=== PATIENT | male | born 1955 | race African-American/Black ===

== ENCOUNTER 2018-11-28 16:04 | Inpatient (IN) | payer OTHER ==
--- OUTSIDE RECORDS SUMMARY | 2018-11-28 16:06 | XMS REPORT ---
:1955 [facility] Address [address] [place] [address] Dr. Tello [address] [place] [id number] Care Team Providers Name Role Phone Unavailable Unavailable Unavailable Problems This patient has no known problems. Allergies, Adverse Reactions, Alerts This patient has no known allergies or adverse reactions. Medications This patient has no known medications.
[2018-11-28] MEDS ORDERED: FENTANYL CITR 100 MCG/2 ML ONE (16:47)
[2018-11-28] MEDS ORDERED: ONDANSETRON 4 MG/2 ML VIAL ONE (16:48)
[2018-11-28 16:50] LABS: Absolute Lymphocytes (CBC) 2.4 K/uL (0.7-4.9); Absolute Monocytes 0.9 K/uL (0.1-1.3); Absolute Neutrophil 8.3 K/uL (1.8-8.0); Basophils % 0.4 % (0-1.3); Eosinophils % 0.3 % (0-4.4); Hematocrit 52.2 % (39.6-49.0); Lymphocytes % 20.8 % (15.3-44.8); MPV 8.3 fL (7.6-11.3); Monocytes % 7.4 % (3.3-12.3); RBC Red Blood Cell Count 5.58 M/uL (4.33-5.43)
--- NOTE | 2018-11-28 16:54 | RAD REPORT ---
EXAM DESCRIPTION: CT - Head Brain Wo Cont - 11/28/2018 4:44 pm CLINICAL HISTORY: HEADACHE COMPARISON: No comparisons TECHNIQUE: All CT scans are performed using dose optimization technique as appropriate and may inclu de automated exposure control or mA/KV adjustment according to patient size. FINDINGS: No intracranial hemorrhage, hydrocephalus or extra-axial fluid collection.No areas of brai n edema or evidence of midline shift. The paranasal sinuses and mastoids are clear. The calvarium is intact. IMPRESSION: No acute intracranial abnormality.
[2018-11-28 16:55] LABS: Protime INR 1.01
--- NOTE | 2018-11-28 17:00 | RAD REPORT ---
EXAM DESCRIPTION: RAD - Chest Single View - 11/28/2018 4:55 pm CLINICAL HISTORY: CHEST PAIN Chest pain. COMPARISON: No comparisons FINDINGS: Portable technique limits examination quality. The lungs are grossly clear. The heart is normal in size. No displaced fractures. IMPRESSION: No acute intrathoracic process suspected.
[2018-11-28 17:12] LABS: ALT/SGPT 51 U/L (12-78); AST/SGOT 30 U/L (15-37); Albumin 4.4 g/dL (3.4-5.0); Alkaline Phosphatase 104 U/L (45-117); BUN Blood Urea Nitrogen 18 mg/dL (7-18); Bicarbonate 29 mmol/L (21-32); Bilirubin Direct 0.1 mg/dL (0-0.2); Bilirubin Total 0.3 mg/dL (0.2-1.0); Glucose Level 106 mg/dL (74-106); NT PRO-BNP 45 pg/mL (<125); Potassium 3.4 mmol/L (3.5-5.1); Protein, Total 8.8 g/dL (6.4-8.2); Sodium Level 137 mmol/L (136-145); Troponin (Emerg Dept Use Only) < 0.02 ng/mL (0.0-0.045)
[2018-11-28] MEDS ORDERED: DIPHENHYDRAMINE 50 MG/ML VIAL ONE (17:31)
[2018-11-28] MEDS ORDERED: METOCLOPRAMIDE 10 MG/2mL INJ ONE (17:31)
--- NOTE | 2018-11-28 18:30 | RAD REPORT ---
EXAM DESCRIPTION: MRI - MRA Head Wo Cont - 11/28/2018 6:07 pm CLINICAL HISTORY: r/o aneurysm Headache, drowsiness, left-sided visual difficulty. COMPARISON: Head Brain Wo Cont dated 11/28/2018; Brain Wo Cont dated 11/28/2018 FINDINGS: 3D noncontrast [id number] MR angiography of the [place] was performed. No aneurysm, flow-limiting stenosis or vascular malformation is seen. Left-sided dominant vertebral a rtery is seen. The right vertebral artery appears very diminutive. origin of the right posterio r communicating artery seen, normal variant. Trifurcation of the anterior cerebral artery also noted, normal variant. The visualized dural venous sinuses appear patent. IMPRESSION: No significant flow abnormality of the [place] is identified.
[2018-11-28] MEDS ORDERED: HYDROMORPHONE HCL 1 MG/ML INJ ONE (19:31)
--- NOTE | 2018-11-28 21:09 | EDPHYS ---
Physician Documentation [facility] Name: Maynor Marquez Age: 63 yrs Sex: Male : 1955 Arrival Date: 11/28/2018 Time: 16:09 Bed 2 Private MD: ED Physician Chin Cristobal HPI: 11/28 18:56 This 63 yrs old Black Male presents to ER via Wheelchair with complaints of Headache. jr8 18:57 The patient complains of pain to the forehead and left eye. The patient describes the jr8 headache as throbbing. Onset: The symptoms/episode began/occurred acutely, suddenly. Associated signs and symptoms: Pertinent positives: nausea, Photophobia double vision, visual field changes. Severity of symptoms: At its worst the pain was severe, in the emergency department the pain is unchanged. Headache History: The patient has had previous headaches and this one is different than previous episodes, and this one is more severe than previous episodes. The symptoms are alleviated by nothing. the symptoms are aggravated by lights, movement, noise, stress. The patient has not experienced similar symptoms in the past. The patient has been recently seen by a physician:. Patient had MRI ordered today by neurologist. Came to ED after having MRI for sudden onset severe headache . Historical: - Allergies: 16:12 Lisinopril; ph - PMHx: 16:12 Hypertension; Migraines; ph - Immunization history:: Adult Immunizations up to date. - Social history:: Smoking status: Patient/guardian denies using tobacco. - Ebola Screening: : No symptoms or risks identified at this time. ROS: 18:57 Eyes: Negative for injury, pain, redness, and discharge, ENT: Negative for injury, jr8 pain, and discharge, Neck: Negative for injury, pain, and swelling, Cardiovascular: Negative for chest pain, palpitations, and edema, Respiratory: Negative for shortness of breath, cough, wheezing, and pleuritic chest pain, Abdomen/GI: Negative for abdominal pain, nausea, vomiting, diarrhea, and constipation, Back: Negative for injury and pain, MS/Extremity: Negative for injury and deformity, Skin: Negative for injury, rash, and discoloration. 18:57 Neuro: Positive for headache. Exam: 18:57 Eyes: Pupils equal round and reactive to light, extra-ocular motions intact. Lids and jr8 lashes normal. Conjunctiva and sclera are non-icteric and not injected. Cornea within normal limits. Periorbital areas with no swelling, redness, or edema. ENT: Nares patent. No nasal discharge, no septal abnormalities noted. Tympanic membranes are normal and external auditory canals are clear. Oropharynx with no redness, swelling, or masses, exudates, or evidence of obstruction, uvula midline. Mucous membranes moist. Neck: Trachea midline, no thyromegaly or masses palpated, and no cervical lymphadenopathy. Supple, full range of motion without nuchal rigidity, or vertebral point tenderness. No Meningismus. Cardiovascular: Regular rate and rhythm with a normal S1 and S2. No gallops, murmurs, or rubs. Normal PMI, no JVD. No pulse deficits. Respiratory: Lungs have equal breath sounds bilaterally, clear to auscultation and percussion. No rales, rhonchi or wheezes noted. No increased work of breathing, no retractions or nasal flaring. Abdomen/GI: Soft, non-tender, with normal bowel sounds. No distension or tympany. No guarding or rebound. No evidence of tenderness throughout. Back: No spinal tenderness. No costovertebral tenderness. Full range of motion. Skin: Warm, dry with normal turgor. Normal color with no rashes, no lesions, and no evidence of cellulitis. MS/ Extremity: Pulses equal, no cyanosis. Neurovascular intact. Full, normal range of motion. Neuro: Awake and alert, GCS 15, oriented to person, place, time, and situation. Cranial nerves II-XII grossly intact. Motor strength 5/5 in all extremities. Sensory grossly intact. Cerebellar exam normal. Normal gait. Vital Signs: 16:12 BP 146 / 107; Pulse 65; Resp 18; Pulse Ox 100% on R/A; Weight 97.98 kg; Height 5 ft. 11 ph in. (180.34 cm); Pain 10/10; 16:30 BP 150 / 98; Pulse 72; Resp 20; Pulse Ox 100% ; sv 17:00 BP 148 / 117; Pulse 68; Resp 19; Pulse Ox 98% ; sv 17:30 BP 160 / 90; Pulse 59; Resp 19; Pulse Ox 99% ; sv 18:24 BP 173 / 92; Pulse 53; Resp 14; Pulse Ox 100% ; sv 18:45 BP 153 / 89; Pulse 51; Resp 16; Pulse Ox 100% ; sv 19:30 BP 163 / 105; Pulse 51; Resp 18; Temp 97.9(O); Pulse Ox 100% on R/A; oe 19:50 BP 158 / 97; Pulse 50; Resp 14; Temp 97.9; Pulse Ox 97% on R/A; ak1 20:45 BP 163 / 91; Pulse 52; Resp 14; Pulse Ox 97% on R/A; ak1 22:10 BP 123 / 73; Pulse 58; Resp 16; Temp 98.3; Pulse Ox 99% on R/A; ak1 16:12 Body Mass Index 30.13 (97.98 kg, 180.34 cm) ph MDM: 16:17 Patient medically screened. [facility] 21:06 Data reviewed: vital signs, nurses notes. ED course: pt still with hickey despite gs treatment, dr owens says admit give valproic acid will see in room. studies reviewed.. 11/28 16:18 Order name: Basic Metabolic Panel; Complete Time: 18:51 11/28 16:18 Order name: CBC with Diff; Complete Time: 17:05 11/28 16:18 Order name: LFT's; Complete Time: 18:51 11/28 16:18 Order name: Magnesium; Complete Time: 18:51 11/28 16:18 Order name: NT PRO-BNP; Complete Time: 18:51 11/28 16:18 Order name: PT-INR; Complete Time: 17:05 11/28 16:18 Order name: Troponin (emerg Dept Use Only); Complete Time: 18:51 11/28 16:18 Order name: XRAY Chest (1 view); Complete Time: 17:05 11/28 16:18 Order name: CT Head Brain wo Cont; Complete Time: 17:05 11/28 17:15 Order name: MRA Head Wo Cont; Complete Time: 18:51 EDMS 11/28 16:18 Order name: EKG; Complete Time: 16:19 11/28 16:18 Order name: Cardiac monitoring; Complete Time: 17:16 11/28 16:18 Order name: EKG - Nurse/Tech; Complete Time: 17:16 jr8 03/14 16:18 Order name: IV Saline Lock; Complete Time: 17:16 [facility] 11/28 16:18 Order name: Labs collected and sent; Complete Time: 17:16 [facility] 11/28 16:18 Order name: O2 Per Protocol; Complete Time: 17:16 [facility] 11/28 16:18 Order name: O2 Sat Monitoring; Complete Time: 17:16 [facility] 11/28 21:18 Order name: CONS Physician Consult EDNC 11/28 21:18 Order name: Heart Healthy EDMS Administered Medications: 16:35 Drug: Zofran 4 mg Route: IVP; Site: left antecubital; sv 17:00 Follow up: Response: No adverse reaction sg 16:37 Drug: fentaNYL (PF) 50 mcg Route: IVP; Site: left antecubital; sv 17:00 Follow up: Response: No adverse reaction; Pain is unchanged, physician notified sg 17:20 Drug: Reglan 10 mg Route: IVP; Site: left antecubital; sg 17:30 Follow up: Response: No adverse reaction sv 17:20 Drug: Benadryl 25 mg Route: IVP; Site: left antecubital; sg 17:30 Follow up: Response: No adverse reaction sv 19:32 Drug: Dilaudid 1 mg Route: IVP; Site: left antecubital; ak1 22:11 Follow up: Response: No adverse reaction ak1 21:56 Not Given (Duplicate Order): Valproic Acid 1000 mg IV at calculated rate once over 60 gs mins; (mix in 100 mL NS) Disposition: 11/29 09:19 Co-signature as Attending Physician, Dominic Yadav MD I agree with the assessment and imelda plan of care. Disposition: 11/28/18 21:08 Hospitalization ordered by Franklin Sotelo for Observation. Preliminary diagnosis is Migraine without aura, intractable, with status migrainosus. - Bed requested for Telemetry/MedSurg (observation). - Status is Observation. ak1 - Condition is Stable. - Problem is new. - Symptoms are unchanged. UTI on Admission? No Signatures: Dispatcher [employer] EDNC Claudia Silva RN RN sv Webb, Martha, RN RN mw Gay, Steven, RN RN sg Anderson, Corey, MD MD cha Roszak, Josh, PA PA 8 Leila Santiago RN RN ak1 She Jeong RN RN CristobalChin MD MD gs Corrections: (The following items were deleted from the chart) 11/28 21:28 21:08 Hospitalization Ordered by Franklin Sotelo MD for Observation. Preliminary mw diagnosis is Migraine without aura, intractable, with status migrainosus. Bed requested for Telemetry/MedSurg (observation). Status is Observation. Condition is Stable. Problem is new. Symptoms are unchanged. UTI on Admission? No. gs 23:55 21:28 11/28/2018 21:08 Hospitalization Ordered by Franklin Sotelo MD for Observation. ak1 Preliminary diagnosis is Migraine without aura, intractable, with status migrainosus. Bed requested for Telemetry/MedSurg (observation). Status is Observation. Condition is Stable. Problem is new. Symptoms are unchanged. UTI on Admission? No. mw
--- NOTE | 2018-11-28 21:09 | ER ---
Nurse's Notes [facility] Name: Maynor Marquez Age: 63 yrs Sex: Male : 1955 Arrival Date: 11/28/2018 Time: 16:09 Bed 2 Private MD: Diagnosis: Migraine without aura, intractable, with status migrainosus Presentation: 11/28 16:09 Presenting complaint: Patient states: Was in MRI for outpatient study r/t vision ph problems, during test pt began to c/o pain in L arm pain, severe headache in L side of head, and loss of vision in L eye, reports hx of migraines but states that this pain is much worse. Transition of care: MRI. Onset of symptoms was November 28, 2018. Risk Assessment: Do you want to hurt yourself or someone else? Patient reports no desire to harm self or others. Initial Sepsis Screen: Does the patient meet any 2 criteria? No. Patient's initial sepsis screen is negative. Does the patient have a suspected source of infection? No. Patient's initial sepsis screen is negative. Care prior to arrival: None. 16:09 Method Of Arrival: Wheelchair ph 16:09 Acuity: MARCUS 2 ph Historical: - Allergies: 16:12 Lisinopril; ph - PMHx: 16:12 Hypertension; Migraines; ph - Immunization history:: Adult Immunizations up to date. - Social history:: Smoking status: Patient/guardian denies using tobacco. - Ebola Screening: : No symptoms or risks identified at this time. Screenin:32 Abuse screen: Denies threats or abuse. Denies injuries from another. Nutritional sv screening: No deficits noted. Tuberculosis screening: No symptoms or risk factors identified. Fall Risk None identified. Assessment: 16:32 General: Appears in no apparent distress. uncomfortable, well groomed, well developed, sv Behavior is cooperative, appropriate for age, restless. Pain: Complains of pain in face and scalp Pain currently is 10 out of 10 on a pain scale. Is continuous. Neuro: Level of Consciousness is awake, alert, obeys commands, Oriented to person, place, time, situation, Moves all extremities. Full function Gait is steady, Reports migraine for weeks. Respiratory: Respiratory effort is Respiratory pattern is regular, symmetrical. Derm: Skin is pink, warm \T\ dry. Musculoskeletal: Range of motion: intact in all extremities. 16:55 Reassessment: Patient appears in no apparent distress at this time. No changes from sv previously documented assessment. Patient and/or family updated on plan of care and expected duration. Pain level reassessed. Patient is alert, oriented x 3, equal unlabored respirations, skin warm/dry/pink. 17:20 Reassessment: Patient appears in no apparent distress at this time. No changes from sv previously documented assessment. Patient and/or family updated on plan of care and expected duration. Pain level reassessed. Patient is alert, oriented x 3, equal unlabored respirations, skin warm/dry/pink. 20:44 Reassessment: Patient appears in no apparent distress at this time. No changes from ak1 previously documented assessment. Patient and/or family updated on plan of care and expected duration. Pain level reassessed. Patient is alert, oriented x 3, equal unlabored respirations, skin warm/dry/pink. pt given choice to go home and try medication prescribed by Dr. Yanez or stay overnight per consult by Dr. Cristobal with Dr. Yanez, pt chooses to stay. Dr. Cristobal notified. Patient states symptoms have improved. 22:10 Reassessment: Patient and/or family updated on plan of care and expected duration. Pain ak1 level reassessed. Patient is alert, oriented x 3, equal unlabored respirations, skin warm/dry/pink. pt continues to c/o headache. Vital Signs: 16:12 BP 146 / 107; Pulse 65; Resp 18; Pulse Ox 100% on R/A; Weight 97.98 kg; Height 5 ft. 11 ph in. (180.34 cm); Pain 10/10; 16:30 BP 150 / 98; Pulse 72; Resp 20; Pulse Ox 100% ; sv 17:00 BP 148 / 117; Pulse 68; Resp 19; Pulse Ox 98% ; sv 17:30 BP 160 / 90; Pulse 59; Resp 19; Pulse Ox 99% ; sv 18:24 BP 173 / 92; Pulse 53; Resp 14; Pulse Ox 100% ; sv 18:45 BP 153 / 89; Pulse 51; Resp 16; Pulse Ox 100% ; sv 19:30 BP 163 / 105; Pulse 51; Resp 18; Temp 97.9(O); Pulse Ox 100% on R/A; oe 19:50 BP 158 / 97; Pulse 50; Resp 14; Temp 97.9; Pulse Ox 97% on R/A; ak1 20:45 BP 163 / 91; Pulse 52; Resp 14; Pulse Ox 97% on R/A; ak1 22:10 BP 123 / 73; Pulse 58; Resp 16; Temp 98.3; Pulse Ox 99% on R/A; ak1 16:12 Body Mass Index 30.13 (97.98 kg, 180.34 cm) ED Course: 16:09 Patient arrived in ED. tw3 16:11 Triage completed. ph 16:13 Arm band placed on Patient placed in an exam room. ph 16:17 Jaavn Chisholm [facility]. jr8 16:17 Dominic Yadav MD is Attending Physician. jr8 16:24 Missed attempt(s): 20 gauge in right forearm. Bleeding controlled, band aid applied, dh3 catheter tip intact. 16:25 Claudia Silva RN is Primary Nurse. sv 16:32 Patient has correct armband on for positive identification. Bed in low position. Call sv light in reach. Adult w/ patient. nurse monitoring on. Pulse ox on. NIBP on. Door closed. Head of bed elevated. 16:32 EKG done, by injection maintenance technician. reviewed by Javan PITTS. 3 16:33 Initial lab(s) drawn, by ky, sent to lab. Inserted saline lock: 18 gauge in left sv antecubital area, using aseptic technique. Blood collected. Flushed left antecubital with 5 ml normal saline. 16:[address] via wheelchair. vm2 16:42 CT completed. Patient moved back from CT. vm2 16:44 CT Head Brain wo Cont In Process Unspecified. EDMS 16:49 X-ray completed. Portable x-ray completed in exam room. Patient tolerated procedure ml well. 16:54 XRAY Chest (1 view) In Process Unspecified. EDMS 18:07 MRA Head Wo Cont In Process Unspecified. EDMS 19:07 Attending Physician role handed off by Dominic Yadav MD jr8 19:07 Chin Cristobal MD is Attending Physician. jr8 19:13 Report given to Leila RN and Enedelia RN. sv 19:52 Primary Nurse role handed off by Claudia Silva, SALENA sv 20:44 Krenek, Leila, RN is Primary Nurse. ak1 21:07 Franklin Sotelo MD is Hospitalizing Provider. gs 21:57 No provider procedures requiring assistance completed. Patient admitted, IV remains in ak1 place. Administered Medications: 16:35 Drug: Zofran 4 mg Route: IVP; Site: left antecubital; sv 17:00 Follow up: Response: No adverse reaction sg 16:37 Drug: fentaNYL (PF) 50 mcg Route: IVP; Site: left antecubital; sv 17:00 Follow up: Response: No adverse reaction; Pain is unchanged, physician notified sg 17:20 Drug: Reglan 10 mg Route: IVP; Site: left antecubital; sg 17:30 Follow up: Response: No adverse reaction sv 17:20 Drug: Benadryl 25 mg Route: IVP; Site: left antecubital; sg 17:30 Follow up: Response: No adverse reaction sv 19:32 Drug: Dilaudid 1 mg Route: IVP; Site: left antecubital; ak1 22:11 Follow up: Response: No adverse reaction ak1 21:56 Not Given (Duplicate Order): Valproic Acid 1000 mg IV at calculated rate once over 60 gs mins; (mix in 100 mL NS) Outcome: 21:08 Decision to Hospitalize by Provider. gs 21:58 Condition: good ak1 21:58 Instructed on the need for admit. 23:28 Admitted to Med/surg accompanied by tech, via wheelchair, room 222, with chart, Report ak1 called to Krupa 23:55 Patient left the ED. ak1 Signatures: Dispatcher [employer] EDClaudia Ewing RN RN Aris Moyer RN RN sg Lopez, Melissa ml Roszak, Josh, PA PA jr8 Leila Santiago, SALENA MARTINO [facility] She Jeong RN Lew Green ph, Tia 3 Freya Dias [place] Georgina Hayes 3 Chin Cristobal MD MD Natalie Pitts 3
[2018-11-28] MEDS ORDERED: VALPROATE NA 500 MG/5 ML INJ IV ONE ×2 (21:56→23:04)
[2018-11-28] MEDS ORDERED: VALPROATE SODIUM INJ 1,000 MG in NA CHLORIDE 0.9% 100 ML IV SCH (22:00)
[2018-11-28] MEDS ORDERED: NA CHLORIDE 0.9% 0 ML IV ONE (22:04)
[2018-11-28] MEDS ORDERED: NA CHLORIDE 0.9% 100 ML IV ONE (23:05)
[2018-11-29] MEDS ORDERED: DEXAMETHASONE 10 MG/ML VIAL IV ONE (01:21)
[2018-11-29] MEDS ORDERED: DEXAMETHASONE 4 MG/ML VIAL ONE (02:30)
[2018-11-29] MEDS ORDERED: Magnesium Sulfate 2gm IVPB 2 G/50 ML BAG IV ONE (03:06)
[2018-11-29] MEDS ORDERED: PROMETHAZINE 25 MG/ML VIAL IV ONE ×2 (07:34→18:00)
[2018-11-29 07:49] LABS: Magnesium 2.6 mg/dL (1.8-2.4)
[2018-11-29] MEDS: NA CHLORIDE 0.9% 1,000 ML IV SCH ×2 (08:01→20:59)
[2018-11-29] MEDS: INDOMETHACIN 25 MG CAP PO SCH ×4 (08:05→20:58)
[2018-11-29] MEDS: TOPIRAMATE 25 MG TAB PO SCH ×3 (08:05→20:58)
[2018-11-29] MEDS ORDERED: POTASSIUM CL SA 10 MEQ TAB PO ONE ×3 (13:45→20:32)
[2018-11-29] MEDS: ACETAMINOPHEN 500 MG TAB PO PRN (15:59)
--- NOTE | 2018-11-29 17:50 | HP ---
Date of Admission: 11/28/2018 History Of Present Illness: A 63-year-old male who is complained for about at least a week of migrai ne headache, mainly on the left side behind his left eye. He failed outpatient treatment after using narcotics and also anti-inflammatory medicines. The patient went yesterday to the emergency room. He had migraine headache, intractable, and he was admitted for that. The patient describes nausea, o ccasional vomiting, and photophobia. Light bothers him a lot. No other complaints. Review of Systems: Neurological: As above. Gastrointestinal: As above. Cardiovascular: No complaints. Respiratory: No complaints. Genitourinary: No complaints. Skeletomuscular: No complaints. Neurological: As above. Past Medical History: 1.History of migraine. 2.Hypertension. Social History: No smoking, alcohol, or drug abuse history. Family History: Noncontributing. Medications: Include lisinopril 20 mg p.o. daily. Allergies: NO KNOWN DRUG ALLERGIES. Physical Examination: Vital Signs: Blood pressure 135/85, pulse 54, temperature 98. Heart: Regular rate and rhythm. Chest: Clear to auscultation. Abdomen: Soft, nontender. No hepatosplenomegaly. Bowel sounds are normoactive. Extremities: No edema. No cyanosis. Peripheral pulses are felt. Neurologic: Alert, oriented, nonfocal. Grossly intact. Imaging: Chest x-ray, no acute pathology. Head CT, no acute pathology. Brain MRI and MRA, no acute pathology and no vascular problems. Laboratory Data: White cell count 11.7, hemoglobin 17.7, hematocrit 52.2. Chemistry; potassium 3.4, BUN 18, and creatinine 1.53, magnesium 2.6. Assessment/plan: Migraine headache, intractable. Failed outpatient treatment. The patient is being admitted. We will consult Neurology and have started him on Topamax 50 mg p.o. b.i.d. and indometha brea 50 mg p.o. t.i.d., and IV Decadron 10 mg was given in the emergency room 1 dose, and put him on I V fluids 75 cc an hour of normal saline. Pending Neurology input. Continue current treatment. Look orders for details. MFS/MODL Voice ID: [id number]
[2018-11-29 20:24] LABS: Phosphorus 1.8 mg/dL (2.5-4.9); Potassium 3.9 mmol/L (3.5-5.1)
[2018-11-29] MEDS ORDERED: DIPHENHYDRAMINE 50 MG/ML VIAL IV ONE (21:17)
[2018-11-29] MEDS ORDERED: THIAMINE 200 MG/2 ML INJ IVP ONE (21:30)
[2018-11-29] MEDS ORDERED: levETIRAcetam 500 MG in NA CHLORIDE 0.9% 100 ML IV SCH (21:30)
[2018-11-29] MEDS: POTASS/SODIUM PHOSPHATE 1 PKT POWD.PACK PO SCH ×2 (22:24→23:32)
[2018-11-29] MEDS ORDERED: LEVETIRACETAM 500 MG/5 ML VIAL IV ONE (22:28)
[2018-11-29] MEDS ORDERED: NA CHLORIDE 0.9% 100 ML ONE (22:29)
[2018-11-29] MEDS ORDERED: ZOLPIDEM TARTRATE 10 MG TABLET PO ONE (23:39)
--- NOTE | 2018-11-30 02:15 | CON ---
Date of Consultation: 11/29/2018 Time: 2119. Reason: Headache. History: A 63-year-old gentleman with a history of hypertension and a history of migraine headaches. About 3 weeks ago, he developed headache that now has become unremitting. He was at [facility] earlier this week. CT scan of the brain normal. Seen, treated, released. I had seen him 2 years ago for some neck and shoulder pain. He came to the office yesterday with a pr ominent intractable headache with intermittent diplopia. Urgent brain imaging, brain MRI was normal. Labs were normal. Slight elevation in white count 11. Creatinine slightly elevated as well. Topa max was started but before he could take any, the patient continued to notice diplopia so presented t o the emergency department where he was found to have significant headache, tried with a loading dose of Depakote and Decadron, but the patient states that the Depakote made the headache worse. He was given some magnesium last night with some relief of the symptom complex. This morning, started on IV fluids, Phenergan, and Indocin as well as topiramate and did have some improvement in the overall sy mptom complex. MRA of the brain demonstrates no evidence of aneurysm. There is a slightly diminutiv e vertebral artery on the right. Seems to be left vertebral dominant. The patient did have some imp rovement this afternoon, but by this evening again significant headache with photophobia, phonophobia , and nausea. He appears somewhat uncomfortable, but vitals are stable. Sedimentation rate was norm al. EEG was normal. Consultation was requested. Past Medical History: As alluded to. Medications: Routinely he is on omeprazole, Norvasc, allopurinol, and hydrochlorothiazide. Allergies: NONE. Social History: Does drink. Normally independent with activities of daily living although he is on disability for chronic back pain. Review of Systems: General: Headache. Eyes: Diplopia. Ears, Nose, Throat: Negative. Cardiovascular: Hypertension. Pulmonary: Negative. GI: Nausea. : Negative. Musculoskeletal: Chronic back pain. Neurologic: As noted. Psychiatric: Negative. Endocrine: Negative. Hematologic: Negative. Physical Examination: Vital Signs: 98.2, 87, 15, 137/67. General: He is a pleasant gentleman lying in bed, in no distress. Awake, alert, or iented. HEENT: Pupils reactive. Slight dysconjugate gaze at rest. Bilateral esophoria. Ocular motion full . Subjective diplopia, worse on neutral mid gaze. Facial strength and sensation normal. Tongue pro trudes evenly. Soft palate elevates symmetrically bilaterally. Neck: Supple. Neurologic: Extremity strength full. Sensation intact. Reflexes 1/4 symmetric. Toes are downgoing . Cerebellar exam demonstrates no ataxia. Pertinent Laboratory Data: As noted brain MRI is normal. MRA brain normal. Chest x-ray clear. Sed imentation rate 9. White count 11.7 today, likely will go up tomorrow seeing that he received the De cadron. Depakote level was 44. B12 normal 557. Thyroid normal 0.8. Liver function tests normal. Creatinine 1.5. 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 Plan: Continue the topiramate. Add IV thiamine. Add Seroquel 50 mg at night. Check an VALERIE level a nd an FRACISCO, and a carotid Doppler to at least evaluate for carotid dissection causing the headache [place] seems much less likely. Primary goal is to get him enough relief so that he can go home on ora l medications. Thank you for the consult. We will continue to follow with you. ADRIEN/PRICILLA Voice ID: [id number] Report ID: [id number]
[2018-11-30] MEDS: PANTOPRAZOLE 40MG TABLET PO SCH (05:21)
[2018-11-30 06:48] LABS: Absolute Lymphocytes (CBC) 2.1 K/uL (0.7-4.9); Absolute Monocytes 1.1 K/uL (0.1-1.3); Absolute Neutrophil 12.2 K/uL (1.8-8.0); Basophils % 0.2 % (0-1.3); Eosinophils % 0.1 % (0-4.4); Hematocrit 47.3 % (39.6-49.0); Lymphocytes % 13.6 % (15.3-44.8); MPV 8.8 fL (7.6-11.3); Monocytes % 7.3 % (3.3-12.3); RBC Red Blood Cell Count 5.05 M/uL (4.33-5.43)
[2018-11-30 07:00] LABS: Phosphorus 3.2 mg/dL (2.5-4.9); Potassium 4.1 mmol/L (3.5-5.1)
[2018-11-30] MEDS ORDERED: INDOMETHACIN 25 MG CAP PO SCH (09:00)
[2018-11-30] MEDS ORDERED: DIPHENHYDRAMINE 50 MG/ML VIAL IV ONE (09:36)
[2018-11-30] MEDS: AMLODIPINE 5 MG TAB PO SCH (09:41)
[2018-11-30] MEDS: THIAMINE 200 MG/2 ML INJ IVP SCH (09:41)
[2018-11-30] MEDS: TOPIRAMATE 25 MG TAB PO SCH ×2 (09:41→20:18)
[2018-11-30] MEDS: ALLOPURINOL 100 MG TAB PO SCH (09:41)
[2018-11-30] MEDS: hydroCHLOROthiazide 25 MG TAB PO SCH (09:42)
[2018-11-30] MEDS ORDERED: levETIRAcetam 500 MG in NA CHLORIDE 0.9% 100 ML IV ONE (10:00)
[2018-11-30] MEDS ORDERED: DIPHENHYDRAMINE 50 MG/ML VIAL ONE (10:03)
[2018-11-30] MEDS: NA CHLORIDE 0.9% 1,000 ML IV SCH ×2 (10:40→13:20)
--- NOTE | 2018-11-30 11:25 | RAD REPORT ---
EXAM DESCRIPTION: US - CP - 11/29/2018 11:36 pm CLINICAL HISTORY: headache, ptosis Headache, CVA COMPARISON: MRA Head Wo Cont dated 11/28/2018 TECHNIQUE: Real-time sonographic evaluation of both carotid systems was performed. Doppler interroga tion was performed with waveform tracing bilaterally. FINDINGS: Normal high resistance waveforms are noted in both external carotid arteries. The common c arotid arteries and internal carotid arteries show normal low resistance waveforms. Mild intimal thickening is present bilaterally. No significant atheromatous plaquing. Peak systolic a nd end diastolic velocity values and the ICA/CCA ratios are in the non-hemodynamically significant ra nge. The right vertebral artery is not well seen. Normal left vertebral artery for flow. IMPRESSION: No significant atherosclerotic changes noted. Mild bilateral intimal thickening noted. No evidence of a hemodynamically significant stenosis.
[2018-11-30] MEDS ORDERED: PROMETHAZINE 25 MG/ML VIAL IV ONE (12:04)
[2018-11-30] MEDS ORDERED: PROMETHAZINE 25 MG TABLET PO PRN (12:14)
--- NOTE | 2018-11-30 16:21 | PN ---
Subjective: The patient is still having headache Vital Signs: Blood pressure 120/65, pulse 52, temperature 97.2. Heart: Regular rate and rhythm. Chest: Clear to auscultation. Abdomen: Soft. Benign. Neurologic: Alert, oriented, nonfocal. Grossly intact. Laboratory Data: White cell count 15.5, hemoglobin 16.2, hematocrit 47.3, platelets 215, chloride 108, BUN 22, creatinine 1.30. Rest of chemistry is noted. Assessment/plan: Intractable migraine, trying to becontrolled now by current medication. Appreciate Dr. Yanez's recommendations. We will follow his recommendations. I think the patient will be ready to be discharged whenever it is okay with Dr. Yanez. and headache resolves The patient had a carotid ultrasound, had MRA of the head without contrast showed no significant changes, and had carotid ultrasound, which showed no significant hemodynamic stenosis. We will continue current treatment and discharge as per Dr. Yanez. MFS/MODL Voice ID: [id number] Report ID: [id number] MTDD
--- NOTE | 2018-11-30 16:42 | PN ---
Date of Progress Note: 11/30/2018 Time Seen: 1210. Reason: Headache. Interval History: The patient did get some relief last night. He has much better ocular motion toda y. Ophthalmoplegia is improving/resolved at present. Still having quite a bit of headache with naus ea. Labs reviewed. Creatinine is improved, down to 1.3. White count is 15,000, but he did receive steroids. Physical Examination: Vital Signs: 97.2, 52, 121/64. General: He is awake, alert, oriented. HEENT: Pupils reactive. No ptosis. Ocular motion full today. Neck: Supple. Extremities: Strength full. Sensation intact. Reflexes 1/4. Toes are downgoing. Pertinent Laboratory Data: Carotid Doppler: No dissection. No stenosis. Telemetry has demonstrated some PVCs. EKG in the ER was a sinus rhythm with a QTc of 438. Impression: Status migrainosus. Plan: Can again give Phenergan IV and we will schedule some p.o. Check an RPR, acetylcholine recept or antibody. Repeat sed rate and CRP in the morning. Check magnesium level in the morning. Stop th e Indocin. Continue Seroquel at night and IV Keppra. If we cannot get the headache to improve and h e continues to have intermittent ophthalmoplegia, may need to pursue CSF analysis. We will continue to follow with you. ADRIEN/PRICILLA Voice ID: [id number] Report ID: [id number]
[2018-11-30] MEDS: QUETIAPINE 25 MG TAB PO SCH (20:18)
[2018-11-30] MEDS: levETIRAcetam 500 MG in NA CHLORIDE 0.9% 100 ML IV SCH (20:18)
[2018-11-30] MEDS: DIPHENHYDRAMINE 50 MG/ML VIAL IV SCH (20:19)
[2018-11-30] MEDS: ACETAMINOPHEN 500 MG TAB PO PRN (22:51)
[2018-11-30] MEDS: ZOLPIDEM TARTRATE 5 MG TABLET PO PRN (23:36)
[2018-12-01] MEDS: NA CHLORIDE 0.9% 1,000 ML IV SCH ×3 (00:24→21:37)
[2018-12-01] MEDS: PANTOPRAZOLE 40MG TABLET PO SCH (05:31)
[2018-12-01] MEDS: ACETAMINOPHEN 500 MG TAB PO PRN (05:31)
[2018-12-01 06:45] LABS: RPR Titer ND
[2018-12-01 07:02] LABS: C-Reactive Protein < 2.90 mg/L (<3.00); Magnesium 2.2 mg/dL (1.8-2.4)
[2018-12-01] MEDS: hydroCHLOROthiazide 25 MG TAB PO SCH (09:20)
[2018-12-01] MEDS: ALLOPURINOL 100 MG TAB PO SCH (09:20)
[2018-12-01] MEDS: AMLODIPINE 5 MG TAB PO SCH (09:20)
[2018-12-01] MEDS: TOPIRAMATE 25 MG TAB PO SCH (09:20)
[2018-12-01] MEDS: THIAMINE 200 MG/2 ML INJ IVP SCH (09:20)
[2018-12-01] MEDS: levETIRAcetam 500 MG in NA CHLORIDE 0.9% 100 ML IV SCH (09:59)
--- NOTE | 2018-12-01 12:26 | EKG ---
Test Date: 2018-11-30 Test Time: 16:56:39 Capability Lead: JON MEASUREMENT RESULTS: Intervals: Rate: 62 FL: 148 QRSD: 126 QT: 448 QTc: 454 [place]: P: 38 FL: 148 QRS: -3 T: 38 INTERPRETIVE STATEMENTS: Normal sinus rhythm Nonspecific intraventricular block Abnormal ECG Compared to ECG 11/28/2018 16:26:40 Right bundle-branch block no longer present Electronically Signed On 12-01-18 12:24:26 CDT by Seamus Malcolm
[2018-12-01] MEDS: NAPROXEN 250 MG TAB PO PRN ×2 (13:03→21:33)
[2018-12-01] MEDS ORDERED: LORazepam 2 MG/ML VIAL IV ONE (13:49)
--- NOTE | 2018-12-01 16:11 | PN ---
Date of Progress Note: 12/01/2018 Time Seen: 1330. Reason: Intractable migraine. Interval History: The patient is a little better today, still complaining of headache. EKG from yes terday, QTc 454. I think we have to be cautious about adding additional agents that might prolong QT like amitriptyline or Reglan. Repeat sedimentation rate, CRP, still normal. There is really no matt dence of inflammatory disorder. Magnesium 2.2. Additional studies pending. The patient is still co mplaining of headache. We recommended CSF analysis. After reviewing risks, benefits, side effects w ith the patient, he declined to have that performed. We will increase the Topamax. The patient is a nxious. We will add some IV lorazepam and Naprosyn as needed. Change the Keppra to p.o. at night. Physical Examination: He is awake, alert, oriented. Not confused. No ptosis. Ocular motion full. Lundy full. Extremit y strength full. Sensation intact. Reflexes 1/4. Toes are downgoing. Cerebellar exam demonstrates no ataxia. Impression: Status migrainosus. Plan: Continue to titrate oral medications. I do not think we are going to get complete resolution of headache at this admission. Reviewed that with the patient. We will continue to follow with you. ADRIEN/PRICILLA Voice ID: [id number] Report ID: [id number]
--- NOTE | 2018-12-01 17:20 | PN ---
Subjective: The patient is still having headache, same behind his left ear. He rates it about 6 to 7/10. Sometimes it eases off, but then it comes back to that level. No other complaint. Objective: Vital Signs: Blood pressure 130/85, pulse 80, temperature 97.4. Heart: Regular rate and rhythm. Chest: Clear to auscultation. Abdomen: Soft, benign. Neurologic: Alert, oriented. Grossly intact. Extremities: No edema. No cyanosis. Assessment And Plan: Intractable status migrainous. Plan per Dr. Yanez is to check other labs and a lso consider doing lumbar puncture and study the CSF. Meanwhile to continue current treatment and we will follow up his recommendations. MFS/MODL Voice ID: [id number] Report ID: [id number]
[2018-12-01] MEDS ORDERED: levETIRAcetam 500 MG TAB PO SCH (21:00)
[2018-12-01 21:24] LABS: RPR (Rapid Plasma Reagin) NON-REACT (NON-REACT)
[2018-12-01] MEDS: DIPHENHYDRAMINE 50 MG/ML VIAL IV SCH (21:33)
[2018-12-01] MEDS: ZOLPIDEM TARTRATE 5 MG TABLET PO PRN (21:34)
[2018-12-01] MEDS: QUETIAPINE 25 MG TAB PO SCH (21:34)
[2018-12-01] MEDS: TOPIRAMATE 100 MG TAB PO SCH (21:37)
[2018-12-02] MEDS: NA CHLORIDE 0.9% 1,000 ML IV SCH (01:33)
[2018-12-02] MEDS: ACETAMINOPHEN 500 MG TAB PO PRN (01:34)
[2018-12-02] MEDS: NAPROXEN 250 MG TAB PO PRN (05:37)
[2018-12-02] MEDS: PANTOPRAZOLE 40MG TABLET PO SCH (05:38)
[2018-12-02 06:38] LABS: Absolute Lymphocytes (CBC) 2.9 K/uL (0.7-4.9); Absolute Monocytes 0.8 K/uL (0.1-1.3); Absolute Neutrophil 3.9 K/uL (1.8-8.0); Basophils % 0.6 % (0-1.3); Hematocrit 45.6 % (39.6-49.0); Lymphocytes % 37.3 % (15.3-44.8); MPV 9.2 fL (7.6-11.3); Monocytes % 10.1 % (3.3-12.3); RBC Red Blood Cell Count 4.83 M/uL (4.33-5.43)
[2018-12-02 06:59] LABS: Potassium 3.8 mmol/L (3.5-5.1)
[2018-12-02] MEDS ORDERED: POTASSIUM CL SA 10 MEQ TAB PO ONE (08:06)
[2018-12-02] MEDS: AMLODIPINE 5 MG TAB PO SCH (10:06)
[2018-12-02] MEDS: TOPIRAMATE 100 MG TAB PO SCH (10:07)
[2018-12-02] MEDS: hydroCHLOROthiazide 25 MG TAB PO SCH (10:07)
[2018-12-02] MEDS: ALLOPURINOL 100 MG TAB PO SCH (10:07)
[2018-12-02] MEDS: THIAMINE 200 MG/2 ML INJ IVP SCH (10:08)
--- NOTE | 2018-12-02 11:33 | EEG ---
CHART: [id number] TEST ID#: [id number] DATE OF STUDY: 11/29/18 THE EEG WAS RECORDED PORTABLE IN THE PATIENTS ROOM ON A 17 CHANNEL MACHINE. ELECTRODES WERE APPLIED IN THE USUAL MANNER USING THE INTERNATIONAL 10-20 SYSTEM. THE WAKING BACKGROUND RHYTHM IN THIS RECORD CONSISTS OF FAIRLY WELL DEVELOPED AND FAIRLY WELL ORGANIZED WAVES OF UP TO 10 HZ., MAXIMAL IN THE POSTERIOR HEAD REGIONS WHICH ATTENUATE NORMALLY WITH EYE OPENING. IN DROWSINESS THE BACKGROUND DROPS TO 9 HZ. THERE ARE NO FOCAL OR LATERALIZING FEATURES. NO EPILEPTIFORM ACTIVITY APPEARS. SLEEP DID NOT OCCUR. HYPERVENTILATION WAS NOT PREFORMED. PHOTIC STIMULATION PRODUCED FAIR DRIVING BILATERALLY. IMPRESSION: NORMAL EEG FOR THE AGE OF THE PATIENT IN WAKE AND DROWSINESS.
--- NOTE | 2018-12-02 12:16 | EKG ---
Test Date: 2018-12-02 Test Time: 08:47:32 Slide Forming Machine Operator: RAFAEL MEASUREMENT RESULTS: Intervals: Rate: 54 CA: 150 QRSD: 124 QT: 454 QTc: 430 [place]: P: 38 CA: 150 QRS: 55 T: 34 INTERPRETIVE STATEMENTS: Sinus bradycardia Right bundle branch block Abnormal ECG Compared to ECG 11/30/2018 16:56:39 Right bundle-branch block now present Sinus rhythm no longer present Electronically Signed On 12-02-18 12:15:33 CDT by Destin Pappas
--- NOTE | 2018-12-03 11:19 | DS ---
Date of Discharge: 12/02/2018 Subjective: A 63-year-old male with history of migraine, admitted because of status migrainosus from his headache, failed outpatient treatment. Past Medical History: As per admit note. Social History: As per admit note. Family History: As per admit note. Medications: As per admit note. Allergies: PER ADMIT NOTE. Physical Examination: As per admit note. Diagnostic Data: As per admit note. Hospital Course: The patient was admitted to the hospital, and he was put on Keppra, Naprosyn, Seroq uel, and thiamine with consultation for Dr. Yanez on that. The patient's dosage had to be changed. He had to be monitored on tele. Gradually, his headaches started to lessen. Today, he has minimal h eadache. He is feeling well. Dr. Yanez did MRI and carotid ultrasound; those were nonrevealing. He offered the patient to do a lumbar puncture, and study the CSF, and the patient refused. At this po int, I think he could be managed with oral medications, and if it is okay with Dr. Yanez, to be disch arged. Look discharge orders for details. MFS/MODL Voice ID: [id number] Report ID: [id number]
== END 2018-12-02 14:22 | disposition home or self-care (01) | DRG 103 ==
LOC: ER 16:04 → ERHOLD 21:15 → 2ND 23:28 → OBSVTOIN 11-30 16:22
PROVIDERS: ADMIT Internal Medicine; ATTEND Internal Medicine
DX: G43.011 Migraine without aura, intractable, with status migrainosus (principal); I10 Essential (primary) hypertension; H53.2 Diplopia; G43.B1 Ophthalmoplegic migraine, intractable
CPT/HCPCS: 36415; 70450; 70544; 70551; 71045; 80048; 80053; 80076; 80164; 82164; 82607; 83735; 83880; 84100; 84132; 84238; 84443; 84484; 85025; 85610; 85652; 86038; 86140; 86592; 93005; 93880; 95819; 96374; 96375; 99285; G0378; J1100; J1170; J1953; J2405; J2550; J2765; J3010; J3411; J3475; J7030

== ENCOUNTER 2019-03-01 22:02 | Emergency (ER) | payer OTHER ==
--- OUTSIDE RECORDS SUMMARY | 2019-03-01 22:04 | XMS REPORT ---
:1955 [facility] Address [address] [place] [address] Dr. Tello [address] [place] [address] Care Team Providers Name Role Phone Unavailable Unavailable Unavailable Problems This patient has no known problems. Allergies, Adverse Reactions, Alerts This patient has no known allergies or adverse reactions. Medications This patient has no known medications.
--- NOTE | 2019-03-01 22:53 | ER ---
Nurse's Notes [facility] Name: Maynor Marquez Age: 63 yrs Sex: Male : 1955 Arrival Date: 03/01/2019 Time: 22:07 Bed 30 Private MD: Franklin Sotelo F Diagnosis: Strain of muscle, fascia and tendon at neck level;Superficial injury of head;Fall on same level from slipping, tripping and stumbling Presentation: 03/01 22:18 Presenting complaint: Patient states: I slipped in the shower and my right fifth toe la1 injured. Transition of care: patient was not received from another setting of care. Onset of symptoms was March 01, 2019. Risk Assessment: Do you want to hurt yourself or someone else? Patient reports no desire to harm self or others. Initial Sepsis Screen: Does the patient meet any 2 criteria? No. Patient's initial sepsis screen is negative. Does the patient have a suspected source of infection? No. Patient's initial sepsis screen is negative. Care prior to arrival: None. 22:18 Method Of Arrival: Ambulatory la1 22:18 Acuity: MARCUS 4 la1 Historical: - Allergies: 22:22 Lisinopril; la1 - PMHx: 22:22 Hypertension; Migraines; la1 - Immunization history:: Adult Immunizations up to date. - Social history:: Smoking status: Patient/guardian denies using tobacco. - Ebola Screening: : No symptoms or risks identified at this time. Screenin:23 Abuse screen: Denies threats or abuse. Nutritional screening: No deficits noted. la1 Tuberculosis screening: No symptoms or risk factors identified. Fall Risk None identified. Assessment: 22:23 General: Appears in no apparent distress. uncomfortable, Behavior is calm, cooperative. la1 Pain: Complains of pain in right fifth toe. Neuro: Level of Consciousness is awake, alert, obeys commands. Cardiovascular: Capillary refill < 3 seconds Patient's skin is warm and dry. Respiratory: Airway is patent Respiratory effort is even, unlabored. GI: No signs and/or symptoms were reported involving the gastrointestinal system. : No signs and/or symptoms were reported regarding the genitourinary system. Musculoskeletal: Circulation, motion, and sensation intact. Capillary refill < 3 seconds. Vital Signs: 22:21 BP 157 / 100; Pulse 85; Resp 16; Temp 98.1; Pulse Ox 100% ; lt1 ED Course: 22:07 Patient arrived in ED. es 22:08 Franklin Sotelo MD is Private Physician. es 22:09 Zoey He FNP-C [facility]. snw 22:09 Dominic Yadav MD is Attending Physician. snw 22:17 Wilian Alvarez RN is Primary Nurse. la1 22:22 Triage completed. la1 22:22 Arm band placed on left wrist. la1 22:24 Call light in reach. Side rails up X 1. la1 22:40 Foot Right 3 View XRAY In Process Unspecified. EDMS 22:51 Franklin Sotelo MD is Referral Physician. snw 23:22 No provider procedures requiring assistance completed. Patient did not have IV access la1 during this emergency room visit. Administered Medications: 22:58 Drug: Valium 2 mg Route: PO; la1 23:12 Follow up: Response: No adverse reaction; Pain is decreased la1 23:14 Follow up: Response: No adverse reaction; Marked relief of symptoms mg2 22:58 Drug: Daphne 5 mg-325 mg 1 tabs Route: PO; la1 23:12 Follow up: Response: No adverse reaction; Pain is decreased la1 23:13 Follow up: Response: No adverse reaction; Marked relief of symptoms mg2 Outcome: 22:53 Discharge ordered by . snw 23:22 Discharged to home via wheelchair. la1 23:22 Condition: stable 23:22 Discharge instructions given to patient, Instructed on discharge instructions, follow up and referral plans. medication usage, Demonstrated understanding of instructions, follow-up care, medications, Prescriptions given X 1. 23:23 Patient left the ED. la1 Signatures: Dispatcher [employer] EDMS Zoey He FNP-C TITLE SPECIALIST-Csnw Yodit Ruby Wilian Alvarez RN RN la1 Narayan Block RN RN mg2 Colby, Sarah lt1
--- NOTE | 2019-03-01 22:53 | EDPHYS ---
Physician Documentation [facility] Name: Maynor Marquez Age: 63 yrs Sex: Male : 1955 Arrival Date: 03/01/2019 Time: 22:07 Bed 30 Private MD: Franklin Sotelo F ED Physician Dominic Yadav HPI: 03/01 22:56 This 63 yrs old Black Male presents to ER via Ambulatory with complaints of Toe Injury. snw 22:56 Onset: The symptoms/episode began/occurred suddenly, just prior to arrival. The patient snw has not experienced similar symptoms in the past. The patient has not recently seen a physician. Pt slipped getting in to shower and tried to step in quickly with right foot, struck right 5th toe on corner of shower. fell backward and bumped head, no LOC. Historical: - Allergies: 22:22 Lisinopril; la1 - PMHx: 22:22 Hypertension; Migraines; la1 - Immunization history:: Adult Immunizations up to date. - Social history:: Smoking status: Patient/guardian denies using tobacco. - Ebola Screening: : No symptoms or risks identified at this time. ROS: 22:56 Constitutional: Negative for fever, chills, and weight loss, Eyes: Negative for injury, snw pain, redness, and discharge, ENT: Negative for injury, pain, and discharge, Neck: Negative for injury, pain, and swelling, Cardiovascular: Negative for chest pain, palpitations, and edema, Respiratory: Negative for shortness of breath, cough, wheezing, and pleuritic chest pain, Abdomen/GI: Negative for abdominal pain, nausea, vomiting, diarrhea, and constipation, Back: Negative for injury and pain, : Negative for injury, bleeding, discharge, and swelling, Skin: Negative for injury, rash, and discoloration, Neuro: Negative for headache, weakness, numbness, tingling, and seizure. 22:56 MS/extremity: Positive for injury or acute deformity, of the right fifth toe. Exam: 22:55 Constitutional: This is a well developed, well nourished patient who is awake, alert, snw and in no acute distress. Head/Face: Normocephalic, atraumatic. Eyes: Pupils equal round and reactive to light, extra-ocular motions intact. Lids and lashes normal. Conjunctiva and sclera are non-icteric and not injected. Cornea within normal limits. Periorbital areas with no swelling, redness, or edema. ENT: Nares patent. No nasal discharge, no septal abnormalities noted. Tympanic membranes are normal and external auditory canals are clear. Oropharynx with no redness, swelling, or masses, exudates, or evidence of obstruction, uvula midline. Mucous membranes moist. Neck: Trachea midline, no thyromegaly or masses palpated, and no cervical lymphadenopathy. Supple, full range of motion without nuchal rigidity, or vertebral point tenderness. No Meningismus. Chest/axilla: Normal chest wall appearance and motion. Nontender with no deformity. No lesions are appreciated. Cardiovascular: Regular rate and rhythm with a normal S1 and S2. No gallops, murmurs, or rubs. Normal PMI, no JVD. No pulse deficits. Respiratory: Lungs have equal breath sounds bilaterally, clear to auscultation and percussion. No rales, rhonchi or wheezes noted. No increased work of breathing, no retractions or nasal flaring. Abdomen/GI: Soft, non-tender, with normal bowel sounds. No distension or tympany. No guarding or rebound. No evidence of tenderness throughout. Back: No spinal tenderness. No costovertebral tenderness. Full range of motion. Skin: Warm, dry with normal turgor. Normal color with no rashes, no lesions, and no evidence of cellulitis. Neuro: Awake and alert, GCS 15, oriented to person, place, time, and situation. Cranial nerves II-XII grossly intact. Motor strength 5/5 in all extremities. Sensory grossly intact. Cerebellar exam normal. Normal gait. Psych: Awake, alert, with orientation to person, place and time. Behavior, mood, and affect are within normal limits. 22:55 Musculoskeletal/extremity: Extremities: chronic injury to left ankle, right 5th toe tender and swollen, Circulation is intact in all extremities. Sensation intact. Vital Signs: 22:21 BP 157 / 100; Pulse 85; Resp 16; Temp 98.1; Pulse Ox 100% ; lt1 MDM: 22:16 Patient medically screened. snw 22:56 Data reviewed: vital signs, nurses notes. Data interpreted: Pulse oximetry: on room air snw is 100 %. Interpretation: normal. Counseling: I had a detailed discussion with the patient and/or guardian regarding: the historical points, exam findings, and any diagnostic results supporting the discharge/admit diagnosis, radiology results, the need for outpatient follow up, to return to the emergency department if symptoms worsen or persist or if there are any questions or concerns that arise at home. Special discussion: I have referred the patient to see his PCP for further evaluation of high blood pressure. Based on the history and exam findings, there is no indication for further emergent testing or inpatient evaluation. I discussed with the patient/guardian the need to see the manpower development specialist for further evaluation of the symptoms. I discussed with the patient/guardian the need to see the primary care provider for further evaluation of the symptoms. 03/01 22:17 Order name: Foot Right 3 View XRAY la1 03/01 22:55 Order name: Post-op Orthopedic Shoe; Complete Time: 23:14 snw 03/01 22:55 Order name: [facility]. Order: rodrigue tape 4th and 5th right toe with coban; Complete Time: snw 23:14 Administered Medications: 22:58 Drug: Valium 2 mg Route: PO; la1 23:12 Follow up: Response: No adverse reaction; Pain is decreased la1 23:14 Follow up: Response: No adverse reaction; Marked relief of symptoms mg2 22:58 Drug: Hoven 5 mg-325 mg 1 tabs Route: PO; la1 23:12 Follow up: Response: No adverse reaction; Pain is decreased la1 23:13 Follow up: Response: No adverse reaction; Marked relief of symptoms mg2 Disposition: 03/01/19 22:53 Discharged to Home. Impression: Strain of muscle, fascia and tendon at neck level, Superficial injury of head, Fall on same level from slipping, tripping and stumbling. - Condition is Stable. - Discharge Instructions: Head Injury, Adult, Fall Prevention in the Home, RICE for Routine Care of Injuries, Toe Fracture. - Prescriptions for Tramadol 50 mg Oral Tablet - take 1 tablet by ORAL route every 8 hours as needed; 12 tablet. - Medication Reconciliation Form, Thank You Letter, Antibiotic Education, Prescription Opioid Use form. - Follow up: Franklin Sotelo MD; When: 2 - 3 days; Reason: Recheck today's complaints, Continuance of care, Re-evaluation by your physician. Follow up: Emergency Department; When: As needed; Reason: Worsening of condition. Addendum: 03/03/2019 07:44 Co-signature as Attending Physician, Dominic Yadav MD I agree with the assessment and c hickey plan of care. Signatures: Dispatcher [employer] Dominic Lai MD MD cha Therrien, Shelly, DIE CAST TECHNICIAN-C DIE CAST TECHNICIAN-Csnw Wilian Alvarez RN RN la1 Narayan Block RN mg2 Corrections: (The following items were deleted from the chart) 03/01 23:23 22:53 03/01/2019 22:53 Discharged to Home. Impression: Strain of muscle, fascia and la1 tendon at neck level; Superficial injury of head; Fall on same level from slipping, tripping and stumbling. Condition is Stable. Forms are Medication Reconciliation Form, Thank You Letter, Antibiotic Education, Prescription Opioid Use. Follow up: Franklin Sotelo; When: 2 - 3 days; Reason: Recheck today's complaints, Continuance of care, Re-evaluation by your physician. Follow up: Emergency Department; When: As needed; Reason: Worsening of condition. snw
[2019-03-01] MEDS ORDERED: HYDROCODONE/APAP 5/325 MG TAB ONE (23:11)
[2019-03-01] MEDS ORDERED: DIAZEPAM 2 MG TABLET ONE (23:12)
--- NOTE | 2019-03-02 00:03 | RAD REPORT ---
EXAM DESCRIPTION: RAD - Foot Right 3 View - 03/01/2019 10:39 pm CLINICAL HISTORY: Right foot pain status post injury FINDINGS: Mildly to moderately displaced fracture involves the fifth proximal phalanx. Angulation is present at the fracture site. No dislocation
== END 2019-03-01 23:23 | disposition home or self-care (01) ==
LOC: ER 22:02
DX: M79.674 Pain in right toe(s) (principal); S16.1XXA Strain of muscle, fascia and tendon at neck level, initial encounter; S00.90XA Unspecified superficial injury of unspecified part of head, initial encounter; W18.2XXA Fall in (into) shower or empty bathtub, initial encounter; I10 Essential (primary) hypertension
CPT/HCPCS: 99283

== ENCOUNTER 2019-05-30 16:50 | Emergency (ER) | payer OTHER ==
--- OUTSIDE RECORDS SUMMARY | 2019-05-30 16:53 | XMS REPORT ---
:1955 [facility] Address [address] [place] [address] Dr. Tello [address] [place] [id number] Care Team Providers Name Role Phone Unavailable Unavailable Unavailable Problems This patient has no known problems. Allergies, Adverse Reactions, Alerts This patient has no known allergies or adverse reactions. Medications This patient has no known medications.
[2019-05-30] MEDS ORDERED: NA CHLORIDE 0.9% 1,000 ML ONE (17:27)
[2019-05-30] MEDS ORDERED: MORPHINE 4 MG/ML SYR ONE ×2 (17:27→19:24)
[2019-05-30] MEDS ORDERED: ONDANSETRON 4 MG/2 ML VIAL ONE (17:27)
[2019-05-30 17:33] LABS: Absolute Lymphocytes (CBC) 2.2 K/uL (0.7-4.9); Basophils % 0.4 % (0-1.3); Hematocrit 48.7 % (39.6-49.0); Lymphocytes % 28.6 % (15.3-44.8); MPV 8.9 fL (7.6-11.3); RBC Red Blood Cell Count 5.21 M/uL (4.33-5.43)
[2019-05-30 18:05] LABS: Urine Bacteria <20 /HPF (NONE SEEN); Urine Culture Reflex Order NOT NEEDED; Urine RBC <5 /HPF (NONE SEEN)
[2019-05-30 18:05] LABS: Urine Blood NEGATIVE (NEG); Urine Glucose NEGATIVE (NEG); Urine Protein NEGATIVE (NEG); Urine pH 5.5 (5.0-7.0)
[2019-05-30 19:40] LABS: Albumin 3.6 g/dL (3.4-5.0); Bilirubin Direct 0.1 mg/dL (0-0.2); Bilirubin Total 0.2 mg/dL (0.2-1.0); Potassium 3.5 mmol/L (3.5-5.1)
--- NOTE | 2019-05-30 20:02 | RAD REPORT ---
EXAM DESCRIPTION: CTAbdomen Pelvis W Contrast - 05/30/2019 7:53 pm CLINICAL HISTORY: Abdominal pain. Left side abdominal pain COMPARISON: <Comparisons> TECHNIQUE: Biphasic CT imaging of the abdomen and pelvis was performed with 100 ml non-ionic IV cont rast. All CT scans are performed using dose optimization technique as appropriate and may include automated exposure control or mA/KV adjustment according to patient size. FINDINGS: The lung bases are clear.Moderate axial hiatal hernia. The liver, spleen, pancreas, adrenal glands and left kidney are within normal limits. Several areas o f cortical scarring present right kidney. No bowel obstruction, free air, free fluid or abscess. Appendectomy. Sigmoid diverticulosis is prese nt without diverticulitis. No evidence of significant lymphadenopathy. No suspicious bony findings. IMPRESSION: No acute intra-abdominal or pelvic finding. Sigmoid diverticulosis without diverticulitis.
[2019-05-30] MEDS ORDERED: CIPROFLOXACIN HCL 500 MG TAB ONE (21:18)
[2019-05-30] MEDS ORDERED: DICYCLOMINE HCL 10 MG CAP ONE (21:18)
[2019-05-30] MEDS ORDERED: METRONIDAZOLE 500mg IVPB 500 MG/100 ML BAG IV ONE (21:18)
--- NOTE | 2019-05-30 21:20 | ER ---
Nurse's Notes [facility] Name: Maynor Marquez Age: 63 yrs Sex: Male : 1955 Arrival Date: 05/30/2019 Time: 16:53 Bed 6 Private MD: Franklin Sotelo F Diagnosis: Diverticulosis of large intestine without perforation or abscess without bleeding;Other abdominal pain-left side Presentation: 05/30 17:01 Presenting complaint: Intermittent LLQ pain that radiates to left flank and hb constipation x 2 weeks. Transition of care: patient was not received from another setting of care. Onset of symptoms was May 30, 2019. Risk Assessment: Do you want to hurt yourself or someone else? Patient reports no desire to harm self or others. Initial Sepsis Screen: Does the patient meet any 2 criteria? No. Patient's initial sepsis screen is negative. Does the patient have a suspected source of infection? No. Patient's initial sepsis screen is negative. Care prior to arrival: None. 17:01 Method Of Arrival: Ambulatory hb 17:01 Acuity: MARCUS 3 hb Historical: - Allergies: 17:02 Lisinopril; hb - PMHx: 17:02 Hypertension; Migraines; hb - Immunization history:: Last tetanus immunization:. - Social history:: Smoking status: Patient uses tobacco products, smokes one pack cigarettes per day. - Ebola Screening: : No symptoms or risks identified at this time. Screenin:20 Abuse screen: Denies threats or abuse. Denies injuries from another. Nutritional mg2 screening: No deficits noted. Tuberculosis screening: No symptoms or risk factors identified. Fall Risk IV access (20 points). Assessment: 17:21 General: Appears in no apparent distress. comfortable, Behavior is calm, cooperative. mg2 Pain: Complains of pain in abdomen Pain does not radiate. Pain currently is 8 out of 10 on a pain scale. Quality of pain is described as aching, Pain began gradually, 2 weeks now Is intermittent. Neuro: Level of Consciousness is awake, alert, obeys commands, Oriented to person, place, time, situation. Cardiovascular: Capillary refill < 3 seconds Patient's skin is warm and dry. Respiratory: Airway is patent Respiratory effort is even, unlabored, Respiratory pattern is regular, symmetrical. GI: Bowel sounds present X 4 quads. Abd is soft and non tender. : Reports pain in left flank(s). EENT: No signs and/or symptoms were reported regarding the EENT system. Derm: Skin is intact, is healthy with good turgor, Skin is pink, warm \T\ dry. normal. Musculoskeletal: Circulation, motion, and sensation intact. Capillary refill < 3 seconds. 21:24 Reassessment: patient up for discharge after completing iv antibiotic. mg2 Vital Signs: 17:01 BP 148 / 101; Pulse 64; Resp 16; Temp 98.9; Pulse Ox 95% on R/A; Weight 100.7 kg; hb Height 5 ft. 11 in. (180.34 cm); Pain 8/10; 19:11 BP 137 / 85; Pulse 66; Resp 18; Pulse Ox 100% on R/A; mg2 20:47 BP 155 / 106; Pulse 67; Resp 18; Pulse Ox 100% on R/A; mg2 17:01 Body Mass Index 30.96 (100.70 kg, 180.34 cm) hb ED Course: 16:53 Patient arrived in ED. am2 16:53 Franklin Sotelo MD is Private Physician. am2 17:01 Triage completed. hb 17:01 Arm band placed on. hb 17:03 Narayan Block, SALENA is Primary Nurse. mg2 17:05 Dominic Wolfe PA is PHCP. cp 17:06 Brady Ny MD is Attending Physician. cp 17:20 No provider procedures requiring assistance completed. Inserted saline lock: 20 gauge mg2 in right forearm, using aseptic technique. Blood collected. 17:22 Patient has correct armband on for positive identification. Pulse ox on. NIBP on. Door mg2 closed. Warm blanket given. 17:24 Radiology exam delayed due to lab results not completed at this time. ka 17:30 Urine collected: clean catch specimen, clear, jovita colored. jp3 17:42 Urine Dipstick--Ancillary (enter results) Sent. jp3 18:01 Radiology exam delayed due to lab results not completed at this time. (BUN/Creatinine). sj 18:43 Radiology exam delayed due to lab results not completed at this time. (BUN/Creatinine). nj 19:00 Radiology exam delayed due to lab results not completed at this time. (BUN/Creatinine). nj 19:25 Radiology exam delayed due to lab results not completed at this time. (BUN/Creatinine). 19:52 CT completed. Patient tolerated procedure well. Patient moved to CT via wheelchair. nj Patient moved back from CT. 19:54 CT Abd/Pelvis - IV Contrast Only In Process Unspecified. EDMS 20:27 Dominic Yadav MD is Attending Physician. cp 21:50 IV discontinued, intact, bleeding controlled, No redness/swelling at site. Pressure mg2 dressing applied. Administered Medications: 17:33 Drug: NS 0.9% 500 ml Route: IV; Rate: bolus; Site: right forearm; mg2 17:33 Drug: morphine 4 mg Route: IVP; Site: right forearm; mg2 21:18 Follow up: Response: No adverse reaction mg2 17:33 Drug: Zofran 4 mg Route: IVP; Site: right forearm; mg2 21:18 Follow up: Response: No adverse reaction; Marked relief of symptoms mg2 18:20 Drug: NS 0.9% 1000 ml Route: IV; Rate: 100 ml/hr; Site: right forearm; mg2 19:25 Drug: morphine 4 mg Route: IVP; Site: right antecubital; mg2 21:18 Follow up: Response: No adverse reaction; Marked relief of symptoms mg2 21:23 Drug: Bentyl 20 mg Route: PO; aa1 22:00 Follow up: Response: No adverse reaction mg2 21:24 Drug: Cipro 500 mg Route: PO; aa1 22:00 Follow up: Response: No adverse reaction mg2 21:24 Drug: metroNIDAZOLE 500 mg Volume: 100 ml; Route: IVPB; Infused Over: 30 mins; Site: aa1 right antecubital; 22:00 Follow up: Response: No adverse reaction; IV Status: Completed infusion mg2 21:24 Drug: TORadol 30 mg Route: IVP; Site: right forearm; mg2 22:00 Follow up: Response: No adverse reaction; Marked relief of symptoms mg2 Outcome: 21:19 Discharge ordered by . cp 21:53 Patient left the ED. aa1 21:53 Discharged to home ambulatory. mg2 21:53 Condition: stable 21:53 Discharge instructions given to patient, Instructed on discharge instructions, follow mg2 up and referral plans. medication usage, Demonstrated understanding of instructions, follow-up care, medications, Prescriptions given X Signatures: Dispatcher [employer] EDMS Rylie Reis RN RN aa1 Shayna Marquez Corey, PA PA cp Aguilera, Katelyn ka Baxter, Heather, RN RN Finn Kim Amanda am2 Narayan Block, SALENA RN mg2 Xavi Starr jp3
--- NOTE | 2019-05-30 21:21 | EDPHYS ---
Physician Documentation [facility] Name: Maynor Marquez Age: 63 yrs Sex: Male : 1955 Arrival Date: 05/30/2019 Time: 16:53 Bed 6 Private MD: Franklin Sotelo F ED Physician Dominic Yadav HPI: 05/30 17:21 This 63 yrs old Black Male presents to ER via Ambulatory with complaints of Abdominal cp Pain. 17:21 The patient presents with abdominal pain in the left upper quadrant, in the left lower cp quadrant. Onset: The symptoms/episode began/occurred 2 week(s) ago. 17:21 The symptoms radiate to the left flank. Associated signs and symptoms: Pertinent cp positives: constipation, Pertinent negatives: anorexia, blood in stools, chest pain, diarrhea, dysuria, fever, hematuria, shortness of breath, testicular pain, vomiting. 17:21 The symptoms are described as achy. Modifying factors: the symptoms are aggravated by cp movement, pressure. Severity of pain: in the emergency department the pain is unchanged despite home interventions. Historical: - Allergies: 17:02 Lisinopril; hb - PMHx: 17:02 Hypertension; Migraines; hb - Immunization history:: Last tetanus immunization:. - Social history:: Smoking status: Patient uses tobacco products, smokes one pack cigarettes per day. - Ebola Screening: : No symptoms or risks identified at this time. ROS: 17:30 Constitutional: Negative for body aches, chills, fever, poor PO intake. cp 17:30 Eyes: Negative for injury, pain, redness, and discharge. cp 17:30 ENT: Negative for drainage from ear(s), ear pain, sore throat, difficulty swallowing, difficulty handling secretions. 17:30 Cardiovascular: Negative for chest pain. 17:30 Respiratory: Negative for cough, shortness of breath, wheezing. 17:30 Abdomen/GI: Positive for abdominal pain, constipation, of the left lower quadrant, Negative for vomiting, diarrhea, black/tarry stool, rectal bleeding. 17:30 Back: Positive for flank pain, on the left. 17:30 : Negative for urinary symptoms, difficulty urinating, testicular pain 17:30 Skin: Negative for rash. 17:30 Neuro: Negative for altered mental status, headache, weakness. 17:30 All other systems are negative. Exam: 17:35 Head/Face: Normocephalic, atraumatic. cp 17:35 Constitutional: The patient appears in no acute distress, alert, awake, non-diaphoretic, non-toxic, well developed, well nourished, uncomfortable. 17:35 Eyes: Periorbital structures: appear normal, Conjunctiva: normal, no exudate, no injection, Sclera: no appreciated abnormality, Lids and lashes: appear normal, bilaterally. 17:35 ENT: External ear(s): are unremarkable, Nose: is normal, Mouth: is normal, Posterior cp pharynx: is normal, airway is patent, no erythema, no exudate. 17:35 Chest/axilla: Inspection: normal, Palpation: is normal, no crepitus, no tenderness. 17:35 Cardiovascular: Rate: normal, Rhythm: regular, Edema: is not appreciated, JVD: is not appreciated. 17:35 Respiratory: the patient does not display signs of respiratory distress, Respirations: normal, no use of accessory muscles, no retractions, no splinting, no tachypnea, labored breathing, is not present, Breath sounds: are clear throughout, no decreased breath sounds, no stridor, no wheezing. 17:35 Abdomen/GI: Inspection: scar(s), are noted in the midline mid to lower abdomen, Bowel sounds: active, all quadrants, Palpation: soft, in all quadrants, moderate abdominal tenderness, in the left upper quadrant and left lower quadrant, rebound tenderness, is not appreciated, voluntary guarding, is elicited in the left upper quadrant and left lower quadrant. 17:35 Back: CVA tenderness, is absent. 17:35 Skin: no rash present. 17:35 Neuro: Orientation: to person, place \T\ time. Mentation: is normal, Motor: moves all fours, strength is normal. Vital Signs: 17:01 BP 148 / 101; Pulse 64; Resp 16; Temp 98.9; Pulse Ox 95% on R/A; Weight 100.7 kg; hb Height 5 ft. 11 in. (180.34 cm); Pain 8/10; 19:11 BP 137 / 85; Pulse 66; Resp 18; Pulse Ox 100% on R/A; mg2 20:47 BP 155 / 106; Pulse 67; Resp 18; Pulse Ox 100% on R/A; mg2 17:01 Body Mass Index 30.96 (100.70 kg, 180.34 cm) hb MDM: 17:16 Patient medically screened. cp 18:00 Differential diagnosis: appendicitis, bowel obstruction, diverticulitis, gastritis, cp non-specific abd pain, pancreatitis, Pyelonephritis, Ureterolithiasis, urinary tract infection. 21:18 Data reviewed: vital signs, nurses notes, lab test result(s), radiologic studies, CT cp scan, I have discussed the patient's presentation/case with the attending Emergency Department Physician; and as a result, I will discharge patient. 21:18 Counseling: I had a detailed discussion with the patient and/or guardian regarding: the cp historical points, exam findings, and any diagnostic results supporting the discharge/admit diagnosis, lab results, radiology results, the need for outpatient follow up, a child support officer, to return to the emergency department if symptoms worsen or persist or if there are any questions or concerns that arise at home. Response to treatment: the patient's symptoms have markedly improved after treatment, and as a result, I will discharge patient. Special discussion: Based on the patient's Hx, exam, and Dx evaluation, there is no indication for emergent surgery or inpatient Tx. It is understood by the patient/guardian that if the Sx's persist or worsen they need to return immediately for re-evaluation. ED course: VSS> CT abdomen/pelvis shows diverticulosis, but will treat with oral antibiotics due to pain. Will discharge to home for continued monitoring. 05/30 17:04 Order name: Basic Metabolic Panel; Complete Time: 19:43 mg2 05/30 17:04 Order name: CBC with Diff; Complete Time: 19:43 mg2 05/30 17:04 Order name: Creatinine for Radiology; Complete Time: 19:43 mg2 05/30 17:04 Order name: Hepatic Function; Complete Time: 19:43 mg2 05/30 17:04 Order name: Lipase; Complete Time: 19:43 mg2 05/30 17:21 Order name: Urine Microscopic Only; Complete Time: 19:43 cp 05/30 17:21 Order name: CT Abd/Pelvis - IV Contrast Only; Complete Time: 20:23 cp 05/30 17:40 Order name: Urine Dipstick--Ancillary (enter results); Complete Time: 19:43 ms 05/30 17:04 Order name: IV Saline Lock; Complete Time: 17:20 mg2 05/30 17:04 Order name: Labs collected and sent; Complete Time: 17:20 mg2 05/30 17:21 Order name: Urine Dipstick-Ancillary (obtain specimen); Complete Time: 17:33 cp 05/30 18:53 Order name: Labs - recollect needed: green top; Complete Time: 19:25 aa5 05/30 20:26 Order name: PO challenge; Complete Time: 20:39 cp Administered Medications: 17:33 Drug: NS 0.9% 500 ml Route: IV; Rate: bolus; Site: right forearm; mg2 17:33 Drug: morphine 4 mg Route: IVP; Site: right forearm; mg2 21:18 Follow up: Response: No adverse reaction mg2 17:33 Drug: Zofran 4 mg Route: IVP; Site: right forearm; mg2 21:18 Follow up: Response: No adverse reaction; Marked relief of symptoms mg2 18:20 Drug: NS 0.9% 1000 ml Route: IV; Rate: 100 ml/hr; Site: right forearm; mg2 19:25 Drug: morphine 4 mg Route: IVP; Site: right antecubital; mg2 21:18 Follow up: Response: No adverse reaction; Marked relief of symptoms mg2 21:23 Drug: Bentyl 20 mg Route: PO; aa1 22:00 Follow up: Response: No adverse reaction mg2 21:24 Drug: Cipro 500 mg Route: PO; aa1 22:00 Follow up: Response: No adverse reaction mg2 21:24 Drug: metroNIDAZOLE 500 mg Volume: 100 ml; Route: IVPB; Infused Over: 30 mins; Site: aa1 right antecubital; 22:00 Follow up: Response: No adverse reaction; IV Status: Completed infusion mg2 21:24 Drug: TORadol 30 mg Route: IVP; Site: right forearm; mg2 22:00 Follow up: Response: No adverse reaction; Marked relief of symptoms mg2 Disposition: 05/30/19 21:19 Discharged to Home. Impression: Diverticulosis of large intestine without perforation or abscess without bleeding, Other abdominal pain - left side. - Condition is Stable. - Discharge Instructions: Abdominal Pain, Adult, High-Fiber Diet, Diverticulosis. - Prescriptions for Cipro 500 mg Oral Tablet - take 1 tablet by ORAL route every 12 hours for 10 days; 20 tablet. Metronidazole 500 mg Oral Tablet - take 1 tablet by ORAL route every 8 hours; 30 tablet. Bentyl 20 mg Oral Tablet - take 1 tablet by ORAL route every 6 hours As needed; 30 tablet. Zofran 4 mg Oral Tablet - take 1 tablet by ORAL route every 12 hours As needed; 20 tablet. - Medication Reconciliation Form, Thank You Letter, Antibiotic Education, Prescription Opioid Use form. - Follow up: Private Physician; When: primary child support officer; Reason: Recheck today's complaints, next 2-3 days. - Problem is new. - Symptoms have improved. Addendum: 06/02/2019 08:30 Co-signature as Attending Physician, Dominic Yadav MD I agree with the assessment and c hickey plan of care. Signatures: Dispatcher [employer] EDRylie Armas RN RN aa1 Dominic Yadav MD MD cha Calderon, Audri RN RN aa5 Dominic Wolfe PA PA cp Meenakshi Jean Baptiste, SALENA RN Narayan Block RN RN mg2 Corrections: (The following items were deleted from the chart) 05/30 21:53 21:19 05/30/2019 21:19 Discharged to Home. Impression: Diverticulosis of large aa1 intestine without perforation or abscess without bleeding; Other abdominal pain - left side. Condition is Stable. Forms are Medication Reconciliation Form, Thank You Letter, Antibiotic Education, Prescription Opioid Use. Follow up: Private Physician; When: primary child support officer; Reason: Recheck today's complaints, next 2-3 days. Problem is new. Symptoms have improved. cp 05/31 18:15 05/30 17:21 The symptoms do not radiate. cp cp
[2019-05-30] MEDS ORDERED: KETOROLAC 30 MG/ML INJ ONE (21:22)
[2019-05-30 22:15] VITALS: TEMP 98.9
[2019-05-30 22:17] VITALS: O2SAT 100
[2019-05-30 22:18] VITALS: BP 155/106
== END 2019-05-30 21:53 | disposition home or self-care (01) ==
LOC: ER 16:50
DX: K57.30 Diverticulosis of large intestine without perforation or abscess without bleeding (principal); I10 Essential (primary) hypertension; F17.210 Nicotine dependence, cigarettes, uncomplicated; Z88.8 Allergy status to other drugs, medicaments and biological substances
CPT/HCPCS: 85025; 80048; 36415; 80076; 83690; 74177; 99284; J7030; J2405; 81003; 81015

== ENCOUNTER 2019-11-07 10:36 | Emergency (ER) | payer OTHER ==
--- OUTSIDE RECORDS SUMMARY | 2019-11-07 10:49 | XMS REPORT ---
:1955 [facility] Address [address] [place] [address] Dr. Tello [address] [place] [id number] Care Team Providers Name Role Phone Unavailable Unavailable Unavailable Problems This patient has no known problems. Allergies, Adverse Reactions, Alerts This patient has no known allergies or adverse reactions. Medications This patient has no known medications.
--- NOTE | 2019-11-07 11:51 | RAD REPORT ---
EXAM DESCRIPTION: Nathalia Sandoval (2 Views)11/07/2019 11:42 am CLINICAL HISTORY: Cough COMPARISON: 2019 FINDINGS: Calcified granuloma left lung. The lungs appear clear of acute infiltrate. The heart is normal size IMPRESSION: No acute abnormalities displayed
[2019-11-07] MEDS ORDERED: HYDROCODONE/CHLORPHEN 5 ML/OSYR ONE (12:07)
[2019-11-07] MEDS ORDERED: ONDANSETRON 4 MG (ODT) TAB ONE (12:40)
--- NOTE | 2019-11-07 13:32 | EDPHYS ---
Physician Documentation [facility] Name: Maynor Marquez Age: 64 yrs Sex: Male : 1955 Arrival Date: 11/07/2019 Time: 10:37 Bed 25 Private MD: ED Physician De Miller HPI: 11/07 11:20 This 64 yrs old Black Male presents to ER via Ambulatory with complaints of Flu pm1 Symptoms. 11:20 The patient or guardian reports cough, flu symptoms, body aches, subjective fever, sore pm1 throat, headache, malaise, nausea and vomiting for the past 3 days. Tolerating fluids. Onset: The symptoms/episode began/occurred 1 week(s) ago. Severity of symptoms: in the emergency department the symptoms are unchanged. Modifying factors: The symptoms are alleviated by nothing, the symptoms are aggravated by nothing. Associated signs and symptoms: Associated signs and symptoms: Pertinent negatives: chest pain, shortness of breath, abdominal pain. The patient has not experienced similar symptoms in the past. Patient with friends and family who have been tested positive for the flu. Historical: - Allergies: 11:01 Lisinopril; hb - PMHx: 11: Hypertension; Migraines; hb - PSHx: 11:01 Back; hb - Immunization history:: Adult Immunizations up to date. - Coronavirus screen:: The patient has NOT traveled to [place] in the past 14 days. The patient has NOT had contact with known/suspected case of Coronavirus? Proceed with normal triage procedures. - Social history:: Smoking status: Patient reports the use of cigarette tobacco products, smokes one pack cigarettes per day. - Ebola Screening: : No symptoms or risks identified at this time. ROS: 11:20 Eyes: Negative for injury, pain, redness, and discharge, ENT: Negative for injury, pm1 pain, and discharge, Neck: Negative for injury, pain, and swelling, Cardiovascular: Negative for chest pain, palpitations, and edema. 11:20 Back: Negative for injury and pain, : Negative for injury, bleeding, discharge, and swelling, MS/Extremity: Negative for injury and deformity, Skin: Negative for injury, rash, and discoloration, Neuro: Negative for headache, weakness, numbness, tingling, and seizure. 11:20 Constitutional: Positive for body aches, fever, malaise, poor PO intake. 11:20 Respiratory: Positive for cough, Negative for shortness of breath, wheezing. 11:20 Abdomen/GI: Positive for nausea and vomiting, Negative for abdominal pain, diarrhea. Exam: 11:20 Constitutional: This is a well developed, well nourished patient who is awake, alert, pm1 and in no acute distress. Head/Face: Normocephalic, atraumatic. Neck: Trachea midline, no thyromegaly or masses palpated, and no cervical lymphadenopathy. Supple, full range of motion without nuchal rigidity, or vertebral point tenderness. No Meningismus. Chest/axilla: Normal chest wall appearance and motion. Nontender with no deformity. No lesions are appreciated. Cardiovascular: Regular rate and rhythm with a normal S1 and S2. No gallops, murmurs, or rubs. Normal PMI, no JVD. No pulse deficits. Respiratory: Lungs have equal breath sounds bilaterally, clear to auscultation and percussion. No rales, rhonchi or wheezes noted. No increased work of breathing, no retractions or nasal flaring. 11:20 Back: No spinal tenderness. No costovertebral tenderness. Full range of motion. Skin: Warm, dry with normal turgor. Normal color with no rashes, no lesions, and no evidence of cellulitis. MS/ Extremity: Pulses equal, no cyanosis. Neurovascular intact. Full, normal range of motion. 11:20 Abdomen/GI: Inspection: abdomen appears normal, Bowel sounds: normal, Palpation: abdomen is soft and non-tender, in all quadrants. 11:20 Neuro: Orientation: is normal, Motor: is normal, moves all fours, Gait: is steady, at a normal pace, without difficulty. Vital Signs: 10:59 BP 129 / 103; Pulse 97; Resp 16; Temp 100; Pulse Ox 98% on R/A; Weight 98.88 kg; Height hb 5 ft. 11 in. (180.34 cm); Pain 10/10; 10:59 Body Mass Index 30.40 (98.88 kg, 180.34 cm) hb MDM: 11:05 Patient medically screened. pm1 12:30 Refusal of service: The patient/guardian displays adequate decision making capability pm1 and despite a detailed discussion of alternatives, benefits, risks, and consequences refuses: Blood work and IV saline lock with IV fluids. 12:32 Data reviewed: vital signs. Data interpreted: Pulse oximetry: on room air is 98 %. pm1 Interpretation: normal. 13:29 Counseling: I had a detailed discussion with the patient and/or guardian regarding: the pm1 historical points, exam findings, and any diagnostic results supporting the discharge/admit diagnosis, lab results, radiology results, the need for outpatient follow up, to return to the emergency department if symptoms worsen or persist or if there are any questions or concerns that arise at home. 13:29 Refusal of service: The patient/guardian displays adequate decision making capability pm1 and despite a detailed discussion of alternatives, benefits, risks, and consequences refuses: CT Scan, all lab tests, Upon discussion of flu swab results and disposition, patient reports that his left lower quadrant is hurting and that he has a history of diverticulitis. Explained to the patient that we will need to get blood work and a CT scan and his response was "I don't have any pain then." Patient does not want to get an IV and blood work. Said that he will come back if his abdominal pain worsens. 11/07 11:18 Order name: Strep; Complete Time: 12:30 pm1 11/07 11:18 Order name: Flu pm1 11/07 11:18 Order name: Chest Pa And Lat (2 Views) XRAY; Complete Time: 12:33 pm1 11/07 12:27 Order name: Throat Culture EDMN 11/07 12:31 Order name: PO challenge; Complete Time: 12:38 pm1 Administered Medications: 12:04 Not Given (Patient Refused): NS 0.9% 1000 ml IV at 1000 ml once aj1 12:04 Not Given (Patient Refused): Zofran 4 mg IVP once; over 2 minutes aj1 12:04 Not Given (Patient Refused): TORadol - Ketorolac 15 mg IVP once aj1 12:04 Drug: Tussionex Pennkinetic ER 5 ml Route: PO; aj1 14:01 Follow up: Response: No adverse reaction; Marked relief of symptoms ls4 12:37 Drug: Zofran 4 mg Route: PO; aj1 14:01 Follow up: Response: No adverse reaction; Marked relief of symptoms ls4 Disposition: 14:19 Co-signature as Attending Physician, De Miller MD I agree with the assessment and kdr plan of care. Disposition: 11/07/19 13:30 Discharged to Home. Impression: Influenza due to identified novel influenza A virus, Nausea and vomiting. - Condition is Stable. - Discharge Instructions: Influenza, Adult. - Prescriptions for Guaifenesin AC 10- 100 mg/5 mL Oral Liquid - take 10 milliliter by ORAL route every 4 hours As needed; 240 milliliter. Zofran 4 mg Oral Tablet - take 1 tablet by ORAL route every 8 hours As needed; 20 tablet. - Medication Reconciliation Form, Thank You Letter, Antibiotic Education, Prescription Opioid Use form. - Follow up: Emergency Department; When: As needed; Reason: Worsening of condition. Follow up: Private Physician; When: 2 - 3 days; Reason: Recheck today's complaints, Continuance of care, Re-evaluation by your physician. - Problem is new. - Symptoms have improved. Signatures: Dispatcher [employer] EDMS Romana Jay RN RN aj1 De Miller MD MD [facility] Luis Miguel Dove NP SHIPPING POINT INSPECTOR pm1 Meenakshi Jean Baptiste RN RN Janis Rowe RN RN ls4 Corrections: (The following items were deleted from the chart) 12:04 11:18 IV Saline Lock ordered. pm1 aj1 13:31 13:30 11/07/2019 13:30 Discharged to Home. Impression: Influenza due to identified pm1 novel influenza A virus. Condition is Stable. Forms are Medication Reconciliation Form, Thank You Letter, Antibiotic Education, Prescription Opioid Use. Follow up: Emergency Department; When: As needed; Reason: Worsening of condition. Follow up: Private Physician; When: 2 - 3 days; Reason: Recheck today's complaints, Continuance of care, Re-evaluation by your physician. Problem is new. Symptoms have improved. pm1 14:03 13:31 11/07/2019 13:30 Discharged to Home. Impression: Influenza due to identified ls4 novel influenza A virus; Nausea and vomiting. Condition is Stable. Discharge Instructions: Influenza, Adult. Prescriptions for Guaifenesin AC 10-100 mg/5 mL Oral Liquid - take 10 milliliter by ORAL route every 4 hours As needed; 240 milliliter. and Forms are Medication Reconciliation Form, Thank You Letter, Antibiotic Education, Prescription Opioid Use. Follow up: Emergency Department; When: As needed; Reason: Worsening of condition. Follow up: Private Physician; When: 2 - 3 days; Reason: Recheck today's complaints, Continuance of care, Re-evaluation by your physician. Problem is new. Symptoms have improved. pm1
--- NOTE | 2019-11-07 13:32 | ER ---
Nurse's Notes [facility] [place], [place] Name: Maynor Marquez Age: 64 yrs Sex: Male : 1955 Arrival Date: 11/07/2019 Time: 10:37 Bed 25 Private MD: Diagnosis: Influenza due to identified novel influenza A virus;Nausea and vomiting Presentation: 11/07 10:58 Presenting complaint: Productive cough, malaise, body aches, fever, sore throat, hb headache, and N/V x 3 days. Tolerating small amount of fluids. Transition of care: patient was not received from another setting of care. Onset of symptoms was November 05, 2019. Risk Assessment: Do you want to hurt yourself or someone else? Patient reports no desire to harm self or others. Care prior to arrival: None. 10:58 Method Of Arrival: Ambulatory hb 10:58 Acuity: MARCUS 3 hb 13:54 Initial Sepsis Screen: Does the patient meet any 2 criteria? No. Patient's initial aj1 sepsis screen is negative. Does the patient have a suspected source of infection? Yes: Productive cough/pneumonia. Historical: - Allergies: 11:01 Lisinopril; hb - PMHx: 11:01 Hypertension; Migraines; hb - PSHx: 11:01 Back; hb - Immunization history:: Adult Immunizations up to date. - Coronavirus screen:: The patient has NOT traveled to [place] in the past 14 days. The patient has NOT had contact with known/suspected case of Coronavirus? Proceed with normal triage procedures. - Social history:: Smoking status: Patient reports the use of cigarette tobacco products, smokes one pack cigarettes per day. - Ebola Screening: : No symptoms or risks identified at this time. Screenin:05 Abuse screen: Denies threats or abuse. Denies injuries from another. Nutritional aj1 screening: No deficits noted. Tuberculosis screening: No symptoms or risk factors identified. 13:54 Fall Risk None identified. aj1 Assessment: 11:27 Reassessment: Patient transported to X-Ray via wheelchair. aj1 12:05 General: Appears in no apparent distress. uncomfortable, Behavior is calm, cooperative, aj1 appropriate for age. Pain: Denies pain. Neuro: Level of Consciousness is awake, alert, obeys commands, Oriented to person, place, time, situation. Cardiovascular: Patient's skin is warm and dry. Respiratory: Reports shortness of breath cough that is hacking, persistent Airway is patent Respiratory effort is even, unlabored, Respiratory pattern is regular, symmetrical, Breath sounds are clear bilaterally. GI: No signs and/or symptoms were reported involving the gastrointestinal system. : No signs and/or symptoms were reported regarding the genitourinary system. EENT: Reports nasal congestion nasal discharge. Derm: No signs and/or symptoms reported regarding the dermatologic system. Skin is pink, warm \T\ dry. normal. Musculoskeletal: No signs and/or symptoms reported regarding the musculoskeletal system. Circulation, motion, and sensation intact. 13:05 Reassessment: Patient appears in no apparent distress at this time. No changes from aj1 previously documented assessment. Patient and/or family updated on plan of care and expected duration. Pain level reassessed. Patient is alert, oriented x 3, equal unlabored respirations, skin warm/dry/pink. Vital Signs: 10:59 BP 129 / 103; Pulse 97; Resp 16; Temp 100; Pulse Ox 98% on R/A; Weight 98.88 kg; Height hb 5 ft. 11 in. (180.34 cm); Pain 10/10; 10:59 Body Mass Index 30.40 (98.88 kg, 180.34 cm) hb ED Course: 10:37 Patient arrived in ED. as 10:59 Triage completed. hb 10:59 Arm band placed on. hb 11:05 Luis Miguel Dove NP is PHCP. pm1 11:05 De Miller MD is Attending Physician. pm1 11:25 Romana Jay RN is Primary Nurse. aj1 11:48 Chest Pa And Lat (2 Views) XRAY In Process Unspecified. EDMS 12:03 Flu and/or RSV swab sent to lab. Strep swab sent to lab. lt1 12:04 Flu Sent. lt1 12:04 Strep Sent. lt1 12:05 Patient has correct armband on for positive identification. Bed in low position. Call aj1 light in reach. Side rails up X 1. 12:05 No provider procedures requiring assistance completed. aj1 13:53 Patient did not have IV access during this emergency room visit. aj1 14:01 Throat Culture Sent. ls4 Administered Medications: 12:04 Not Given (Patient Refused): NS 0.9% 1000 ml IV at 1000 ml once aj1 12:04 Not Given (Patient Refused): Zofran 4 mg IVP once; over 2 minutes aj1 12:04 Not Given (Patient Refused): TORadol - Ketorolac 15 mg IVP once aj1 12:04 Drug: Tussionex Pennkinetic ER 5 ml Route: PO; aj1 14:01 Follow up: Response: No adverse reaction; Marked relief of symptoms ls4 12:37 Drug: Zofran 4 mg Route: PO; aj1 14:01 Follow up: Response: No adverse reaction; Marked relief of symptoms ls4 Outcome: 13:30 Discharge ordered by MD. pm1 14:02 Discharged to home ambulatory, with family. ls4 14:02 Condition: stable 14:02 Discharge instructions given to patient, family, Instructed on discharge instructions, follow up and referral plans. medication usage, safety practices, Demonstrated understanding of instructions, follow-up care, medications, Prescriptions given X 2. 14:03 Patient left the ED. ls4 Signatures: Dispatcher [employer] EDRomana Blake RN RN aj1 Isabelle Veloz Patrick, CLAIRE MEDICAL OFFICE ASSISTANT INSTRUCTOR pm1 Meenakshi Jean Baptiste RN RN Jansi Rowe RN RN ls4 Sarah Colby [facility]
[2019-11-07 15:03] VITALS: BP 129/103; TEMP 100; O2SAT 98
== END 2019-11-07 14:03 | disposition home or self-care (01) ==
LOC: ER 10:36
DX: J09.X9 Influenza due to identified novel influenza A virus with other manifestations (principal); R11.2 Nausea with vomiting, unspecified; I10 Essential (primary) hypertension; F17.210 Nicotine dependence, cigarettes, uncomplicated
CPT/HCPCS: 71046; 87070; 87081; 87804; 99284

== ENCOUNTER 2019-12-02 20:20 | Observation (INO) | payer OTHER ==
--- OUTSIDE RECORDS SUMMARY | 2019-12-02 20:22 | XMS REPORT ---
:1955 [facility] Address [address] [place] [address] Dr. Tello [address] [place] [id number] Care Team Providers Name Role Phone Unavailable Unavailable Unavailable Problems This patient has no known problems. Allergies, Adverse Reactions, Alerts This patient has no known allergies or adverse reactions. Medications This patient has no known medications.
--- NOTE | 2019-12-02 21:09 | RAD REPORT ---
EXAM DESCRIPTION: RAD - Chest Single View - 12/02/2019 9:03 pm CLINICAL HISTORY: CHEST PAIN Chest pain. COMPARISON: Chest Pa And Lat (2 Views) dated 11/07/2019; Chest Single View dated 11/28/2018 FINDINGS: Portable technique limits examination quality. The lungs are grossly clear. The heart is normal in size. No displaced fractures. IMPRESSION: No acute intrathoracic process suspected.
[2019-12-02] MEDS ORDERED: NITROGLYCERIN 1 GM PKT TD ONE (21:22)
[2019-12-02 21:42] LABS: Protime INR 0.91
[2019-12-02 21:43] LABS: Absolute Lymphocytes (CBC) 2.9 K/uL (0.7-4.9); Basophils % 0.7 % (0-1.3); Hematocrit 46.6 % (39.6-49.0); MPV 8.3 fL (7.6-11.3); RBC Red Blood Cell Count 4.93 M/uL (4.33-5.43)
[2019-12-02 22:55] LABS: ALT/SGPT 66 U/L (12-78); AST/SGOT 53 U/L (15-37); Albumin 3.8 g/dL (3.4-5.0); Alkaline Phosphatase 110 U/L (45-117); BUN Blood Urea Nitrogen 11 mg/dL (7-18); Bicarbonate 29 mmol/L (21-32); Bilirubin Direct < 0.1 mg/dL (0-0.2); Bilirubin Total 0.2 mg/dL (0.2-1.0); Glucose Level 105 mg/dL (74-106); Magnesium 2.1 mg/dL (1.8-2.4); NT PRO-BNP 39 pg/mL (<125); Potassium 3.1 mmol/L (3.5-5.1); Protein, Total 7.7 g/dL (6.4-8.2); Sodium Level 137 mmol/L (136-145); Troponin (Emerg Dept Use Only) < 0.02 ng/mL (0.0-0.045)
[2019-12-02 23:05] LABS: Lipase 109 U/L (73-393)
--- NOTE | 2019-12-03 01:36 | ER ---
Nurse's Notes [facility] Name: Maynor Marquez Age: 64 yrs Sex: Male : 1955 Arrival Date: 12/02/2019 Time: 20:21 Bed 24 Private MD: Diagnosis: Angina pectoris, unspecified Presentation: 12/01 20:40 Chief complaint: Patient states: Chest pain x 3-4 days, today has gotten worse. Reports ca1 SOB, headache, nausea and dizziness. Denies cough and congestion, fever. Denies history of heart poblems. Coronavirus screen: The patient has NOT traveled to a country currently being monitored by the [facility] within the last 14 days. The patient has NOT had contact with any known and/or suspected case of coronavirus. Ebola Screen: Patient negative for fever greater than or equal to 101.5 degrees Fahrenheit, and additional compatible Ebola Virus Disease symptoms Patient denies exposure to infectious person. Patient denies travel to an Ebola-affected area in the 21 days before illness onset. No symptoms or risks identified at this time. Initial Sepsis Screen: Does the patient meet any 2 criteria? No. Patient's initial sepsis screen is negative. Does the patient have a suspected source of infection? No. Patient's initial sepsis screen is negative. Risk Assessment: Do you want to hurt yourself or someone else? Patient reports no desire to harm self or others. Onset of symptoms was December 02, 2019. 20:40 Method Of Arrival: Ambulatory ca1 20:40 Acuity: MARCUS 3 ca1 Historical: - Allergies: 20:42 Lisinopril; ca1 - PMHx: 20:42 Hypertension; Migraines; ca1 20:42 Diverticulitis; Pancreatitis; ca1 - PSHx: 20:42 Back; ca1 - Immunization history:: Adult Immunizations up to date, Flu vaccine is up to date. - Social history:: Smoking status: Patient reports the use of cigarette tobacco products, smokes one pack cigarettes per day. Screenin:00 Abuse screen: Denies threats or abuse. Nutritional screening: No deficits noted. vc Tuberculosis screening: No symptoms or risk factors identified. Fall Risk None identified. Assessment: 21:00 General: Appears in no apparent distress. uncomfortable, ill, well groomed, Behavior is vc calm, cooperative, appropriate for age. Pain: Complains of pain in chest and left upper quadrant Pain does not radiate. Pain began suddenly. Cardiovascular: Reports chest pain, diaphoresis, shortness of breath, patient diaphoretic at time of arrival, skin warm and dry within first 15 minutes. Respiratory: Airway is patent Respiratory effort is even, unlabored, Respiratory pattern is regular, symmetrical. GI: Reports upper abdominal pain, cramping. : No signs and/or symptoms were reported regarding the genitourinary system. 22:00 Reassessment: Patient and/or family updated on plan of care and expected duration. Pain vc level reassessed. Patient states symptoms have improved. 22:47 Reassessment: pt c/o burning pain to LLQ, Dr. Carney notified. iw 23:00 Reassessment: Patient and/or family updated on plan of care and expected duration. Pain vc level reassessed. Patient is alert, oriented x 3, equal unlabored respirations, skin warm/dry/pink. 23:56 Reassessment: Patient and/or family updated on plan of care and expected duration. Pain vc level reassessed. Patient is alert, oriented x 3, equal unlabored respirations, skin warm/dry/pink. Patient states symptoms have improved. no longer experiencing chest pain, now experiencing left lower quadrant abdominal pain. 12/02 01:45 Reassessment: pt c/o continued abd pain, Dr. Carney notified , verbal order for iw morphine 4 mg IVP and Zofran 4 mg IVP, given now. 02:40 Reassessment: Patient appears in no apparent distress at this time. Patient and/or iw family updated on plan of care and expected duration. Pain level reassessed. Patient is alert, oriented x 3, equal unlabored respirations, skin warm/dry/pink. Patient states feeling better. Patient states symptoms have improved. 04:00 Reassessment: Patient appears in no apparent distress at this time. Patient and/or jb4 family updated on plan of care and expected duration. Pain level reassessed. Patient is alert, oriented x 3, equal unlabored respirations, skin warm/dry/pink. explained to pt the need for admit, pt verbalized understanding of instructions and plan of care. reports being in pain, [facility]. Pt admitted to ER hold. Vital Signs: 12/01 20:40 BP 125 / 97; Pulse 80; Resp 17 S; Temp 98.3(TE); Pulse Ox 99% on R/A; Weight 97.98 kg ca1 (R); Height 5 ft. 11 in. (180.34 cm) (R); Pain 9/10; 22:00 BP 132 / 96; Pulse 71; Resp 14; Pulse Ox 99% on R/A; vc 23:00 BP 126 / 94; Pulse 67; Resp 14; Pulse Ox 99% on R/A; Pain 10/10; vc 23:45 BP 139 / 94; Pulse 60; Resp 16; Pulse Ox 99% on R/A; vc 12/02 02:30 BP 127 / 90; Pulse 68; Resp 16; Pulse Ox 97% on R/A; iw 03:45 BP 120 / 92; Pulse 72; Resp 18; Pulse Ox 98% on R/A; jb4 12/01 20:40 Body Mass Index 30.13 (97.98 kg, 180.34 cm) ca1 ED Course: 12/01 20:21 Patient arrived in ED. ag3 20:42 Triage completed. ca1 20:42 Arm band placed on right wrist. ca1 20:48 Marco Carney MD is Attending Physician. tw4 21:00 Patient has correct armband on for positive identification. Bed in low position. Call vc light in reach. monitor technician on. Pulse ox on. NIBP on. 21:03 XRAY Chest (1 view) In Process Unspecified. EDMS 21:14 Cristina Kenny RN is Primary Nurse. vc 21:50 Inserted saline lock: 20 gauge in right wrist, using aseptic technique. Blood collected.vc 23:08 Patient maintains SpO2 saturation greater than 95% on room air. Patient maintains SpO2 vc saturation greater than 95% on room air. 12/02 00:14 Primary Nurse role handed off by Cristina Kenny RN iw 00:14 Lauryn Montemayor, SAL[place] is Primary Nurse. iw 00:39 CT Abd/Pelvis - IV Contrast Only In Process Unspecified. EDMS 01:34 Darwin Brumfield MD is Hospitalizing Provider. tw4 03:37 No provider procedures requiring assistance completed. Patient admitted, IV remains in iw place. 05:23 Primary Nurse role handed off by Lauryn Montemayor, RN ar5 Administered Medications: 12/01 21:32 Drug: Nitro-Bid Ointment 2 % 0.5 inches Route: Transdermal; Site: anterior chest wall; vc 12/02 01:45 Drug: morphine 4 mg Route: IVP; Site: right wrist; iw 02:30 Follow up: Response: No adverse reaction iw 01:45 Drug: Zofran (Ondansetron) 4 mg Route: IVP; Site: right wrist; iw 03:36 Follow up: Response: No adverse reaction iw 02:35 Drug: Flagyl 500 mg Route: PO; iw 03:32 Follow up: Response: No adverse reaction iw 02:35 Drug: LevaQUIN 500 mg Route: PO; iw 03:33 Follow up: Response: No adverse reaction iw Outcome: 01:35 Decision to Hospitalize by Provider. tw4 03:37 Admitted to ER Hold. Please see [facility] for further documentation. iw 03:37 Condition: good 03:37 Discharge instructions given to patient, Instructed on the need for admit. 08:26 Patient left the ED. sv Signatures: Dispatcher [employer] Claudia Moreno RN RN sv Williams, Irene, RN RN iw Bryson, James, RN RN jbMarco Mitchell MD MD tw4 Nel Farrell Dionna Monzon ar5 Carolyn De Dios RN RN ca1 Cristina Kenny RN RN vc
--- NOTE | 2019-12-03 01:36 | EDPHYS ---
Physician Documentation [facility] Name: Maynor Marquez Age: 64 yrs Sex: Male : 1955 Arrival Date: 12/02/2019 Time: 20:21 Bed 24 Private MD: ED Physician Marco Carney HPI: 12/02 03:08 This 64 yrs old Black Male presents to ER via Ambulatory with complaints of Chest Pain, tw4 Shortness Of Breath, Headache. 03:08 The patient or guardian reports chest pain that is located primarily in the anterior tw4 chest wall, left. Onset: today. The pain does not radiate. Associated signs and symptoms: The patient has no apparent associated signs or symptoms. The chest pain is described as a heaviness. Duration: The patient or guardian reports a single episode. Modifying factors: The symptoms are alleviated by nothing. the symptoms are aggravated by nothing. Severity of pain: At its worst the pain was moderate in the emergency department the pain is unchanged. Historical: - Allergies: 12/01 20:42 Lisinopril; ca1 - PMHx: 20:42 Hypertension; Migraines; ca1 20:42 Diverticulitis; Pancreatitis; ca1 - PSHx: 20:42 Back; ca1 - Immunization history:: Adult Immunizations up to date, Flu vaccine is up to date. - Social history:: Smoking status: Patient reports the use of cigarette tobacco products, smokes one pack cigarettes per day. ROS: 12/02 03:08 Constitutional: Negative for fever, chills, and weight loss, Eyes: Negative for injury, tw4 pain, redness, and discharge, Respiratory: Negative for shortness of breath, cough, wheezing, and pleuritic chest pain, Abdomen/GI: Negative for abdominal pain, nausea, vomiting, diarrhea, and constipation, Back: Negative for injury and pain, MS/Extremity: Negative for injury and deformity, Skin: Negative for injury, rash, and discoloration, Neuro: Negative for headache, weakness, numbness, tingling, and seizure. Cardiovascular: Positive for chest pain, Negative for edema, orthopnea, palpitations, paroxysmal nocturnal dyspnea. Exam: 03:08 Constitutional: This is a well developed, well nourished patient who is awake, alert, tw4 and in no acute distress. Head/Face: Normocephalic, atraumatic. Chest/axilla: Normal chest wall appearance and motion. Nontender with no deformity. No lesions are appreciated. Cardiovascular: Regular rate and rhythm with a normal S1 and S2. No gallops, murmurs, or rubs. Normal PMI, no JVD. No pulse deficits. Respiratory: Lungs have equal breath sounds bilaterally, clear to auscultation and percussion. No rales, rhonchi or wheezes noted. No increased work of breathing, no retractions or nasal flaring. Abdomen/GI: Soft, non-tender, with normal bowel sounds. No distension or tympany. No guarding or rebound. No evidence of tenderness throughout. Back: No spinal tenderness. No costovertebral tenderness. Full range of motion. MS/ Extremity: Pulses equal, no cyanosis. Neurovascular intact. Full, normal range of motion. Neuro: Awake and alert, GCS 15, oriented to person, place, time, and situation. Cranial nerves II-XII grossly intact. Motor strength 5/5 in all extremities. Sensory grossly intact. Cerebellar exam normal. Normal gait. Vital Signs: 12/01 20:40 BP 125 / 97; Pulse 80; Resp 17 S; Temp 98.3(TE); Pulse Ox 99% on R/A; Weight 97.98 kg ca1 (R); Height 5 ft. 11 in. (180.34 cm) (R); Pain 9/10; 22:00 BP 132 / 96; Pulse 71; Resp 14; Pulse Ox 99% on R/A; vc 23:00 BP 126 / 94; Pulse 67; Resp 14; Pulse Ox 99% on R/A; Pain 10/10; vc 23:45 BP 139 / 94; Pulse 60; Resp 16; Pulse Ox 99% on R/A; vc 12/02 02:30 BP 127 / 90; Pulse 68; Resp 16; Pulse Ox 97% on R/A; iw 03:45 BP 120 / 92; Pulse 72; Resp 18; Pulse Ox 98% on R/A; jb4 12/01 20:40 Body Mass Index 30.13 (97.98 kg, 180.34 cm) ca1 MDM: 12/01 20:57 Patient medically screened. tw4 12/02 03:45 Differential diagnosis: pulmonary embolus. Differential diagnosis: acute pericarditis, tw4 cholecystitis, Cholelithiasis costochondritis. HEART Score: History: Moderately Suspicious (1), ECG: Non specific repolarization disturbance / LBTB / PM (1), Age: > 45 and < 65 years (1), Risk Factors: > or = 3 Risk factors for atherosclerotic disease (2), Troponin: < or = 1 x Normal Limit (0), Total Score = 5. The patient was given aspirin in the Emergency Department. Data reviewed: vital signs, nurses notes. Data reviewed: lab test result(s), cardiac enzymes, CBC, electrolytes, hepatic panel, EKG, radiologic studies, CT scan, plain films. Data interpreted: Pulse oximetry: Interpretation: normal. Test interpretation: by ED physician or midlevel provider: ECG, plain radiologic studies. Counseling: I had a detailed discussion with the patient and/or guardian regarding: the historical points, exam findings, and any diagnostic results supporting the discharge/admit diagnosis, lab results, radiology results. Physician consultation: Darwin Brumfield MD regarding admission, patient's condition, and will see patient. 12/01 20:48 Order name: Basic Metabolic Panel; Complete Time: 01:12/02 01:14 Interpretation: Normal except: K 3.1; GFR 74. 12/01 20:48 Order name: CBC with Diff; Complete Time: :12/02 01:14 Interpretation: Within normal limits. 12/01 20:48 Order name: LFT's; Complete Time: 01:14 12/02 01:14 Interpretation: Normal except: AST 53; GLOB 3.9; A/G 1.0. 12/01 20:48 Order name: Magnesium; Complete Time: 01:12/02 01:15 Interpretation: MG 2.1. 12/01 20:48 Order name: NT PRO-BNP; Complete Time: 01:12/02 01:15 Interpretation: Within normal limits: NT PRO-BNP 39. 12/01 20:48 Order name: PT-INR; Complete Time: :12/02 01:15 Interpretation: Within normal limits: PT 10.8. 12/01 20:48 Order name: Troponin (emerg Dept Use Only); Complete Time: :12/01 22:10 Order name: Lipase; Complete Time: 01:14 EDND 12/02 02:13 Order name: CBC with Automated Diff EDND 12/02 02:13 Order name: CBC with Automated Diff EDND 12/02 02:13 Order name: Comprehensive Metabolic Panel [facility] 12/02 02:14 Order name: Comprehensive Metabolic Panel EDND 12/02 02:14 Order name: Potassium EDND 12/01 20:48 Order name: XRAY Chest (1 view); Complete Time: 01:14 tw4 12/01 20:48 Order name: EKG; Complete Time: 20:49 tw4 12/01 20:48 Order name: Cardiac monitoring; Complete Time: 21:32 tw4 12/01 22:46 Order name: CT Abd/Pelvis - IV Contrast Only tw4 12/02 02:13 Order name: CONS Pharmacy Consult [facility] 12/02 02:13 Order name: CONS Physician Consult [facility] 12/02 02:13 Order name: Heart Healthy [facility] 12/02 02:14 Order name: Potassium [facility] 12/02 02:14 Order name: Troponin I [facility] 12/02 02:14 Order name: Troponin I [facility] 12/02 02:14 Order name: Troponin I [facility] 12/01 20:48 Order name: EKG - Nurse/Tech; Complete Time: 21:32 tw4 12/01 20:48 Order name: IV Saline Lock; Complete Time: 21:33 tw4 12/01 20:48 Order name: Labs collected and sent; Complete Time: 21:33 tw4 12/01 20:48 Order name: O2 Per Protocol; Complete Time: 21:33 tw4 12/01 20:48 Order name: O2 Sat Monitoring; Complete Time: 21:33 tw4 EC:08 Rate is 68 beats/min. Rhythm is regular, Normal Sinus Rhythm with Right bundle branch tw4 block. QRS [place] is Normal. [place] interval is normal. QRS interval is normal. QT interval is normal. No Q waves. T waves are Normal. No ST changes noted. Clinical impression: NSR w/ Non-specific ST/T Changes. Interpreted by me. Reviewed by me. Administered Medications: 12/01 21:32 Drug: Nitro-Bid Ointment 2 % 0.5 inches Route: Transdermal; Site: anterior chest wall; vc 12/02 01:45 Drug: morphine 4 mg Route: IVP; Site: right wrist; iw 02:30 Follow up: Response: No adverse reaction iw 01:45 Drug: Zofran (Ondansetron) 4 mg Route: IVP; Site: right wrist; iw 03:36 Follow up: Response: No adverse reaction iw 02:35 Drug: Flagyl 500 mg Route: PO; iw 03:32 Follow up: Response: No adverse reaction iw 02:35 Drug: LevaQUIN 500 mg Route: PO; iw 03:33 Follow up: Response: No adverse reaction iw Disposition: 12/03/19 01:35 Hospitalization ordered by Darwin Brumfield for Inpatient Admission. Preliminary diagnosis is Angina pectoris, unspecified. - Bed requested for Telemetry/MedSurg (Inpatient). - Status is Inpatient Admission. sv - Condition is Stable. - Problem is new. - Symptoms have improved. Signatures: Dispatcher [employer] EDND Claudia Silva RN RN sv Webb, Martha, RN RN mw Williams, Irene, RN RN iw Wadley, Terrence, MD MD tw4 Carolyn De Dios RN RN ca1 Calcote, Vanessa, RN RN vc Corrections: (The following items were deleted from the chart) 12/01 22:05 20:58 LIPASE+C.LAB.BRZ ordered. [facility] 12/02 03:09 01:35 Hospitalization Ordered by Darwin Brumfield MD for Inpatient Admission. Preliminary mw diagnosis is Angina pectoris, unspecified. Bed requested for Telemetry/MedSurg (observation). Status is Inpatient Admission. Condition is Stable. Problem is new. Symptoms have improved. tw4 05:52 03:09 12/03/2019 01:35 Hospitalization Ordered by Darwin Brumfield MD for Inpatient mw Admission. Preliminary diagnosis is Angina pectoris, unspecified. Bed requested for [facility] ER HOLD. Status is Inpatient Admission. Condition is Stable. Problem is new. Symptoms have improved. mw 08:26 05:52 12/03/2019 01:35 Hospitalization Ordered by Darwin Brumfield MD for Inpatient sv Admission. Preliminary diagnosis is Angina pectoris, unspecified. Bed requested for Telemetry/MedSurg (Inpatient). Status is Inpatient Admission. Condition is Stable. Problem is new. Symptoms have improved. mw
[2019-12-03] MEDS ORDERED: MORPHINE 4 MG/ML SYR ONE (01:41)
[2019-12-03] MEDS ORDERED: ONDANSETRON 4 MG/2 ML VIAL ONE (01:41)
[2019-12-03] MEDS ORDERED: HYDRALAZINE HCL 20 MG/ML VIAL IV PRN (02:06)
[2019-12-03] MEDS ORDERED: ALBUTEROL 2.5 MG/3 ML NEB SOL NEB PRN ×2 (02:06→15:00)
[2019-12-03] MEDS ORDERED: POTASSIUM 25 MEQ EFFERV TAB PO ONE (02:06)
[2019-12-03] MEDS ORDERED: ONDANSETRON 4 MG/2 ML VIAL IV PRN (02:08)
--- NOTE | 2019-12-03 02:17 | P.HP ---
Certification for Inpatient Patient admitted to: Inpatient With expected LOS: >2 Midnights Patient will require the following post-hospital care: None Practitioner: I am a practitioner with admitting privileges, knowledge of patient current condition, hospital course, and medical plan of care. Services: Services provided to patient in accordance with Admission requirements found in Title 42 Section 412.3 of the Code of Federal Regulations Patient History Date of Service: 12/03/19 Reason for admission: Chest pain and left abdominal pain History of Present Illness: 64-year-old male with past medical history of hypertension, bipolar disorder, previous chronic alcohol was use, history of alcohol pancreatitis many years ago next has since stopped drinking regularly, developed left parasternal chest pain since the last 5 days pain has been waxing now weaning, and no associated shortness of breath date admit to intermittent diaphoresis. On arrival in the ED chest pain was slightly relieved from 7/10 to 4/10 by nitro paste but again pain started recurr after few mins . He also described left lower quadrant abdominal pain which also started about 5 days ago he states pain has been persistent but initially might was started to worsen since the last few hours. He describes regular bowel movement. He denies any fever or chills. He denies any diarrhea or hematochezia. He denies any family history of CAD although he is unsure etiology of his mother . Allergies No Known Allergies Allergy (Verified 11/29/18 00:00) Home Medications: Amlodipine [Norvasc*] 5 mg PO DAILY 11/29/18 Ibuprofen [Ibu] 800 mg PO DAILY 11/29/18 Omeprazole 20 mg PO DAILY 11/29/18 allopurinoL [Allopurinol] 100 mg PO DAILY 11/29/18 hydroCHLOROthiazide [Hydrochlorothiazide*] 25 mg PO DAILY 11/29/18 Promethazine HCl 12.5 mg PO Q12H PRN #24 tablet 12/02/18 Quetiapine [Seroquel*] 50 mg PO BEDTIME #30 tab 12/02/18 Topiramate [Topamax*] 100 mg PO BID #60 tab 12/02/18 - Past Medical/Surgical History Diabetic: No -: HTN -: HLD -: Appendectomy -: Lacerated Liver Rx - Social History Smoking Status: Current every day smoker Counseled patient to stop smoking for: less than 10 minutes Smoking therapy provided: Yes Patient receptive to therapy: Yes Alcohol use: Yes CD- Drugs: No Caffeine use: Yes Review of Systems Unremarkable General: Unremarkable Eyes: Unremarkable ENT: Unremarkable Respiratory: Unremarkable Cardiovascular: Chest Pain Gastrointestinal: Abdominal Pain Genitourinary: Unremarkable Musculoskeletal: Unremarkable Integumentary: Unremarkable Neurological: Unremarkable Physical Examination - Physical Exam General: Alert, Oriented x3, Other (mild pain distress) HEENT: Atraumatic, Normocephalic, PERRLA Neck: Supple, 2+ carotid pulse no bruit, JVD not distended Respiratory: Clear to auscultation bilaterally, Normal air movement, Diminished , Other (left chest wall tenderness) Cardiovascular: Normal pulses, Regular rate/rhythm, Normal S1 S2 Capillary refill: <2 Seconds Gastrointestinal: Normal bowel sounds, Soft and benign, Other (old infraumbilical scar , LLQ tenderness with rebound ), Tenderness Musculoskeletal: No swelling, No contractures, No erythema Integumentary: No breakdown, No significant lesion Neurological: Normal gait, Normal speech, Normal strength at 5/5 x4 extr - Studies Laboratory Data (last 24 hrs) 12/02/19 22:24: Sodium 137, Potassium 3.1 L, BUN 11, Creatinine 1.20, Glucose 105, Magnesium 2.1, Total Bilirubin 0.2, AST 53 H, ALT 66, Alkaline Phosphatase 110, Lipase 109 12/02/19 21:28: Lipase Cancelled 12/02/19 21:28: PT 10.8, INR 0.91 12/02/19 21:28: WBC 9.6, Hgb 16.5, Hct 46.6, Plt Count 201 Imagings Data: Chest x-ray showed clear lungs. -CT abdomen shows mild ventral wall hernia , no other intra-abdominal pathology although no mention of diverticular dx Assessment and Plan - Problems (Diagnosis) (1) Chest pain Current Visit: Yes Status: Acute (2) Tobacco abuse Current Visit: Yes Status: Acute (3) HTN (hypertension) Current Visit: Yes Status: Acute (4) Abdominal pain Current Visit: Yes Status: Acute Discharge Plan: Home - Advance Directives Does patient have a Living Will: No Does patient have a Durable POA for Healthcare: No Physician Review: Patient Assessed, Agree with Above Assessment and Plan Physician Review Additional Text: # chest pain-will rule out acute coronary syndrome -initial cardiac enzyme negative, follow serial set of cardiac enzymes. -continue nitro paste. -continue p.r.n. morphine for intermittent headaches -given reproducible chest wall pain although EKG shows evidence of old Q-waves will consult Cardiology. Patient might benefit from stress test after acute coronary syndrome ruled out # abdominal pain-may be due to sigmoid diverticulitis based on patient history of diverticulosis although not noted on the official report of the CT abdomen -will start empirical Levaquin/Flagyl -continue pain regimen. -we do p.r.n. MiraLax # hypertension-resume home regimen, start hydralazine prn Chronic tobacco use-start nicotine patch DVT prophylaxis-subcutaneous Lovenox #advanced directive patient wishes to be full code
[2019-12-03] MEDS ORDERED: POLYETHYL GLY 3350 17 GM/DOSE PO PRN (02:21)
[2019-12-03] MEDS ORDERED: levoFLOXacin 500 MG TAB ONE (02:30)
[2019-12-03] MEDS ORDERED: metroNIDAZOLE 500 MG TABLET ONE (02:30)
[2019-12-03] MEDS ORDERED: Levofloxacin500mg IV 500 MG/100 ML BAG IV SCH (03:00)
[2019-12-03] MEDS ORDERED: MORPHINE 2 MG/ML SYR ONE (04:58)
[2019-12-03] MEDS: MORPHINE 2 MG/ML SYR IV PRN ×5 (05:07→22:01)
[2019-12-03] MEDS ORDERED: POTASSIUM 25 MEQ EFFERV TAB ONE (06:04)
[2019-12-03] MEDS ORDERED: Levofloxacin500mg IV 500 MG/100 ML BAG IV ONE (06:05)
[2019-12-03] MEDS ORDERED: NS KCL 20MEQ 1,000 ML IV ONE (06:05)
[2019-12-03] MEDS: NS KCL 20MEQ 20 MEQ/1,000 ML BAG IV SCH ×2 (06:17→23:52)
--- NOTE | 2019-12-03 06:27 | EKG ---
Test Date: 2019-12-02 Test Time: 20:49:18 Exceptional Student Education Aide: PEGGY MEASUREMENT RESULTS: Intervals: Rate: 68 [place]: 160 QRSD: 134 QT: 420 QTc: 446 [place]: P: 44 WA: 160 QRS: -21 T: 39 INTERPRETIVE STATEMENTS: Normal sinus rhythm Right bundle branch block Abnormal ECG Compared to ECG 12/02/2018 08:47:32 Sinus bradycardia no longer present Electronically Signed On 12-03-19 06:26:08 CDT by Destin Pappas
[2019-12-03] MEDS: ACETAMINOPHEN 325 MG TABLET PO PRN (06:37)
[2019-12-03] MEDS ORDERED: ACETAMINOPHEN 325 MG TABLET ONE (06:37)
[2019-12-03 07:56] VITALS: BMI 30.1
[2019-12-03] MEDS: ENOXAPARIN 40 MG/0.4 ML SQ SCH (08:50)
[2019-12-03] MEDS: metroNIDAZOLE 250 MG TABLET PO SCH ×3 (08:50→22:00)
[2019-12-03] MEDS: NICOTINE 21 MG/PAT TD SCH (08:50)
--- NOTE | 2019-12-03 10:45 | CON ---
History Of Present Illness: Mr. Marquez came to the hospital with first abdominal pain and chest pain. The chest pain mid and upper chest, sharp, fleeting. It occurred after he had abdominal pain for s everal hours. His abdominal pain feels just like episodes of diverticulitis he has had in the past. The patient does not use tobacco. Does not have diabetes. He takes blood pressure medicines and he just started taking atorvastatin for elevated cholesterol, but he has not been on it long. Outpatient Medications: Omeprazole, hydrochlorothiazide, amlodipine, allopurinol, and ibuprofen. Physical Examination: Vital Signs: 5 feet 11 inches, 216 pounds. HEENT: Normal. Lungs: Clear. Cardiac: Normal. Abdomen: Soft. Extremities: Normal. Diagnostic Studies: EKG, right bundle, otherwise normal. Plan: We will do a pharmacologic nuclear stress test. The patient has had previous back surgery. D oes not think he can walk on a treadmill. NABEEL/PRICILLA Voice ID: [id number] Report ID: [id number]
--- NOTE | 2019-12-03 11:44 | RAD REPORT ---
EXAM DESCRIPTION: Abdomen Pelvis W Contrast CLINICAL HISTORY: ABD PAIN COMPARISON: 05/30/2019. TECHNIQUE: CT ABDOMEN PELVIS WITH IV CONTRAST on 12/02/2019 10:46 PM CDT This exam was performed according to our departmental dose-optimization program, which includes autom ated exposure control, adjustment of the mA and/or kV according to patient size and/or use of iterati ve reconstruction technique. FINDINGS: Lower lungs are clear. Abdomen: Liver is fatty in attenuation. There is no biliary dilatation. Gallbladder is normal in appe arance. There is a small fat-containing distal paraesophageal hernia. The pancreas and spleen are nor mal in appearance. There is scarring in the medial aspect of the right kidney. Left kidney is normal. Adrenal glands are normal. Abdominal aorta is normal in course and caliber without aneurysm. There is no free air. There is no r etroperitoneal adenopathy. Pelvis: There is no bowel obstruction. Urinary bladder is unremarkable. There is no free fluid. Appen saúl is not seen. Skeleton: There are no acute osseous findings. No suspicious bony lesions. IMPRESSION: No definite acute process Electronically signed by: Kiran Veras MD 12/03/2019 1:00 AM CDT Due to temporary technical issues with the PACS/Fluency reporting system, reports are being signed by the in house radiologist as a courtesy to ensure prompt reporting. The interpreting radiologist is f ully responsible for the content of the report.
[2019-12-03] MEDS ORDERED: ASPIRIN EC 81 MG TAB PO ONE (14:00)
--- NOTE | 2019-12-03 16:51 | PN ---
Date of Progress Note: 12/03/2019 Subjective: Patient is seen and examined. Chart reviewed and case discussed with RN. Dr. Sotelo was contacted. He is in [place] today, wants hospitalist to cover today. Patient was admitted by the hospitalist service overnight by the collection systems technician. Patient states his chest pain has resolved, but still has some slight abdominal discomfort. No nausea or vomiting. Medications: List reviewed. Physical Examination: Vital Signs: Temperature 97.4, heart rate 61, blood pressure 132/76, respirations 16, O2 of 97% on room air. General: Awake, alert, oriented x3, some mild distress, obese male, BMI 30. CV: S1, S2. Regular rate and rhythm. Peripheral pulses present. Respiratory: Moving air well bilaterally. Abdomen: Soft. Mild tenderness to palpation in the left lower quadrant. No rebound or guarding. Positive bowel sounds. Extremities: No clubbing, cyanosis, or edema. Neuro: Nonfocal. Laboratory Data: Troponin less than 0.[address] scan of the abdomen shows no definite acute process. Patient has fatty liver infiltration. Assessment: 64-year-old male with: 1. Chest pain. Acute coronary syndrome ruled out. Patient has Q-waves on EKG. Cardiology has been consulted. Dr. Pappas recommends stress test for tomorrow morning. Continue on chest pain guidelines. 2. Essential hypertension, stable. 3. Left lower quadrant abdominal pain. CT scan does not show any acute diverticulitis. Patient does have history of it. Cont empiric abx for now. If worsening, may need to repeat CT scan of the abdomen and consult Surgery. No signs of peritonitis at this time. 4. Nicotine dependence with cigarette smoking, counseled. 5. Obesity, BMI 30. 6. Mixed hyperlipidemia. 7. Gastroesophageal reflux disease, on PPI. Plan: Resume home medications once reconciled. Stress test in a.m. Service to be transferred to Dr. Sotelo in a.m. once he is back in [place]. /RUCHIL Voice ID: [id number] Report ID: [id number] MTDD
[2019-12-03] MEDS: ATORVASTATIN 40 MG TAB PO SCH (22:00)
[2019-12-03] MEDS: LORAZEPAM 0.5 MG TABLET PO PRN (23:52)
[2019-12-04 04:33] LABS: Absolute Lymphocytes (CBC) 2.4 K/uL (0.7-4.9); Basophils % 0.6 % (0-1.3); Hematocrit 41.7 % (39.6-49.0); Lymphocytes % 36.2 % (15.3-44.8); MPV 8.7 fL (7.6-11.3); RBC Red Blood Cell Count 4.43 M/uL (4.33-5.43)
[2019-12-04 04:42] LABS: ALT/SGPT 63 U/L (12-78); AST/SGOT 39 U/L (15-37); Albumin 3.2 g/dL (3.4-5.0); Alkaline Phosphatase 96 U/L (45-117); BUN Blood Urea Nitrogen 11 mg/dL (7-18); Bicarbonate 30 mmol/L (21-32); Bilirubin Total 0.2 mg/dL (0.2-1.0); Glucose Level 115 mg/dL (74-106); Potassium 3.5 mmol/L (3.5-5.1); Protein, Total 6.8 g/dL (6.4-8.2); Sodium Level 140 mmol/L (136-145)
[2019-12-04] MEDS: NICOTINE 21 MG/PAT TD SCH (07:55)
[2019-12-04] MEDS: PANTOPRAZOLE 40MG TABLET PO SCH (07:57)
[2019-12-04] MEDS: metroNIDAZOLE 250 MG TABLET PO SCH ×3 (07:57→21:00)
[2019-12-04] MEDS: CEFTRIAXONE/SWI 1gm 1 GM/10 ML SYR IVP SCH (07:57)
[2019-12-04] MEDS ORDERED: REGADENOSON 0.4 MG/5 ML SYR IV ONE (08:00)
[2019-12-04] MEDS ORDERED: HOME MED 1 EA UNK (Omeprazole [Omeprazole] 20 MG) PO SCH (09:00)
[2019-12-04] MEDS: ENOXAPARIN 40 MG/0.4 ML SQ SCH (09:00)
[2019-12-04] MEDS: MORPHINE 2 MG/ML SYR IV PRN ×3 (09:52→22:07)
--- NOTE | 2019-12-04 10:55 | PN ---
Patient admitted on 12/03/[address] Sotelo and he was seen by Dr. Pappas for atypical chest pain, hypertension, gastroesophageal reflux disease. No report of chest pain overnight. Telemetry remains normal. Troponin remains normal. A stress test was pending for today. We will see what that shows prior to making final decisions. NORY/PRICILLA Voice ID: [id number] Report ID: [id number]
--- NOTE | 2019-12-04 11:05 | RAD REPORT ---
EXAM DESCRIPTION: NM - Rest Stress Cardiac Imaging - 12/04/2019 10:08 am CLINICAL HISTORY: C Chest pain. COMPARISON: Rest Stress Cardiac Imaging dated 11/01/2016 TECHNIQUE: The patient was administered approximately 10mCi of Tc 99m Sestamibi prior to resting SPE CT imaging of the heart. The patient was then administered approximately 30 mCi of Tc 99m Sestamibi f ollowing exercise or pharmacologic stress. Multiplanar SPECT images were reviewed. FINDINGS: No stress induced ischemic defect is seen to suggest stress induced ischemia. No fixed def ect is seen to suggest hibernating myocardium or scarred myocardium. The end diastolic volume is 103 ml, the end systolic volume is 46 ml, and the ejection fraction is 55 %. IMPRESSION: No stress induced ischemia.
[2019-12-04] MEDS ORDERED: KETOROLAC 30 MG/ML INJ IV ONE (11:19)
[2019-12-04 11:20] VITALS: O2SAT 99
--- NOTE | 2019-12-04 12:03 | PN ---
Subjective: Mr. Marquez is doing well, sitting by the bedside chair. He complains of left lower quadr ant pain, but no chest pain at this time. He went ahead and did the first part of the stress test. Physical exam is basically stable and vitals are stable. He has mild left lower quadrant tenderness from his abdominal exam. His admission and progress note and labs have been noted. Assessment And Plan: 1.Agree with IV antibiotics for acute diverticulitis, although the CAT scan reported to show no evid ence. However, clinically, the patient distended on this side and he had previously acute diverticul itis. 2.Chest pain that reported on admission, pending stress test. We will continue current care and man agement. Look orders for details. MFS/MODL Voice ID: [id number] Report ID: [id number]
--- NOTE | 2019-12-04 16:53 | EKG ---
Test Date: 2019-12-04 Test Time: 11:11:24 Barrel Dedenting Machine Operator: RAMÓN MEASUREMENT RESULTS: Intervals: Rate: 57 DE: 170 QRSD: 134 QT: 446 QTc: 434 [place]: P: 56 DE: 170 QRS: 36 T: 53 INTERPRETIVE STATEMENTS: Sinus bradycardia with sinus arrhythmia Right bundle branch block Abnormal ECG Compared to ECG 12/02/2019 20:49:18 Sinus rhythm no longer present Electronically Signed On 12-04-19 16:51:56 CDT by Destin Pappas
[2019-12-04] MEDS: NS KCL 20MEQ 20 MEQ/1,000 ML BAG IV SCH (18:04)
[2019-12-04] MEDS: LORAZEPAM 0.5 MG TABLET PO PRN (22:07)
[2019-12-04] MEDS: ACETAMINOPHEN 325 MG TABLET PO PRN (22:07)
[2019-12-04] MEDS: ATORVASTATIN 40 MG TAB PO SCH (22:07)
--- NOTE | 2019-12-05 07:57 | TREADPHA ---
DX: CHEST PAIN Date of Study: 12/04/2019 Ht: 5 11 Wt: 216 lb 0 oz Consulting Physician: NITA MEDICATIONS: LIPITOR, APRESOLINE, FLAGYL, NICODERM, TYLENOL, PROTONIX, GLYCOLAX, ZOFRAN, PROVENTIL HISTORY: 64 YEAR OLD MALE WITH CHEST PAIN. MEDICAL HISTORY OF HYPERTENSION, MIGRAINES, DIVERICULITIS, PANCREATITIS AND CURRENT SMOKER. PHYSICIAL EXAMINATION: RESTING B.P.: 145/55 RESTING H.R.: 54 RESTING EKG: RIGHT BUNDLE BRANCH BLOCK, SINUS BRADYCARDIA PROTOCOL: LEXISCAN EXERCISE TIME: 3:30 B.P. AT PEAK STRESS: 140/99 IMPRESSION: LEXISCAN INJECTED. CARDIOLITE INJECTED PER PROTOCOL. SEE NUCLEAR MEDICINE REPORT. NO SUPRAVENTRICULAR TACHYCARDIA, VENTRICULAR TACHYCARDIA NOTED. NO PREMATURE VENTRICULAR COMPLEXES. AFTER INJECTION 3/10 CHEST PAIN, RESOLVED IN RECOVERY. NON DIAGNOSTIC EKG WITH LEXISCAN STRESS TEST.
[2019-12-05] MEDS: NICOTINE 21 MG/PAT TD SCH (09:00)
[2019-12-05] MEDS: ENOXAPARIN 40 MG/0.4 ML SQ SCH (09:00)
[2019-12-05 09:17] VITALS: BP 159/88; TEMP 97.2
[2019-12-05] MEDS: metroNIDAZOLE 250 MG TABLET PO SCH (10:51)
[2019-12-05] MEDS: PANTOPRAZOLE 40MG TABLET PO SCH (10:52)
[2019-12-05] MEDS: CEFTRIAXONE/SWI 1gm 1 GM/10 ML SYR IVP SCH (10:53)
[2019-12-05] MEDS: ACETAMINOPHEN 325 MG TABLET PO PRN (10:58)
== END 2019-12-05 11:42 | disposition home or self-care (01) ==
LOC: ER 20:20 → ERHOLD 12-03 02:49 → INTOOBSV 12-03 02:49 → 4TH 12-03 07:42
PROVIDERS: ADMIT Internal Medicine; ATTEND Internal Medicine
DX: R07.89 Other chest pain (principal); R10.32 Left lower quadrant pain; K57.90 Diverticulosis of intestine, part unspecified, without perforation or abscess without bleeding; K21.9 Gastro-esophageal reflux disease without esophagitis; I10 Essential (primary) hypertension; E78.2 Mixed hyperlipidemia; F31.9 Bipolar disorder, unspecified; E66.9 Obesity, unspecified; Z68.30 Body mass index [BMI] 30.0-30.9, adult; F17.210 Nicotine dependence, cigarettes, uncomplicated; Z71.6 Tobacco abuse counseling
CPT/HCPCS: 93005 ×2; 93017; 85025 ×2; 80048; 36415 ×2; 83735; 85610; 80076; 84484 ×3; 83690; 80053; 83880; 74177; 71045; 78452; 96375; 96374; 99285; Q9967; J1650; J2270 ×8; J2785; J0696 ×2; G0378 ×5; J2405; A9500

== ENCOUNTER 2020-10-20 16:32 | Emergency (ER) | payer OTHER ==
--- OUTSIDE RECORDS SUMMARY | 2020-10-20 16:34 | XMS REPORT | Continuity of Care Document ---
:1955 Author Organization [facility] t Address [address] [place] [address] Care Team Providers Name Role Phone Unavailable Unavailable Unavailable Problems Condition Condition Condition Status Onset Resolution Last Treating Co mments Source Name Details Category Date Date Treatment Clinician Date Hyperlipid Hyperlipid Problem Active 2020-0 [facility] emia emia - Family 00:00: Practic 00 e Gout Gout Problem Active 2020-0 [place] -23 Family 00:00: Practic 00 e Nicotine Nicotine Problem Active 2020-0 [place] dependence Dependence -23 Fa shell 00:00: Practic 00 e Essential Essential Problem Active 2020-0 [place] [facility] hypertensi Hypertensi 9-23 Fa shell on on 00:00: Practic 00 e Gastroesop Gastroesop Problem Active 2020-0 [facility] hageal hageal - Family reflux Reflux 00:00: Practic disease Disease 00 e Degenerati Degenerati Problem Active 2020-0 [facility] ve joint ve Joint - Family disease Disease 00:00: Practic involving Involving 00 e multiple Multiple joints Joints Lumbar Lumbar Problem Active 2020-0 [place] radiculopa Radiculopa -23 Fa shell thy thy 00:00: Practic 00 e Chronic Chronic Problem Active 2020-0 [facility] back pain Back Pain 06-09 Fami ly 00:00: Practic 00 e At risk At Risk Problem Active 2020-0 [facility] for falls for Falls 06-09 Fami ly 00:00: Practic 00 e Pain of Pain of Problem Active 2020-0 [facility] left ankle Left Ankle 9-23 Fa shell joint Joint 00:00: Practic 00 e Nicotine Nicotine Problem Active 2020-0 [place] ge dependence Dependence 9-23 Fa shell with with 00:00: Practic current Current 00 e use Use Allergies, Adverse Reactions, Alerts This patient has no known allergies or adverse reactions. Social History Smoking Status Start Date Stop Date Source Heavy Tobacco Smoker [facility] Practice Medications Ordered Filled Start Stop Current Ordering Indication Dosage Frequency Signature Comments Components Source Medication Medication Date Date Medication? Clinician (SIG) Name Name albuterol albuterol No 2puff(s albuterol [facility] sulfate HFA sulfate HFA ) sulfate Family 90 90 HFA 90 Practic mcg/actuati mcg/actuati mcg/actuat e on aerosol on aerosol ion inhaler inhaler aerosol Inhale 2 Inhale 2 inhaler puffs as puffs as Inhale 2 needed by needed by puffs as inhalation inhalation needed by route for route for inhalation 30 days. 30 days. route for 30 days. allopurinol allopurinol No 1 Q1D allopurino [facility] 100 mg 100 mg l 100 mg Family tablet Take tablet Take tablet Practic 1 tablet 1 tablet Take 1 e every day every day tablet by oral by oral every day route for route for by oral 90 days. 90 days. route for 90 days. amlodipine amlodipine No 1 Q1D amlodipine [facility] 10 mg 10 mg 10 mg Family tablet Take tablet Take tablet Practic 1 tablet 1 tablet Take 1 e every day every day tablet by oral by oral every day route for route for by oral 90 days. 90 days. route for 90 days. atorvastati atorvastati No 1 Q1D atorvastat [facility] n 20 mg n 20 mg in 20 mg Famil y tablet Take tablet Take tablet Practic 1 tablet 1 tablet Take 1 e every day every day tablet by oral by oral every day route for route for by oral 90 days. 90 days. route for 90 days. hydralazine hydralazine No 1 Q1D hydralazin [facility] 25 mg 25 mg e 25 mg Family tablet Take tablet Take tablet Practic 1 tablet 1 tablet Take 1 e every day every day tablet by oral by oral every day route for route for by oral 90 days. 90 days. route for 90 days. hydrochloro hydrochloro No 1 Q1D hydrochlor [facility] thiazide 25 thiazide 25 othiazide Family mg tablet mg tablet 25 mg Prac tic Take 1 Take 1 tablet e tablet tablet Take 1 every day every day tablet by oral by oral every day route for route for by oral 90 days. 90 days. route for 90 days. Lidoderm 5 Lidoderm 5 No Lidoderm 5 Village % topical % topical % topical Family patch APPLY patch APPLY patch Practic 1 PATCH BY 1 PATCH BY APPLY 1 e TOPICAL TOPICAL PATCH BY ROUTE ONCE ROUTE ONCE TOPICAL DAILY (MAY DAILY (MAY ROUTE ONCE WEAR UP TO WEAR UP TO DAILY (JANUARY 12HOURS.) 12HOURS.) WEAR UP TO 12HOURS.) metoprolol metoprolol No 1 BID metoprolol [facility] tartrate 25 tartrate 25 tartrate Family mg tablet mg tablet 25 mg Prac tic Take 1 Take 1 tablet e tablet tablet Take 1 twice a day twice a day tablet by oral by oral twice a route for route for day by 90 days. 90 days. oral route for 90 days. omeprazole omeprazole No 1capsul Q1D omeprazole [facility] 40 mg 40 mg e(s) 40 mg Family capsule,del capsule,del capsule,de Practic ayed ayed layed e release release release Take 1 Take 1 Take 1 capsule capsule capsule every day every day every day by oral by oral by oral route for route for route for 90 days. 90 days. 90 days. Immunizations Ordered Immunization Filled Immunization Date Status Commen ts Source Name Name pneumococcal pneumococcal 2018-09-17 [facility] polysaccharide PPV23 polysaccharide PPV23 00:00:00 Practice influenza, influenza, 2018-09-17 [facility] injectable, injectable, 00:00:00 Practice quadrivalent quadrivalent Vital Signs Vital Name Observation Time Observation Value Comments Source Height 2020-06-09 00:00:00 70 [in_i] [facility] BMI (Body Mass 2020-06-09 00:00:00 31.3 kg/m2 [facility] Index) Practice Body Weight 2020-06-09 00:00:00 218 [lb_av] [facility] Procedures Procedure Date / Time Performed Performing Clinician Sourc e Appendectomy [facility] Back Surgery [facility] Screening for Malignant [facility] Neoplasm of Prostate Practice Screening Colonoscopy [facility] Plan of Care Planned Activity Planned Date Details Comments Source Instructions [facility] Encounters Start End Encounter Admission Attending Care Care Encounter Source Date/Time Date/Time Type Type Clinicians Facility Department ID 2020-06-09 2020-06-09 [facility] [place] - [id number] V illage 00:00:00 00:00:00 Geo Chatterjee 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 Results This patient has no known results.
[2020-10-20 19:40] LABS: Absolute Lymphocytes (CBC) 3.3 K/uL (0.7-4.9); Basophils % 0.6 % (0-1.3); Hematocrit 48.4 % (39.6-49.0); Lymphocytes % 36.8 % (15.3-44.8); MPV 8.6 fL (7.6-11.3); RBC Red Blood Cell Count 5.13 M/uL (4.33-5.43)
[2020-10-20] MEDS ORDERED: NA CHLORIDE 0.9% 1,000 ML ONE (19:47)
[2020-10-20 20:01] LABS: Bilirubin Direct 0.1 mg/dL (0-0.2); Bilirubin Total 0.4 mg/dL (0.2-1.0); Potassium 3.5 mmol/L (3.5-5.1); Protein, Total 7.8 g/dL (6.4-8.2)
[2020-10-20] MEDS ORDERED: MORPHINE 4 MG/ML SYR ONE (20:22)
[2020-10-20] MEDS ORDERED: ONDANSETRON 4 MG/2 ML VIAL ONE (20:23)
[2020-10-20] MEDS ORDERED: FAMOTIDINE 20 MG/2 ML VIAL IV ONE (20:23)
--- NOTE | 2020-10-20 20:47 | RAD REPORT ---
EXAM DESCRIPTION: Nathalia Single View10/20/2020 8:34 pm CLINICAL HISTORY: Abdominal pain COMPARISON: 2019 FINDINGS: The lungs appear clear of acute infiltrate. The heart is normal size IMPRESSION: No acute abnormalities displayed
--- NOTE | 2020-10-20 21:02 | RAD REPORT ---
EXAM DESCRIPTION: CT - Abdomen Pelvis W Contrast - 10/20/2020 8:36 pm CLINICAL HISTORY: Abdominal pain COMPARISON: 2019 TECHNIQUE: Computed axial tomography of the abdomen pelvis was obtained. 100 cc Isovue-300 was admin istered intravenously. Oral contrast was not requested which limits evaluation of bowel. All CT scans are performed using dose optimization technique as appropriate and may include automated exposure control or mA/KV adjustment according to patient size. FINDINGS: Mild fatty liver. Spleen, pancreas, adrenal and left kidney appear unremarkable. Scarring right kidney is unchanged per haps related to prior inflammation. There is no evidence of diverticulitis. 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 Ghulam ed spondylosis L5-S1 with slight posterior subluxation L5 on S1 IMPRESSION: Large lateral disc herniation L4-5 with osteophytes resulting in marked left foraminal s tenosis. This is without significant change from the prior exam No acute abnormality displayed .
--- NOTE | 2020-10-20 21:22 | ER ---
Nurse's Notes [facility] Name: Maynor Marquez Age: 65 yrs Sex: Male : 1955 Arrival Date: 10/20/2020 Time: 16:41 Bed 4 Private MD: Diagnosis: Abdominal tenderness Presentation: 10/20 16:52 Chief complaint: Patient states: L flank pain for 2 days. + nausea. SANZ for 2 days. No ll1 known fever. Denies dysuria. No cough or congestion. Slight SOB at times. Coronavirus screen: Client denies travel out of the [place] in the last 14 days. At this time, the client does not indicate any symptoms associated with coronavirus-19. Ebola Screen: Patient denies travel to an Ebola-affected area in the 21 days before illness onset. Initial Sepsis Screen: Does the patient meet any 2 criteria? No. Patient's initial sepsis screen is negative. Does the patient have a suspected source of infection? Yes: Acute abdominal pain. Risk Assessment: Do you want to hurt yourself or someone else? Patient reports no desire to harm self or others. Onset of symptoms was October 19, 2020. 16:52 Method Of Arrival: Ambulatory ll1 16:52 Acuity: MARCUS 3 ll1 Triage Assessment: 19:41 Headache History: Denies prior headaches. General: Appears uncomfortable. General: rv Behavior is calm, cooperative. Pain: Also complains of nausea. Historical: - Allergies: 16:54 Lisinopril; ll1 - PMHx: 16:54 Migraines; Hypertension; Pancreatitis; Diverticulitis; ll1 - PSHx: 16:54 Back; ll1 16:55 "mass removed from vocal cords"; ll1 - Immunization history:: Flu vaccine is not up to date. - Social history:: Smoking status: Patient reports the use of cigarette tobacco products, smokes one pack cigarettes per day. Screenin:40 Abuse screen: Denies threats or abuse. Denies injuries from another. Nutritional rv screening: No deficits noted. Tuberculosis screening: No symptoms or risk factors identified. Fall Risk None identified. Assessment: 19:39 General: Appears uncomfortable, Behavior is calm, cooperative. Pain: Complains of pain rv in left lower quadrant Pain does not radiate. Pain currently is 10 out of 10 on a pain scale. Quality of pain is described as burning, Pain began 2 weeks Is continuous. Neuro: Level of Consciousness is awake, alert, obeys commands, Oriented to person, place, time, situation. Cardiovascular: Patient's skin is warm and dry. Respiratory: Airway is patent Respiratory effort is even, unlabored. GI: Abdomen is flat, non-distended, Bowel sounds present X 4 quads. Abdomen is tender to palpation in left lower quadrant Reports nausea, vomiting. Derm: Skin is intact. Vital Signs: 16:52 BP 120 / 97; Pulse 76; Resp 18; Temp 98.7; Pulse Ox 98% ; Weight 98.88 kg; Height 5 ft. ll1 11 in. (180.34 cm); Pain 10/10; 19:42 BP 138 / 85; Pulse 54; Resp 16; Pulse Ox 99% on R/A; rv 21:34 BP 140 / 94; Pulse 59; Resp 16; Temp 98.5; Pulse Ox 98% on R/A; rv 16:52 Body Mass Index 30.40 (98.88 kg, 180.34 cm) ll1 ED Course: 16:41 Patient arrived in ED. ds1 16:54 Triage completed. ll1 16:55 Arm band placed on. ll1 19:11 Bharath Clarke, SALENA is Primary Nurse. rv 19:26 Inserted saline lock: 20 gauge in left antecubital area, using aseptic technique. Blood rv collected. 19:26 Initial lab(s) drawn, by ks, sent to lab. rv 19:27 Dominic Yadav MD is Attending Physician. imelda 19:41 Patient has correct armband on for positive identification. Bed in low position. Call rv light in reach. Side rails up X 1. Pulse ox on. NIBP on. 19:41 No provider procedures requiring assistance completed. rv 20:34 Chest Single View XRAY In Process Unspecified. EDMS 20:37 CT Abd/Pelvis - IV Contrast Only In Process Unspecified. EDMS 21:21 Katelyn Meadows MD is Referral Physician. imelda 21:34 IV discontinued, intact, bleeding controlled, No redness/swelling at site. Pressure rv dressing applied. Administered Medications: 19:30 Drug: NS 0.9% 1000 ml Route: IV; Rate: 1 bolus; Site: left antecubital; rv 21:33 Follow up: IV Status: Completed infusion; IV Intake: 1000ml rv 20:10 Drug: Pepcid 20 mg Route: IVP; Site: left antecubital; rv 21:33 Follow up: Response: No adverse reaction rv 20:11 Drug: morphine 4 mg {Note: rass 0.} Route: IVP; Site: left antecubital; rv 21:33 Follow up: Response: No adverse reaction; Pain is decreased; RASS: Alert and Calm (0) rv 20:11 Drug: Zofran (Ondansetron) 4 mg Route: IVP; Site: left antecubital; rv 21:33 Follow up: Response: No adverse reaction rv 21:32 Drug: TORadol 30 mg Route: IVP; Site: left antecubital; rv 21:33 Follow up: Response: Medication administered at discharge. rv 21:33 Not Given (Physician Discretion): Cipro 400 mg 200 ml IVPB once over 60 mins rv 21:33 Not Given (Physician Discretion): Flagyl 500 mg 100 ml IVPB at 200 ml/hr once over 30 rv mins Intake: 21:33 IV: 1000ml; Total: 1000ml. rv Outcome: 21:21 Discharge ordered by . imelda 21:34 Discharged to home ambulatory. rv 21:34 Condition: improved 21:50 Discharge instructions given to patient, Instructed on discharge instructions, follow rv up and referral plans. medication usage, Demonstrated understanding of instructions, follow-up care, medications, Prescriptions given X 3. 21:50 Patient left the ED. rv Signatures: Dispatcher [employer] EDKY Dominic Yadav MD MD cha [place], Demi ds1 Bharath Clarke RN RN Surya Arauz RN RN ll1
--- NOTE | 2020-10-20 21:22 | EDPHYS ---
Physician Documentation [facility] Name: Maynor Marquez Age: 65 yrs Sex: Male : 1955 Arrival Date: 10/20/2020 Time: 16:41 Bed 4 Private MD: JULEE Physician Dominic Yadav HPI: 10/20 20:00 This 65 yrs old Black Male presents to ER via Ambulatory with complaints of Side Pain, imelda Headache. Historical: - Allergies: 16:54 Lisinopril; ll1 - PMHx: 16:54 Migraines; Hypertension; Pancreatitis; Diverticulitis; ll1 - PSHx: 16:54 Back; ll1 16:55 "mass removed from vocal cords"; ll1 - Immunization history:: Flu vaccine is not up to date. - Social history:: Smoking status: Patient reports the use of cigarette tobacco products, smokes one pack cigarettes per day. ROS: 20:04 Constitutional: Negative for fever, chills, and weight loss, Eyes: Negative for injury, imelda pain, redness, and discharge, ENT: Negative for injury, pain, and discharge, Neck: Negative for injury, pain, and swelling, Cardiovascular: Negative for chest pain, palpitations, and edema, Respiratory: Negative for shortness of breath, cough, wheezing, and pleuritic chest pain, Back: Negative for injury and pain, : Negative for injury, bleeding, discharge, and swelling, MS/Extremity: Negative for injury and deformity, Skin: Negative for injury, rash, and discoloration, Neuro: Negative for headache, weakness, numbness, tingling, and seizure, Psych: Negative for depression, anxiety, suicide ideation, homicidal ideation, and hallucinations, Allergy/Immunology: Negative for hives, rash, and allergies, Endocrine: Negative for neck swelling, polydipsia, polyuria, polyphagia, and marked weight changes, Hematologic/Lymphatic: Negative for swollen nodes, abnormal bleeding, and unusual bruising. 20:04 Abdomen/GI: Positive for abdominal pain, of the left upper quadrant and left lower quadrant. Exam: 20:04 Constitutional: This is a well developed, well nourished patient who is awake, alert, imelda and in no acute distress. Head/Face: Normocephalic, atraumatic. Eyes: Pupils equal round and reactive to light, extra-ocular motions intact. Lids and lashes normal. Conjunctiva and sclera are non-icteric and not injected. Cornea within normal limits. Periorbital areas with no swelling, redness, or edema. ENT: Nares patent. No nasal discharge, no septal abnormalities noted. Tympanic membranes are normal and external auditory canals are clear. Oropharynx with no redness, swelling, or masses, exudates, or evidence of obstruction, uvula midline. Mucous membranes moist. Neck: Trachea midline, no thyromegaly or masses palpated, and no cervical lymphadenopathy. Supple, full range of motion without nuchal rigidity, or vertebral point tenderness. No Meningismus. Chest/axilla: Normal chest wall appearance and motion. Nontender with no deformity. No lesions are appreciated. Cardiovascular: Regular rate and rhythm with a normal S1 and S2. No gallops, murmurs, or rubs. Normal PMI, no JVD. No pulse deficits. Respiratory: Lungs have equal breath sounds bilaterally, clear to auscultation and percussion. No rales, rhonchi or wheezes noted. No increased work of breathing, no retractions or nasal flaring. Back: No spinal tenderness. No costovertebral tenderness. Full range of motion. Male : Normal genitalia with no discharge or lesions. Skin: Warm, dry with normal turgor. Normal color with no rashes, no lesions, and no evidence of cellulitis. MS/ Extremity: Pulses equal, no cyanosis. Neurovascular intact. Full, normal range of motion. Neuro: Awake and alert, GCS 15, oriented to person, place, time, and situation. Cranial nerves II-XII grossly intact. Motor strength 5/5 in all extremities. Sensory grossly intact. Cerebellar exam normal. Normal gait. Psych: Awake, alert, with orientation to person, place and time. Behavior, mood, and affect are within normal limits. 20:04 Abdomen/GI: Inspection: distension, Bowel sounds: active, Palpation: moderate abdominal tenderness, in the left upper quadrant and left lower quadrant, Liver: no appreciated palpable abnormalities, Hernia: not appreciated. 21:20 Neck: External neck: is normal, no acute changes, C-spine: appears grossly normal, no imelda acute changes, Thyroid: appears normal, no acute changes, ROM/movement: is normal, no acute changes, nuchal rigidity, is not appreciated, is present. 21:22 ECG was reviewed by the Attending Physician. [facility] Vital Signs: 16:52 BP 120 / 97; Pulse 76; Resp 18; Temp 98.7; Pulse Ox 98% ; Weight 98.88 kg; Height 5 ft. ll1 11 in. (180.34 cm); Pain 10/10; 19:42 BP 138 / 85; Pulse 54; Resp 16; Pulse Ox 99% on R/A; rv 21:34 BP 140 / 94; Pulse 59; Resp 16; Temp 98.5; Pulse Ox 98% on R/A; rv 16:52 Body Mass Index 30.40 (98.88 kg, 180.34 cm) ll1 MDM: 19:27 Patient medically screened. imelda 20:05 Differential diagnosis: AAA, bowel obstruction, diverticulitis, non-specific abd pain, imelda pancreatitis, Peptic Ulcer Disease, Peritonitis, Ureterolithiasis, urinary tract infection. Data reviewed: vital signs, nurses notes, lab test result(s), EKG, radiologic studies, CT scan, plain films. Data interpreted: primary class teacher: rate is 54 beats/min, rhythm is regular, Pulse oximetry: on room air is 99 %. Test interpretation: by ED physician or midlevel provider: ECG, plain radiologic studies. Counseling: I had a detailed discussion with the patient and/or guardian regarding: the historical points, exam findings, and any diagnostic results supporting the discharge/admit diagnosis, lab results, radiology results. 10/20 19:25 Order name: Basic Metabolic Panel; Complete Time: 21:19 10/20 19:25 Order name: CBC with Diff; Complete Time: 21: 10/20 19:25 Order name: Hepatic Function; Complete Time: 21:19 10/20 19:25 Order name: Lipase; Complete Time: 21:19 10/20 20:00 Order name: Chest Single View XRAY; Complete Time: 21:19 [facility] 10/20 20:00 Order name: CT Abd/Pelvis - IV Contrast Only; Complete Time: 21:19 [facility] 10/20 20:06 Order name: EKG; Complete Time: 20:07 [facility] 10/20 19:25 Order name: IV Saline Lock; Complete Time: 19:26 10/20 19:25 Order name: Labs collected and sent; Complete Time: : 10/20 20:06 Order name: EKG - Nurse/Tech; Complete Time: 20:13 imelda EC:22 Rate is 55 beats/min. Rhythm is regular. QRS [place] is Normal. ID interval is normal. QRS imelda interval is normal. QT interval is normal. No Q waves. T waves are Normal. No ST changes noted. Clinical impression: Sinus bradycardia. Interpreted by me. Reviewed by me. Administered Medications: 19:30 Drug: NS 0.9% 1000 ml Route: IV; Rate: 1 bolus; Site: left antecubital; rv 21:33 Follow up: IV Status: Completed infusion; IV Intake: 1000ml rv 20:10 Drug: Pepcid 20 mg Route: IVP; Site: left antecubital; rv 21:33 Follow up: Response: No adverse reaction rv 20:11 Drug: morphine 4 mg {Note: rass 0.} Route: IVP; Site: left antecubital; rv 21:33 Follow up: Response: No adverse reaction; Pain is decreased; RASS: Alert and Calm (0) rv 20:11 Drug: Zofran (Ondansetron) 4 mg Route: IVP; Site: left antecubital; rv 21:33 Follow up: Response: No adverse reaction rv 21:32 Drug: TORadol 30 mg Route: IVP; Site: left antecubital; rv 21:33 Follow up: Response: Medication administered at discharge. rv 21:33 Not Given (Physician Discretion): Cipro 400 mg 200 ml IVPB once over 60 mins rv 21:33 Not Given (Physician Discretion): Flagyl 500 mg 100 ml IVPB at 200 ml/hr once over 30 rv mins Disposition: 10/20/20 21:21 Discharged to Home. Impression: Abdominal tenderness. - Condition is Stable. - Discharge Instructions: Abdominal Pain, Adult, Abdominal Pain, Adult, [id number]. - Prescriptions for Bentyl 20 mg Oral Tablet - take 1 tablet by ORAL route every 6 hours As needed; 20 tablet. Pepcid 20 mg Oral Tablet - take 1 tablet by ORAL route every 12 hours for 10 days; 20 tablet. Zofran 4 mg Oral Tablet - take 1 tablet by ORAL route every 12 hours As needed; 20 tablet. - Medication Reconciliation Form, Thank You Letter, Antibiotic Education, Prescription Opioid Use form. - Follow up: Private Physician; When: 2 - 3 days; Reason: Recheck today's complaints, Continuance of care, Re-evaluation by your physician. Follow up: Katelyn Meadows MD; When: 2 - 3 days; Reason: Recheck today's complaints, Continuance of care, Re-evaluation by your physician. - Problem is new. - Symptoms have improved. Signatures: Dispatcher [employer] EDDominic Cruz MD MD cha Vicente, Ronaldo RN RN rv Surya Muro RN RN ll1 Corrections: (The following items were deleted from the chart) 21:50 21:21 10/20/2020 21:21 Discharged to Home. Impression: Abdominal tenderness. Condition rv is Stable. Forms are Medication Reconciliation Form, Thank You Letter, Antibiotic Education, Prescription Opioid Use. Follow up: Private Physician; When: 2 - 3 days; Reason: Recheck today's complaints, Continuance of care, Re-evaluation by your physician. Follow up: Katelyn Meadows; When: 2 - 3 days; Reason: Recheck today's complaints, Continuance of care, Re-evaluation by your physician. Problem is new. Symptoms have improved. imelda
[2020-10-20] MEDS ORDERED: KETOROLAC 30 MG/ML INJ ONE (21:47)
[2020-10-20 22:06] VITALS: BP 140/94; TEMP 98.5; O2SAT 98
== END 2020-10-20 21:50 | disposition home or self-care (01) ==
LOC: ER 16:32
DX: R10.819 Abdominal tenderness, unspecified site (principal); I10 Essential (primary) hypertension; F17.210 Nicotine dependence, cigarettes, uncomplicated
CPT/HCPCS: 96361; 93005; 85025; 80048; 36415; 80076; 83690; 74177; 71045; 96375; 96374; 99284; Q9967; J7030; J2405

== ENCOUNTER 2021-02-04 22:56 | Observation (INO) | payer OTHER ==
--- OUTSIDE RECORDS SUMMARY | 2021-02-04 22:58 | XMS REPORT | Continuity of Care Document ---
:1955 Author Organization [facility] t Address [address] [place] [address] Care Team Providers Name Role Phone Unavailable Unavailable Unavailable Problems Condition Condition Condition Status Onset Resolution Last Treating Co mments Source Name Details Category Date Date Treatment Clinician Date Chronic Chronic Problem Active 2020- [place] obstructiv Obstructiv 2-21 [facility] e lung e Lung 00:00: Practic disease Disease 00 e Hyperlipid Hyperlipid Problem Active 2020-0 [facility] emia emia 9-23 Family 00:00: Practic 00 e Gout Gout Problem Active 2020-0 [place] 9-23 Family 00:00: Practic 00 e Nicotine Nicotine Problem Active 2020-0 [place] dependence Dependence 9-23 Fa shell 00:00: Practic 00 e Essential Essential Problem Active 2020-0 [place] [facility] hypertensi Hypertensi 9-23 Fa shell on on 00:00: Practic 00 e Gastroesop Gastroesop Problem Active 2020-0 [facility] hageal hageal 9-23 Family reflux Reflux 00:00: Practic disease Disease 00 e Degenerati Degenerati Problem Active 2020-0 [facility] ve joint ve Joint 9-23 Family disease Disease 00:00: Practic involving Involving 00 e multiple Multiple joints Joints Lumbar Lumbar Problem Active 2020-0 [facility] radiculopa Radiculopa 9-23 [facility] thy thy 00:00: Practic 00 e Chronic Chronic Problem Active 2020-0 [place] back pain Back Pain 9-23 Fami ly 00:00: Practic 00 e At risk At Risk Problem Active 2020-0 [place] for falls for Falls 9-23 Fami ly 00:00: Practic 00 e Pain of Pain of Problem Active 2020-0 [facility] left ankle Left Ankle 9-23 [facility] joint Joint 00:00: Practic 00 e Nicotine Nicotine Problem Active 2020-0 [place] dependence Dependence 9-23 [facility] with with 00:00: Practic current Current 00 e use Use Allergies, Adverse Reactions, Alerts This patient has no known allergies or adverse reactions. Social History Smoking Status Start Date Stop Date Source Heavy Tobacco Smoker [facility] Practice Medications Ordered Filled Start Stop Current Ordering Indication Dosage Frequency Signature Comments Components Source Medication Medication Date Date Medication? Clinician (SIG) Name Name allopurinol allopurinol No allopurino [facility] 100 mg 100 mg l 100 mg Family tablet TAKE tablet TAKE tablet Practic 1 TABLET BY 1 TABLET BY TAKE 1 e MOUTH EVERY MOUTH EVERY TABLET BY DAY DAY MOUTH EVERY DAY amlodipine amlodipine No amlodipine [facility] 10 mg 10 mg 10 mg Family tablet TAKE tablet TAKE tablet Practic 1 TABLET BY 1 TABLET BY TAKE 1 e MOUTH EVERY MOUTH EVERY TABLET BY DAY DAY MOUTH EVERY DAY atorvastati atorvastati No atorvastat [facility] n 20 mg n 20 mg in 20 mg Famil y tablet TAKE tablet TAKE tablet Practic 1 TABLET BY 1 TABLET BY TAKE 1 e MOUTH EVERY MOUTH EVERY TABLET BY DAY DAY MOUTH EVERY DAY hydralazine hydralazine No hydralazin [facility] 25 mg 25 mg e 25 mg Family tablet Take tablet Take tablet Practic 1 tablet 1 tablet Take 1 e every day every day tablet by oral by oral every day route for route for by oral 90 days. 90 days. route for 90 days. hydrochloro hydrochloro No hydrochlor [facility] thiazide 25 thiazide 25 othiazide Family mg tablet mg tablet 25 mg Prac tic TAKE 1 TAKE 1 tablet e TABLET BY TABLET BY TAKE 1 MOUTH EVERY MOUTH EVERY TABLET BY DAY DAY MOUTH EVERY DAY Lidoderm 5 Lidoderm 5 No Lidoderm 5 Village % topical % topical % topical Family patch APPLY patch APPLY patch Practic 1 PATCH BY 1 PATCH BY APPLY 1 e TOPICAL TOPICAL PATCH BY ROUTE ONCE ROUTE ONCE TOPICAL DAILY (JANUARY DAILY (MAY ROUTE ONCE WEAR UP TO WEAR UP TO DAILY (JANUARY 12HOURS.) 12HOURS.) WEAR UP TO 12HOURS.) metoprolol metoprolol No metoprolol [facility] tartrate 25 tartrate 25 tartrate Family mg tablet mg tablet 25 mg Prac tic TAKE 1 TAKE 1 tablet e TABLET BY TABLET BY TAKE 1 MOUTH TWICE MOUTH TWICE TABLET BY A DAY A DAY MOUTH TWICE A DAY omeprazole omeprazole No omeprazole [facility] 20 mg 20 mg 20 mg Family capsule,del capsule,del capsule,de Practic ayed ayed layed e release release release TAKE 1 TAKE 1 TAKE 1 CAPSULE BY CAPSULE BY CAPSULE BY MOUTH EVERY MOUTH EVERY MOUTH DAY DAY EVERY DAY omeprazole omeprazole No 1capsul Q1D omeprazole [facility] 40 mg 40 mg e(s) 40 mg Family capsule,del capsule,del capsule,de Practic ayed ayed layed e release release release Take 1 Take 1 Take 1 capsule capsule capsule every day every day every day by oral by oral by oral route for route for route for 90 days. 90 days. 90 days. albuterol albuterol No albuterol [facility] sulfate HFA sulfate HFA sulfate Family 90 90 HFA 90 Practic mcg/actuati mcg/actuati mcg/actuat e on aerosol on aerosol ion inhaler inhaler aerosol Inhale 2 Inhale 2 inhaler puffs as puffs as Inhale 2 needed by needed by puffs as inhalation inhalation needed by route for route for inhalation 30 days. 30 days. route for 30 days. Immunizations Ordered Immunization Filled Immunization Date Status Commen ts Source Name Name SARS-COV-2 (COVID-19) SARS-COV-2 (COVID-19) 2020-12-07 Completed [facility] vaccine, UNSPECIFIED vaccine, UNSPECIFIED 00:00:00 Practice pneumococcal pneumococcal 2018-09-[address] [facility] polysaccharide PPV23 polysaccharide PPV23 00:00:00 Practice influenza, influenza, 2018-09-17 [facility] injectable, injectable, 00:00:00 Practice quadrivalent quadrivalent Vital Signs Vital Name Observation Time Observation Value Comments Source BP Diastolic 2020-12-07 00:00:00 97 mm[Hg] [facility] Height 2020-12-07 00:00:00 70 [in_i] [facility] BMI (Body Mass 2020-12-07 00:00:00 31.3 kg/m2 [facility] Family Index) Practice BP Systolic 2020-12-07 00:00:00 101 mm[Hg] [facility] Body Weight 2020-12-07 00:00:00 218 [lb_av] [facility] Height 2020-06-09 00:00:00 70 [in_i] [facility] BMI (Body Mass 2020-06-09 00:00:00 31.3 kg/m2 [facility] Family Index) Practice Body Weight 2020-06-09 00:00:00 218 [lb_av] [facility] Procedures Procedure Date / Time Performed Performing Clinician Sour e Screening Colonoscopy 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 2020-06-09 2020-06-09 [facility] [place] - [id number] V illage 00:00:00 00:00:00 [place]o Danny y [employer] BU[employer]DER: [id number] [facility] - Pract jean Parker [email or web address] [address] [place] [phone] , Ph. Results This patient has no known results.
[2021-02-04 23:35] LABS: Absolute Lymphocytes (CBC) 2.7 K/uL (0.7-4.9); Basophils % 0.6 % (0-1.3); Hematocrit 45.8 % (39.6-49.0); Lymphocytes % 31.9 % (15.3-44.8); MPV 8.6 fL (7.6-11.3); RBC Red Blood Cell Count 4.84 M/uL (4.33-5.43)
[2021-02-04 23:37] LABS: Protime INR 0.96
[2021-02-04 23:49] LABS: ALT/SGPT 49 U/L (12-78); AST/SGOT 25 U/L (15-37); Albumin 3.9 g/dL (3.4-5.0); Alkaline Phosphatase 104 U/L (45-117); BUN Blood Urea Nitrogen 10 mg/dL (7-18); Bicarbonate 28 mmol/L (21-32); Bilirubin Direct < 0.1 mg/dL (0-0.2); Bilirubin Total 0.2 mg/dL (0.2-1.0); Glucose Level 154 mg/dL (74-106); Magnesium 1.9 mg/dL (1.8-2.4); NT PRO-BNP 59 pg/mL (<125); Potassium 3.3 mmol/L (3.5-5.1); Protein, Total 7.3 g/dL (6.4-8.2); Sodium Level 143 mmol/L (136-145); Troponin (Emerg Dept Use Only) < 0.02 ng/mL (0.0-0.045)
[2021-02-05] MEDS ORDERED: MORPHINE 2 MG/ML SYR ONE (00:54)
[2021-02-05] MEDS ORDERED: ASPIRIN 81 MG CHEWABLE TABLET ONE (00:54)
[2021-02-05] MEDS ORDERED: ONDANSETRON 4 MG/2 ML VIAL ONE ×2 (00:54→02:47)
[2021-02-05 02:26] LABS: Urine Blood Negative (Negative); Urine Glucose Negative (Negative); Urine Protein Negative (Negative); Urine Specific Gravity >=1.030 (1.005-1.030)
[2021-02-05] MEDS ORDERED: MORPHINE 4 MG/ML SYR ONE (02:47)
[2021-02-05 02:53] LABS: Barbiturates NEGATIVE (NEGATIVE); Benzodiazepines NEGATIVE (NEGATIVE); Cocaine NEGATIVE (NEGATIVE); METHAMPHETAM NEGATIVE (NEGATIVE); Methadone NEGATIVE (NEGATIVE); Opiates POSITIVE (NEGATIVE); Phencyclidine NEGATIVE (NEGATIVE); THC Cannibis NEGATIVE (NEGATIVE)
--- NOTE | 2021-02-05 03:38 | ER ---
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 Coronavirus screen: At this time, the client does not indicate any symptoms associated with coronavirus-19. Ebola Screen: No symptoms or risks identified at this time. Initial Sepsis Screen: Does the patient meet any 2 criteria? No. Patient's initial sepsis screen is negative. Does the patient have a suspected source of infection? No. Patient's initial sepsis screen is negative. Risk Assessment: Do you want to hurt yourself or someone else? Patient reports no desire to harm self or others. Onset of symptoms was February 04, 2021. 23:16 Method Of Arrival: Ambulatory bb 23:16 Acuity: MARCUS 3 bb Triage Assessment: 23:42 Respiratory: Onset: The symptoms/episode began/occurred today, the patient has moderate jm8 shortness of breath. Historical: - Allergies: 23:20 Lisinopril; bb 23:42 Klonopin; jm8 - Home Meds: 23:20 amlodipine oral [Active]; Allopurinol Oral [Active]; Omeprazole Oral [Active]; bb Hydralazine Oral [Active]; Hydrochlorothiazide Oral [Active]; atorvastatin oral oral [Active]; Metoprolol Tartrate Oral [Active]; - PMHx: 23:20 Diverticulitis; Hypertension; Migraines; Pancreatitis; Gout; bb - PSHx: 23:20 Back; "mass removed from vocal cords"; salivary gland removal; bb - Immunization history:: Adult Immunizations up to date, Client reports receiving the 2nd dose of the Covid vaccine. - Social history:: Smoking status: Patient reports the use of cigarette tobacco products, smokes one pack cigarettes per day. Screenin:41 Abuse screen: Denies threats or abuse. Denies injuries from another. Nutritional jm8 screening: No deficits noted. Tuberculosis screening: No symptoms or risk factors identified. Fall Risk IV access (20 points). Assessment: 23:39 General: Appears in no apparent distress. comfortable, Behavior is calm, cooperative, jm8 appropriate for age. Pain: Complains of pain in chest Pain currently is 8 out of 10 on a pain scale. Quality of pain is described as pressure, Also complains of no other associated symptoms. Neuro: No deficits noted. Level of Consciousness is awake, alert, obeys commands, Oriented to person, place, time. Cardiovascular: Reports chest pain, fatigue, lightheadedness, shortness of breath, Heart tones present Capillary refill < 3 seconds Rhythm is sinus rhythm. Respiratory: Reports shortness of breath at rest Airway is patent Trachea midline Respiratory effort is even, labored, Respiratory pattern is regular, symmetrical, Breath sounds are clear bilaterally. GI: No deficits noted. No signs and/or symptoms were reported involving the gastrointestinal system. : No deficits noted. No signs and/or symptoms were reported regarding the genitourinary system. EENT: No deficits noted. No signs and/or symptoms were reported regarding the EENT system. Derm: No deficits noted. No signs and/or symptoms reported regarding the dermatologic system. Skin is intact, is healthy with good turgor, Skin is dry, Skin is pink, warm \\T\\ dry. Skin temperature is warm. Musculoskeletal: No deficits noted. No signs and/or symptoms reported regarding the musculoskeletal system. 02/05 02:20 Reassessment: Patient appears in no apparent distress at this time. No changes from jm8 previously documented assessment. Patient and/or family updated on plan of care and expected duration. Pain level reassessed. Patient is alert, oriented x 3, equal unlabored respirations, skin warm/dry/pink. 04:22 Reassessment: Patient appears in no apparent distress at this time. No changes from jm8 previously documented assessment. Patient and/or family updated on plan of care and expected duration. Pain level reassessed. Patient is alert, oriented x 3, equal unlabored respirations, skin warm/dry/pink. Patient states symptoms have improved. Vital Signs: 02/04 23:16 BP 155 / 101; Pulse 74; Resp 20 S; Temp 98.3(O); Pulse Ox 97% on R/A; Weight 98.88 kg bb (R); Height 5 ft. 11 in. (180.34 cm) (R); Pain 06/26; 02/05 00:07 BP 158 / 102; Pulse 64; Resp 16; Pulse Ox 98% on R/A; 8 01:06 BP 157 / 92; Pulse 73; Resp 16; Pulse Ox 96% on R/A; 8 02:17 BP 150 / 100; Pulse 76; Resp 16; Pulse Ox 96% on R/A; 8 03:13 BP 152 / 102; Pulse 76; Resp 16; Pulse Ox 99% on R/A; jm8 04:21 BP 151 / 100; Pulse 59; Resp 16; Pulse Ox 95% on R/A; 8 02/04 23:16 Body Mass Index 30.40 (98.88 kg, 180.34 cm) bb ED Course: 02/04 22:59 Patient arrived in ED. mr 22:59 Franklin Sotelo MD is Private Physician. mr 23:18 Triage completed. bb 23:20 Arm band placed on Patient placed in an exam room, on a stretcher, on pvc monitor, bb on pulse oximetry. EKG completed in triage. Results shown to MD. 23:30 Inserted saline lock: 20 gauge in right forearm, using aseptic technique. [facility] 23:33 XRAY Chest (1 view) In Process Unspecified. EDMS 23:41 Patient has correct armband on for positive identification. Bed in low position. Call [facility] light in reach. Side rails up X2. 23:48 Gonzalo Landaverde MD is Attending Physician. [facility] 02/05 02:56 CT Chest For PE Angio In Process Unspecified. EDMS 02:56 CT Head Brain wo Cont In Process Unspecified. EDMS 03:38 Franklin Sotelo MD is Hospitalizing Provider. [facility] 05:27 No provider procedures requiring assistance completed. Patient admitted, IV remains in [facility]. Administered Medications: 00:36 Drug: Zofran (Ondansetron) 4 mg Route: IVP; Site: left antecubital; jm8 01:51 Follow up: Response: No adverse reaction 8 00:36 Drug: Aspirin Chewable Tablet 324 mg Route: PO; jm8 01:52 Follow up: Response: No adverse reaction 8 00:40 Drug: morphine 2 mg Route: IVP; Site: right forearm; jm8 01:51 Follow up: Response: No adverse reaction; Pain is decreased 8 02:30 Drug: morphine 4 mg Route: IVP; Site: right forearm; jm8 03:44 Follow up: Response: No adverse reaction; Pain is decreased 8 02:31 Drug: Zofran (Ondansetron) 4 mg Route: IVP; Site: right forearm; jm8 03:44 Follow up: Response: No adverse reaction 8 03:40 Drug: Nitroglycerin 0.4 mg Route: Sublingual; 8 03:53 Follow up: Response: No adverse reaction; Pain is unchanged, physician notified 8 03:52 Drug: Dilaudid (HYDROmorphone) 1 mg Route: IVP; Site: right forearm; 8 04:21 Follow up: Response: No adverse reaction; Pain is decreased [facility] Outcome: 03:38 Decision to Hospitalize by Provider. [facility] 05:28 Admitted to Med/surg accompanied by tech, via wheelchair, with chart, Report called to alvin Chen RN 05:28 Condition: good 05:28 Instructed on the need for admit. 05:28 Patient left the ED. alvin Signatures: Dispatcher [employer] Tavia Smalls Brenda, RN RN bb Holmes, Maurice, MD MD [facility] Jose Escamilla RN RN jm8
--- NOTE | 2021-02-05 03:39 | EDPHYS ---
Physician Documentation [facility] Name: Maynor Marquez Age: 65 yrs Sex: Male : 1955 Arrival Date: 02/04/2021 Time: 22:59 Bed 14 Private MD: Franklin Sotelo F ED Physician Gonzalo Landaverde HPI: 02/05 02:13 This 65 yrs old Black Male presents to ER via Ambulatory with complaints of Breathing mh7 Difficulty. 02:13 The patient or guardian reports chest pain that is located primarily in the substernal mh7 area. Onset: last night, at 21:00. 02:13 The pain does not radiate. Associated signs and symptoms: Pertinent positives: nausea, mh7 shortness of breath, Pertinent negatives: abdominal pain, cough, diaphoresis, dizziness, headache, lower extremity pain, lower extremity swelling, lightheadedness, near syncope, palpitations, recent travel, syncope, vomiting. The chest pain is described as a heaviness. Duration: The patient or guardian reports multiple episodes, that are intermittent, that wax and wane. Modifying factors: The symptoms are alleviated by nothing. the symptoms are aggravated by nothing. Severity of pain: At its worst the pain was moderate last night, in the emergency department the pain is unchanged. Historical: - Allergies: 02/04 23:20 Lisinopril; bb 23:42 Klonopin; jm8 - Home Meds: 23:20 amlodipine oral [Active]; Allopurinol Oral [Active]; Omeprazole Oral [Active]; bb Hydralazine Oral [Active]; Hydrochlorothiazide Oral [Active]; atorvastatin oral oral [Active]; Metoprolol Tartrate Oral [Active]; - PMHx: 23:20 Diverticulitis; Hypertension; Migraines; Pancreatitis; Gout; bb - PSHx: 23:20 Back; "mass removed from vocal cords"; salivary gland removal; bb - Immunization history:: Adult Immunizations up to date, Client reports receiving the 2nd dose of the Covid vaccine. - Social history:: Smoking status: Patient reports the use of cigarette tobacco products, smokes one pack cigarettes per day. ROS: 02/05 02:13 Constitutional: Negative for fever, chills, and weight loss, Eyes: Negative for injury, mh7 pain, redness, and discharge, ENT: Negative for injury, pain, and discharge, Neck: Negative for injury, pain, and swelling. Back: Negative for injury and pain, : Negative for injury, bleeding, discharge, and swelling, MS/Extremity: Negative for injury and deformity, Skin: Negative for injury, rash, and discoloration, Neuro: Negative for headache, weakness, numbness, tingling, and seizure, Psych: Negative for depression, anxiety, suicide ideation, homicidal ideation, and hallucinations, Allergy/Immunology: Negative for hives, rash, and allergies, Endocrine: Negative for neck swelling, polydipsia, polyuria, polyphagia, and marked weight changes, Hematologic/Lymphatic: Negative for swollen nodes, abnormal bleeding, and unusual bruising. Abdomen/GI: Negative for abdominal pain, vomiting, diarrhea, constipation, abdominal cramps, abdominal distension, anorexia, dysphagia, hematemesis, black/tarry stool, rectal pain, rectal bleeding, bowel incontinence, flatulence. Exam: 02:13 Head/Face: Normocephalic, atraumatic. Eyes: Pupils equal round and reactive to light, mh7 extra-ocular motions intact. Lids and lashes normal. Conjunctiva and sclera are non-icteric and not injected. Cornea within normal limits. Periorbital areas with no swelling, redness, or edema. Neck: Trachea midline, no thyromegaly or masses palpated, and no cervical lymphadenopathy. Supple, full range of motion without nuchal rigidity, or vertebral point tenderness. No Meningismus. Chest/axilla: Normal chest wall appearance and motion. Nontender with no deformity. No lesions are appreciated. Cardiovascular: Regular rate and rhythm with a normal S1 and S2. No gallops, murmurs, or rubs. Normal PMI, no JVD. No pulse deficits. Respiratory: Lungs have equal breath sounds bilaterally, clear to auscultation and percussion. No rales, rhonchi or wheezes noted. No increased work of breathing, no retractions or nasal flaring. Abdomen/GI: Soft, non-tender, with normal bowel sounds. No distension or tympany. No guarding or rebound. No evidence of tenderness throughout. Back: No spinal tenderness. No costovertebral tenderness. Full range of motion. Skin: Warm, dry with normal turgor. Normal color with no rashes, no lesions, and no evidence of cellulitis. MS/ Extremity: Pulses equal, no cyanosis. Neurovascular intact. Full, normal range of motion. Neuro: Awake and alert, GCS 15, oriented to person, place, time, and situation. Cranial nerves II-XII grossly intact. Motor strength 5/5 in all extremities. Sensory grossly intact. Cerebellar exam normal. Normal gait. Psych: Awake, alert, with orientation to person, place and time. Behavior, mood, and affect are within normal limits. 02:13 Constitutional: The patient appears in no acute distress, alert, awake, uncomfortable. Vital Signs: 02/04 23:16 BP 155 / 101; Pulse 74; Resp 20 S; Temp 98.3(O); Pulse Ox 97% on R/A; Weight 98.88 kg bb (R); Height 5 ft. 11 in. (180.34 cm) (R); Pain 10/10; 02/05 00:07 BP 158 / 102; Pulse 64; Resp 16; Pulse Ox 98% on R/A; 8 01:06 BP 157 / 92; Pulse 73; Resp 16; Pulse Ox 96% on R/A; 8 02:17 BP 150 / 100; Pulse 76; Resp 16; Pulse Ox 96% on R/A; 8 03:13 BP 152 / 102; Pulse 76; Resp 16; Pulse Ox 99% on R/A; 8 04:21 BP 151 / 100; Pulse 59; Resp 16; Pulse Ox 95% on R/A; 8 02/04 23:16 Body Mass Index 30.40 (98.88 kg, 180.34 cm) MDM: 03:36 Differential diagnosis: abnormal EKG, acute myocardial infarction, acute pericarditis, mh7 anxiety, coronary artery disease chest wall pain, congestive heart failure costochondritis, myocarditis, pericarditis, pneumonia, pneumothorax, pulmonary embolus, stable angina. HEART Score: History: Moderately Suspicious (1), ECG: Non specific repolarization disturbance / LBTB / PM (1), Age: > 45 and < 65 years (1), Risk Factors: 1 or 2 risk factors (1), [Hypertension] Troponin: < or = 1 x Normal Limit (0), Total Score = 4. The patient was given aspirin in the Emergency Department. Data reviewed: vital signs, nurses notes, old medical records, lab test result(s), cardiac enzymes, CBC, electrolytes, urinalysis, EKG, radiologic studies, CT scan, plain films. Data interpreted: Pulse oximetry: on room air is 99 %. Interpretation: normal. Counseling: I had a detailed discussion with the patient and/or guardian regarding: the historical points, exam findings, and any diagnostic results supporting the discharge/admit diagnosis, the presence of at least one elevated blood pressure reading (>120/80) during this emergency department visit, lab results, radiology results, the need for further work-up and treatment in the hospital. Response to treatment: the patient's symptoms have mildly improved after treatment. 03:38 Patient medically screened. [facility] 02/04 23:21 Order name: Basic Metabolic Panel [facility] 02/04 23:21 Order name: CBC with Diff [facility] 02/04 23:21 Order name: LFT's [facility] 02/04 23:21 Order name: Magnesium [facility] 02/04 23:21 Order name: NT PRO-BNP; Complete Time: 01:56 [facility] 02/04 23:21 Order name: PT-INR; Complete Time: 01:56 [facility] 02/04 23:21 Order name: Troponin (emerg Dept Use Only); Complete Time: 01:56 [facility] 02/04 23:21 Order name: Basic Metabolic Panel; Complete Time: 01:56 [facility] 02/04 23:21 Order name: CBC with Automated Diff; Complete Time: 01:56 [facility] 02/04 23:21 Order name: Liver (Hepatic) Function; Complete Time: 01:56 [facility] 02/04 23:21 Order name: Magnesium; Complete Time: 01:56 [facility] 02/05 02:04 Order name: UDS; Complete Time: 03:03 [facility] 02/05 02:24 Order name: Urine Dipstick-Ancillary; Complete Time: 03:03 [facility] 02/05 03:45 Order name: Basic Metabolic Panel [facility] 02/04 23:21 Order name: XRAY Chest (1 view) [facility] 02/05 02:04 Order name: CT Chest For PE Angio [facility] 02/05 02:04 Order name: CT Head Brain wo Cont [facility] 02/05 03:45 Order name: Basic Metabolic Panel [facility] 02/05 03:45 Order name: Troponin I [facility] 02/05 03:45 Order name: Troponin I [facility] 02/05 03:45 Order name: Troponin I [facility] 02/05 03:46 Order name: CBC with Automated Diff [facility] 02/05 03:46 Order name: CBC with Automated Diff [facility] 02/05 03:49 Order name: COVID-19 : Document "Date of Symptom Onset" if Symptomatic. tt3 02/05 03:49 Order name: CORONAVIRUS [facility] 02/05 04:50 Order name: SARS-COV-2 RT PCR [facility] 02/04 23:21 Order name: EKG; Complete Time: 23:22 [facility] 02/04 23:21 Order name: Cardiac monitoring; Complete Time: 23:34 [facility] 02/04 23:21 Order name: EKG - Nurse/Tech; Complete Time: 23:29 [facility] 02/04 23:21 Order name: IV Saline Lock; Complete Time: 23:29 [facility] 02/04 23:21 Order name: Labs collected and sent; Complete Time: 23:29 [facility] 02/04 23:21 Order name: O2 Per Protocol; Complete Time: 23:29 [facility] 02/04 23:21 Order name: O2 Sat Monitoring; Complete Time: 23:29 [facility] 02/05 02:04 Order name: Urine Dipstick-Ancillary (obtain specimen); Complete Time: 02:26 [facility] 02/05 03:46 Order name: CONS Physician Consult [facility] 02/05 03:46 Order name: Consistent Carb (ADA) [address] [facility] 02/05 03:46 Order name: EKG Electrocardiogram [facility] 02/05 03:46 Order name: EKG Electrocardiogram [facility] 02/05 03:46 Order name: EKG Electrocardiogram [facility] 02/05 03:46 Order name: EKG Electrocardiogram [facility] Administered Medications: 00:36 Drug: Zofran (Ondansetron) 4 mg Route: IVP; Site: left antecubital; jm8 01:51 Follow up: Response: No adverse reaction jm8 00:36 Drug: Aspirin Chewable Tablet 324 mg Route: PO; jm8 01:52 Follow up: Response: No adverse reaction jm8 00:40 Drug: morphine 2 mg Route: IVP; Site: right forearm; jm8 01:51 Follow up: Response: No adverse reaction; Pain is decreased jm8 02:30 Drug: morphine 4 mg Route: IVP; Site: right forearm; jm8 03:44 Follow up: Response: No adverse reaction; Pain is decreased 8 02:31 Drug: Zofran (Ondansetron) 4 mg Route: IVP; Site: right forearm; jm8 03:44 Follow up: Response: No adverse reaction 8 03:40 Drug: Nitroglycerin 0.4 mg Route: Sublingual; jm8 03:53 Follow up: Response: No adverse reaction; Pain is unchanged, physician notified 8 03:52 Drug: Dilaudid (HYDROmorphone) 1 mg Route: IVP; Site: right forearm; jm8 04:21 Follow up: Response: No adverse reaction; Pain is decreased [facility] Disposition: 02/05/21 03:38 Hospitalization ordered by Franklin Sotelo for Observation. Preliminary diagnosis is Chest pain, unspecified. - Bed requested for Telemetry/MedSurg (observation). - Status is Observation. jm8 - Condition is Stable. - Problem is an acute exacerbation. - Symptoms have improved. Signatures: Dispatcher [employer] EDIA Rubi Perez RN RN mw Ballard, Brenda, RN RN bb Holmes, Maurice, MD MD [facility] Jose Escamilla RN RN 8 Corrections: (The following items were deleted from the chart) 04:57 03:38 Hospitalization Ordered by Franklin Sotelo MD for Observation. Preliminary diagnosis is Chest pain, unspecified. Bed requested for Telemetry/MedSurg (observation). Status is Observation. Condition is Stable. Problem is an acute exacerbation. Symptoms have improved. [facility] 05:28 04:57 02/05/2021 03:38 Hospitalization Ordered by Franklin Sotelo MD for Observation. [facility] Preliminary diagnosis is Chest pain, unspecified. Bed requested for Telemetry/MedSurg (observation). Status is Observation. Condition is Stable. Problem is an acute exacerbation. Symptoms have improved. mw
[2021-02-05] MEDS ORDERED: ONDANSETRON 4 MG/2 ML VIAL IV PRN (03:43)
[2021-02-05] MEDS ORDERED: ACETAMINOPHEN 500 MG TAB PO PRN (03:43)
[2021-02-05] MEDS ORDERED: NITROGLYCERIN 0.4 MG/TAB SL ONE (03:58)
[2021-02-05] MEDS ORDERED: HYDROMORPHONE HCL 1 MG/ML INJ ONE (04:08)
[2021-02-05] MEDS ORDERED: NITROGLYCERIN 1 GM PKT TD SCH (06:00)
[2021-02-05] MEDS: MORPHINE 4 MG/ML SYR IV PRN ×4 (06:08→20:45)
[2021-02-05 07:58] VITALS: BMI 30.4
[2021-02-05] MEDS: ASPIRIN EC 81 MG TAB PO SCH (09:08)
--- NOTE | 2021-02-05 11:02 | RAD REPORT ---
EXAM DESCRIPTION: RAD - Chest Single View - 02/04/2021 11:34 pm CLINICAL HISTORY: DYSPNEA Chest pain. COMPARISON: Chest Single View dated 10/20/2020; Chest Single View dated 12/02/2019; Chest Pa And Lat (2 Views) dated 11/07/2019; Chest Single View dated 11/28/2018 FINDINGS: Portable technique limits examination quality. Mild interstitial pulmonary edema. The heart is mildly enlarged in size. No displaced fractures. IMPRESSION: Mild CHF.
[2021-02-05] MEDS ORDERED: POTASSIUM 25 MEQ EFFERV TAB PO ONE (11:28)
[2021-02-05] MEDS ORDERED: POTASSIUM CL SA 10 MEQ TAB PO ONE (21:00)
--- NOTE | 2021-02-05 22:23 | CON ---
Date of Consultation: 02/05/2021 Reason For Consultation: Chest pain. History Of Present Illness: A 65-year-old male with no known history of coronary artery disease, pre sented with chest pain, left upper chest, severe in nature, worsens with chest wall movements or pres sing on the chest wall with difficulty breathing. No exertional chest pain per se. No radiation. Past Medical History: Hypertension. Medications: Refer to reconciliation sheet for detailed list. Allergies: REVIEWED. Family History: No premature coronary artery disease or cancer. Social History: He does not use drugs or alcohol. Review of Systems: All systems reviewed and they were negative except for what is mentioned in the HPI. Physical Examination: Vital Signs: Temperature of 97.5, pulse 71, breathing at 18, blood pressure 133/88, saturating 98%. General: Pleasant middle-aged male, in no distress. Head and Neck: Pupils are equal, reactive to light. Intact eye movements. No JVD. No cervical lym phadenopathy. Neck: Supple. Thyroid is not enlarged. Lungs: Clear to auscultation bilaterally. No rhonchi, rales, or crackles. No accessory muscle use. Heart: Regular rate and rhythm. No extra sounds. Abdomen: Soft, nontender. Bowel sounds positive. No organomegaly. No masses or hernia. No rigidi ty or rebound. Extremities: No edema, clubbing, or cyanosis. Intact pulses. Skin: No rash noted. Neurologic: Alert, awake, oriented x3. No acute focal deficits appreciated. Investigations: Troponins x3 are negative. Hemoglobin 15.5. Assessment And Plan: Chest pain. It is atypical, likely musculoskeletal. Cardiac enzymes are negat ame. No further inpatient workup is recommended from Cardiology standpoint. If other causes of ches t pain ruled out, can be released and follow up as outpatient. SR/MODL Voice ID: [id number] Report ID: [id number]
[2021-02-06] MEDS: ACETAMINOPHEN 325 MG TABLET PO PRN ×2 (01:16→08:46)
--- NOTE | 2021-02-06 01:18 | HP ---
Date of Admission: 02/05/2021 History Of Present Illness: A 65-year-old male with history of hypertension and hyperlipidemia, came to emergency room with a complaint of front occipital headache along also started feeling some subst ernal chest pain and that started within the day he got to the hospital. The patient had mild increa sed shortness of breath, but he said that was not really that bad for him, but he thought it was. No fever, no chills. No coughing and voiced no other complaints. Review of Systems: Cardiovascular: No palpitation, no dizziness. Respiratory: As above. Gastrointestinal: No complaints. Genitourinary: No complaint. Neurological: As above. Skeletomuscular: No complaint. Past Medical History: 1.Hypertension. 2.Hyperlipidemia. 3.History of pancreatitis in the past. 4.Migraines. 5.Diverticulitis. Social History: No smoking, alcohol, or drug abuse history. Family History: Noncontributing. Medications: Allopurinol 100 mg p.o. daily, Norvasc 10 mg p.o. daily, Lipitor 20 mg p.o. daily, hydr alazine 25 mg p.o. b.i.d., hydrochlorothiazide 25 mg p.o. daily, metoprolol 25 mg p.o. daily, and ome prazole 20 mg p.o. daily. Allergies: CLONAZEPAM AND LISINOPRIL. Physical Examination: Vital Signs: On initial presentation, blood pressure was 175/95, went down to 140/84, pulse 61, temp erature 97.7, pulse oximetry on room air 94%. Heart: Regular rate and rhythm. Chest: Clear to auscultation. Abdomen: Soft, nontender. No hepatosplenomegaly. Bowel sounds normoactive. Extremities: No edema. No cyanosis. Peripheral pulses are felt. Neurological examination: Alert, oriented, nonfocal. Grossly intact. Laboratory Data: CBC was nonrevealing. Chemistry; potassium 3.3, GFR of 79, blood sugar 154, that w as random. Troponin less than 0.02 with toxicology, opiates were positive. Assessment And Plan: Substernal chest pain in the patient with increased risk for coronary artery di sease. Cardiology was consulted, was put on telemetry and serial cardiac enzymes to be drawn. The p atient's headache reported to me with CT scan showing no acute pathology. I think his headaches foun d occipital extension or probably opiate analgesic induced headache. Put the patient on Tylenol for now on that. His chest x-ray showed mild CHF. We will go ahead and order an echo as the patient may have hypertensive cardiomyopathy from hypertension which is, continue his home medications. Look or ders for details. MFS/MODL Voice ID: [id number]
[2021-02-06 01:49] VITALS: O2SAT 96
[2021-02-06 06:35] LABS: Absolute Lymphocytes (CBC) 2.3 K/uL (0.7-4.9); Basophils % 0.6 % (0-1.3); Hematocrit 39.3 % (39.6-49.0); Lymphocytes % 26.9 % (15.3-44.8); MPV 8.5 fL (7.6-11.3); RBC Red Blood Cell Count 4.19 M/uL (4.33-5.43)
[2021-02-06] MEDS: ASPIRIN EC 81 MG TAB PO SCH (08:44)
[2021-02-06 14:10] VITALS: BP 141/88; TEMP 98.4
--- NOTE | 2021-02-06 14:40 | DS ---
History Of Present Illness: A 65-year-old male with history of hypertension, who was admitted to the hospital because of complaint of substernal chest pain. Past Medical History: As per the admit note. Social History: As per the admit note. Family History: As per the admit note. Medications: As per the admit note. Allergies: PER THE ADMIT NOTE. Physical Examination: As per the admit note. Diagnostic Data: As per the admit note. Hospital Course: The patient was admitted to the hospital. He had serial cardiac enzymes, came back negative for myocardial infarction. He remained hemodynamically stable. Cardiology has seen the [facility] and they concluded that the patient's chest pain is atypical and his workup in the hospital did not disclose any coronary artery disease and I thought that the patient from that standpoint is stab le enough to be discharged. He will continue on his high blood pressure medications for his hyperten lee ann. On his workup in the hospital, he tested positive for opiates and I thought that was the cause of his frontal occipital headache that has markedly improved and resolved by now. We will go ahead and discharge the patient and to follow up with me. Look discharge orders for details. MFS/MODL Voice ID: [id number] Report ID: [id number]
--- NOTE | 2021-02-06 16:21 | RAD REPORT ---
EXAM DESCRIPTION: CT Angiography Chest With Intravenous Contrast CLINICAL HISTORY: The patient is 65 years old and is Male; Chest pain;SOB TECHNIQUE: Axial computed tomographic angiography images of the chest with intravenous contrast. S agittal and coronal reformatted images were created and reviewed. This CT exam was performed using one or more of the following dose reduction techniques: automated exposure control, adjustment of t he mA and/or kV according to patient size, and/or use of iterative reconstruction technique. MIP re constructed images were created and reviewed. COMPARISON: No relevant prior studies available. FINDINGS: Pulmonary arteries: Unremarkable. No pulmonary embolism. Aorta: No acute findings. No thoracic aortic aneurysm. Lungs: Calcified granuloma in the left lung. No mass. Pleural space: Unremarkable. No significant effusion. No pneumothorax. Heart: Unremarkable. No cardiomegaly. No significant pericardial effusion. No evidence of R V dysfunction. Bones/joints: No acute fracture. No dislocation. Soft tissues: Unremarkable. Lymph nodes: Unremarkable. No enlarged lymph nodes. IMPRESSION: No acute findings in the visualized arteries of the chest. Electronically signed by: Naman Rodríguez MD 02/05/2021 3:13 AM CDT Due to temporary technical issues with the PACS/Fluency reporting system, reports are being signed by the in house radiologists without review as a courtesy to insure prompt reporting. The interpreting radiologist is fully responsible for the content of the report.
--- NOTE | 2021-02-06 16:41 | RAD REPORT ---
EXAM DESCRIPTION: CT Head Without Intravenous Contrast CLINICAL HISTORY: The patient is 65 years old and is Male; HEADACHE TECHNIQUE: Axial computed tomography images of the head/brain without intravenous contrast. Sagitt al and coronal reformatted images were created and reviewed. This CT exam was performed using one o r more of the following dose reduction techniques: automated exposure control, adjustment of the mA and/or kV according to patient size, and/or use of iterative reconstruction technique. COMPARISON: No relevant prior studies available. FINDINGS: Brain: Mild nonspecific white matter changes likely related to chronic microvascular isc hemic disease. No hemorrhage. Ventricles: Unremarkable. No ventriculomegaly. Bones/joints: Unremarkable. No acute fracture. Soft tissues: Unremarkable. Sinuses: Unremarkable as visualized. Mastoid air cells: Unremarkable as visualized. No mastoid effusion. IMPRESSION: No acute intracranial abnormality. Electronically signed by: Naman Rodríguez MD 02/05/2021 3:17 AM CDT Due to temporary technical issues with the PACS/Fluency reporting system, reports are being signed by the in house radiologists without review as a courtesy to insure prompt reporting. The interpreting radiologist is fully responsible for the content of the report.
== END 2021-02-06 15:41 | disposition home or self-care (01) ==
LOC: ER 22:56 → ERHOLD 02-05 03:41 → 2ND 02-05 04:58
PROVIDERS: ADMIT Internal Medicine; ATTEND Internal Medicine
DX: R07.89 Other chest pain (principal); R51.9 Headache, unspecified; I11.0 Hypertensive heart disease with heart failure; I50.9 Heart failure, unspecified; E78.5 Hyperlipidemia, unspecified; G43.909 Migraine, unspecified, not intractable, without status migrainosus; K57.92 Diverticulitis of intestine, part unspecified, without perforation or abscess without bleeding; M10.9 Gout, unspecified; K85.90 Acute pancreatitis without necrosis or infection, unspecified; F17.210 Nicotine dependence, cigarettes, uncomplicated; Z20.822 Contact with and (suspected) exposure to COVID-19
CPT/HCPCS: 93005 ×4; 85025 ×2; 80048 ×2; 36415 ×2; 83735; 84132; 85610; 80076; 80307 ×8; 81003; 84484 ×3; 83880; 70450; 71275; 71045; 99285; U0003; Q9967; J2270; J1170; J2405 ×2; G0378 ×3

== ENCOUNTER 2021-09-20 15:16 | Emergency (ER) | payer OTHER ==
--- OUTSIDE RECORDS SUMMARY | 2021-09-20 15:19 | XMS REPORT | Continuity of Care Document ---
:1955 Author Organization [facility] t Address [address] [place] [address] Care Team Providers Name Role Phone Saumya Sotelo Primary Care Physician Flaco SHEEHAN Attending Clinician Unavailable Anayeli PT, T Attending Clinician Unavailable Aguila CARRERO L Attending Clinician Miller_S_AH Attending Clinician Unavailable Ajibade_O_AH Attending Clinician Unavailable Ige-Odunuga_J_AH Attending Clinician Unavailable Miller_S_AH Admitting Clinician Unavailable Ajibade_O_AH Admitting Clinician Unavailable Ige-Odunuga_J_AH Admitting Clinician Unavailable Payers Payer Name Policy Type Policy Number Effective Date Expiration Date Krista AKERS [id number] ADMINISTRATION 00:00:00 [facility] [id number] [employer] (MEDICARE 00:00:00 REPLACEMENT/ADVANTAGE - HMO) Problems Condition Condition Condition Status Onset Resolution Last Treating Co mments Source Name Details Category Date Date Treatment Clinician Date Decreased Decreased Disease Active 2020-09 Uni vers ROM of ROM of 1-15 ity of ankle ankle 00:00: [place] [address] Medical Branch Decreased Decreased Disease Active 2020-09 Uni vers strength strength 1-15 ity of of lower of lower 00:00: [place] extremity extremity 00 Medi lauren Branch Gait Gait Disease Active 2020-09 Univers abnormalit abnormalit 1-15 it y of y y 00:00: [place] [address] Medical Branch Ankle Ankle Disease Active 2020-09 Univers pain, left pain, left 1-15 it y of 00:00: [place] 00 Medical Branch Chronic Chronic Problem Active 2019-09 [facility] obstructiv Obstructiv 2-21 Fa shell e lung e Lung 00:00: Practic disease Disease 00 e Hyperlipid Hyperlipid Problem Active 2020-0 [place] emia emia 9-23 Family 00:00: Practic 00 e Gout Gout Problem Active 2020-0 [place] 9-23 Family 00:00: Practic 00 e Nicotine Nicotine Problem Active 2019- [place] dependence Dependence 9-23 Fa shell 00:00: Practic 00 e Essential Essential Problem Active 2020-0 [place] [facility] hypertensi Hypertensi 9-23 Fa shell on on 00:00: Practic 00 e Gastroesop Gastroesop Problem Active 2019-0 [place] hageal hageal 9-23 Family reflux Reflux 00:00: Practic disease Disease 00 e Degenerati Degenerati Problem Active 2019-0 [place] ve joint ve Joint 9-23 Family disease Disease 00:00: Practic involving Involving 00 e multiple Multiple joints Joints Lumbar Lumbar Problem Active 2019-0 [facility] radiculopa Radiculopa 9-23 Fa shell thy thy 00:00: Practic 00 e Chronic Chronic Problem Active 2020-0 [facility] back pain Back Pain 9-23 Fami ly 00:00: Practic 00 e At risk At Risk Problem Active 2019-0 [facility] for falls for Falls 9-23 Fami ly 00:00: Practic 00 e Pain of Pain of Problem Active 2019-0 [facility] left ankle Left Ankle 9-23 Fa shell joint Joint 00:00: Practic 00 e Nicotine Nicotine Problem Active 0 [place] dependence Dependence 9-23 Fa shell with with 00:00: Practic current Current 00 e use Use Abdominal Abdominal Disease Active Uni vers pain pain 4-20 ity of 00:00: [place] 00 Medical Branch Infection Infection Disease Active Uni vers 4-20 ity of 00:00: [place] 00 Medical Branch Fall at Fall at Disease Active 2014-09 Univers home, home, 0-31 ity of initial initial 00:00: [place] encounter encounter 00 [facility] lauren Branch Rib Rib Disease Active 2014-09 Univers contusion, contusion, 0-31 it y of right, right, 00:00: [place] initial initial 00 Medical encounter encounter Bran ch Allergies, Adverse Reactions, Alerts Allergy Allergy Status Severity Reaction(s) Onset Inactive Treating Comm ents Source Name Type Date Date Clinician LISINOPR DRUG Active Unknown-Cmnt Un mary ann [place] INGREDI 04-06 ity of 00:00: [place] 00 Medical Branch Lisinopr Propensi Active Unknown - Uni vers il ty to See comments 04-06 ity of adverse 00:00: [place] reaction 00 Medical s Branch Social History Social Habit Start Date Stop Date Quantity Comments Source History SDOH University o f Alcohol Frequency [place] M edical Branch History SDOH University o f Alcohol Std [place] Medical Drinks Branch History SDOH University o f Alcohol Binge [place] Medic al Branch Alcohol intake 2017-02-21 2017-02-21 Current drinker Unive rsity of 00:00:00 00:00:00 of alcohol [place] Medical (finding) Branch Alcohol Comment 2017-01-04 2017-01-04 few drinks per Unive rsity of 00:00:00 00:00:00 week [facility] Sex [birth year] Universit y of 00:00:00 00:00:00 [facility] Smoking Status Start Date Stop Date Source Heavy Tobacco Smoker [facility] Current every day smoker 2017-01-04 00:00:00 Uni versity of [place] [facility] [place] Medications Ordered Filled Start Stop Current Ordering Indication Dosage Frequency Signature Comments Components Source Medication Medication Date Date Medication? Clinician (SIG) Name Name j carlos Yes [id number] 1{tbl} Take 1-2 Univers en-codeine 2-10 tablets by ity of 300-30 mg 00:00: mouth [place] tablet 00 every 6 Medical (six) Branch hours as needed for Pain (scale 1-3). traMADOL 50 Yes [id number] 50mg Take 1 Univers mg tablet 2-10 tablet by ity o f 00:00: mouth [place] 00 every 6 Medical (six) Branch hours as needed for Pain (scale 1-3). acetaminoph Yes [id number] 1{tbl} Take 1-2 Univers en-codeine 2-10 tablets by ity of 300-30 mg 00:00: mouth [place] tablet 00 every 6 Medical (six) Branch hours as needed for Pain (scale 1-3). traMADOL 50 Yes [id number] 50mg Take 1 Univers mg tablet 2-10 tablet by ity o f 00:00: mouth [place] 00 every 6 Medical (six) Branch hours as needed for Pain (scale 1-3). acetaminoph 2017-09 Yes 2{tbl} Take 2 Un mary ann en-codeine 2-04 tablets by ity of (TYLENOL-CO 00:00: mouth [place] DEINE #3) 00 every 6 Medical 300-30 mg (six) Branch tablet hours as needed for Pain (scale 7-10). benzonatate 2017-09 Yes 200mg Take 1 Uni vers 200 mg 2-04 capsule by ity of capsule 00:00: mouth 3 [place] 00 (three) Medical times Branch daily as needed for Cough. acetaminoph 2017-09 Yes 2{tbl} Take 2 Un mary ann en-codeine 2-04 tablets by ity of (TYLENOL-CO 00:00: mouth [place] DEINE #3) 00 every 6 Medical 300-30 mg (six) Branch tablet hours as needed for Pain (scale 7-10). benzonatate 2017-09 Yes 200mg Take 1 Uni vers 200 mg 2-04 capsule by ity of capsule 00:00: mouth 3 00 (three) Medical times Branch daily as needed for Cough. cyclobenzap 2017-0 Yes 10mg Take 1 Univ ers rine 10 mg 9-18 tablet by ity of tablet 00:00: mouth 3 00 (three) Medical times Branch daily. predniSONE 2017-0 Yes 1 PO BID x U nivers 20 mg 9-18 4 days ity of tablet 00:00: [place] 00 Medical Branch cyclobenzap 2017-0 Yes 10mg Take 1 Univ ers rine 10 mg 9-18 tablet by ity of tablet 00:00: mouth 3 [place] 00 (three) Medical times Branch daily. predniSONE 2017-0 Yes 1 PO BID x U nivers 20 mg 9-18 4 days ity of tablet 00:00: [place] 00 Medical Branch TYLENOL-COD 2017-0 Yes 2{tbl} Take 2 Un mary ann EINE #3 6-07 tablets by ity of 300-30 mg 00:00: mouth [place] tablet 00 every 6 Medical (six) Branch hours as needed for Pain (scale 4-6). CIPROFLOXAC 2017- Yes 500mg Take 1 Uni vers IN HCL 500 6-07 tablet by ity of mg tablet 00:00: mouth 2 00 (two) Medical times Branch daily. METRONIDAZO 2017-0 Yes 500mg Take 1 Uni vers LE 500 mg 6-07 tablet by ity o f tablet 00:00: mouth [place] 00 every 8 Medical (eight) Branch hours. TYLENOL-COD 2017-0 Yes 2{tbl} Take 2 Un mary ann EINE #3 6-07 tablets by ity of 300-30 mg 00:00: mouth [place] tablet 00 every 6 Medical (six) Branch hours as needed for Pain (scale 4-6). CIPROFLOXAC 2017-0 Yes 500mg Take 1 Uni vers IN HCL 500 6-07 tablet by ity of mg tablet 00:00: mouth 2 [place] 00 (two) Medical times Branch daily. METRONIDAZO 2017-0 Yes 500mg Take 1 Uni vers LE 500 mg 6-07 tablet by ity o f tablet 00:00: mouth [place] 00 every 8 Medical (eight) Branch hours. AMLODIPINE 2017 Yes 10mg Take 10 mg U nivers BESYLATE 4-24 by mouth ity of (AMLODIPINE 16:48: daily. [place] ORAL[place] Medical Branch ibuprofen 2017-0 Yes 800mg Take 800 Uni vers 800 mg 4-24 mg by ity of tablet 16:48: mouth [place] 51 every 6 Medical (six) Branch hours as needed for Pain (scale 1-3) or Pain (scale 4-6). omeprazole 2017-0 Yes 20mg Take 20 mg U nivers 20 mg 4-24 by mouth ity of capsule 16:48: daily. [place] [address] Medical Branch meloxicam 2017-0 Yes 15mg Take 15 mg Un mary ann 15 mg 4-24 by mouth ity of tablet 16:48: daily. [place] [address] Medical Branch allopurinol 2017-0 Yes 100mg Take 100 U nivers 100 mg 4-24 mg by ity of tablet 16:48: mouth [place] 51 daily. Medical Branch Cholecalcif 2017-0 Yes 400U Take 400 Un mary ann kedar, 4-24 Units by ity of Vitamin D3, 16:48: mouth [place] 400 unit 51 daily. Medical capsule Branch atorvastati 2017-0 Yes 40mg Take 40 mg Univers n 40 mg 4-24 by mouth ity of tablet 16:48: at [place] [address] bedtime. Medical Branch AMLODIPINE 2017-0 Yes 10mg Take 10 mg U nivers BESYLATE 4-24 by mouth ity of (AMLODIPINE 16:48: [place]. [place] Branch ibuprofen 2017-0 Yes 800mg Take 800 Uni vers 800 mg 4-24 mg by ity of tablet 16:48: mouth [place] 51 every 6 Medical (six) Branch hours as needed for Pain (scale 1-3) or Pain (scale 4-6). omeprazole 2017-0 Yes 20mg Take 20 mg U nivers 20 mg 4-24 by mouth ity of capsule 16:48: daily. [place] [address] Medical Branch meloxicam 2017-0 Yes 15mg Take 15 mg Un mary ann 15 mg 4-24 by mouth ity of tablet 16:48: daily. [place] [address] Medical Branch allopurinol 2017-0 Yes 100mg Take 100 U nivers 100 mg 4-24 mg by ity of tablet 16:48: mouth [place] [address] daily. Medical Branch Cholecalcif 2017-0 Yes 400U Take 400 Un mary ann kedar, 4-24 Units by ity of Vitamin D3, 16:48: mouth [place] 400 unit 51 daily. Medical capsule Branch atorvastati 2017-0 Yes 40mg Take 40 mg Univers n 40 mg 4-24 by mouth ity of tablet 16:48: at [place] [address] bedtime. Medical Branch metroNIDAZO 2017-0 Yes 500mg Take 2 Uni vers LE 250 mg 4-24 tablets by ity of tablet 00:00: mouth [place] 00 every 8 Medical (eight) Branch hours. ciprofloxac 2017-0 Yes 500mg Take 1 Uni vers in HCl 500 4-24 tablet by ity of mg tablet 00:00: mouth [place] 00 every 12 Medical (twelve) Branch hours. hydroCHLORO 2017-0 Yes 25mg Take 2 Univ ers thiazide 4-24 capsules ity of 12.5 mg 00:00: by mouth [place] capsule 00 daily. Medical Branch bisacodyl 2017-0 Yes 10mg Take 2 Univer s (DULCOLAX, 4-24 tablets by ity of BISACODYL,) 00:00: mouth once [place] 5 mg EC 00 daily as Medical tablet needed for Branch Constipati on. traMADOL 50 2017-0 Yes 50mg Take 1 Univ ers mg tablet 4-24 tablet by ity o f 00:00: mouth [place] 00 every 6 Medical (six) Branch hours as needed for Pain unrelieved by non-narcot ic analgesics . metroNIDAZO 2017-0 Yes 500mg Take 2 Uni vers LE 250 mg 4-24 tablets by ity of tablet 00:00: mouth [place] 00 every 8 Medical (eight) Branch hours. ciprofloxac Yes 500mg Take 1 Uni vers in HCl 500 4-24 tablet by ity of mg tablet 00:00: mouth [place] 00 every 12 Medical (twelve) Branch hours. hydroCHLORO Yes 25mg Take 2 Univ ers thiazide 4-24 capsules ity of 12.5 mg 00:00: by mouth [place] capsule 00 daily. Medical Branch bisacodyl Yes 10mg Take 2 Univer s (DULCOLAX, 4-24 tablets by ity of BISACODYL,) 00:00: mouth once [place] 5 mg EC 00 daily as Medical tablet needed for Branch Constipati on. traMADOL 50 Yes 50mg Take 1 Univ ers mg tablet 4-24 tablet by ity o f 00:00: mouth [place] 00 every 6 Medical (six) Branch hours as needed for Pain unrelieved by non-narcot ic analgesics . allopurinol allopurinol No allopurino [place] 100 mg 100 mg l 100 mg Family tablet TAKE tablet TAKE tablet Practic 1 TABLET BY 1 TABLET BY TAKE 1 e MOUTH EVERY MOUTH EVERY TABLET BY DAY DAY MOUTH EVERY DAY amlodipine amlodipine No amlodipine [facility] 10 mg 10 mg 10 mg Family tablet TAKE tablet TAKE tablet Practic 1 TABLET BY 1 TABLET BY TAKE 1 e MOUTH EVERY MOUTH EVERY TABLET BY DAY DAY MOUTH EVERY DAY atorvastati atorvastati No atorvastat [place] n 20 mg n 20 mg in 20 mg Famil y tablet TAKE tablet TAKE tablet Practic 1 TABLET BY 1 TABLET BY TAKE 1 e MOUTH EVERY MOUTH EVERY TABLET BY DAY DAY MOUTH EVERY DAY hydralazine hydralazine No hydralazin [place] 25 mg 25 mg e 25 mg Family tablet Take tablet Take tablet Practic 1 tablet 1 tablet Take 1 e every day every day tablet by oral by oral every day route for route for by oral 90 days. 90 days. route for 90 days. hydrochloro hydrochloro No hydrochlor [place] thiazide 25 thiazide 25 othiazide Family mg [...] ONCE ROUTE ONCE TOPICAL DAILY (JANUARY DAILY (JANUARY ROUTE ONCE WEAR UP TO WEAR UP TO DAILY (JANUARY 12HOURS.) 12HOURS.) WEAR UP TO 12HOURS.) metoprolol metoprolol No metoprolol [facility] tartrate 25 tartrate 25 tartrate Family mg tablet mg tablet 25 mg Prac tic TAKE 1 TAKE 1 tablet e TABLET BY TABLET BY TAKE 1 MOUTH TWICE MOUTH TWICE TABLET BY A DAY A DAY MOUTH TWICE A DAY omeprazole omeprazole No omeprazole [facility] 20 mg 20 mg 20 mg Family capsule,del capsule,del capsule,de Practic ayed ayed layed e release release release TAKE 1 TAKE 1 TAKE 1 CAPSULE BY CAPSULE BY CAPSULE BY MOUTH EVERY MOUTH EVERY MOUTH DAY DAY EVERY DAY omeprazole omeprazole No 1capsul Q1D omeprazole [facility] 40 mg 40 mg e(s) 40 mg Family capsule,del capsule,del capsule,de Practic ayed ayed layed e release release release Take 1 Take 1 Take 1 capsule capsule capsule every day every day every day by oral by oral by oral route for route for route for 90 days. 90 days. 90 days. albuterol albuterol No albuterol [facility] sulfate HFA sulfate HFA sulfate Family [...] Name SARS-COV-2 (COVID-19) SARS-COV-2 (COVID-19) 2020-12-07 Completed [facility] vaccine, UNSPECIFIED vaccine, UNSPECIFIED 00:00:00 Practice pneumococcal pneumococcal 2018-09-17 Completed [facility] shell polysaccharide PPV23 polysaccharide PPV23 00:00:00 Practice influenza, influenza, 2018-09-17 Completed [facility] injectable, injectable, 00:00:00 Practice quadrivalent quadrivalent Vital Signs Vital Name Observation Time Observation Value Comments Source Body Weight 2020-12-07 00:00:00 218 [lb_av] [facility] BP Diastolic 2020-12-07 00:00:00 97 mm[Hg] [facility] Height 2020-12-07 00:00:00 70 [in_i] [facility] BMI (Body Mass 2020-12-07 00:00:00 31.3 kg/m2 [facility] [facility] BP Systolic 2020-12-07 00:00:00 101 mm[Hg] [facility] Height 2020-06-09 00:00:00 70 [in_i] [facility] BMI (Body Mass 2020-06-09 00:00:00 31.3 kg/m2 [facility] Family Index) Practice Body Weight 2020-06-09 00:00:00 218 [lb_av] [facility] Procedures Procedure Date / Time Performed Performing Clinician Sourmando e Appendectomy [facility] Back Surgery [facility] Screening for Malignant [facility] Neoplasm of Prostate [facility] Screening Colon[facility] Encounters Start End Encounter Admission Attending Care Care Encounter Source Date/Time Date/Time Type Type Clinicians Facility Department ID 2021-09-19 2021-09-19 [facility] [id number] Univers 15:20:00 15:20:00 ANA contreras [facility] 2021-09-14 2021-09-14 Ancillary Ebony Guadalupe [facility] 1.2.84 [id number] Univers 10:40:00 11:20:00 Visit Ana Sheehan [id number] ity [facility] [id number] [id number] [facility] 179 [facility] 2021-09-14 2021-09-14 Outpatient Orin SHEEHAN [facility] [id number] Univers 10:40:00 10:40:00 ANA contreras [facility] 2021-09-12 2021-09-12 Ancillary Ebony Guadalupe [facility] 1.2.84 [id number] Univers 14:40:00 16:34:12 Visit Ana Sheehan [id number] ity [facility] [id number] [id number] [facility] 179 [facility] 2021-03-03 2021-03-03 Outpatient Miller_S_ VFP VFP [id number] [facility] 04:58:00 04:58:00 [id number] Family Practic e 2020-12-15 2020-12-15 Outpatient Ajibade_O_A VFP VFP [id number] [facility] 01:16:00 01:16:00 H [id number] Family Practic e 2020-12-15 2020-12-15 Outpatient Ajibade_O_A VFP VFP [id number] [facility] 01:16:00 01:16:00 H [id number] Family Practic e 2020-12-13 2020-12-13 Outpatient Ajibade_O_A VFP VFP [id number] [facility] 02:14:00 02:14:00 H [id number] Family Practic e 2020-12-07 2020-12-07 Outpatient Ajibade_O_A VFP VFP [id number] [facility] 01:11:00 01:11:00 H [id number] Family Practic e 2020-12-07 2020-12-07 [place] VFP [place] - [id number] [place] [facility] 00:00:00 00:00:00 [facility]ro[facility] 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 2020-05-25 2020-05-25 Outpatient Ajibade_O_A VFP VFP [id number] [facility] 12:24:00 12:24:00 H [id number] Family Practic e 2020-05-13 2020-05-13 Outpatient Ajibade_O_A VFP VFP [id number] [facility] 03:39:00 03:39:00 H [id number] Family Practic e 2019-11-05 2019-11-05 Outpatient Ige-Odunuga VFP VFP [id number] [facility] 07:28:00 07:28:00 __ [id number] Family Practic e Results This patient has no known results.
[2021-09-20] MEDS ORDERED: HYDROCODONE/APAP 7.5/325 MG TAB ONE (16:20)
[2021-09-20] MEDS ORDERED: dexAMETHasone 10 MG/ML VIAL ONE (16:20)
[2021-09-20] MEDS ORDERED: KETOROLAC 30 MG/ML INJ ONE (16:20)
--- NOTE | 2021-09-20 17:31 | RAD REPORT ---
EXAM DESCRIPTION: US - UPPER EXTREMITY VENOUS UNILATE - 09/20/2021 5:22 pm CLINICAL HISTORY: pain, swelling COMPARISON: No comparisons FINDINGS: Color Doppler, grayscale, and spectral analysis was performed to evaluate the veins in the right upper extremity. No venous thrombosis identified . . IMPRESSION: Negative for right upper extremity venous thrombosis.
--- NOTE | 2021-09-20 17:31 | RAD REPORT ---
EXAM DESCRIPTION: RAD - Humerus Right - 09/20/2021 5:21 pm CLINICAL HISTORY: arm pain COMPARISON: No comparisons FINDINGS: No acute fracture. No malalignment. No significant focal degenerative changes. IMPRESSION: No acute osseous abnormality involving the right humerus.
[2021-09-20] MEDS ORDERED: MORPHINE 4 MG/ML SYR ONE (18:06)
--- NOTE | 2021-09-20 18:40 | EDPHYS ---
Physician Documentation [facility] Name: Maynor Marquez Age: 65 yrs Sex: Male : 1955 Arrival Date: 09/20/2021 Time: 15:19 Bed 19 Private MD: Franklin Sotelo F ED Physician Brady Ny HPI: 09/20 16:09 This 65 yrs old Black Male presents to ER via Ambulatory with complaints of Numbness Of m Arm, Numbness Of Hand. 16:09 The patient or guardian complains of pain. Onset: The symptoms/episode began/occurred jm gradually, 1.5 month(s) ago. Modifying factors: The symptoms are alleviated by Lifting arm up. The patient has not experienced similar symptoms in the past. This is a 65 year year old male with a history of htn, that presents to the ED with complaints of right arm pain. Pain radiates into the right hand and 5th and 4th fingers. Pain started in mid July of 2020. Denies known injury. . Historical: - Allergies: 15:55 Klonopin; ll1 15:55 Lisinopril; ll1 15:55 GABAPENTIN; ll1 - PMHx: 15:55 Diverticulitis; Gout; Hypertension; Migraines; Pancreatitis; ll1 - PSHx: 15:55 tendon release L ankle; ll1 - Immunization history:: Client reports receiving the 2nd dose of the Covid vaccine, Flu vaccine status is unknown. - Social history:: Smoking status: Patient reports the use of cigarette tobacco products, smokes one pack cigarettes per day. ROS: 16:09 Constitutional: Negative for fever, chills, and weight loss, Cardiovascular: Negative jmm for chest pain, palpitations, and edema, Respiratory: Negative for shortness of breath, cough, wheezing, and pleuritic chest pain. 16:09 MS/extremity: Positive for pain. 16:09 All other systems are negative. Exam: 16:09 Constitutional: This is a well developed, well nourished patient who is awake, alert, jmm and in no acute distress. Head/Face: atraumatic. Eyes: EOMI, no conjunctival erythema appreciated ENT: Moist Mucus Membranes Neck: Trachea midline, Supple Chest/axilla: Normal chest wall appearance and motion. Cardiovascular: Regular rate and rhythm. No edema appreciated Respiratory: Normal respirations, no respiratory distress appreciated Abdomen/GI: Non distended, soft Back: Normal ROM Skin: General appearance color normal 16:09 Musculoskeletal/extremity: from noted to the right arm, right elbow, right wrist, pain noted along the ulnar on palpation, full radial pulse, compartments are soft, NVI. 16:09 Skin: Appearance: Color: normal in color, Temperature: normal temperature. 16:09 Neuro: Orientation: is normal, Mentation: is normal, Memory: is normal. 16:09 Psych: Behavior/mood is pleasant, cooperative. Vital Signs: 15:53 BP 129 / 98; Pulse 84; Resp 17; Temp 97.4; Pulse Ox 98% ; Weight 98.88 kg; Height 5 ft. ll1 11 in. (180.34 cm); Pain 10/10; 16:27 BP 126 / 99; Pulse 80; Resp 18; Pulse Ox 99% on R/A; ld1 17:30 BP 131 / 95; Pulse 79; Resp 18; Pulse Ox 99% on R/A; ld1 18:25 BP 126 / 90; Pulse 76; Resp 18; Pulse Ox 99% on R/A; ld1 15:53 Body Mass Index 30.40 (98.88 kg, 180.34 cm) ll1 MDM: 16:09 Patient medically screened. chen 18:37 Data reviewed: vital signs, nurses notes. Counseling: I had a detailed discussion with chen the patient and/or guardian regarding: the historical points, exam findings, and any diagnostic results supporting the discharge/admit diagnosis, radiology results, the need for outpatient follow up, to return to the emergency department if symptoms worsen or persist or if there are any questions or concerns that arise at home. ED course: Physical exam findings concerning for ulnar neuropathy. Patient advised to follow-up with orthopedics and otherwise given strict return precautions. Patient understands agrees to plan of care.. 09/20 16:09 Order name: Humerus Right XRAY; Complete Time: 17:35 [facility] 09/20 16:11 Order name: UPPER EXTREMITY VENOUS UNILATE; Complete Time: 17:35 EDMS 09/20 17:59 Order name: Sling; Complete Time: 18:04 [facility] Administered Medications: 16:26 Drug: Troy (HYDROcodone-acetaminophen) 10 mg-325 mg 1 tabs Route: PO; ld1 16:26 Drug: Ketorolac 30 mg Route: IM; Site: right gluteus; ld1 16:26 Drug: Decadron (dexamethasone) 10 mg Route: IM; Site: left gluteus; ld1 18:12 Drug: morphine 4 mg Route: IM; Site: left deltoid; ld1 Disposition: 09/21 07:14 Co-signature as Attending Physician, Brady Ny MD. rn Disposition Summary: 09/20/21 18:39 Discharge Ordered Location: Home [facility] Condition: Stable [facility] Diagnosis - Peripheral Neuropathy [facility] Followup: [facility] - With: Joseph Houser MD - When: 2 - 3 days - Reason: Recheck today's complaints, Continuance of care, Re-evaluation by your physician Followup: [facility] - With: Aris Gómez MD - When: 2 - 3 days - Reason: Recheck today's complaints, Continuance of care, Re-evaluation by your physician Discharge Instructions: - Discharge Summary Sheet [facility] - Peripheral Neuropathy [facility] Forms: - Medication Reconciliation Form [facility] - Thank You Letter [facility] - Antibiotic Education [facility] - Prescription Opioid Use [facility] Prescriptions: - Ibuprofen 800 mg Oral Tablet - take 1 tablet by ORAL route every 8 hours As needed take with food; 30 tablet; [facility] Refills: 0, Product Selection Permitted - Zanaflex 4 mg Oral Tablet - take 1 tablet by ORAL route every 8 hours As needed; 20 tablet; Refills: 0, [facility] Product Selection Permitted Signatures: Dispatcher [employer] EDMS Donnie Zaman PA PA [facility] Brady Ny MD MD rn Lewis, Lynsay, RN RN ll1 Lindsey Julien RN RN ld1 Corrections: (The following items were deleted from the chart) 09/20 16:11 16:10 Extremity Venous [id number] ordered. EDMS EDMS
--- NOTE | 2021-09-20 18:40 | ER ---
Nurse's Notes [facility] Name: Maynor Marquez Age: 65 yrs Sex: Male : 1955 Arrival Date: 09/20/2021 Time: 15:19 Bed 19 Private MD: Franklin Sotelo F Diagnosis: Peripheral Neuropathy Presentation: 09/20 15:53 Chief complaint: Patient states: Severe R arm pain and hand numbness (mostly 4th and ll1 5th digits) for 1 month. No trauma or falls. Coronavirus screen: Vaccine status: Patient reports receiving the 2nd dose of the covid vaccine. Client denies travel out of the [place] in the last 14 days. At this time, the client does not indicate any symptoms associated with coronavirus-19. Ebola Screen: Patient denies travel to an Ebola-affected area in the 21 days before illness onset. Initial Sepsis Screen: Does the patient meet any 2 criteria? No. Patient's initial sepsis screen is negative. Does the patient have a suspected source of infection? No. Patient's initial sepsis screen is negative. Risk Assessment: Do you want to hurt yourself or someone else? Patient reports no desire to harm self or others. Onset of symptoms was August 20, 2021. 15:53 Method Of Arrival: Ambulatory ll1 15:53 Acuity: MARCUS 3 ll1 Historical: - Allergies: 15:55 Klonopin; ll1 15:55 Lisinopril; ll1 15:55 GABAPENTIN; ll1 - PMHx: 15:55 Diverticulitis; Gout; Hypertension; Migraines; Pancreatitis; ll1 - PSHx: 15:55 tendon release L ankle; ll1 - Immunization history:: Client reports receiving the 2nd dose of the Covid vaccine, Flu vaccine status is unknown. - Social history:: Smoking status: Patient reports the use of cigarette tobacco products, smokes one pack cigarettes per day. Screenin:27 Abuse screen: Denies threats or abuse. Denies injuries from another. Nutritional ld1 screening: No deficits noted. Tuberculosis screening: No symptoms or risk factors identified. Fall Risk None identified. Assessment: 16:27 General: Appears in no apparent distress. comfortable, Behavior is calm, cooperative, ld1 appropriate for age. Pain: Denies pain. Neuro: Level of Consciousness is awake, alert, obeys commands, Oriented to person, place, time, situation, Appropriate for age. Cardiovascular: Capillary refill < 3 seconds Patient's skin is warm and dry. Respiratory: Airway is patent Respiratory effort is even, unlabored, Respiratory pattern is regular, symmetrical. GI: Abdomen is flat, non-distended. : No signs and/or symptoms were reported regarding the genitourinary system. EENT: No signs and/or symptoms were reported regarding the EENT system. Derm: Reports tingling, in right arm. Musculoskeletal: No signs and/or symptoms reported regarding the musculoskeletal system. Vital Signs: 15:53 BP 129 / 98; Pulse 84; Resp 17; Temp 97.4; Pulse Ox 98% ; Weight 98.88 kg; Height 5 ft. ll1 11 in. (180.34 cm); Pain 10/10; 16:27 BP 126 / 99; Pulse 80; Resp 18; Pulse Ox 99% on R/A; ld1 17:30 BP 131 / 95; Pulse 79; Resp 18; Pulse Ox 99% on R/A; ld1 18:25 BP 126 / 90; Pulse 76; Resp 18; Pulse Ox 99% on R/A; ld1 15:53 Body Mass Index 30.40 (98.88 kg, 180.34 cm) ll1 ED Course: 15:19 Patient arrived in ED. mr 15:19 Franklin Sotelo MD is Private Physician. mr 15:55 Triage completed. ll1 15:56 Arm band placed on. ll1 15:57 [facility]man [facility] 15:57 Brady Ny MD is Attending Physician. [facility] 16:27 Lindsey Julien, SALENA is Primary Nurse. ld1 16:27 Patient has correct armband on for positive identification. Bed in low position. Call ld1 light in reach. Side rails up X2. Pulse ox on. NIBP on. cushion sewer on. Door closed. Noise minimized. Warm blanket given. 16:27 No provider procedures requiring assistance completed. ld1 17:21 Humerus Right XRAY In Process Unspecified. EDMS 17:22 UPPER EXTREMITY VENOUS UNILATE In Process Unspecified. EDMS 18:38 Joseph Houser MD is Referral Physician. jmm 18:38 Aris Gómez MD is Referral Physician. jmm 18:47 Patient did not have IV access during this emergency room visit. ld1 Administered Medications: 16:26 Drug: Copen (HYDROcodone-acetaminophen) 10 mg-325 mg 1 tabs Route: PO; ld1 16:26 Drug: Ketorolac 30 mg Route: IM; Site: right gluteus; ld1 16:26 Drug: Decadron (dexamethasone) 10 mg Route: IM; Site: left gluteus; ld1 18:12 Drug: morphine 4 mg Route: IM; Site: left deltoid; ld1 Outcome: 18:39 Discharge ordered by . [facility] 18:47 Discharged to home ambulatory. ld1 18:47 Condition: stable 18:47 Discharge instructions given to patient, Instructed on discharge instructions, follow up and referral plans. medication usage, Demonstrated understanding of instructions, follow-up care, medications. 18:47 Patient left the ED. ld1 Signatures: Dispatcher [employer] EDMS Donnie Zaman PA PA jmm Rivera, Mary mr Lewis, Lynsay RN RN ll1 Lindsey Julien RN RN ld1
[2021-09-20 19:23] VITALS: TEMP 97.4
[2021-09-20 19:25] VITALS: O2SAT 99
[2021-09-20 19:28] VITALS: BP 126/90
== END 2021-09-20 18:47 | disposition home or self-care (01) ==
LOC: ER 15:16
DX: G62.9 Polyneuropathy, unspecified (principal); I10 Essential (primary) hypertension; F17.210 Nicotine dependence, cigarettes, uncomplicated; Z88.8 Allergy status to other drugs, medicaments and biological substances
CPT/HCPCS: 73060; 93971; 96372; 99284; J1100

== ENCOUNTER 2021-11-01 22:44 | Emergency (ER) | payer OTHER ==
--- OUTSIDE RECORDS SUMMARY | 2021-11-01 22:49 | XMS REPORT | Continuity of Care Document ---
:[address] [facility] t Address [address] [place] [address] Care Team Providers Name Role Phone MARTHA CHRISTINE Primary Care Physician Unavailable Flaco SHEEHAN Attending Clinician Unavailable Anayeli PT, T Attending Clinician Unavailable Stephanie CARRERO L Attending Clinician Niels COX, F Attending Clinician Unavailable Miller_S_AH Attending Clinician Unavailable Ajibade_O_AH Attending Clinician Unavailable Ige-Odunuga_J_AH Attending Clinician Unavailable Miller_S_AH Admitting Clinician Unavailable Ajibade_O_AH Admitting Clinician Unavailable Ige-Odunuga_J_AH Admitting Clinician Unavailable Payers Payer Name Policy Type Policy Number Effective Date Expiration Date Krista AKERS [id number] 2021 ADMINISTRATION 00:00:00 [facility] [id number] [employer] (MEDICARE 00:00:00 REPLACEMENT/ADVANTAGE - HMO) Problems Condition Condition Condition Status Onset Resolution Last Treating Co mments Source Name Details Category Date Date Treatment Clinician Date Decreased Decreased Disease Active 2020-09 Uni vers ROM of ROM of 1-15 ity of ankle ankle 00:00: [place] 00 Medical Branch Decreased Decreased Disease Active 2020-09 Uni vers strength strength 1-15 ity of of lower of lower 00:00: [place] extremity extremity 00 Medi lauren Branch Gait Gait Disease Active 2020-09 Univers abnormalit abnormalit 1-15 it y of y y 00:00: [place] 00 Medical Branch Ankle Ankle Disease Active 2020-09 Univers pain, left pain, left 1-15 it y of 00:00: [place] 00 Medical Branch Chronic Chronic Problem Active 2019-09 [facility] obstructiv Obstructiv 2-21 Fa shell e lung e Lung 00:00: Practic disease Disease 00 e Hyperlipid Hyperlipid Problem Active 2020-0 [facility] emia emia 9-23 Family 00:00: Practic 00 e Gout Gout Problem Active 2020-0 [place] 9-23 Family 00:00: Practic 00 e Nicotine Nicotine Problem Active 2019-0 [place] dependence Dependence 9-23 Fa shell 00:00: Practic 00 e Essential Essential Problem Active 2019-0 [place] [facility] hypertensi Hypertensi 9-23 Fa shell on on 00:00: Practic 00 e Gastroesop Gastroesop Problem Active 2019-0 [facility] ill[facility] hageal hageal 9-23 Family reflux Reflux 00:00: Practic disease Disease 00 e Degenerati Degenerati Problem Active 2019-0 [facility] ve joint ve Joint 9-23 Family disease Disease 00:00: Practic involving Involving 00 e multiple Multiple joints Joints Lumbar Lumbar Problem Active 2019-0 [facility] radiculopa Radiculopa 9-23 Fa shell thy thy 00:00: Practic 00 e Chronic Chronic Problem Active 2020-0 [facility] back pain Back Pain 9-23 Fami ly 00:00: Practic 00 e At risk At Risk Problem Active 2019-0 [facility] for falls for Falls 9-23 Fami ly 00:00: Practic 00 e Pain of Pain of Problem Active 2019-0 [facility] left ankle Left Ankle 9-23 Fa shell joint Joint 00:00: Practic 00 e Nicotine Nicotine Problem Active 2019-0 [place] dependence Dependence 9-23 Fa shell with with 00:00: Practic current Current 00 e use Use Abdominal Abdominal Disease Active Uni vers pain pain 4-20 ity of 00:00: [place] 00 Medical Branch Infection Infection Disease Active Uni vers 4-20 ity of 00:00: [place] 00 Medical Branch Fall at Fall at Disease Active 2014-09 Univers home, home, 0-31 ity of initial initial 00:00: [place] encounter encounter 00 [facility] Branch Rib Rib Disease Active 2014-09 Univers contusion, contusion, 0-31 it y of right, right, 00:00: [place] initial initial 00 Medical encounter encounter Bran ch Allergies, Adverse Reactions, Alerts Allergy Allergy Status Severity Reaction(s) Onset Inactive Treating Comm ents Source Name Type Date Date Clinician LIDIAPR DRUG Active Unknown-Cmnt [place] INGREDI 04-06 ity of 00:00: [place] 00 Medical Branch Lisinopr Propensi Active Unknown - Uni vers il ty to See comments 04-06 ity of adverse 00:00: [place] reaction 00 Medical s Branch Social History Social Habit Start Date Stop Date Quantity Comments Source Exposure to Not sure University of SARS-CoV-2 [place] [facility] (event) Branch History SDOH University o f Alcohol Frequency [place] M edical Branch History SDOH University o f Alcohol Std [place] Medical Drinks Branch History SDOH University o f Alcohol Binge [place] [facility] al Branch Alcohol intake 2017-02-21 2017-02-21 Current drinker Unive rsity of 00:00:00 00:00:00 of alcohol [place] Medical (finding) Branch Alcohol Comment 2017-01-04 2017-01-04 few drinks per Unive rsity of 00:00:00 00:00:00 week [place] [facility] [birth year] Universit y of 00:00:00 00:00:00 [facility] Branch Smoking Status Start Date Stop Date Source Heavy Tobacco Smoker [facility] Practice Current every day smoker 2017-01-04 00:00:00 Uni versity of [place] [facility] Branch Medications Ordered Filled Start Stop Current Ordering Indication Dosage Frequency Signature Comments Components Source Medication Medication Date Date Medication? Clinician (SIG) Name Name josejose Yes [id number] 1{tbl} Take 1-2 Univers en-codeine 2-10 tablets by ity of 300-30 mg 00:00: mouth [place] tablet 00 every 6 Medical (six) Branch hours as needed for Pain (scale 1-3). traMADOL 50 Yes [id number] 50mg Take 1 Univers mg tablet 2-10 tablet by ity o f 00:00: mouth [place] 00 every 6 Medical (six) Branch hours as needed for Pain (scale 1-3). acetaminoph Yes [id number] 1{tbl} Take 1-2 Univers en-codeine 2-10 tablets by ity of 300-30 mg 00:00: mouth [place] tablet 00 every 6 Medical (six) Branch hours as needed for Pain (scale 1-3). traMADOL 50 Yes [id number] 50mg Take 1 Univers mg tablet 2-10 tablet by ity o f 00:00: mouth [place] 00 every 6 Medical (six) Branch hours as needed for Pain (scale 1-3). acetaminoph 2018-0 Yes [id number] 1{tbl} Take 1-2 Univers en-codeine 2-10 tablets by ity of 300-30 mg 00:00: mouth [place] tablet 00 every 6 Medical (six) Branch hours as needed for Pain (scale 1-3). traMADOL 50 2019- Yes [id number] 50mg Take 1 Univers mg tablet 2-10 tablet by ity o f 00:00: mouth [place] 00 every 6 Medical (six) Branch hours as needed for Pain (scale 1-3). acetaminoph Yes [id number] 1{tbl} Take 1-2 Univers en-codeine 2-10 tablets by ity of 300-30 mg 00:00: mouth [place] tablet 00 every 6 Medical (six) Branch hours as needed for Pain (scale 1-3). traMADOL 50 Yes [id number] 50mg Take 1 Univers mg tablet 2-10 tablet by ity o f 00:00: mouth [place] 00 every 6 Medical (six) Branch hours as needed for Pain (scale 1-3). acetaminoph Yes [id number] 1{tbl} Take 1-2 Univers en-codeine 2-10 tablets by ity of 300-30 mg 00:00: mouth [place] tablet 00 every 6 Medical (six) Branch hours as needed for Pain (scale 1-3). traMADOL 50 Yes [id number] 50mg Take 1 Univers mg tablet 2-10 tablet by ity o f 00:00: mouth [place] 00 every 6 Medical (six) Branch hours as needed for Pain (scale 1-3). acetaminoph Yes [id number] 1{tbl} Take 1-2 Univers en-codeine 2-10 tablets by ity of 300-30 mg 00:00: mouth [place] tablet 00 every 6 Medical (six) Branch hours as needed for Pain (scale 1-3). traMADOL 50 2018-0 Yes [id number] 50mg Take 1 Univers mg tablet 2-10 tablet by ity o f 00:00: mouth [place] 00 every 6 Medical (six) Branch hours as needed for Pain (scale 1-3). acetaminoph Yes [id number] 1{tbl} Take 1-2 Univers en-codeine 2-10 tablets by ity of 300-30 mg 00:00: mouth [place] tablet 00 every 6 Medical (six) Branch hours as needed for Pain (scale 1-3). traMADOL 50 2018-0 Yes [id number] 50mg Take 1 Univers mg tablet 2-10 tablet by ity o f 00:00: mouth [place] 00 every 6 Medical (six) Branch hours as needed for Pain (scale 1-3). acetaminoph Yes [id number] 1{tbl} Take 1-2 Univers en-codeine 2-10 tablets by ity of 300-30 mg 00:00: mouth [place] tablet 00 every 6 Medical (six) Branch hours as needed for Pain (scale 1-3). traMADOL 50 Yes [id number] 50mg Take 1 Univers mg tablet 2-10 [...] by ity of capsule 00:00: mouth 3 (three) Medical times Branch daily as needed [...] Branch daily as needed for Cough. cyclobenzap 0 Yes 10mg Take 1 Univ ers rine 10 mg 9-18 tablet by ity of tablet 00:00: mouth 3 (three) Medical times Branch daily. predniSONE 2016-0 Yes 1 PO BID x U nivers 20 mg 9-18 4 days ity of tablet 00:00: Medical Branch cyclobenzap 0 Yes 10mg Take 1 Univ ers rine 10 mg 9-18 tablet by ity of tablet 00:00: mouth 3 (three) Medical times Branch daily. predniSONE 2017-0 Yes 1 PO BID x U nivers 20 mg 9-18 4 days ity of tablet 00:00: 00 Medical Branch cyclobenzap 2017-0 Yes 10mg Take 1 Univ ers rine 10 mg 9-18 tablet by ity of tablet 00:00: mouth 3 (three) Medical times Branch daily. predniSONE 2017-0 Yes 1 PO BID x U nivers 20 mg 9-18 4 days ity of tablet 00:00: 00 Medical Branch cyclobenzap 2017-0 Yes 10mg Take 1 Univ ers rine 10 mg 9-18 tablet by ity of tablet 00:00: mouth 3 (three) Medical times Branch daily. predniSONE 2017-0 Yes 1 PO BID x U nivers 20 mg 9-18 4 days ity of tablet 00:00: 00 Medical Branch cyclobenzap 2017-0 Yes 10mg Take 1 Univ ers rine 10 mg 9-18 tablet by ity of tablet 00:00: mouth 3 (three) Medical times Branch daily. predniSONE 2017-0 Yes 1 PO BID x U nivers 20 mg 9-18 4 days ity of tablet 00:00: [place] 00 Medical Branch cyclobenzap 2017-0 Yes 10mg Take 1 Univ ers rine 10 mg 9-18 tablet by ity of tablet 00:00: mouth 3 (three) Medical times Branch daily. predniSONE 2017-0 Yes 1 PO BID x U nivers 20 mg 9-18 4 days ity of tablet 00:00: 00 Medical Branch cyclobenzap 2017-0 Yes 10mg Take 1 Univ ers rine 10 mg 9-18 tablet by ity of tablet 00:00: mouth 3 (three) Medical times Branch daily. predniSONE 2017-0 Yes 1 PO BID x U nivers 20 mg 9-18 4 days ity of tablet 00:00: 00 Medical Branch cyclobenzap 2017-0 Yes 10mg Take 1 Univ ers rine 10 mg 9-18 tablet by ity of tablet 00:00: mouth 3 (three) Medical times Branch daily. predniSONE 2017-0 Yes 1 PO BID x U nivers 20 mg 9-18 4 days ity of tablet 00:00: Medical Branch CIPROFLOXAC 2017-0 Yes 500mg Take 1 Uni vers IN HCL 500 6-07 tablet by ity of mg tablet 00:00: mouth 2 (two) Medical times Branch daily. METRONIDAZO 2017-0 [...] ity of mg tablet 00:00: mouth 2 (two) Medical times Branch daily. METRONIDAZO 2017-0 [...] hours as needed for Pain (scale 4-6). AMLODIPINE 2017-0 Yes 10mg Take 10 mg U nivers BESYLATE 4-24 by mouth ity of (AMLODIPINE 16:48: [place] Medical Branch ibuprofen 2017-0 Yes 800mg Take 800 Uni vers 800 mg 4-24 mg by ity of tablet 16:48: mouth [place] 51 every 6 Medical (six) Branch hours as needed for Pain (scale 1-3) or Pain (scale 4-6). omeprazole 2017-0 Yes 20mg Take 20 mg U nivers 20 mg 4-24 by mouth ity of capsule 16:48: daily. [place] [address] Medical Branch meloxicam 2017-0 Yes 15mg Take 15 mg Un mary ann 15 mg 4-24 by mouth ity of tablet 16:48: daily. [place] [address] Medical Branch allopurinol 2017-0 Yes 100mg Take 100 U nivers 100 mg 4-24 mg by ity of tablet 16:48: mouth [place] 51 daily. Medical Branch Cholecalcif 2017-0 Yes 400U Take 400 Un mary ann kedar, 4-24 Units by ity of Vitamin D3, 16:48: mouth [place] 400 unit 51 daily. Medical capsule Branch atorvastati 2017-0 Yes 40mg Take 40 mg Univers n 40 mg 4-24 by mouth ity of tablet 16:48: at [place] [address] bedtime. Medical Branch AMLODIPINE 2017-0 Yes 10mg Take 10 mg U nivers BESYLATE 4-24 by mouth ity of (AMLODIPINE 16:48: [place]. [place] Medical Branch ibuprofen 2017-0 Yes 800mg Take 800 Uni vers 800 mg 4-24 mg by ity of tablet 16:48: mouth [place] [address] every 6 Medical (six) Branch hours as needed for Pain (scale 1-3) or Pain (scale 4-6). omeprazole 2017-0 Yes 20mg Take 20 mg U nivers 20 mg 4-24 by mouth ity of capsule 16:48: daily. [place] [address] Medical Branch meloxicam 2017-0 Yes 15mg Take 15 mg Un mary ann 15 mg 4-24 by mouth ity of tablet 16:48: daily. [place] [address] Medical Branch allopurinol 2017-0 Yes 100mg Take 100 U nivers 100 mg 4-24 mg by ity of tablet 16:48: mouth [place] 51 daily. Medical Branch Cholecalcif 2017-0 Yes 400U Take 400 Un mary ann kedar, 4-24 Units by ity of Vitamin D3, 16:48: mouth [place] 400 unit 51 daily. Medical capsule Branch atorvastati 2017-0 Yes 40mg Take 40 mg Univers n 40 mg 4-24 by mouth ity of tablet 16:48: at [place] [address] bedtime. Medical Branch AMLODIPINE 2017-0 Yes 10mg Take 10 mg U nivers BESYLATE 4-24 by mouth ity of (AMLODIPINE 16[place]48: [place]. [place] Medical Branch ibuprofen 2017-0 Yes 800mg Take 800 Uni vers 800 mg 4-24 mg by ity of tablet 16:48: mouth [place] 51 every 6 Medical (six) Branch hours as needed for Pain (scale 1-3) or Pain (scale 4-6). omeprazole 2017-0 Yes 20mg Take 20 mg U nivers 20 mg 4-24 by mouth ity of capsule 16:48: daily. [place] [address] Medical Branch meloxicam 2017-0 Yes 15mg Take 15 mg Un mary ann 15 mg 4-24 by mouth ity of tablet 16:48: daily. [place] [address] Medical Branch allopurinol 2017-0 Yes 100mg Take 100 U nivers 100 mg 4-24 mg by ity of tablet 16:48: mouth [place] 51 daily. Medical Branch Cholecalcif 2017-0 Yes 400U Take 400 Un mary ann kedar, 4-24 Units by ity of Vitamin D3, 16:48: mouth [place] 400 unit 51 daily. Medical capsule Branch atorvastati 2017-0 Yes 40mg Take 40 mg Univers n 40 mg 4-24 by mouth ity of tablet 16:48: at [place] 51 bedtime. Medical Branch AMLODIPINE 2017-0 Yes 10mg Take 10 mg U nivers BESYLATE 4-24 by mouth ity of (AMLODIPINE 16:48: [place]. [place] Medical Branch ibuprofen 2017-0 Yes 800mg Take 800 Uni vers 800 mg 4-24 mg by ity of tablet 16:48: mouth [place] 51 every 6 Medical (six) Branch hours as needed for Pain (scale 1-3) or Pain (scale 4-6). omeprazole 2017-0 Yes 20mg Take 20 mg U nivers 20 mg 4-24 by mouth ity of capsule 16:48: daily. [place] [address] Medical Branch meloxicam 2017-0 Yes 15mg Take 15 mg Un mary ann 15 mg 4-24 by mouth ity of tablet 16:48: daily. [place] [address] Medical Branch allopurinol 2017-0 Yes 100mg Take 100 U nivers 100 mg 4-24 mg by ity of tablet 16:48: mouth [place] 51 daily. Medical Branch Cholecalcif 2017-0 Yes 400U Take 400 Un mary ann kedar, 4-24 Units by ity of Vitamin D3, 16:48: mouth [place] 400 unit 51 daily. Medical capsule Branch atorvastati 2017-0 Yes 40mg Take 40 mg Univers n 40 mg 4-24 by mouth ity of tablet 16:48: at [place] [address] bedtime. Medical Branch AMLODIPINE 2017-0 Yes 10mg Take 10 mg U nivers BESYLATE 4-24 by mouth ity of (AMLODIPINE 16:48: [place]. [place] [facility] Branch ibuprofen 2017-0 Yes 800mg Take 800 Uni vers 800 mg 4-24 mg by ity of tablet 16:48: mouth [place] [address] every 6 Medical (six) Branch hours as needed for Pain (scale 1-3) or Pain (scale 4-6). omeprazole 2017-0 Yes 20mg Take 20 mg U nivers 20 mg 4-24 by mouth ity of capsule 16:48: daily. [place] [address] Medical Branch meloxicam 2017-0 Yes 15mg Take 15 mg Un mary ann 15 mg 4-24 by mouth ity of tablet 16:48: daily. [place] [address] Medical Branch allopurinol 2017-0 Yes 100mg Take 100 U nivers 100 mg 4-24 mg by ity of tablet 16:48: mouth [place] [address] daily. Medical Branch Cholecalcif 2017-0 Yes 400U Take 400 Un mary ann kedar, 4-24 Units by ity of Vitamin D3, 16:48: mouth [place] 400 unit 51 daily. Medical capsule Branch atorvastati 2017-0 Yes 40mg Take 40 mg Univers n 40 mg 4-24 by mouth ity of tablet 16:48: at [place] [address] bedtime. Medical Branch AMLODIPINE 2017-0 Yes 10mg Take 10 mg U nivers BESYLATE 4-24 by mouth ity of (AMLODIPINE 16:48: [place]. [place] [facility] Branch ibuprofen 2017-0 Yes 800mg Take 800 Uni vers 800 mg 4-24 mg by ity of tablet 16:48: mouth [place] [address] every 6 Medical (six) Branch hours as needed for Pain (scale 1-3) or Pain (scale 4-6). omeprazole 2017-0 Yes 20mg Take 20 mg U nivers 20 mg 4-24 by mouth ity of capsule 16:48: daily. [place] [address] Medical Branch meloxicam 2017-0 Yes 15mg Take 15 mg Un mary ann 15 mg 4-24 by mouth ity of tablet 16:48: daily. [place] [address] Medical Branch allopurinol 2017-0 Yes 100mg Take 100 U nivers 100 mg 4-24 mg by ity of tablet 16:48: mouth [place] 51 daily. Medical Branch Cholecalcif 2017-0 Yes 400U Take 400 Un mary ann kedar, 4-24 Units by ity of Vitamin D3, 16:48: mouth [place] 400 unit 51 daily. Medical capsule Branch atorvastati 2017-0 Yes 40mg Take 40 mg Univers n 40 mg 4-24 by mouth ity of tablet 16:48: at [place] [address] bedtime. Medical Branch AMLODIPINE 2017-0 Yes 10mg Take 10 mg U nivers BESYLATE 4-24 by mouth ity of (AMLODIPINE 16:48: [place]. [place] Medical Branch ibuprofen 2017-0 Yes 800mg Take 800 Uni vers 800 mg 4-24 mg by ity of tablet 16:48: mouth [place] [address] every 6 Medical (six) Branch hours as needed for Pain (scale 1-3) or Pain (scale 4-6). omeprazole 2017-0 Yes 20mg Take 20 mg U nivers 20 mg 4-24 by mouth ity of capsule 16:48: daily. [place] [address] Medical Branch meloxicam 2017-0 Yes 15mg Take 15 mg Un mary ann 15 mg 4-24 by mouth ity of tablet 16:48: daily. [place] [address] Medical Branch allopurinol 2017-0 Yes 100mg Take 100 U nivers 100 mg 4-24 mg by ity of tablet 16:48: mouth [place] [address] daily. Medical Branch Cholecalcif 2017-0 Yes 400U Take 400 Un mary ann kedar, 4-24 Units by ity of Vitamin D3, 16:48: mouth [place] 400 unit 51 daily. Medical capsule Branch atorvastati 2017-0 Yes 40mg Take 40 mg Univers n 40 mg 4-24 by mouth ity of tablet 16:48: at [place] [address] bedtime. Medical Branch AMLODIPINE 2017-0 Yes 10mg Take 10 mg U nivers BESYLATE 4-24 by mouth ity of (AMLODIPINE 16:48: [place]. [place] [facility] Branch ibuprofen 2017-0 Yes 800mg Take 800 Uni vers 800 mg 4-24 mg by ity of tablet 16:48: mouth [place] [address] every 6 Medical (six) Branch hours as needed for Pain (scale 1-3) or Pain (scale 4-6). omeprazole 2017-0 Yes 20mg Take 20 mg U nivers 20 mg 4-24 by mouth ity of capsule 16:48: daily. [place] [address] Medical Branch meloxicam 2017-0 Yes 15mg Take 15 mg Un mary ann 15 mg 4-24 by mouth ity of tablet 16:48: daily. [place] [address] Medical Branch allopurinol 2017-0 Yes 100mg Take 100 U nivers 100 mg 4-24 mg by ity of tablet 16:48: mouth [place] 51 daily. Medical Branch Cholecalcif 2017-0 Yes 400U Take 400 Un mary ann kedar, 4-24 Units by ity of Vitamin D3, 16:48: mouth [place] 400 unit 51 daily. Medical capsule Branch atorvastati 2017-0 Yes 40mg Take 40 mg Univers n 40 mg 4-24 by mouth ity of tablet 16:48: at [place] [address] bedtime. Medical Branch metroNIDAZO 2017-0 Yes 500mg Take 2 Uni vers LE 250 mg 4-24 tablets by ity of tablet 00:00: mouth [place] 00 every 8 Medical (eight) Branch hours. ciprofloxac 2017-0 Yes 500mg Take 1 Uni vers in HCl 500 4-24 tablet by ity of mg tablet 00:00: mouth [place] 00 every 12 Medical (twelve) Branch hours. hydroCHLORO 2017-0 Yes 25mg Take 2 Univ ers thiazide 4-24 capsules ity of 12.5 mg 00:00: by mouth [facility] 00 daily. Medical Branch bisacodyl 2017-0 Yes 10mg Take 2 Univer s (DULCOLAX, 4-24 tablets by ity of BISACODYL,) 00:00: mouth once [place] 5 mg EC 00 daily as Medical tablet needed for Branch Constipati on. traMADOL 50 2017-0 Yes 50mg Take 1 Univ ers mg tablet 4-24 tablet by ity o f 00:00: mouth [place] 00 every 6 Medical (six) Branch hours as needed for Pain unrelieved by non-narcot ic analgesics . metroNIDAZO 2017-0 Yes 500mg Take 2 Uni vers LE 250 mg 4-24 tablets by ity of tablet 00:00: mouth [place] 00 every 8 Medical (eight) Branch hours. ciprofloxac 2017-0 Yes 500mg Take 1 Uni vers in HCl 500 4-24 tablet by ity of mg tablet 00:00: mouth [place] 00 every 12 Medical (twelve) Branch hours. [...] ic analgesics . allopurinol allopurinol No allopurino [facility] 100 mg 100 mg l 100 mg Family tablet TAKE tablet TAKE tablet Practic 1 TABLET BY 1 TABLET BY TAKE 1 e MOUTH EVERY MOUTH EVERY TABLET BY DAY DAY MOUTH EVERY DAY amlodipine amlodipine No amlodipine [facility] 10 mg 10 mg 10 mg Family tablet TAKE tablet TAKE tablet Practic 1 TABLET BY 1 TABLET BY TAKE 1 e MOUTH EVERY MOUTH EVERY TABLET BY DAY DAY MOUTH EVERY DAY atorvastati atorvastati No atorvastat [facility] n 20 mg n 20 mg in 20 mg Famil y tablet TAKE tablet TAKE tablet Practic 1 TABLET BY 1 TABLET BY TAKE 1 e MOUTH EVERY MOUTH EVERY TABLET BY DAY DAY MOUTH EVERY DAY hydralazine hydralazine No hydralazin [facility] 25 mg 25 mg e 25 [...] UP TO 12HOURS.) metoprolol metoprolol No metoprolol [facility] tartrate 25 tartrate 25 tartrate Family mg tablet mg tablet 25 mg Prac tic TAKE 1 TAKE 1 tablet e TABLET BY TABLET BY TAKE 1 MOUTH TWICE MOUTH TWICE TABLET BY A DAY A DAY MOUTH TWICE A DAY omeprazole omeprazole No omeprazole [facility] 20 mg 20 mg 20 mg Family capsule,del capsule,del capsule,de Practic ayed ayed layed e release release release TAKE 1 TAKE 1 TAKE 1 CAPSULE BY CAPSULE BY CAPSULE BY MOUTH EVERY MOUTH EVERY MOUTH DAY DAY EVERY DAY omeprazole omeprazole No 1capsul Q1D omeprazole [facility] 40 mg 40 mg e(s) 40 mg Family capsule,del capsule,del capsule,de Practic ayed ayed layed e release release release Take 1 Take 1 Take 1 capsule capsule capsule every day every day every day by oral by oral by oral route for route for route for 90 days. 90 days. 90 days. albuterol albuterol No albuterol [place] sulfate HFA sulfate HFA sulfate Family 90 [...] Name SARS-COV-2 (COVID-19) SARS-COV-2 (COVID-19) 2020-12-07 Completed [facility] vaccine, UNSPECIFIED vaccine, UNSPECIFIED 00:00:00 Practice pneumococcal pneumococcal 2018-09-17 Completed [facility] polysaccharide PPV23 polysaccharide PPV23 00:00:00 Practice influenza, influenza, 2018-09-17 [facility] injectable, injectable, 00:00:00 Practice quadrivalent quadrivalent Vital Signs Vital Name Observation Time Observation Value Comments Source BP Diastolic 2020-12-07 00:00:00 97 mm[Hg] [facility] Height 2020-12-07 00:00:00 70 [in_i] [facility] BMI (Body Mass 2020-12-07 00:00:00 31.3 kg/m2 [facility] Family Index) Practice BP Systolic 2020-12-07 00:00:00 101 mm[Hg] [facility] Body Weight 2020-12-07 00:00:00 218 [lb_av] [facility] Height 2020-06-09 00:00:00 70 [in_i] [facility] BMI (Body Mass 2020-06-09 00:00:00 [facility] Body Weight 2020-06-09 00:00:00 218 [lb_av] [facility] Procedures Procedure Date / Time Performed Performing Clinician Sourc e Appendectomy [facility] Back Surgery [facility] Screening for Malignant [facility] Neoplasm of Prostate Practice Screening Colonoscopy [facility] Encounters Start End Encounter Admission Attending Care Care Encounter Source Date/Time Date/Time Type Type Clinicians Facility Department ID 2021-10-27 2021-10-27 Outpatient [facility] [id number] Univers 14:30:00 14:30:00 [id number] ity [facility] 2021-10-24 2021-10-24 Outpatient R [facility] [id number] Univers 15:15:00 15:15:00 [id number] ity [facility] 2021-10-24 2021-10-24 [facility] [id number] Univers 15:15:00 [facility], [facility] [id number] Univers 15:15:00 15:15:00 [id number]-10-17 2021-10-17 Outpatient R SHEEHAN, [facility] [id number] Univers 15:15:00 15:15:00 [facility] [id number] [facility]-10[facility]12 2021-10-12 Ancillary Ebony Guadaluep [facility] [id number] Univers 14:30:00 15:15:00 [id number] [facility] [id number] Rina espinoza PROFESSIO [id number] Al dical [address] 2021-10-12 2021-10-12 [facility] [id number] Univers 14:30:00 14:30:00 ANA [id number] ity [facility] 2021-10-12 2021-10-12 [facility] [id number] Univers 14:30:00 14:30:00 [facility] 2021[facility]10 Outpatient R [facility] [id number] Univers 15:15:00 15:15:00 [id number] [facility]-10-07 2021-10-07 Ancillary Ebony Guadalupe [facility] 1.2.84 0.114 [id number] Univers 15:00:00 15:40:00 Visit Ana Sheehan [id number] ity of [facility] [id number] [phone] Al dical NAL 179 [facility] 2021-10-07 2021-10-07 Outpatient R [facility] [id number] Univers 15:00:00 15:00:00 [id number] ity of [facility] 2021-10-05 2021-10-05 Ancillary Familia Bowser [facility] 1.2.840. 114 [id number] Univers 14:20:00 15:05:00 Visit Ana Sheehan [id number] ity of [id number] [id number] Al dical NAL 179 [facility] 2021-10-05 2021-10-05 Outpatient R [facility] [id number] Univers 14:20:00 14:20:00 [id number] ity [facility] 2021-09-29 2021-09-29 Ancillary Familia Bowser [facility] .2.840. 114 [id number] Univers 14:20:00 15:00:00 Visit Ana Sheehan [id number] ity of [id number] [id number] Al dical NAL 179 [facility] 2021-09-29 2021-09-29 Outpatient [facility] [id number] Univers 14:20:00 14:20:00 [id number] ity [facility] 2021-09-27 2021-09-27 Ancillary Familia Bowser [facility] .2.840. 114 [id number] Univers 14:20:00 15:00:00 Visit Ana Sheehan [id number] ity of [id number] [id number] Al dical NAL 179 [facility] 2021-09-27 2021-09-27 Outpatient R [facility] [id number] Univers 14:20:00 14:20:00 [id number] ity [facility] 2021-09-21 2021-09-21 Ancillary Ebony Guadalupe [facility] 1.2.[id number] [facility] 15:20:00 16:43:45 Visit Ana Sheehan [id number] ity of [facility] [id number] [id number] Al dical NAL 179 [facility] 2021-09-14 2021-09-14 Ancillary Ebony Guadalupe [facility] 1.2.[id number] [facility] 10:40:00 11:20:00 Visit Ana Sheehan [id number] ity of [facility] [id number] [id number] Al dicvt NAL 179 [facility] 2021-09-12 2021-09-12 Ancillary Ebony Guadalupe [facility] 1.2.[id number] [facility] 14:40:00 16:34:12 Visit Ana Sheehan [id number] ity of [facility] [id number] [id number] Al dicvt NAL 179 [facility] 2021-08-17 2021-08-17 Outpatient Orin SHEEHAN [facility] [id number] [facility] 15:00:00 15:00:00 ANA [facility] 2021-03-03 2021-03-03 Outpatient Miller_S_AH VFP VFP [id number] [facility] 04:58:00 04:58:00 [id number] Family Practic e 2020-12-15 2020-12-15 Outpatient Ajibade_O_A VFP VFP [id number] [facility] 01:16:00 01:16:00 H [id number] Family Practic e 2020-12-15 2020-12-15 Outpatient Ajibade_O_A VFP VFP [id number] [facility] 01:16:00 01:16:00 H [id number] Family Practic e 2020-12-13 2020-12-13 Outpatient Ajibade_O_A VFP VFP [id number] [facility] 02:14:00 02:14:00 H [id number] Family Practic e 2020-12-07 2020-12-07 Outpatient Ajibade_O_A VFP VFP [id number] [facility] 01:11:00 01:11:00 H [id number] Family Practic e 2020-12-07 2020-12-07 [place] VFP [place] - [id number] V illage 00:00:00 00:00:00 Geo Chatterjee Famil y FRESCO ARTIST: [id number] Medical - Pract Hoda Fragosobrandi, [email or web address] [address] [place] [phone] , Ph. 2020-07-16 2020-07-16 Outpatient Ajibade_O_A VFP VFP [id number] [facility] 09:42:00 09:42:00 H [id number] Family Practic e 2020-07-16 2020-07-16 Outpatient Ajibade_O_A VFP VFP [id number] [facility] 09:42:00 09:42:00 H [id number] Family Practic e 2020-06-23 2020-06-23 Outpatient Ajibade_O_A VFP VFP [id number] [facility] 11:33:00 11:33:00 H [id number] Family Practic e 2020-06-09 2020-06-09 Outpatient Ajibade_O_A VFP VFP [id number] [facility] 01:32:00 01:32:00 H [id number] Family Practic e 2020-06-09 2020-06-09 Om[place] VFP [place] - [id number] V illage 00:00:00 00:00:00 Geo Chatterjee y FRESCO ARTIST: [id number] Medical - Pract jean Parker, [email or web address] [address] [place] [phone] , Ph. 2020-05-25 2020-05-25 Outpatient Ajibade_O_A VFP VFP [id number] [facility] 12:24:00 12:24:00 H [id number] Family Practic e 2020-05-13 2020-05-13 Outpatient Ajibade_O_A VFP VFP [id number] [facility] 03:39:00 03:39:00 H [id number] Family Practic e 2019-11-05 2019-11-05 Outpatient Ige-Feliz P VFP [id number] [facility] 07:28:00 07:28:00 __ [id number] Family Practic e Results This patient has no known results.
[2021-11-01] MEDS ORDERED: MORPHINE 4 MG/ML SYR ONE (23:43)
[2021-11-01] MEDS ORDERED: ONDANSETRON 4 MG/2 ML VIAL ONE (23:44)
[2021-11-01 23:54] LABS: Absolute Lymphocytes (CBC) 2.8 K/uL (0.7-4.9); Hematocrit 48.4 % (39.6-49.0); Lymphocytes % 32.5 % (15.3-44.8); MPV 8.1 fL (7.6-11.3); RBC Red Blood Cell Count 5.13 M/uL (4.33-5.43)
[2021-11-02 00:10] LABS: Protime INR 0.9
[2021-11-02 00:45] LABS: Bilirubin Direct 0.1 mg/dL (0-0.2); Bilirubin Total 0.3 mg/dL (0.2-1.0); Magnesium 2.3 mg/dL (1.8-2.4); Protein, Total 8.1 g/dL (6.4-8.2); Troponin High Sensitivity 14.1 pg/mL (<58.9)
[2021-11-02 00:53] LABS: Potassium 2.9 mmol/L (3.5-5.1)
[2021-11-02] MEDS ORDERED: HYDROMORPHONE HCL 1 MG/ML INJ ONE (01:13)
[2021-11-02] MEDS ORDERED: KCL 20 MEQ/100 mL IVPB 100 ML IV ONE (01:28)
[2021-11-02] MEDS ORDERED: POTASSIUM 25 MEQ EFFERV TAB ONE (01:28)
[2021-11-02] MEDS ORDERED: NA CHLORIDE 0.9% 500 ML ONE (01:51)
--- NOTE | 2021-11-02 02:48 | ER ---
Nurse's Notes [facility] Name: Maynor Marquez Age: 66 yrs Sex: Male : 1955 Arrival Date: 11/01/2021 Time: 22:47 Bed 13 Private MD: Diagnosis: Headache;Strain of muscle, fascia and tendon at neck level, initial encounter;Hypokalemia Presentation: 11/01 22:57 Chief complaint: Patient states: I'm having pain in my neck that goes all the way up to vc1 the top of my head. Also my right hand is numb like it was when I was here a month ago and now my left hand is starting to go numb. This all started last week. Coronavirus screen: Vaccine status: Patient reports receiving the 2nd dose of the covid vaccine. Pfizer headache, At this time, the client does not indicate any symptoms associated with coronavirus-19. Ebola Screen: No symptoms or risks identified at this time. Initial Sepsis Screen: Does the patient meet any 2 criteria? No. Patient's initial sepsis screen is negative. Does the patient have a suspected source of infection? No. Patient's initial sepsis screen is negative. Risk Assessment: Do you want to hurt yourself or someone else? Patient reports no desire to harm self or others. Onset of symptoms is unknown. 22:57 Method Of Arrival: Ambulatory vc1 22:57 Acuity: MARCUS 3 vc1 Triage Assessment: 23:00 General: Appears in no apparent distress. uncomfortable, Behavior is calm, cooperative, vc1 appropriate for age. Pain: Complains of pain in left frontal area, left side of the back of head, left temporal area, left occipital area, left ear, left base of the skull, left lateral aspect of neck and left anterior aspect of neck Pain currently is 10 out of 10 on a pain scale. EENT: Denies inner ear pain. Neuro: Level of Consciousness is awake, alert, obeys commands, Oriented to person, place, time, situation, Appropriate for age. Cardiovascular: Denies chest pain, shortness of breath. Respiratory: Airway is patent Respiratory effort is even, unlabored, Respiratory pattern is regular, symmetrical. Historical: - Allergies: 23:00 GABAPENTIN; vc1 23:00 Klonopin; vc1 23:00 Lisinopril; vc1 - Home Meds: 23:00 Allopurinol Oral [Active]; amlodipine oral [Active]; atorvastatin Oral [Active]; vc1 Hydralazine Oral [Active]; Hydrochlorothiazide Oral [Active]; Metoprolol Tartrate Oral [Active]; Omeprazole Oral [Active]; - PMHx: 23:00 Diverticulitis; Gout; Hypertension; Migraines; Pancreatitis; vc1 - PSHx: 23:00 tendon release L ankle; vc1 - Immunization history:: Adult Immunizations up to date, Client reports receiving the 2nd dose of the Covid vaccine, Flu vaccine is up to date. - Social history:: Smoking status: Patient reports the use of cigarette tobacco products, smokes one pack cigarettes per day. Screenin:02 Abuse screen: Denies threats or abuse. Nutritional screening: No deficits noted. vc1 Tuberculosis screening: No symptoms or risk factors identified. Fall Risk None identified. Assessment: 22:56 General: The pt was brought to room #13 at this time. . gabriel 23:03 Reassessment: No changes from previously documented assessment. The pt reports that gabriel "this all started last week". He reports having been [facility] week and his Covid swab was negative, per his report. The pt is in mild distress with the c/o a headache, ear pain and neck pain x 1 week. 23:48 General: The pt is receiving his ekg at this time and the cxr has been completed. . gabriel 11/02 00:39 Reassessment: The pt reports "that medicine didn't help at all". Provider told of pt's gabriel report. The pt looks more comfortable, but denies any relief. . 02:49 General: The pt has a dc order on the chart, but the Kcl is infusing and has about 1 gabriel more hour. The pt's son is at bedside. . 03:54 General: The pt reports that he "feels much better" and will f/u with his pcp. He gabriel ambulated with his son to the car. . Vital Signs: 11/01 22:57 BP 149 / 98; Pulse 84; Resp 16; Temp 97.8(TE); Pulse Ox 98% on R/A; Weight 104.33 kg; vc1 Height 5 ft. 11 in. (180.34 cm); Pain 10/10; 23:04 BP 148 / 92; Pulse 82; Resp 18; Temp 98.7; Pulse Ox 96% on R/A; Pain 10/10; gabriel 23:48 BP 147 / 94; Pulse 86; Resp 16; Pulse Ox 97% on R/A; Pain 6/10; gabriel 11/02 00:25 BP 152 / 96; Pulse 87; Resp 18; Pulse Ox 98% on R/A; Pain 4/10; gabriel 00:39 BP 152 / 96; Pulse 87; Resp 18; Pulse Ox 97% on R/A; Pain 10/10; gabriel 01:34 BP 141 / 95; Pulse 74; Resp 18; Pulse Ox 97% on R/A; Pain 2/10; gabriel 02:12 BP 148 / 98; Pulse 73; Resp 18; Pulse Ox 97% on R/A; gabriel 02:48 BP 145 / 93; Pulse 79; Resp 18; Pulse Ox 97% on R/A; gabriel 03:39 BP 158 / 103; Pulse 66; Resp 18; Pulse Ox 98% on R/A; gabriel 03:53 BP 142 / 93; Pulse 77; Resp 18; Temp 98.5; Pulse Ox 97% on R/A; Pain 2/10; gabriel 11/01 22:57 Body Mass Index 32.08 (104.33 kg, 180.34 cm) vc1 [place] Coma Score: 01:49 Eye Response: spontaneous(4). Verbal Response: oriented(5). Motor Response: obeys imelda commands(6). Total: 15. ED Course: 11/01 22:47 Patient arrived in ED. ag3 22:56 Rina Rodriguez, RN is Primary Nurse. gabriel 23:00 Triage completed. vc1 23:02 Arm band placed on right wrist. vc1 23:02 Patient has correct armband on for positive identification. Bed in low position. Call vc1 light in reach. Pulse ox on. NIBP on. Door closed. Lights dimmed. 23:07 No provider procedures requiring assistance completed. gabriel 23:24 Dominic Yadav MD is Attending Physician. imelda 23:46 Basic Metabolic Panel Sent. gabriel 23:47 Basic Metabolic Panel Sent. gabriel 23:47 XRAY Chest (1 view) Sent. gabriel 23:47 CBC with Diff Sent. gabriel 23:47 LFT's Sent. gabriel 23:47 Magnesium Sent. gabriel 23:47 NT PRO-BNP Sent. gabriel 23:47 PT-INR Sent. gabriel 23:47 Troponin HS Sent. gabriel 23:55 Basic Metabolic Panel Sent. gabriel 11/02 00:00 XRAY Chest (1 view) In Process Unspecified. EDMS 00:24 LFT's Sent. gabriel 00:24 Magnesium Sent. gabriel 00:24 NT PRO-BNP Sent. gabriel 00:24 Troponin HS Sent. gabriel 01:32 CT Head Brain wo Cont In Process Unspecified. EDMS 01:32 CT Head Angio In Process Unspecified. EDMS 01:32 CT Neck Angio In Process Unspecified. EDMS 02:46 Jace Lam MD is Referral Physician. imelda 03:56 intact, bleeding controlled, No redness/swelling at site. Pressure dressing applied. gabriel Administered Medications: 11/01 23:46 Drug: morphine 4 mg Route: IVP; Site: right wrist; gabriel 23:55 Follow up: Response: No adverse reaction gabriel 23:46 Drug: Zofran (Ondansetron) 4 mg Route: IVP; Site: right wrist; gabriel 23:56 Follow up: Response: No adverse reaction gabriel 11/02 01:24 Drug: Dilaudid (HYDROmorphone) 1 mg Route: IVP; Site: right wrist; gabriel 01:27 Follow up: Response: No adverse reaction gabriel 01:56 Follow up: Response: No adverse reaction gabriel 02:32 Follow up: Response: No adverse reaction gabriel 01:27 Drug: Potassium Effervescent Tablet 50 mEq Route: PO; gabriel 01:56 Follow up: Response: No adverse reaction gabriel 02:32 Follow up: Response: No adverse reaction gabriel 01:27 Drug: Potassium Chloride 20 mEq Route: IV; Rate: per protocol; Site: right wrist; gabriel 03:53 Follow up: IV Status: Completed infusion; IV Intake: 100ml gabriel Intake: 03:53 IV: 100ml; Total: 100ml. gabriel Outcome: 11/01 23:07 Condition: stable gabriel 11/02 02:47 Discharge ordered by . imelda 03:55 Discharged to home ambulatory, with family. gabriel 03:55 Discharge instructions given to patient, Instructed on discharge instructions, follow up and referral plans. medication usage, Demonstrated understanding of instructions, follow-up care, medications, Prescriptions given X 3. 03:56 Patient left the ED. gabriel Signatures: Dispatcher [employer] EDMS Leif, Dominic, MD MD imelda Farrell, Nel ag3 Jaci West cs9 Rina Rodriguez RN RN Cristina Chung RN RN vc1 Corrections: (The following items were deleted from the chart) 01:33 00:51 BP 150 / 60; Pulse 40bpm; Resp 14bpm; Pulse Ox 100%; Temp 97.8F; cs9 gabriel
--- NOTE | 2021-11-02 02:48 | EDPHYS ---
Physician Documentation [facility] Name: Manyor Marquez Age: 66 yrs Sex: Male : 1955 Arrival Date: 11/01/2021 Time: 22:47 Bed 13 Private MD: JULEE Physician Dominic Yadav HPI: 11/02 01:45 This 66 yrs old Black Male presents to ER via Ambulatory with complaints of Ear Pain, imelda Headache, NECK PAIN, RT HAND TINGLING. 01:45 The patient presents with pain. The complaints affect the left ear and left jaw. Onset: imelda The symptoms/episode began/occurred 5 day(s) ago. Modifying factors: The symptoms are alleviated by nothing, the symptoms are aggravated by MOVEMENT. Associated signs and symptoms: Pertinent positives: nausea. Severity of symptoms: At their worst the symptoms were mild moderate in the emergency department the symptoms are unchanged. The patient has experienced similar episodes in the past, several times. Historical: - Allergies: 11/01 23:00 GABAPENTIN; vc1 23:00 Klonopin; vc1 23:00 Lisinopril; vc1 - Home Meds: 23:00 Allopurinol Oral [Active]; amlodipine oral [Active]; atorvastatin Oral [Active]; vc1 Hydralazine Oral [Active]; Hydrochlorothiazide Oral [Active]; Metoprolol Tartrate Oral [Active]; Omeprazole Oral [Active]; - PMHx: 23:00 Diverticulitis; Gout; Hypertension; Migraines; Pancreatitis; vc1 - PSHx: 23:00 tendon release L ankle; vc1 - Immunization history:: Adult Immunizations up to date, Client reports receiving the 2nd dose of the Covid vaccine, Flu vaccine is up to date. - Social history:: Smoking status: Patient reports the use of cigarette tobacco products, smokes one pack cigarettes per day. ROS: 11/02 01:46 Constitutional: Negative for fever, chills, and weight loss, Eyes: Negative for injury, imelda pain, redness, and discharge, Neck: Negative for injury, pain, and swelling, Cardiovascular: Negative for chest pain, palpitations, and edema, Respiratory: Negative for shortness of breath, cough, wheezing, and pleuritic chest pain, Abdomen/GI: Negative for abdominal pain, nausea, vomiting, diarrhea, and constipation, Back: Negative for injury and pain, : Negative for injury, bleeding, discharge, and swelling, MS/Extremity: Negative for injury and deformity, Skin: Negative for injury, rash, and discoloration, Neuro: Negative for headache, weakness, numbness, tingling, and seizure, Psych: Negative for depression, anxiety, suicide ideation, homicidal ideation, and hallucinations, Allergy/Immunology: Negative for hives, rash, and allergies, Endocrine: Negative for neck swelling, polydipsia, polyuria, polyphagia, and marked weight changes, Hematologic/Lymphatic: Negative for swollen nodes, abnormal bleeding, and unusual bruising. ENT: Positive for ear pain. Exam: 01:46 Constitutional: This is a well developed, well nourished patient who is awake, alert, imelda and in no acute distress. Head/Face: Normocephalic, atraumatic. Eyes: Pupils equal round and reactive to light, extra-ocular motions intact. Lids and lashes normal. Conjunctiva and sclera are non-icteric and not injected. Cornea within normal limits. Periorbital areas with no swelling, redness, or edema. ENT: Nares patent. No nasal discharge, no septal abnormalities noted. Tympanic membranes are normal and external auditory canals are clear. Oropharynx with no redness, swelling, or masses, exudates, or evidence of obstruction, uvula midline. Mucous membranes moist. Neck: Trachea midline, no thyromegaly or masses palpated, and no cervical lymphadenopathy. Supple, full range of motion without nuchal rigidity, or vertebral point tenderness. No Meningismus. Chest/axilla: Normal chest wall appearance and motion. Nontender with no deformity. No lesions are appreciated. Cardiovascular: Regular rate and rhythm with a normal S1 and S2. No gallops, murmurs, or rubs. Normal PMI, no JVD. No pulse deficits. Respiratory: Lungs have equal breath sounds bilaterally, clear to auscultation and percussion. No rales, rhonchi or wheezes noted. No increased work of breathing, no retractions or nasal flaring. Abdomen/GI: Soft, non-tender, with normal bowel sounds. No distension or tympany. No guarding or rebound. No evidence of tenderness throughout. Back: No spinal tenderness. No costovertebral tenderness. Full range of motion. Male : Normal genitalia with no discharge or lesions. Skin: Warm, dry with normal turgor. Normal color with no rashes, no lesions, and no evidence of cellulitis. MS/ Extremity: Pulses equal, no cyanosis. Neurovascular intact. Full, normal range of motion. Neuro: Awake and alert, GCS 15, oriented to person, place, time, and situation. Cranial nerves II-XII grossly intact. Motor strength 5/5 in all extremities. Sensory grossly intact. Cerebellar exam normal. Normal gait. Psych: Awake, alert, with orientation to person, place and time. Behavior, mood, and affect are within normal limits. 01:46 Neck: External neck: is normal, no acute changes, Thyroid: appears normal, no acute changes, Trachea: is midline with no obvious abnormalities, no acute changes, ROM/movement: is normal, no acute changes, Meningeal signs: are not present, Kernig's sign is negative, Brudzinski's sign is negative, nuchal rigidity, is not appreciated. 01:56 ECG was reviewed by the Attending Physician. [facility] Vital Signs: 11/01 22:57 BP 149 / 98; Pulse 84; Resp 16; Temp 97.8(TE); Pulse Ox 98% on R/A; Weight 104.33 kg; vc1 Height 5 ft. 11 in. (180.34 cm); Pain 10/10; 23:04 BP 148 / 92; Pulse 82; Resp 18; Temp 98.7; Pulse Ox 96% on R/A; Pain 10/10; gabriel 23:48 BP 147 / 94; Pulse 86; Resp 16; Pulse Ox 97% on R/A; Pain 6/10; gabriel / 00:25 BP 152 / 96; Pulse 87; Resp 18; Pulse Ox 98% on R/A; Pain 4/10; gabriel 00:39 BP 152 / 96; Pulse 87; Resp 18; Pulse Ox 97% on R/A; Pain 10/10; gabriel 01:34 BP 141 / 95; Pulse 74; Resp 18; Pulse Ox 97% on R/A; Pain 2/10; gabriel 02:12 BP 148 / 98; Pulse 73; Resp 18; Pulse Ox 97% on R/A; gabriel 02:48 BP 145 / 93; Pulse 79; Resp 18; Pulse Ox 97% on R/A; gabriel 03:39 BP 158 / 103; Pulse 66; Resp 18; Pulse Ox 98% on R/A; gabriel 03:53 BP 142 / 93; Pulse 77; Resp 18; Temp 98.5; Pulse Ox 97% on R/A; Pain 2/10; gabriel 11/01 22:57 Body Mass Index 32.08 (104.33 kg, 180.34 cm) vc1 Hortensia Coma Score: 01:49 Eye Response: spontaneous(4). Verbal Response: oriented(5). Motor Response: obeys imelda commands(6). Total: 15. MDM: 11/01 23:24 Patient medically screened. imelda 11/02 01:49 Differential diagnosis: cerumen impaction, epidural hematoma, hypertensive headache. [facility] Data reviewed: vital signs, nurses notes, lab test result(s), EKG, radiologic studies, CT scan. 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 Test interpretation: by ED physician or midlevel provider: ECG, plain radiologic studies. Counseling: I had a detailed discussion with the patient and/or guardian regarding: the historical points, exam findings, and any diagnostic results supporting the discharge/admit diagnosis, lab results, radiology results, the need for outpatient follow up, for definitive care, an equipment cleaner, a neurologist. 11/01 23:23 Order name: Basic Metabolic Panel [facility] 11/01 23:23 Order name: CBC with Diff; Complete Time: 01:09 [facility] 11/01 23:23 Order name: LFT's; Complete Time: 01:09 imelda 11/01 23:23 Order name: Magnesium; Complete Time: 01:09 imelda 11/01 23:23 Order name: NT PRO-BNP; Complete Time: 01:09 imelda 11/01 23:23 Order name: PT-INR; Complete Time: 01:09 imelda 11/01 23:23 Order name: Troponin HS; Complete Time: 01:09 imelda 11/01 23:23 Order name: XRAY Chest (1 view) 11/01 23:23 Order name: CT Head Brain wo Cont imelda 11/01 23:23 Order name: CT Head Angio [facility] 11/01 23:23 Order name: CT Neck Angio imelda 11/01 23:23 Order name: Basic Metabolic Panel; Complete Time: 01:09 EDMS 11/01 23:23 Order name: EKG; Complete Time: 23:24 [facility] 11/01 23:23 Order name: Cardiac monitoring; Complete Time: 23:47 imelda 11/01 23:23 Order name: EKG - Nurse/Tech; Complete Time: 23:47 [facility] 11/01 23:23 Order name: IV Saline Lock; Complete Time: 23:47 [facility] 11/01 23:23 Order name: Labs collected and sent; Complete Time: 23:47 imelda 11/01 23:23 Order name: O2 Per Protocol; Complete Time: 23:47 [facility] 11/01 23:23 Order name: O2 Sat Monitoring; Complete Time: 23:47 [facility] EC:56 Rate is 76 beats/min. Rhythm is regular. QRS Wendel is Normal. MD interval is normal. QRS imelda interval is normal. QT interval is normal. No Q waves. T waves are Normal. No ST changes noted. Clinical impression: NSR w/ Non-specific ST/T Changes and No evidence of ischemia. Interpreted by me. Reviewed by me. Administered Medications: 11/01 23:46 Drug: morphine 4 mg Route: IVP; Site: right wrist; gabriel 23:55 Follow up: Response: No adverse reaction gabriel 23:46 Drug: Zofran (Ondansetron) 4 mg Route: IVP; Site: right wrist; gabriel 23:56 Follow up: Response: No adverse reaction gabriel 11/02 01:24 Drug: Dilaudid (HYDROmorphone) 1 mg Route: IVP; Site: right wrist; gabriel 01:27 Follow up: Response: No adverse reaction gabriel 01:56 Follow up: Response: No adverse reaction gabriel 02:32 Follow up: Response: No adverse reaction gabriel 01:27 Drug: Potassium Effervescent Tablet 50 mEq Route: PO; gabriel 01:56 Follow up: Response: No adverse reaction gabriel 02:32 Follow up: Response: No adverse reaction gabriel 01:27 Drug: Potassium Chloride 20 mEq Route: IV; Rate: per protocol; Site: right wrist; gabriel 03:53 Follow up: IV Status: Completed infusion; IV Intake: 100ml gabriel Disposition Summary: 11/02/21 02:47 Discharge Ordered Location: Home imelda Problem: new imelda Symptoms: have improved imelda Condition: Stable imelda Diagnosis - Headache imelda - Strain of muscle, fascia and tendon at neck level, initial encounter imelda - Hypokalemia imelda Followup: imelda - With: Private Physician - When: 2 - 3 days - Reason: Recheck today's complaints, Continuance of care, Re-evaluation by your physician Followup: imelda - With: - When: 2 - 3 days - Reason: Recheck today's complaints, Continuance of care, Re-evaluation by your physician Discharge Instructions: - Discharge Summary Sheet imelda - Potassium Content of Foods imelda - General Headache Without Cause imelda - Migraine Headache imelda - General Headache Without Cause, [id number] imelda - Hypokalemia imelda Forms: - Medication Reconciliation Form imelda - Thank You Letter imelda - Antibiotic Education imelda - Prescription Opioid Use imelda Prescriptions: - Ibuprofen 600 mg Oral Tablet - take 1 tablet by ORAL route every 6 hours As needed take with food; 30 tablet; [facility] Refills: 0, Product Selection Permitted - Zofran 4 mg Oral Tablet - take 1 tablet by ORAL route every 12 hours As needed; 20 tablet; Refills: 0, [facility] Product Selection Permitted - Tylenol-Codeine #3 300 mg-30 mg Oral - take 2 tablet by ORAL route every 6 hours; 20 tablet; Refills: 0, Product imelda Selection Permitted Signatures: Dispatcher [employer] Dominic Lai MD MD cha Attema, Lee, TEAM PHYSICIAN-C TEAM PHYSICIAN-Cla1 Rina Rodriguez, RN Cristina Mack RN RN vc1
[2021-11-02 04:13] VITALS: BP 142/93; TEMP 98.5; O2SAT 97
--- NOTE | 2021-11-02 08:41 | RAD REPORT ---
EXAM DESCRIPTION: Nathalia Single View11/02/2021 12:00 am CLINICAL HISTORY: Chest pain COMPARISON: 2020 FINDINGS: The lungs appear clear of acute infiltrate. The heart is normal size IMPRESSION: No acute abnormalities displayed
--- NOTE | 2021-11-02 10:38 | RAD REPORT ---
EXAM DESCRIPTION: CTHead angio11/02/2021 6:40 am CLINICAL HISTORY: 66 years, Male, HEADACHE COMPARISON: Recent CT scan of the head without contrast. TECHNIQUE: Multiple transaxial tomograms from the aortic arch through the brain were performed after administration of large bolus of IV contrast for complete opacification of the carotid arteries and intracranial vessels. Subsequent 2-D and 3-D multiplanar reformats, volume rendering technique and maximum intensity projec tion images were generated and reviewed. Stenosis measurements were performed according to NASCET cri teria. This exam was performed according to our departmental dose-optimization protocol, which includes auto mated exposure control, adjustment of the mA and/or kV according to patient size and/or use of iterat ame reconstruction technique. FINDINGS: Ascending aorta: There is a normal branching pattern of the great vessels off the arch. There is absent of the right vertebral artery. Normal appearance of the left vertebral artery No gr eat vessel origin stenosis is identified. Right carotid artery: Normal opacification is demonstrated within the right common carotid artery a nd at the carotid bifurcation. The right carotid artery demonstrate to be patent with no significant stenosis. The proximal, mid and distal portions of the right internal carotid artery demonstrate to be unremark able. There is no evidence for significant stenosis and/or occlusion. Left carotid artery: Normal opacification is demonstrated within the left common carotid artery an d at the carotid bifurcation. The left carotid artery demonstrate minimal peripheral plaque formation with no evidence for significant stenosis. The proximal, mid and distal portions of the left interna l carotid artery demonstrate to be unremarkable. There is no evidence for significant stenosis and/or occlusion. Intracranial circulation: Intracranial portions of the internal carotid arteries the cavernous sinus portions demonstrates no focal areas of significant. There is normal opacification within the anterio r circulation without evidence of intracranial aneurysm. The anterior cerebral arteries, middle cer ebral arteries and its branches demonstrate normal opacification with no evidence for significant krystyna nosis aneurysm and/or occlusion. There is normal venous drainage with no evidence for significant sin us vein thrombosis. Vertebrobasilar system: There is a left vertebral artery with no evidence for significant stenosis an d/or evidence for significant dissection. The vertebrobasilar system and TABLE RUNNER demonstrate to be normal with no evidence for aneurysm and/or occlusion. Grossly the brain parenchyma demonstrate normal king-white matter differentiation with no evidence fo r mass effect and/or midline shift. No evidence for scar normal parenchymal enhancement The skull base and intracranial structures demonstrate to be within normal limits. Lung apex: No gross abnormalities are noted within the apices. IMPRESSION: Absent right vertebral artery. Minimal peripheral plaque formation of the left carotid artery with no evidence for significant steno sis and/or occlusion. No evidence for significant stenosis and/or occlusion involving the major intracranial arterial vascu lature. Electronically signed by: Demetri Narayanan MD 11/02/2021 1:58 AM ASSISTANT INFANT TEACHER Due to temporary technical issues with the PACS/Fluency reporting system, reports are being signed by the in house radiologist without review as a courtesy to ensure prompt reporting. The interpreting r adiologist is fully responsible for the content of the report.
--- NOTE | 2021-11-02 10:41 | RAD REPORT ---
EXAM DESCRIPTION: CT - Head Brain Wo Cont - 11/02/2021 6:40 am CLINICAL HISTORY: 66 years, Male, HEADACHE COMPARISON: None. FINDINGS: Multiple transaxial tomograms of the brain were obtained from the base of the skull to the vertex without contrast. 2-D multiplanar reformats and the coronal and sagittal plane were performed and reviewed. This exam was performed according to our departmental dose-optimization protocol, which includes auto mated exposure control, adjustment of the mA and/or kV according to patient size and/or use of iterat ame reconstruction technique. Brain parenchyma as well as the king and white matter differentiation demonstrate to be unremarkable. There is mild prominence of the sulci and gyri suggesting mild brain atrophy which is appropriate fo r patient's age. There is no midline shift and/or mass effect. There is no evidence for acute hemorrh age. No focal areas of hypodensities. Lateral ventricles and cisterns displace normal appearance. No intra or extra axial fluid collections were seen. The calvarium is intact with no evidence for fr acture. The visualized portions of the paranasal sinuses and orbits demonstrate to be clear. IMPRESSION: NO ACUTE INTRACRANIAL HEMORRHAGE. GROSSLY UNREMARKABLE CT SCAN OF THE HEAD WITHOUT CONTRAST. Electronically signed by: Demetri Narayanan MD 11/02/2021 1:48 AM SEPTIC TANK SETTER Due to temporary technical issues with the PACS/Fluency reporting system, reports are being signed by the in house radiologist without review as a courtesy to ensure prompt reporting. The interpreting r adiologist is fully responsible for the content of the report.
--- NOTE | 2021-11-02 10:43 | RAD REPORT ---
EXAM DESCRIPTION: Andrea Angio11/02/2021 6:39 am CLINICAL HISTORY: 66 years, Male, HEADACHE COMPARISON: Recent CT scan of the head without contrast. TECHNIQUE: Multiple transaxial tomograms from the aortic arch through the brain were performed after administration of large bolus of IV contrast for complete opacification of the carotid arteries and intracranial vessels. Subsequent 2-D and 3-D multiplanar reformats, volume rendering technique and maximum intensity projec tion images were generated and reviewed. Stenosis measurements were performed according to NASCET cri teria. This exam was performed according to our departmental dose-optimization protocol, which includes auto mated exposure control, adjustment of the mA and/or kV according to patient size and/or use of iterat ame reconstruction technique. FINDINGS: Ascending aorta: There is a normal branching pattern of the great vessels off the arch. There is absent of the right vertebral artery. Normal appearance of the left vertebral artery No gr eat vessel origin stenosis is identified. Right carotid artery: Normal opacification is demonstrated within the right common carotid artery a nd at the carotid bifurcation. The right carotid artery demonstrate to be patent with no significant stenosis. The proximal, mid and distal portions of the right internal carotid artery demonstrate to be unremark able. There is no evidence for significant stenosis and/or occlusion. Left carotid artery: Normal opacification is demonstrated within the left common carotid artery an d at the carotid bifurcation. The left carotid artery demonstrate minimal peripheral plaque formation with no evidence for significant stenosis. The proximal, mid and distal portions of the left interna l carotid artery demonstrate to be unremarkable. There is no evidence for significant stenosis and/or occlusion. Intracranial circulation: Intracranial portions of the internal carotid arteries the cavernous sinus portions demonstrates no focal areas of significant. There is normal opacification within the anterio r circulation without evidence of intracranial aneurysm. The anterior cerebral arteries, middle cer ebral arteries and its branches demonstrate normal opacification with no evidence for significant krystyna nosis aneurysm and/or occlusion. There is normal venous drainage with no evidence for significant sin us vein thrombosis. Vertebrobasilar system: There is a left vertebral artery with no evidence for significant stenosis an d/or evidence for significant dissection. The vertebrobasilar system and MANUFACTURING QUALITY TECHNICIAN demonstrate to be normal with no evidence for aneurysm and/or occlusion. Grossly the brain parenchyma demonstrate normal king-white matter differentiation with no evidence fo r mass effect and/or midline shift. No evidence for scar normal parenchymal enhancement The skull base and intracranial structures demonstrate to be within normal limits. Lung apex: No gross abnormalities are noted within the apices. IMPRESSION: Absent right vertebral artery. Minimal peripheral plaque formation of the left carotid artery with no evidence for significant steno sis and/or occlusion. No evidence for significant stenosis and/or occlusion involving the major intracranial arterial vascu lature. Electronically signed by: Demetri Narayanan MD 11/02/2021 1:58 AM PEST CONTROL SERVICE TECHNICIAN Due to temporary technical issues with the PACS/Fluency reporting system, reports are being signed by the in house radiologist without review as a courtesy to ensure prompt reporting. The interpreting r adiologist is fully responsible for the content of the report.
--- NOTE | 2021-11-02 11:14 | EKG ---
Test Date: 2021-11-01 Test Time: 23:53:12 Procurement Forester: EDILSONT MEASUREMENT RESULTS: Intervals: Rate: 76 TN: 162 QRSD: 134 QT: 422 QTc: 474 [place]: P: 43 TN: 162 QRS: -26 T: 32 INTERPRETIVE STATEMENTS: Normal sinus rhythm with sinus arrhythmia Right bundle branch block Minimal voltage criteria for LVH, may be normal variant Septal infarct, age undetermined Abnormal ECG Compared to ECG 02/05/2021 09:00:07 Left ventricular hypertrophy now present Myocardial infarct finding still present Electronically Signed On 11-02-21 11:13:39 SUPERVISOR FLOOR ASSEMBLY by Seamus Malcolm
== END 2021-11-02 03:56 | disposition home or self-care (01) ==
LOC: ER 22:44
DX: S16.1XXA Strain of muscle, fascia and tendon at neck level, initial encounter (principal); E87.6 Hypokalemia; I10 Essential (primary) hypertension; Z88.8 Allergy status to other drugs, medicaments and biological substances
CPT/HCPCS: 93005; 85025; 80048; 36415; 83735; 85610; 80076; 84484; 83880; 70450; 70496; 70498; 71045; Q9967; J3480; J1170; J7040; J2405

== ENCOUNTER 2022-08-31 23:10 | Emergency (ER) | payer OTHER ==
--- OUTSIDE RECORDS SUMMARY | 2022-08-31 23:15 | XMS REPORT | Continuity of Care Document ---
:1955 Author Organization [facility] t Address [address] [place] [address] Care Team Providers Name Role Phone RAQUEL THOMAS CHRISTINE Primary Care Physician Unavailable ANA SHEEHAN Attending Clinician Unavailable Ebony Guadalupe PT Attending Clinician Unavailable Ana Sheehan MD Attending Clinician Familia Bowser PTA Attending Clinician Unavailable Doctor Unassigned, [place] Attending Clinician Unavailable Monica Bowser PTA Attending Clinician Unavailable Miller_S_AH Attending Clinician Unavailable Ajibade_O_AH Attending Clinician Unavailable Ige-[place]_J_AH Attending Clinician Unavailable Miller_S_AH Admitting Clinician Unavailable Ajibade_O_AH Admitting Clinician Unavailable [place]_J_AH Admitting Clinician Unavailable Payers Payer Name Policy Type Policy Number Effective Date Expiration Date Krista gonzalez [facility] [id number] 2021 ADMINISTRATION 00:00:00 [place] [id number] 2021 CLASSIC NO PREMIUM 00:00:00 HMO [facility] [id number] 2018 00:00:00 [place] - [id number] 2019 [place] (MEDICARE 00:00:00 REPLACEMENT/ADVANTAGE - HMO) Problems Condition Condition Condition Status Onset Resolution Last Treating Co mments Source Name Details Category Date Date Treatment Clinician Date Decreased Decreased Disease Active 2020-09 Uni vers ROM of ROM of 1-15 ity of ankle ankle 00:00: [place] 00 Medical Branch Decreased Decreased Disease Active 2020-09 Uni vers strength strength 1-15 ity of of lower of lower 00:00: [place] extremity extremity 00 Medi lauren Branch Gait Gait Disease Active 2020-09 Univers abnormalit abnormalit 1-15 it y of y y 00:00: Medical Branch Ankle Ankle Disease Active 2020-09 Univers pain, left pain, left 1-15 it y of 00:00: Medical Branch Chronic Chronic Problem Active 2019-09 [facility] obstructiv Obstructiv 2-21 Fa shell e lung e Lung 00:00: Practic disease Disease 00 e Hyperlipid Hyperlipid Problem Active 2020-0 [place] illage emia emia 9-23 Family 00:00: Practic 00 e Gout Gout Problem Active 2019- [place] 9-23 Family 00:00: Practic 00 e Nicotine Nicotine Problem Active [place] dependence Dependence 9-23 Fa shell 00:00: Practic 00 e Essential Essential Problem Active 2019- [place] robert hypertensi Hypertensi 9-23 Fa shell on on 00:00: Practic 00 e Gastroesop Gastroesop Problem Active 2019- V illage hageal hageal 9-23 Family reflux Reflux 00:00: Practic disease Disease 00 e Degenerati Degenerati Problem Active 2019-0 [place] ve joint ve Joint 9-23 Family disease Disease 00:00: Practic involving Involving 00 e multiple Multiple joints Joints Lumbar Lumbar Problem Active 2019-0 [facility] radiculopa Radiculopa 9-23 Fa shell thy thy 00:00: Practic 00 e Chronic Chronic Problem Active 2020-0 [facility] back pain Back Pain 9-23 Fami ly 00:00: Practic 00 e At risk At Risk Problem Active 2019-0 [facility] for falls for Falls 9-23 Fami ly 00:00: Practic 00 e Pain of Pain of Problem Active 2019-0 [facility] left ankle Left Ankle 9-23 Fa shell joint Joint 00:00: Practic 00 e Nicotine Nicotine Problem Active 2019-0 [place] dependence Dependence 9-23 Fa shell with with 00:00: Practic current Current 00 e use Use Abdominal Abdominal Disease Active Uni vers pain pain 4-20 ity of 00:00: 00 Medical Branch Infection Infection Disease Active Uni vers 4-20 ity of 00:00: Medical Branch Fall at Fall at Disease Active 2014-09 Univers home, home, 0-31 ity of initial initial 00:00: [place] encounter encounter 00 Medi lauren Branch Rib Rib Disease Active 2014-09 Univers contusion, contusion, 0-31 it y of right, right, 00:00: [place] initial initial 00 Medical encounter encounter Bran ch Allergies, Adverse Reactions, Alerts Allergy Allergy Status Severity Reaction(s) Onset Inactive Treating Comm ents Source Name Type Date Date Clinician LISINOPR DRUG Active Unknown-Cmnt Un [place] INGREDI 7 ity of 00:00: [place] 00 Medical Branch Lisinopr Propensi Active Unknown - Uni vers il ty to See comments 04-06 ity of adverse 00:00: [place] reaction 00 Medical s Branch Social History Social Habit Start Date Stop Date Quantity Comments Source Exposure to Not sure [facility] SARS-CoV-2 [place] Medical (event) Branch History SDOH University o f Alcohol Frequency [place] M edical [place] History SDOH University o f Alcohol Std [place] [facility] Drinks Branch History SDVT University o f Alcohol Binge [place] Medic al Branch Alcohol intake 2017-02-21 2017-02-21 Current drinker Unive rsity of 00:00:00 00:00:00 of alcohol [place] [facility] (finding) Branch Alcohol Comment 2017-01-04 2017-01-04 few drinks per Unive rsity of 00:00:00 00:00:00 week [facility] Sex Ass[birth year] Universit y of 00:00:00 00:00:00 [facility] Smoking Status Start Date Stop Date Source Heavy Tobacco Smoker [facility] Practice Current every day smoker 2017-01-04 00:00:00 Uni versity of [facility] Medications Ordered Filled Start Stop Current Ordering Indication Dosage Frequency Signature Comments Components Source Medication Medication Date Date Medication? Clinician (SIG) Name Name acetaminoph Yes [id number] 1{tbl} Take 1-2 Univers en-codeine 2-10 tablets by ity of 300-30 mg 00:00: mouth [place] tablet 00 every 6 Medical (six) Branch hours as needed for Pain (scale 1-3). traMADOL 50 Yes [id number] 50mg Take 1 Univers mg tablet 2-10 tablet by ity o f 00:00: mouth [place] 00 every 6 Medical (six) Branch hours as needed for Pain (scale 1-3). acetaminoph 2019 Yes [id number] 1{tbl} Take 1-2 Univers en-codeine 2-10 tablets by ity of 300-30 mg 00:00: mouth [place] tablet 00 every 6 Medical (six) Branch hours as needed for Pain (scale 1-3). traMADOL 50 2019- Yes [id number] 50mg Take 1 Univers mg tablet 2-10 tablet by ity o f 00:00: mouth [place] 00 every 6 Medical (six) Branch hours as needed for Pain (scale 1-3). acetaminoph Yes [id number] 1{tbl} Take 1-2 Univers en-codeine 2-10 tablets by ity of 300-30 mg 00:00: mouth [place] tablet 00 every 6 Medical (six) Branch hours as needed for Pain (scale 1-3). traMADOL 50 Yes [id number] 50mg Take 1 Univers mg tablet 2-10 tablet by ity o f 00:00: mouth [place] 00 every 6 Medical (six) Branch hours as needed for Pain (scale 1-3). acetaminoph Yes [id number] 1{tbl} Take 1-2 Univers en-codeine 2-10 tablets by ity of 300-30 mg 00:00: mouth [place] tablet 00 every 6 Medical (six) Branch hours as needed for Pain (scale 1-3). traMADOL 50 2018- Yes [id number] 50mg Take 1 Univers mg tablet 2-10 tablet by ity o f 00:00: mouth [place] 00 every 6 Medical (six) Branch hours as needed for Pain (scale 1-3). acetaminoph Yes [id number] 1{tbl} Take 1-2 Univers en-codeine 2-10 tablets by ity of 300-30 mg 00:00: mouth [place] tablet 00 every 6 Medical (six) Branch hours as needed for Pain (scale 1-3). traMADOL 50 2018-0 Yes [id number] 50mg Take 1 Univers mg tablet 2-10 tablet by ity o f 00:00: mouth [place] 00 every 6 Medical (six) Branch hours as needed for Pain (scale 1-3). acetaminoph Yes [id number] 1{tbl} Take 1-2 Univers en-codeine 2-10 tablets by ity of 300-30 mg 00:00: mouth [place] tablet 00 every 6 Medical (six) Branch hours as needed for Pain (scale 1-3). traMADOL 50 2019-0 Yes [id number] 50mg Take 1 Univers mg tablet 2-10 tablet by ity o f 00:00: mouth [place] 00 every 6 Medical (six) Branch hours as needed for Pain (scale 1-3). acetaminoph 2019 Yes [id number] 1{tbl} Take 1-2 Univers en-codeine 2-10 tablets by ity of 300-30 mg 00:00: mouth [place] tablet 00 every 6 Medical (six) Branch hours as needed for Pain (scale 1-3). traMADOL 50 2019- Yes [id number] 50mg Take 1 Univers mg tablet 2-10 tablet by ity o f 00:00: mouth [place] 00 every 6 Medical (six) Branch hours as needed for Pain (scale 1-3). acetaminoph Yes [id number] 1{tbl} Take 1-2 Univers en-codeine 2-10 tablets by ity of 300-30 mg 00:00: mouth [place] tablet 00 every 6 Medical (six) Branch hours as needed for Pain (scale 1-3). traMADOL 50 2019- Yes [id number] 50mg Take 1 Univers mg tablet 2-10 tablet by ity o f 00:00: mouth [place] 00 every 6 Medical (six) Branch hours as needed for Pain (scale 1-3). acetaminoph Yes [id number] 1{tbl} Take 1-2 Univers en-codeine 2-10 tablets by ity of 300-30 mg 00:00: mouth [place] tablet 00 every 6 Medical (six) Branch hours as needed for Pain (scale 1-3). traMADOL 50 2019-0 Yes [id number] 50mg Take 1 Univers mg tablet 2-10 [...] Branch daily as needed for Cough. cyclobenzap Yes 10mg Take 1 Univ ers rine 10 mg 9-18 tablet by ity of tablet 00:00: mouth 3 00 (three) Medical times Branch daily. predniSONE 2017-0 Yes 1 PO BID x U nivers 20 mg 9-18 4 days ity of tablet 00:00: Medical Branch cyclobenzap 2017-0 Yes 10mg Take 1 Univ ers rine 10 mg 9-18 tablet by ity of tablet 00:00: mouth 3 () Medical times Branch daily. predniSONE 2017-0 Yes 1 PO BID x U nivers 20 mg 9-18 4 days ity of tablet 00:00: Medical Branch cyclobenzap 2016-0 Yes 10mg Take 1 Univ ers rine 10 mg 9-18 tablet by ity of tablet 00:00: mouth 3 () Medical times Branch daily. predniSONE 2017-0 Yes 1 PO BID x U nivers 20 mg 9-18 4 days ity of tablet 00:00: Medical Branch cyclobenzap 2016-0 Yes 10mg Take 1 Univ ers rine 10 mg 9-18 tablet by ity of tablet 00:00: mouth 3 () Medical times Branch daily. predniSONE 2017-0 Yes 1 PO BID x U nivers 20 mg 9-18 4 days ity of tablet 00:00: Medical Branch cyclobenzap 2016-0 Yes 10mg Take 1 Univ ers rine 10 mg 9-18 tablet by ity of tablet 00:00: mouth 3 () Medical times Branch daily. predniSONE 2017-0 Yes 1 PO BID x U nivers 20 mg 9-18 4 days ity of tablet 00:00: Medical Branch cyclobenzap 2016-0 Yes 10mg Take 1 Univ ers rine 10 mg 9-18 tablet by ity of tablet 00:00: mouth 3 () Medical times Branch daily. predniSONE 2017-0 Yes 1 PO BID x U nivers 20 mg 9-18 4 days ity of tablet 00:00: Medical Branch cyclobenzap 2017-0 Yes 10mg Take 1 Univ ers rine 10 mg 9-18 tablet by ity of tablet 00:00: mouth 3 () Medical times Branch daily. predniSONE 2017-0 Yes 1 PO BID x U nivers 20 mg 9-18 4 days ity of tablet 00:00: Medical Branch cyclobenzap 2017-0 Yes 10mg Take [...] ity of tablet 00:00: 00 Medical Branch CIPROFLOXAC 2017-0 Yes 500mg Take [...] by mouth ity of capsule 16:48: daily. [place] [address] Medical Branch meloxicam 2017-0 Yes 15mg Take 15 mg Un mary ann 15 mg 4-24 by mouth ity of tablet 16:48: daily. [place] [address] Medical Branch allopurinol 2017-0 Yes 100mg Take [...] by mouth ity of tablet 16:48: at [place] [address] bedtime. Medical Branch AMLODIPINE 2017-0 Yes 10mg Take 10 mg U nivers BESYLATE 4-24 by mouth ity of (AMLODIPINE 16:48: daily. [facility] ibuprofen 2017-0 Yes 800mg Take 800 Uni vers 800 mg 4-24 mg by ity of tablet 16:48: mouth [place] [address] every 6 Medical (six) Branch hours as needed for Pain (scale 1-3) or Pain (scale 4-6). omeprazole 2017-0 Yes 20mg Take 20 mg U nivers 20 mg 4-24 by mouth ity of capsule 16:48: daily. [place] [address] Medical Branch meloxicam 2017-0 Yes 15mg Take 15 mg Un mary ann 15 mg 4-24 by mouth ity of tablet 16:48: daily. [place] [address] Medical Branch allopurinol 2017-0 Yes 100mg Take [...] by mouth ity of tablet 16:48: at [place] [address] bedtime. Medical Branch AMLODIPINE 2017-0 Yes 10mg Take 10 mg U nivers BESYLATE 4-24 by mouth ity of (AMLODIPINE 16:48[place] ibuprofen 2017-0 Yes 800mg Take 800 Uni vers 800 mg 4-24 mg by ity of tablet 16:48: mouth [place] [address] every 6 Medical (six) Branch hours as needed for Pain (scale 1-3) or Pain (scale 4-6). omeprazole 2017-0 Yes 20mg Take 20 mg U nivers 20 mg 4-24 by mouth ity of capsule 16:48: daily. [place] [address] Medical Branch meloxicam 2017-0 Yes 15mg Take 15 mg Un mary ann 15 mg 4-24 by mouth ity of tablet 16:48: daily. [place] [address] Medical Branch allopurinol 2017-0 Yes 100mg Take 100 U nivers 100 mg 4-24 mg by ity of tablet 16:48: mouth [place] [address] daily. Medical Branch Cholecalcif 2017-0 Yes 400U Take 400 Un mary ann kedar, 4-24 Units by ity of Vitamin D3, 16:48: mouth [place] 400 unit 51 daily. Medical capsule Branch atorvastati 2017-0 Yes 40mg Take 40 mg Univers n 40 mg 4-24 by mouth ity of tablet 16:48: at [place] [address] bedtime. Medical Branch AMLODIPINE 2017-0 Yes 10mg Take 10 mg U nivers BESYLATE 4-24 by mouth ity of (AMLODIPINE 16:48: [place]. [place] ibuprofen 2017-0 Yes 800mg Take 800 Uni vers 800 mg 4-24 mg by ity of tablet 16:48: mouth [place] [address] every 6 Medical (six) Branch hours as needed for Pain (scale 1-3) or Pain (scale 4-6). omeprazole 2017-0 Yes 20mg Take 20 mg U nivers 20 mg 4-24 by mouth ity of capsule 16:48: daily. [place] [address] Medical Branch meloxicam 2017-0 Yes 15mg Take 15 mg Un mary ann 15 mg 4-24 by mouth ity of tablet 16:48: daily. [place] [address] Medical Branch allopurinol 2017-0 Yes 100mg Take 100 U nivers 100 mg 4-24 mg by ity of tablet 16:48: mouth [place] [address] daily. Medical Branch Cholecalcif 2017-0 Yes 400U Take 400 Un mary ann kedar, 4-24 Units by ity of Vitamin D3, 16:48: mouth [place] 400 unit 51 daily. Medical capsule Branch atorvastati 2017-0 Yes 40mg Take 40 mg Univers n 40 mg 4-24 by mouth ity of tablet 16:48: at [place] [address] bedtime. Medical Branch AMLODIPINE 2017-0 Yes 10mg Take 10 mg U nivers BESYLATE 4-24 by mouth ity of (AMLODIPINE 16:48: [place]. [place] ibuprofen 2017-0 Yes 800mg Take 800 Uni vers 800 mg 4-24 mg by ity of tablet 16:48: mouth [place] [address] every 6 Medical (six) Branch hours as needed for Pain (scale 1-3) or Pain (scale 4-6). omeprazole 2017-0 Yes 20mg Take 20 mg U nivers 20 mg 4-24 by mouth ity of capsule 16:48: daily. [place] [address] Medical Branch meloxicam 2017-0 Yes 15mg Take 15 mg Un mary ann 15 mg 4-24 by mouth ity of tablet 16:48: daily. [place] [address] Medical Branch allopurinol 2017-0 Yes 100mg Take 100 U nivers 100 mg 4-24 mg by ity of tablet 16:48: mouth [place] [address] daily. Medical Branch Cholecalcif 2017-0 Yes 400U Take 400 Un mary ann kedar, 4-24 Units by ity of Vitamin D3, 16:48: mouth [place] 400 unit 51 daily. Medical capsule Branch atorvastati 2017-0 Yes 40mg Take 40 mg Univers n 40 mg 4-24 by mouth ity of tablet 16:48: at [place] [address] bedtime. Medical Branch AMLODIPINE 2017-0 Yes 10mg Take 10 mg U nivers BESYLATE 4-24 by mouth ity of (AMLODIPINE 16:48: [place]. [place] ibuprofen 2017-0 Yes 800mg Take 800 Uni vers 800 mg 4-24 mg by ity of tablet 16:48: mouth [place] [address] every 6 Medical (six) Branch hours as needed for Pain (scale 1-3) or Pain (scale 4-6). omeprazole 2017-0 Yes 20mg Take 20 mg U nivers 20 mg 4-24 by mouth ity of capsule 16:48: daily. [place] [address] Medical Branch meloxicam 2017-0 Yes 15mg Take 15 mg Un mary ann 15 mg 4-24 by mouth ity of tablet 16:48: daily. [place] [address] Medical Branch allopurinol 2017-0 Yes 100mg Take [...] by mouth ity of tablet 16:48: at [place] [address] bedtime. Medical Branch AMLODIPINE 2017-0 Yes 10mg Take 10 mg U nivers BESYLATE 4-24 by mouth ity of (AMLODIPINE 16:48: [place]. [place] ibuprofen 2017-0 Yes 800mg Take 800 Uni vers 800 mg 4-24 mg by ity of tablet 16:48: mouth [place] [address] every 6 Medical (six) Branch hours as needed for Pain (scale 1-3) or Pain (scale 4-6). omeprazole 2017-0 Yes 20mg Take 20 mg U nivers 20 mg 4-24 by mouth ity of capsule 16:48: daily. [place] [address] Medical Branch meloxicam 2017-0 Yes 15mg Take 15 mg Un mary ann 15 mg 4-24 by mouth ity of tablet 16:48: daily. [place] [address] Medical Branch allopurinol 2017-0 Yes 100mg Take [...] by mouth ity of tablet 16:48: at [place] [address] bedtime. Medical Branch AMLODIPINE 2017-0 Yes 10mg Take 10 mg U nivers BESYLATE 4-24 by mouth ity of (AMLODIPINE 16:48: [place]. [place] ibuprofen 2017-0 Yes 800mg Take 800 Uni vers 800 mg 4-24 mg by ity of tablet 16:48: mouth [place] [address] every 6 Medical (six) Branch hours as needed for Pain (scale 1-3) or Pain (scale 4-6). omeprazole 2017-0 Yes 20mg Take 20 mg U nivers 20 mg 4-24 by mouth ity of capsule 16:48: daily. [place] [address] Medical Branch meloxicam 2017-0 Yes 15mg Take 15 mg Un mary ann 15 mg 4-24 by mouth ity of tablet 16:48: daily. [place] [address] Medical Branch allopurinol 2017-0 Yes 100mg Take [...] by mouth ity of tablet 16:48: at [place] [address] bedtime. Medical Branch AMLODIPINE 2017-0 Yes 10mg Take 10 mg U nivers BESYLATE 4-24 by mouth ity of (AMLODIPINE 16:48[place] [facility] [place] [facility] ibuprofen 2017-0 Yes 800mg Take 800 Uni vers 800 mg 4-24 mg by ity of tablet 16:48: mouth [place] [address] every 6 Medical (six) Branch hours as needed for Pain (scale 1-3) or Pain (scale 4-6). omeprazole 2017-0 Yes 20mg Take 20 mg U nivers 20 mg 4-24 by mouth ity of capsule 16:48: daily. [place] [address] Medical Branch meloxicam 2017-0 Yes 15mg Take 15 mg Un mary ann 15 mg 4-24 by mouth ity of tablet 16:48: daily. [place] [address] Medical Branch allopurinol 2017-0 Yes 100mg Take 100 U nivers 100 mg 4-24 mg by ity of tablet 16:48: mouth [place] daily. Medical Branch Cholecalcif 2017-0 Yes 400U Take 400 Un mary ann kedar, 4-24 Units by ity of Vitamin D3, 16:48: mouth [place] 400 unit 51 daily. Medical capsule Branch atorvastati 2017-0 Yes 40mg Take 40 mg Univers n 40 mg 4-24 by mouth ity of tablet 16:48: at [place] [address] bedtime. Medical Branch metroNIDAZO 2017-0 Yes 500mg [...] Branch bisacodyl 2017-0 Yes 10mg Take 2 Univcharlotte s (DULCOLAX, 4-24 tablets by itbrandi of BISACODYL,) 00:00: mouth once [place] 5 mg EC 00 daily as Medical tablet needed for Branch Constipati on. traMADOL 50 2017-0 Yes 50mg Take 1 Univ ers mg tablet 4-24 tablet by ity o f 00:00: mouth [place] 00 every 6 Medical (six) Branch hours as needed for Pain unrelieved by non-narcot ic analgesics . allopurinol allopurinol No allopurino [facility] 100 mg 100 mg l 100 mg Family tablet TAKE tablet TAKE tablet Practic 1 TABLET BY 1 TABLET BY TAKE 1 e MOUTH EVERY MOUTH EVERY TABLET BY DAY DAY MOUTH EVERY DAY amlodipine amlodipine No amlodipine [facility] 10 mg 10 mg 10 mg Family tablet TAKE tablet TAKE tablet Practic 1 TABLET BY 1 TABLET BY TAKE 1 e MOUTH EVERY MOUTH EVERY TABLET BY DAY DAY MOUTH EVERY DAY atorvastati atorvastati No atorvastat [facility] n 20 mg n 20 mg in 20 mg Famil y tablet TAKE tablet TAKE tablet Practic 1 TABLET BY 1 TABLET BY TAKE 1 e MOUTH EVERY MOUTH EVERY TABLET BY DAY DAY MOUTH EVERY DAY hydralazine hydralazine No hydralazin [facility] 25 mg 25 mg e 25 mg Family tablet Take tablet Take tablet Practic 1 tablet 1 tablet Take 1 e every day every day tablet by oral by oral every day route for route for by oral 90 days. 90 days. route for 90 days. hydrochloro hydrochloro No hydrochlor [facility] thiazide 25 thiazide 25 othiazide Family [...] UP TO 12HOURS.) metoprolol metoprolol No metoprolol [facility] tartrate 25 tartrate 25 tartrate Family mg tablet mg tablet 25 mg Prac tic TAKE 1 TAKE 1 tablet e TABLET BY TABLET BY TAKE 1 MOUTH TWICE MOUTH TWICE TABLET BY A DAY A DAY MOUTH TWICE A DAY omeprazole omeprazole No omeprazole [facility] 20 mg 20 mg 20 mg Family capsule,del capsule,del capsule,de Practic ayed ayed layed e release release release TAKE 1 TAKE 1 TAKE 1 CAPSULE BY CAPSULE BY CAPSULE BY MOUTH EVERY MOUTH EVERY MOUTH DAY DAY EVERY DAY omeprazole omeprazole No 1capsul Q1D omeprazole [facility] 40 mg 40 mg e(s) 40 mg Family capsule,del capsule,del capsule,de Practic ayed ayed layed e release release release Take 1 Take 1 Take 1 capsule capsule capsule every day every day every day by oral by oral by oral route for route for route for 90 days. 90 days. 90 days. albuterol albuterol No albuterol [facility] sulfate HFA sulfate HFA sulfate Family [...] Name SARS-COV-2 (COVID-19) SARS-COV-2 (COVID-19) 2020-12-07 Completed [facility] vaccine, UNSPECIFIED vaccine, UNSPECIFIED 00:00:00 Practice pneumococcal pneumococcal 2018-09-17 Completed [facility] shell polysaccharide PPV23 polysaccharide PPV23 00:00:00 Practice influenza, influenza, 2018-09-17 [facility] injectable, injectable, 00:00:00 Practice quadrivalent quadrivalent Vital Signs Vital Name Observation Time Observation Value Comments Source BP Diastolic 2020-12-07 00:00:00 97 mm[Hg] [facility] Height 2020-12-07 00:00:00 70 [in_i] [facility] BMI (Body Mass 2020-12-07 00:00:00 31.3 kg/m2 [facility] Family Index) Practice BP Systolic 2020-12-07 00:00:00 101 mm[Hg] [facility] Body Weight 2020-12-07 00:00:00 218 [lb_av] [facility] Height 2020-06-09 00:00:00 70 [in_i] [facility] BMI (Body Mass 2020-06-09 00:00:00 31.3 kg/m2 [facility] e Family Index) Practice Body Weight 2020-06-09 00:00:00 218 [lb_av] [facility] Procedures Procedure Date / Time Performed Performing Clinician Bee e Appendectomy [facility] Back Surgery [facility] Screening for Malignant [facility] Neoplasm of Prostate Practice Screening Colonoscopy [facility] Encounters Start End Encounter Admission Attending Care Care Encounter Source Date/Time Date/Time Type Type Clinicians Facility Department ID 2021-12-07 2021-12-07 Outpatient R STEPHANIE [facility] [id number] Univers 14:30:00 14:30:00 ANA contreras [facility] 2021-11-28 2021-11-28 Ancillary Ebony Guadalupe [facility] 1.2.84 0.114 [id number] Univers 15:15:00 16:00:00 Visit Ana Sheehan [id number] ity [id number] [phone] Ok dical NAL [address] [facility] 2021-10-27 2021-10-27 Outpatient R STEPHANIE [facility] [id number] Univers 14:30:00 14:30:00 ANA contreras [facility] 2021-10-12 2021-10-12 Ancillary Ebony Guadalupe [facility] 1.2.84 0.114 [id number] Univers 14:30:00 15:15:00 Visit Ana Sheehan [id number] [place]y [id number] [phone] Ok dical NAL [address] [facility] 2021-10-07 2021-10-07 Ancillary Ebony Guadalupe [facility] 1.2.84 0.114 [id number] Univers 15:00:00 15:40:00 Visit Ana Sheehan [id number] [place]y [id number] [phone] Ok dical NAL [address] [facility] 2021-10-05 2021-10-05 Ancillary Familia Bowser [facility] 1.2.840. 114 [id number] Univers 14:20:00 15:05:00 Visit Ana Sheehan [id number] [id number] [phone] Me dical NAL 179 Branch BUILDING 2021-09-29 2021-09-29 Ancillary Familia Bowser [facility] 1.2.840. 114 [id number] Univers 14:20:00 15:00:00 Visit Ana Sheehan [id number] [id number] [phone] Ok dical NAL 179 Branch BUILDING 2021-09-27 2021-09-27 Ancillary Familia Bowser [facility] 1.2.840. 114 [id number] Univers 14:20:00 15:00:00 Visit Ana Sheehan [id number] [id number] [phone] Ok dical NAL [address] [facility] 2021-09-21 2021-09-21 Ancillary Ebony Guadalupe [facility] 1.2.84 0.114 [id number] Univers 15:20:00 16:43:45 Visit Ana Sheehan [id number] [id number] [phone] Ok dical NAL [address] [facility] 2021-09-19 2021-09-19 Outpatient R STEPHANIE [facility] [id number] Univers 15:20:00 15:20:00 ANA ity of [facility] 2021-09-14 2021-09-14 Ancillary Ebony Guadalupe [facility] 1.2.84 0.114 [id number] Univers 10:40:00 11:20:00 Visit Ana Sheehan [id number] [id number] [id number] Ok dical NAL [address] [facility] 2021-09-12 2021-09-12 Ancillary Ebony Guadalupe [facility] 1.2.84 0.114 [id number] Univers 14:40:00 16:34:12 Visit Ana Sheehan [id number] it[id number] [id number] Ok dical NAL [address] [facility] 2021-09-12 2021-09-12 [facility] [id number] Univers 14:40:00 16:34:12 ANA contreras [facility] 2021-08-19 2021-08-19 Orders Doctor FORMAN [id number] Univers 00:00:00 00:00:00 Only Unassigned, AMBROCIO [id number] ity of [facility] [id number] Karlos as [phone] [address] 2021-08-17 2021-08-17 Out[facility] [id number] Univers 15:00:00 15:00:00 [facility]-08[facility]17 2021-08-17 [facility] [id number] Univers 00:00:00 00:00:00 Management Monica CYR [id number] ity [facility] [id number] [id number] Ok dical NAL [address] [facility] 2021-08-15 2021-08-15 Outpatient R STEPHANIE [facility] [id number] Univers 15:00:00 15:00:00 ANA contreras [facility] 2021-08-01 2021-08-01 Outpatient R STEPHANIE [facility] [id number] Univers 13:40:00 15:58:00 [facility] 2021-08-01 2021-08-01 Ancillary Ebony Guadalupe [facility] 1.2.84 0.114 [id number] Univers 13:37:46 15:58:00 Visit Ana Sheehan [id number] ity [facility] [id number] [phone] Ok dical NAL [address] [facility] 2021-08-01 2021-08-01 Orders Doctor FORMAN [id number] Univers 00:00:00 00:00:00 Only Unassigned, AMBROCIO [id number] ity of [place] [facility] [id number] Karlos as [phone] [facility] [address] 2021-03-03 2021-03-03 Outpatient Miller_S_AH VFP VFP [id number] [facility] 04:58:00 04:58:00 [id number] Family Practic e 2020-12-15 2020-12-15 Outpatient Ajibade_O_A VFP VFP [id number] [facility] 01:16:00 01:16:00 H [id number] Family Practic e 2020-12-15 2020-12-15 Outpatient Ajibade_O_A VFP VFP [id number] [facility] 01:16:00 01:16:00 H [id number] Family Practic e 2020-12-13 2020-12-13 Outpatient Ajibade_O_A VFP VFP 799 [facility] 02:14:00 02:14:00 H 13866 Family Practic e 2020-12-07 2020-12-07 Outpatient Ajibade_O_A VFP VFP 799 [facility] 01:11:00 01:11:00 H [id number] Family Practic e 2020-12-07 2020-12-07 Omiana VFP [place] - [id number] V illage 00:00:00 00:00:00 Geo Chatterjee Famil y [employer] INDUCTION: [address] Hoda Parker, [email or web address]_ e [address], [facility], [place] [address] , Ph. 2020-07-16 2020-07-16 Outpatient Ajibade_O_A VFP VFP [id number] [facility] 09:42:00 09:42:00 H [id number] Family Practic e 2020-07-16 2020-07-16 Outpatient Ajibade_O_A VFP VFP [id number] [facility] 09:42:00 09:42:00 H 13713 Family Practic e 2020-06-23 2020-06-23 Outpatient Ajibade_O_A VFP VFP [id number] [facility] 11:33:00 11:33:00 H [id number] Family Practic e 2020-06-09 2020-06-09 Outpatient Ajibade_O_A VFP VFP [id number] [facility] 01:32:00 01:32:00 H [id number] Family Practic e 2020-06-09 2020[facility] [place] [id number] 00:00:00 00:00:00 Geo Chatterjee Famil y [employer] INDUCTION: [address] - Pract jean Parker, [email or web address]_ e [address], [facility], [place] [address] , Ph. 2020-05-25 2020-05-25 Outpatient Ajibade_O_A VFP VFP [id number] [facility] 12:24:00 12:24:00 H [id number] Family Practic e 2020-05-13 2020-05-13 Outpatient Ajibade_O_A VFP VFP [id number] [facility] 03:39:00 03:39:00 H [id number] Family Practic e 2019-11-05 2019-11-05 Outpatient Ige-Paulunuga VFP VFP [id number] [facility] 07:28:00 07:28:00 _J_ [id number] Family Practic e Results This patient has no known results.
[2022-09-01] MEDS ORDERED: MORPHINE 4 MG/ML SYR ONE ×2 (01:16→03:33)
[2022-09-01] MEDS ORDERED: NA CHLORIDE 0.9% 1,000 ML ONE (01:17)
[2022-09-01] MEDS ORDERED: ONDANSETRON 4 MG/2 ML VIAL ONE (01:17)
[2022-09-01 01:32] LABS: Absolute Lymphocytes (CBC) 3.2 K/uL (0.7-4.9); Hematocrit 49.9 % (39.6-49.0); Lymphocytes % 30.2 % (15.3-44.8); MCV 94.2 fL (80-100); MPV 8.3 fL (7.6-11.3); RBC Red Blood Cell Count 5.29 M/uL (4.33-5.43)
[2022-09-01 01:58] LABS: Albumin 4.1 g/dL (3.4-5.0); Bilirubin Total 0.4 mg/dL (0.2-1.0); Potassium 3.9 mmol/L (3.5-5.1); Protein, Total 8.5 g/dL (6.4-8.2)
--- NOTE | 2022-09-01 03:23 | EDPHYS ---
Physician Documentation [facility] Name: Maynor Marquez Age: 66 yrs Sex: Male : 1955 Arrival Date: 08/31/2022 Time: 23:33 Bed 10 Private MD: ED Physician Dominic Yadav HPI: 09/01 00:57 This 66 yrs old Black Male presents to ER via Ambulatory with complaints of LLQ pain. pm1 00:57 The patient presents with abdominal pain in the left lower quadrant. Onset: The pm1 symptoms/episode began/occurred 2 month(s) ago. The symptoms do not radiate. Associated signs and symptoms: Pertinent negatives: nausea, vomiting, and diarrhea, constipation, dysuria, fever. The symptoms are described as achy, constant. Modifying factors: The symptoms are alleviated by nothing, the symptoms are aggravated by food. Severity of pain: in the emergency department the pain is actually worse. The patient has not recently seen a physician. Historical: - Allergies: 08/31 23:45 GABAPENTIN; kd3 23:45 Klonopin; kd3 23:45 Lisinopril; kd3 - Home Meds: 23:45 Allopurinol Oral [Active]; amlodipine oral [Active]; atorvastatin Oral [Active]; kd3 Hydralazine Oral [Active]; Hydrochlorothiazide Oral [Active]; Metoprolol Tartrate Oral [Active]; Omeprazole Oral [Active]; - PMHx: 23:45 Diverticulitis; Gout; Hypertension; Migraines; Pancreatitis; kd3 - PSHx: 23:45 tendon release L ankle; kd3 - Immunization history:: Pfizer x 3. - Social history:: Smoking status: Patient reports the use of cigarette tobacco products. ROS: 09/01 00:57 Constitutional: Negative for fever, chills, and weight loss, Cardiovascular: Negative pm1 for chest pain, palpitations, and edema, Respiratory: Negative for shortness of breath, cough, wheezing, and pleuritic chest pain. Back: Negative for injury and pain, MS/Extremity: Negative for injury and deformity, Skin: Negative for injury, rash, and discoloration, Neuro: Negative for headache, weakness, numbness, tingling, and seizure. : Negative for injury, bleeding, discharge, and swelling. Abdomen/GI: Positive for abdominal pain, of the left lower quadrant, Negative for nausea, vomiting, and diarrhea, constipation. All other systems are negative. Exam: 00:57 Constitutional: This is a well developed, well nourished patient who is awake, alert, pm1 and in no acute distress. Head/Face: Normocephalic, atraumatic. 00:57 Skin: Warm, dry with normal turgor. Normal color with no rashes, no lesions, and no evidence of cellulitis. MS/ Extremity: Pulses equal, no cyanosis. Neurovascular intact. Full, normal range of motion. 00:57 Eyes: Exam is negative for acute changes, Periorbital structures: no acute changes, Extraocular movements: no acute changes, Conjunctiva: no acute changes, no injection. 00:57 ENT: Exam is negative for acute changes, Mouth: no acute changes, Lips: normal, moist, Oral mucosa: normal, pink and intact, moist. 00:57 Cardiovascular: Exam negative for acute changes, Rate: normal, Rhythm: regular, Pulses: no pulse deficits are appreciated. 00:57 Respiratory: Exam negative for acute changes, respiratory distress, shortness of breath, Breath sounds: are clear throughout. 00:57 Abdomen/GI: Inspection: abdomen appears normal, Palpation: soft, in all quadrants, moderate abdominal tenderness, in the left lower quadrant. 00:57 Back: pain, that is mild, of the left low back, vertebral tenderness, is not appreciated. 00:57 Neuro: Exam negative for acute changes, Orientation: is normal, Mentation: is normal, Motor: is normal, moves all fours. Vital Signs: 08/31 23:43 BP 147 / 100; Pulse 85; Resp 16 S; Temp 98.7(O); Pulse Ox 98% on R/A; Weight 98.88 kg kd3 (R); Height 5 ft. 11 in. (180.34 cm) (R); Pain 10/10; 09/01 01:05 BP 131 / 95; Pulse 82; Resp 16; Pulse Ox 100% on R/A; kd3 03:39 BP 133 / 95; Pulse 88; Resp 17; Pulse Ox 99% on R/A; kd3 08/31 23:43 Body Mass Index 30.40 (98.88 kg, 180.34 cm) kd3 MDM: 00:57 Patient medically screened. pm1 02:06 Data reviewed: vital signs. Data interpreted: Pulse oximetry: on room air is 100 %. pm1 Interpretation: normal. 03:22 Counseling: I had a detailed discussion with the patient and/or guardian regarding: the pm1 historical points, exam findings, and any diagnostic results supporting the discharge/admit diagnosis, lab results, radiology results, the need for outpatient follow up, to return to the emergency department if symptoms worsen or persist or if there are any questions or concerns that arise at home. 03:25 ED course: PMP[place] reviewed. pm1 09/01 01:11 Order name: CBC with Diff; Complete Time: 01:38 pm1 09/01 01:11 Order name: CMP; Complete Time: 02:03 pm1 09/01 01:11 Order name: Lipase; Complete Time: 02:03 pm1 09/01 01:11 Order name: CT Abd/Pelvis - IV Contrast Only pm1 09/01 01:15 Order name: Abdomen EDSD 09/01 01:11 Order name: IV Saline Lock; Complete Time: 01:12 pm1 09/01 01:11 Order name: Labs collected and sent; Complete Time: 01:21 pm1 Administered Medications: 01:21 Drug: NS 0.9% 1000 ml Route: IV; Rate: 1 bolus; Site: right hand; kd3 03:39 Follow up: Response: No adverse reaction; IV Status: Completed infusion kd3 01:21 Drug: Zofran (Ondansetron) 4 mg Route: IVP; Site: right hand; kd3 03:39 Follow up: Response: No adverse reaction; Nausea is decreased kd3 01:21 Drug: morphine 4 mg Route: IVP; Infused Over: 4 mins; Site: right hand; kd3 03:39 Follow up: Response: No adverse reaction; Pain is decreased kd3 03:35 Drug: morphine 4 mg Route: IVP; Infused Over: 4 mins; Site: right hand; kd3 03:39 Follow up: Response: No adverse reaction; Pain is decreased kd3 Disposition Summary: 09/01/22 03:22 Discharge Ordered Location: Home pm1 Problem: new pm1 Symptoms: have improved pm1 Condition: Stable pm1 Diagnosis - Abdominal pain, unspecified pm1 Followup: pm1 - With: Emergency Department - When: As needed - Reason: Worsening of condition Followup: pm1 - With: Private Physician - When: 2 - 3 days - Reason: Recheck today's complaints, Continuance of care, Re-evaluation by your physician Discharge Instructions: - Discharge Summary Sheet pm1 - Abdominal Pain, Adult pm1 Forms: - Medication Reconciliation Form pm1 - Thank You Letter pm1 - Antibiotic Education pm1 - Prescription Opioid Use pm1 Prescriptions: - dicyclomine 20 mg Oral Tablet - take 1 tablet by ORAL route 4 times per day As needed; 20 tablet; Refills: 0, pm1 Product Selection Permitted - Tylenol-Codeine #3 300 mg-30 mg Oral - take 2 tablet by ORAL route every 6 hours As needed; 20 tablet; Refills: 0, pm1 Product Selection Permitted Signatures: Dispatcher [employer] Luis Miguel Colin NP PIN DRAFTER pm1 Nelly Cadena, RN RN kd3
--- NOTE | 2022-09-01 03:23 | ER ---
Nurse's Notes [facility] Name: Maynor Marquez Age: 66 yrs Sex: Male : 1955 Arrival Date: 08/31/2022 Time: 23:33 Bed 10 Private MD: Diagnosis: Abdominal pain, unspecified Presentation: 08/31 23:43 Chief complaint: Patient states: he has been having left lower quad pain x 2 months the kd3 pain is constant and is worse when he eats. Coronavirus screen: At this time, the client does not indicate any symptoms associated with coronavirus-19. Ebola Screen: No symptoms or risks identified at this time. Initial Sepsis Screen: Does the patient meet any 2 criteria? No. Patient's initial sepsis screen is negative. Does the patient have a suspected source of infection? No. Patient's initial sepsis screen is negative. Risk Assessment: Do you want to hurt yourself or someone else? Patient reports no desire to harm self or others. Onset of symptoms was June 2022. 23:43 Method Of Arrival: Ambulatory kd3 23:43 Acuity: MARCUS 3 kd3 Triage Assessment: 23:45 General: Appears uncomfortable, Behavior is cooperative, anxious. Pain: Complains of kd3 pain in abdomen Pain currently is 10 out of 10 on a pain scale. Neuro: Level of Consciousness is awake, alert, obeys commands, Oriented to person, place, time, situation. Cardiovascular: No deficits noted. Respiratory: Respiratory effort is unlabored. GI: Reports lower abdominal pain. Derm: Skin is dry, Skin is normal, Skin temperature is warm. Musculoskeletal: Circulation, motion, and sensation intact. Historical: - Allergies: 23:45 GABAPENTIN; kd3 23:45 Klonopin; kd3 23:45 Lisinopril; kd3 - Home Meds: 23:45 Allopurinol Oral [Active]; amlodipine oral [Active]; atorvastatin Oral [Active]; kd3 Hydralazine Oral [Active]; Hydrochlorothiazide Oral [Active]; Metoprolol Tartrate Oral [Active]; Omeprazole Oral [Active]; - PMHx: 23:45 Diverticulitis; Gout; Hypertension; Migraines; Pancreatitis; kd3 - PSHx: 23:45 tendon release L ankle; kd3 - Immunization history:: Pfizer x 3. - Social history:: Smoking status: Patient reports the use of cigarette tobacco products. Screenin/16 00:51 [facility] ED Fall Risk Assessment (Adult) History of falling in the last 3 months, kd3 including since admission No falls in past 3 months (0 pts) Confusion or Disorientation No (0 pts) Intoxicated or Sedated No (0 pts) Impaired Gait No (0 pts) Mobility Assist Device Used No (0 pt) Altered Elimination No (0 pt) Score/Fall Risk Level 0 - 2 = Low Risk. [facility] ED Fall Risk Assessment (Adult) Score/Fall Risk Level 0 - 2 = Low Risk Oriented to surroundings. Humpty Dumpty Scale Fall Assessment Tool (age< 18yrs) Age 13 years and above (1 pt) Gender Male (2 pts) Diagnosis Other diagnosis (1 pt) Cognitive Impairments Oriented to own ability (1 pt) Environmental Factors Patient placed in bed (2 pts) Response to Surgery/Sedation/Anesthesia More than 48 hours/ None (1 pt) Medication Usage Other medications/ None (1 pt) Fall Risk Score/ Level Low Fall Risk: </= 11 points. Abuse screen: Denies threats or abuse. Denies injuries from another. Nutritional screening: No deficits noted. Tuberculosis screening: No symptoms or risk factors identified. Fall Risk No fall in past 12 months (0 pts). No secondary diagnosis (0 pts). No IV (0 pts). Ambulatory Aid- None/Bed Rest/Nurse Assist (0 pts). Gait- Normal/Bed Rest/Wheelchair (0 pts) Mental Status- Oriented to own ability (0 pts). Total Haley Fall Scale indicates No Risk (0-24 pts). Assessment: 00:48 General: Appears in no apparent distress. Behavior is calm, cooperative. Neuro: Level kd3 of Consciousness is awake, alert, obeys commands, Oriented to person, place, time, situation. Respiratory: Airway is patent Trachea midline Respiratory effort is even, unlabored, Respiratory pattern is regular, symmetrical. 03:40 General: Appears uncomfortable, Behavior is calm, cooperative. Pain: Complains of pain kd3 in left lower quadrant. Neuro: Level of Consciousness is awake, alert, obeys commands, Oriented to person, place, time, situation. Cardiovascular: Patient's skin is warm and dry. Respiratory: Airway is patent Trachea midline Respiratory effort is even, unlabored, Respiratory pattern is regular, symmetrical. GI: Abdomen is non-distended. Vital Signs: 08/31 23:43 BP 147 / 100; Pulse 85; Resp 16 S; Temp 98.7(O); Pulse Ox 98% on R/A; Weight 98.88 kg kd3 (R); Height 5 ft. 11 in. (180.34 cm) (R); Pain 10/10; 09/01 01:05 BP 131 / 95; Pulse 82; Resp 16; Pulse Ox 100% on R/A; kd3 03:39 BP 133 / 95; Pulse 88; Resp 17; Pulse Ox 99% on R/A; kd3 08/31 23:43 Body Mass Index 30.40 (98.88 kg, 180.34 cm) kd3 ED Course: 08/31 23:33 Patient arrived in ED. es 23:45 Triage completed. kd3 23:45 Arm band placed on Patient placed in waiting room, Patient notified of wait time. kd3 09/01 00:48 Nelly Cadena, RN is Primary Nurse. kd3 00:51 Patient has correct armband on for positive identification. kd3 00:51 No provider procedures requiring assistance completed. kd3 00:57 Luis Miguel Dove NP is PHCP. pm1 00:57 Dominic Yadav MD is Attending Physician. pm1 01:06 Inserted saline lock: 20 gauge in right hand, using aseptic technique. Blood collected. kd3 01:21 CBC with Diff Sent. kd3 01:21 CMP Sent. kd3 01:21 Lipase Sent. kd3 01:30 Inserted saline lock: 20 gauge in right forearm, using aseptic technique. kd3 02:30 Abdomen In Process Unspecified. EDMS Administered Medications: 01:21 Drug: NS 0.9% 1000 ml Route: IV; Rate: 1 bolus; Site: right hand; kd3 03:39 Follow up: Response: No adverse reaction; IV Status: Completed infusion kd3 01:21 Drug: Zofran (Ondansetron) 4 mg Route: IVP; Site: right hand; kd3 03:39 Follow up: Response: No adverse reaction; Nausea is decreased kd3 01:21 Drug: morphine 4 mg Route: IVP; Infused Over: 4 mins; Site: right hand; kd3 03:39 Follow up: Response: No adverse reaction; Pain is decreased kd3 03:35 Drug: morphine 4 mg Route: IVP; Infused Over: 4 mins; Site: right hand; kd3 03:39 Follow up: Response: No adverse reaction; Pain is decreased kd3 Medication: 00:52 VIS not applicable for this client. kd3 Outcome: 03:22 Discharge ordered by pm1 03:50 Patient left the ED. kd3 Signatures: Dispatcher [employer] Yodit Kumari Patrick, NP BAROMETERS CALIBRATOR pm1 Nelyl Cadena, RN RN kd3
[2022-09-01 04:16] VITALS: TEMP 98.7
[2022-09-01 04:18] VITALS: BP 133/95; O2SAT 99
--- NOTE | 2022-09-01 18:09 | RAD REPORT ---
EXAM DESCRIPTION: CT - Abdomen Pelvis W Contrast - 09/01/2022 6:21 am CLINICAL HISTORY: LLQ abdominal pain TECHNIQUE: Axial computed tomography images of the abdomen and pelvis with intravenous contrast. S agittal and coronal reformatted images were created and reviewed. This CT exam was performed using one or more of the following dose reduction techniques: automated exposure control, adjustment of t he mA and/or kV according to patient size, and/or use of iterative reconstruction technique. COMPARISON: No relevant prior studies available. FINDINGS: Lung bases: Bibasilar subsegmental atelectasis/pleural parenchymal scar. ABDOMEN: Liver: The liver is enlarged and diffusely low in density compatible with steatosis. Gallbladder and bile ducts: Unremarkable. No calcified stones. No ductal dilation. Pancreas: Unremarkable. No mass. No ductal dilation. Spleen: Unremarkable. No splenomegaly. Adrenals: Unremarkable. No mass. Kidneys and ureters: Lobulated right renal contour with cortical thinning/scar. No calculus. No hydronephrosis. Stomach and bowel: Intramural fat within portions of the small bowel which can be seen in the setti ng of prior inflammation. Colonic diverticula without adjacent inflammatory change. No obstructio n. No mucosal thickening. PELVIS: Appendix: Small normal caliber appendiceal stump. No findings to suggest acute appendicitis. Bladder: Unremarkable. No mass. Reproductive: Unremarkable as visualized. ABDOMEN and PELVIS: Intraperitoneal space: Unremarkable. No free air. No significant fluid collection. Bones/joints: Remote left L2-L4 transverse process fractures. No acute fracture. No dislocation . Soft tissues: Unremarkable. Vasculature: Mild to moderate atherosclerotic disease. No abdominal aortic aneurysm. Lymph nodes: Unremarkable. No enlarged lymph nodes. IMPRESSION: 1. No acute abnormality identified within the abdomen and pelvis. 2. Other findings as above. Electronically signed by: Mario Gonzalez MD 09/01/2022 3:08 AM SENIOR SQL DATABASE DEVELOPER Due to temporary technical issues with the PACS/Fluency reporting system, reports are being signed by the in house radiologists without review as a courtesy to insure prompt reporting. The interpreting radiologist is fully responsible for the content of the report.
== END 2022-09-01 03:50 | disposition home or self-care (01) ==
LOC: ER 23:10
DX: R10.32 Left lower quadrant pain (principal); I10 Essential (primary) hypertension; Z72.0 Tobacco use; Z88.8 Allergy status to other drugs, medicaments and biological substances
CPT/HCPCS: 96361; 85025; 36415; 83690; 80053; 74177; 96375; 96374; 99284; Q9967; J7030; J2405

== ENCOUNTER 2023-03-11 22:44 | Emergency (ER) | payer OTHER ==
--- OUTSIDE RECORDS SUMMARY | 2023-03-11 22:49 | XMS REPORT | Continuity of Care Document ---
:1955 Author Organization [facility] Address [address] [facility] [address] [place] [address] Care Team Providers Name Role Phone MARTHARAQUEL SANCHEZ CHRISTINE Primary Care Physician Unavailable Carolina Golden Attending Clinician Unavailable ANA SHEEHAN Attending Clinician Unavailable Ebony Guadalupe PT Attending Clinician Unavailable Ana Sheehan MD Attending Clinician Familia Bowser PTA Attending Clinician Unavailable Doctor Unassigned, [facility] Attending Clinician Unavailable Monica Bowser PTA Attending Clinician Unavailable Miller_S_AH Attending Clinician Unavailable Ajibade_O_AH Attending Clinician Unavailable Ige-Od[place]_J_AH Attending Clinician Unavailable Miller_S_AH Admitting Clinician Unavailable Ajibade_O_AH Admitting Clinician Unavailable Ige-[place]_J_AH Admitting Clinician Unavailable Payers Payer Name Policy Type Policy Number Effective Date Expiration Date S carlos [employer] [id number] 2021 ADMINISTRATION 00:00:00 [place] [id number] 2021 CLASSIC NO PREMIUM 00:00:00 HMO [facility] [id number] 2018 00:00:00 [place] - [id number] [place] (MEDICARE 00:00:00 REPLACEMENT/ADVANTAGE - HMO) Problems Condition Condition Condition Status Onset Resolution Last Treating Co mments Source Name Details Category Date Date Treatment Clinician Date Decreased Decreased Disease Active 2020-09 Uni vers ROM of ROM of 1-15 ity of ankle ankle 00:00: [place] 00 Medical Branch Decreased Decreased Disease Active 2020-09 Uni vers strength strength 1-15 ity of of lower of lower 00:00: [place] extremity extremity 00 Medi lauren Branch Gait Gait Disease Active 2020-09 Univers abnormalit abnormalit 1-15 it y of y y 00:00: [place] [facility] Ankle Ankle Disease Active 2020-09 Univers pain, left pain, left 1-15 it y of 00:00: [place] [facility] 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 2-21 Fa shell e lung [...] joints Joints Lumbar Lumbar Problem Active 2020-0 [facility] radiculopa Radiculopa 9-23 Fa shell thy thy 00:00: Practic 00 e Chronic Chronic Problem Active 2020-0 [facility] back pain Back Pain 9-23 Fami ly 00:00: Practic 00 e At risk At Risk Problem Active 2020-0 [facility] for falls for Falls 9-23 Fami ly 00:00: Practic 00 e Pain of Pain of Problem Active 2019-0 [facility] left ankle Left Ankle 9-23 Fa shell joint Joint 00:00: Practic 00 e Nicotine Nicotine Problem Active 2020-0 [place] dependence Dependence 9-23 Fa shell with with 00:00: Practic current Current 00 e use Use Abdominal Abdominal Disease Active Uni vers pain pain 4-20 ity of 00:00: [place] [facility] Infection Infection Disease Active Uni vers 4-20 ity of 00:00: [place] 00 Medical Branch Fall at Fall at Disease Active 2014-09 Univers home, home, 0-31 ity of initial initial 00:00: [place] encounter encounter 00 [facility] lauren Branch Rib Rib Disease Active 2014-09 Univers contusion, contusion, 0-31 it y of right, right, 00:00: [place] initial initial 00 Medical encounter encounter Bran ch Allergies, Adverse Reactions, Alerts Allergy Allergy Status Severity Reaction(s) Onset Inactive Treating Comm ents Source Name Type Date Date Clinician LISINOPR DRUG Active Unknown-Cmnt Un mary ann [place] INGREDI 7- ity of 00:00: [place] 00 Medical Branch Lisinopr Propensi Active Unknown - Uni vers il ty to See comments 04-06 ity of adverse 00:00: [place] reaction 00 Medical s Branch Social History Social Habit Start Date Stop Date Quantity Comments Source Exposure to Not sure [facility] SARS-CoV-2 [place] [facility] (event) Branch History SDOH University o f Alcohol Frequency [place] M edical Branch History SDIN University o f Alcohol Std [place] Medical Drinks Branch History SDIN University o f Alcohol Binge [place] [facility] al Branch Alcohol intake 2017-02-21 2017-02-21 Current drinker Unive rsity of 00:00:00 00:00:00 of alcohol [place] Medical (finding) Branch Alcohol Comment 2017-01-04 2017-01-04 few drinks per Unive rsity of 00:00:00 00:00:00 week [facility] [place] [facility] Sex Ass[birth year] At [birth year] Universit y of 00:00:00 00:00:00 [facility] [place] [facility] Smoking Status Start Date Stop Date Source Heavy Tobacco Smoker [facility] Practice Current every day smoker 2017-01-04 00:00:00 Uni versity of [facility] Branch Medications Ordered Filled Start Stop Current Ordering Indication Dosage Frequency Signature Comments Components Source Medication Medication Date Date Medication? Clinician (SIG) Name Name acetaminoph Yes [id number] 1{tbl} Take 1-2 Univers en-codeine 2-10 tablets by ity of 300-30 mg 00:00: mouth [place] tablet 00 every 6 Medical (six) Branch hours as needed for Pain (scale 1-3). traMADOL 50 Yes [id number] 50mg Take 1 Univers mg tablet 2-10 tablet by ity o f 00:00: mouth [place] 00 every 6 Medical (six) Branch hours as needed for Pain (scale 1-3). acetaminoph 2019- Yes [id number] 1{tbl} Take 1-2 Univers en-codeine 2-10 tablets by ity of 300-30 mg 00:00: mouth [place] tablet 00 every 6 Medical (six) Branch hours as needed for Pain (scale 1-3). traMADOL 50 2019- Yes [id number] 50mg Take 1 Univers mg tablet 2-10 tablet by ity o f 00:00: mouth [place] 00 every 6 Medical (six) Branch hours as needed for Pain (scale 1-3). acetaminoph Yes [id number] 1{tbl} Take 1-2 Univers en-codeine 2-10 tablets by ity of 300-30 mg 00:00: mouth [place] tablet 00 every 6 Medical (six) Branch hours as needed for Pain (scale 1-3). traMADOL 50 Yes [id number] 50mg Take 1 Univers mg tablet 2-10 tablet by ity o f 00:00: mouth [place] 00 every 6 Medical (six) Branch hours as needed for Pain (scale 1-3). acetaminoph Yes [id number] 1{tbl} Take 1-2 Univers en-codeine 2-10 tablets by ity of 300-30 mg 00:00: mouth [place] tablet 00 every 6 Medical (six) Branch hours as needed for Pain (scale 1-3). traMADOL 50 2018- Yes [id number] 50mg Take 1 Univers mg tablet 2-10 tablet by ity o f 00:00: mouth [place] 00 every 6 Medical (six) Branch hours as needed for Pain (scale 1-3). acetaminoph Yes [id number] 1{tbl} Take 1-2 Univers en-codeine 2-10 tablets by ity of 300-30 mg 00:00: mouth [place] tablet 00 every 6 Medical (six) Branch hours as needed for Pain (scale 1-3). traMADOL 50 2018- Yes [id number] 50mg Take 1 Univers mg tablet 2-10 tablet by ity o f 00:00: mouth [place] 00 every 6 Medical (six) Branch hours as needed for Pain (scale 1-3). acetaminoph Yes [id number] 1{tbl} Take 1-2 Univers en-codeine 2-10 tablets by ity of 300-30 mg 00:00: mouth [place] tablet 00 every 6 Medical (six) Branch hours as needed for Pain (scale 1-3). traMADOL 50 2019-0 Yes [id number] 50mg Take 1 Univers mg tablet 2-10 tablet by ity o f 00:00: mouth [place] 00 every 6 Medical (six) Branch hours as needed for Pain (scale 1-3). acetaminoph 2019 Yes [id number] 1{tbl} Take 1-2 Univers en-codeine 2-10 tablets by ity of 300-30 mg 00:00: mouth [place] tablet 00 every 6 Medical (six) Branch hours as needed for Pain (scale 1-3). traMADOL 50 2019- Yes 50mg Take 1 Univers mg tablet 2-10 tablet by ity o f 00:00: mouth [place] 00 every 6 Medical (six) Branch hours as needed for Pain (scale 1-3). acetaminoph Yes [id number] 1{tbl} Take 1-2 Univers en-codeine 2-10 tablets by ity of 300-30 mg 00:00: mouth [place] tablet 00 every 6 Medical (six) Branch hours as needed for Pain (scale 1-3). traMADOL 50 2019-0 Yes [id number] 50mg Take 1 Univers mg tablet 2-10 tablet by ity o f 00:00: mouth [place] 00 every 6 Medical (six) Branch hours as needed for Pain (scale 1-3). acetaminoph Yes [id number] 1{tbl} Take 1-2 Univers en-codeine 2-10 tablets by ity of 300-30 mg 00:00: mouth [place] tablet 00 every 6 Medical (six) Branch hours as needed for Pain (scale 1-3). traMADOL 50 2019- Yes [id number] 50mg Take 1 Univers mg tablet 2-10 [...] of tablet 00:00: 00 Medical Branch cyclobenzap 2016-0 Yes 10mg Take [...] 3 () Medical times Branch daily. predniSONE 2016-0 Yes 1 PO BID x U nivers 20 mg 9-18 4 days ity of tablet 00:00: Medical Branch cyclobenzap 2016-0 Yes 10mg Take 1 Univ ers rine 10 mg 9-18 tablet by ity of tablet 00:00: mouth 3 () Medical times Branch daily. predniSONE 2016-0 Yes [...] by ity of mg tablet 00:00: mouth (two) Medical times Branch daily. METRONIDAZO 2017-0 [...] by ity of tablet 16:48: mouth [place] every 6 Medical (six) Branch hours as needed for Pain (scale 1-3) or Pain (scale 4-6). omeprazole 2017-0 Yes 20mg Take 20 mg U nivers 20 mg 4-24 by mouth ity of capsule 16:48: daily. [place] [address] Medical Branch meloxicam 2017-0 Yes 15mg Take 15 mg Un mary ann 15 mg 4-24 by mouth ity of tablet 16:48: daily. [place] [address] Medical Branch allopurinol 2017-0 Yes 100mg Take [...] by mouth ity of tablet 16:48: at [place] [address] bedtime. Medical Branch AMLODIPINE 2017-0 Yes 10mg Take 10 mg U nivers BESYLATE 4-24 by mouth ity of (AMLODIPINE 16:48: [facility] [facility] ibuprofen 2017-0 Yes 800mg Take 800 Uni vers 800 mg 4-24 mg by ity of tablet 16:48: mouth [place] [address] every 6 Medical (six) Branch hours as needed for Pain (scale 1-3) or Pain (scale 4-6). omeprazole 2017-0 Yes 20mg Take 20 mg U nivers 20 mg 4-24 by mouth ity of capsule 16:48: daily. [place] [address] Medical Branch meloxicam 2017-0 Yes 15mg Take 15 mg Un mary ann 15 mg 4-24 by mouth ity of tablet 16:48: daily. [place] [address] Medical Branch allopurinol 2017-0 Yes 100mg Take [...] by mouth ity of tablet 16:48: at [place] [address] bedtime. Medical Branch AMLODIPINE 2017-0 Yes 10mg Take 10 mg U nivers BESYLATE 4-24 by mouth ity of (AMLODIPINE 16:48: [place]. [place] Medical Branch ibuprofen 2017-0 Yes 800mg Take 800 Uni vers 800 mg 4-24 mg by ity of tablet 16:48: mouth [place] [address] every 6 Medical (six) Branch hours as needed for Pain (scale 1-3) or Pain (scale 4-6). omeprazole 2017-0 Yes 20mg Take 20 mg U nivers 20 mg 4-24 by mouth ity of capsule 16:48: daily. [place] [address] Medical Branch meloxicam 2017-0 Yes 15mg Take 15 mg Un mary ann 15 mg 4-24 by mouth ity of tablet 16:48: daily. [place] [address] Medical Branch allopurinol 2017-0 Yes 100mg Take 100 U nivers 100 mg 4-24 mg by ity of tablet 16:48: mouth [place] [address] daily. Medical Branch Cholecalcif 2017-0 Yes 400U Take 400 Un mary ann kedar, 4-24 Units by ity of Vitamin D3, 16:48: mouth [place] 400 unit 51 daily. Medical capsule Branch atorvastati 2017-0 Yes 40mg Take 40 mg Univers n 40 mg 4-24 by mouth ity of tablet 16:48: at [place] [address] bedtime. Medical Branch AMLODIPINE 2017-0 Yes 10mg Take 10 mg U nivers BESYLATE 4-24 by mouth ity of (AMLODIPINE 16:48: [place]. [place] Branch ibuprofen 2017-0 Yes 800mg Take 800 Uni vers 800 mg 4-24 mg by ity of tablet 16:48: mouth [place] [address] every 6 Medical (six) Branch hours as needed for Pain (scale 1-3) or Pain (scale 4-6). omeprazole 2017-0 Yes 20mg Take 20 mg U nivers 20 mg 4-24 by mouth ity of capsule 16:48: daily. [place] [address] Medical Branch meloxicam 2017-0 Yes 15mg Take 15 mg Un mary ann 15 mg 4-24 by mouth ity of tablet 16:48: daily. [place] [address] Medical Branch allopurinol 2017-0 Yes 100mg Take 100 U nivers 100 mg 4-24 mg by ity of tablet 16:48: mouth [place] [address] daily. Medical Branch Cholecalcif 2017-0 Yes 400U Take 400 Un mary ann kedar, 4-24 Units by ity of Vitamin D3, 16:48: mouth [place] 400 unit 51 daily. Medical capsule Branch atorvastati 2017-0 Yes 40mg Take 40 mg Univers n 40 mg 4-24 by mouth ity of tablet 16:48: at [place] [address] bedtime. Medical Branch AMLODIPINE 2017-0 Yes 10mg Take 10 mg U nivers BESYLATE 4-24 by mouth ity of (AMLODIPINE 16:48: [place]. [place] Branch ibuprofen 2017-0 Yes 800mg Take 800 Uni vers 800 mg 4-24 mg by ity of tablet 16:48: mouth [place] [address] every 6 Medical (six) Branch hours as needed for Pain (scale 1-3) or Pain (scale 4-6). omeprazole 2017-0 Yes 20mg Take 20 mg U nivers 20 mg 4-24 by mouth ity of capsule 16:48: daily. [place] [address] Medical Branch meloxicam 2017-0 Yes 15mg Take 15 mg Un mary ann 15 mg 4-24 by mouth ity of tablet 16:48: daily. [place] [address] Medical Branch allopurinol 2017-0 Yes 100mg Take 100 U nivers 100 mg 4-24 mg by ity of tablet 16:48: mouth [place] [address] daily. Medical Branch Cholecalcif 2017-0 Yes 400U Take 400 Un mary ann kedar, 4-24 Units by ity of Vitamin D3, 16:48: mouth [place] 400 unit 51 daily. Medical capsule Branch atorvastati 2017-0 Yes 40mg Take 40 mg Univers n 40 mg 4-24 by mouth ity of tablet 16:48: at [place] [address] bedtime. Medical Branch AMLODIPINE 2017-0 Yes 10mg Take 10 mg U nivers BESYLATE 4-24 by mouth ity of (AMLODIPINE 16:48: [place]. [place] Branch ibuprofen 2017-0 Yes 800mg Take 800 Uni vers 800 mg 4-24 mg by ity of tablet 16:48: mouth [place] [address] every 6 Medical (six) Branch hours as needed for Pain (scale 1-3) or Pain (scale 4-6). omeprazole 2017-0 Yes 20mg Take 20 mg U nivers 20 mg 4-24 by mouth ity of capsule 16:48: daily. [place] [address] Medical Branch meloxicam 2017-0 Yes 15mg Take 15 mg Un mary ann 15 mg 4-24 by mouth ity of tablet 16:48: daily. [place] [address] Medical Branch allopurinol 2017-0 Yes 100mg Take [...] by mouth ity of tablet 16:48: at [place] [address] bedtime. Medical Branch AMLODIPINE 2017-0 Yes 10mg Take 10 mg U nivers BESYLATE 4-24 by mouth ity of (AMLODIPINE 16[place]48: [place]. [place] Branch ibuprofen 2017-0 Yes 800mg Take 800 Uni vers 800 mg 4-24 mg by ity of tablet 16:48: mouth [place] [address] every 6 Medical (six) Branch hours as needed for Pain (scale 1-3) or Pain (scale 4-6). omeprazole 2017-0 Yes 20mg Take 20 mg U nivers 20 mg 4-24 by mouth ity of capsule 16:48: daily. [place] [address] Medical Branch meloxicam 2017-0 Yes 15mg Take 15 mg Un mary ann 15 mg 4-24 by mouth ity of tablet 16:48: daily. [place] [address] Medical Branch allopurinol 2017-0 Yes 100mg Take 100 U nivers 100 mg 4-24 mg by ity of tablet 16:48: mouth [place] [address] daily. Medical Branch Cholecalcif 2017-0 Yes 400U Take 400 Un mary ann kedar, 4-24 Units by ity of Vitamin D3, 16:48: mouth [place] 400 unit 51 daily. Medical capsule Branch atorvastati 2017-0 Yes 40mg Take 40 mg Univers n 40 mg 4-24 by mouth ity of tablet 16:48: at [place] [address] bedtime. Medical Branch AMLODIPINE 2017-0 Yes 10mg [...] by mouth ity of capsule 16:48: daily. [place] [address] Medical Branch meloxicam 2017-0 Yes 15mg Take 15 mg Un mary ann 15 mg 4-24 by mouth ity of tablet 16:48: daily. [place] [address] Medical Branch allopurinol 2017-0 Yes 100mg Take [...] by mouth ity of tablet 16:48: at [place] [address] bedtime. Medical Branch AMLODIPINE 2017-0 Yes 10mg Take 10 mg U nivers BESYLATE 4-24 by mouth ity of (AMLODIPINE 16:48: daily. [facility] ibuprofen 2017-0 Yes 800mg Take 800 Uni vers 800 mg 4-24 mg by ity of tablet 16:48: mouth [place] [address] every 6 Medical (six) Branch hours as needed for Pain (scale 1-3) or Pain (scale 4-6). omeprazole 2017-0 Yes 20mg Take 20 mg U nivers 20 mg 4-24 by mouth ity of capsule 16:48: daily. [place] [address] Medical Branch meloxicam 2017-0 Yes 15mg Take 15 mg Un mary ann 15 mg 4-24 by mouth ity of tablet 16:48: daily. [place] [address] Medical Branch allopurinol 2017-0 Yes 100mg Take 100 U nivers 100 mg 4-24 mg by ity of tablet 16:48: mouth [place] [address] daily. Medical Branch Cholecalcif 2017-0 Yes 400U Take 400 Un mary ann kedar, 4-24 Units by ity of Vitamin D3, 16:48: mouth [place] 400 unit 51 daily. Medical capsule Branch atorvastati 2017-0 Yes 40mg Take 40 mg Univers n 40 mg 4-24 by mouth ity of tablet 16:48: at [place] [address] bedtime. Medical Branch metroNIDAZO 2017-0 Yes 500mg [...] ic analgesics . allopurinol allopurinol No allopurino [facility] 100 mg 100 mg l 100 mg Family tablet TAKE tablet TAKE tablet Practic 1 TABLET BY 1 TABLET BY TAKE 1 e MOUTH EVERY MOUTH EVERY TABLET BY DAY DAY MOUTH EVERY DAY amlodipine amlodipine No amlodipine [facility] 10 mg 10 mg 10 mg Family tablet TAKE tablet TAKE tablet Practic 1 TABLET BY 1 TABLET BY TAKE 1 e MOUTH EVERY MOUTH EVERY TABLET BY DAY DAY MOUTH EVERY DAY atorvastati atorvastati No atorvastat [facility] n 20 mg n 20 mg in 20 mg Famil y tablet TAKE tablet TAKE tablet Practic 1 TABLET BY 1 TABLET BY TAKE 1 e MOUTH EVERY MOUTH EVERY TABLET BY DAY DAY MOUTH EVERY DAY hydralazine hydralazine No hydralazin [facility] 25 mg 25 mg e 25 mg [...] UP TO 12HOURS.) metoprolol metoprolol No metoprolol [facility] tartrate 25 tartrate 25 tartrate Family mg tablet mg tablet 25 mg Prac tic TAKE 1 TAKE 1 tablet e TABLET BY TABLET BY TAKE 1 MOUTH TWICE MOUTH TWICE TABLET BY A DAY A DAY MOUTH TWICE A DAY omeprazole omeprazole No omeprazole [facility] 20 mg 20 mg 20 mg Family capsule,del capsule,del capsule,de Practic ayed ayed layed e release release release TAKE 1 TAKE 1 TAKE 1 CAPSULE BY CAPSULE BY CAPSULE BY MOUTH EVERY MOUTH EVERY MOUTH DAY DAY EVERY DAY omeprazole omeprazole No 1capsul Q1D omeprazole [facility] 40 mg 40 mg e(s) 40 mg [...] Name SARS-COV-2 (COVID-19) SARS-COV-2 (COVID-19) 2020-12-07 Completed [facility] vaccine, UNSPECIFIED vaccine, UNSPECIFIED 00:00:00 Practice pneumococcal pneumococcal 2018-09-17 Completed [facility] shell polysaccharide PPV23 polysaccharide PPV23 00:00:00 Practice influenza, influenza, 2018-09-17 [facility] injectable, injectable, 00:00:00 Practice quadrivalent quadrivalent Vital Signs Vital Name Observation Time Observation Value Comments Source BP Diastolic 2020-12-07 00:00:00 97 mm[Hg] [facility] Practice Height 2020-12-07 00:00:00 70 [in_i] [facility] BMI (Body Mass 2020-12-07 00:00:00 31.3 kg/m2 [facility] e Family Index) Practice BP Systolic 2020-12-07 00:00:00 101 mm[Hg] [facility] Body Weight 2020-12-07 00:00:00 218 [lb_av] [facility] Height 2020-06-09 00:00:00 70 [in_i] [facility] BMI (Body Mass 2020-06-09 00:00:00 31.3 kg/m2 [facility] e Family Index) Practice Body Weight 2020-06-09 00:00:00 218 [lb_av] [facility] Procedures Procedure Date / Time Performed Performing [facility] Practice Back Surgery [facility] Screening for Malignant [facility] Neoplasm of Prostate Practice Screening Colonoscopy [facility] Encounters Start End Encounter Admission Attending Care Care Encounter Source Date/Time Date/Time Type Type Clinicians Facility Department ID 2023-01-01 Outpatient RODOLFO Golden [facility] [id number] Common 14:55:03 [place] [address] [facility] 2021-12-07 2021-12-07 Outpatient R STEPHANIE [facility] [id number] Univers 14:30:00 14:30:00 ANA contreras [facility] 2021-11-28 2021-11-28 Ancillary Ebony Guadalupe [facility] 1.2.84 0.114 [id number] Univers 15:15:00 16:00:00 Visit Ana Sheehan [id number] ity [facility] [id number] [id number] Vt dical NAL 179 [facility] 2021-10-27 2021-10-27 Outpatient R STEPHANIE [facility] [id number] Univers 14:30:00 14:30:00 ANA contreras [facility] 2021-10-12 2021-10-12 Ancillary Ebony Guadalupe [facility] 1.2.84 0.114 [id number] Univers 14:30:00 15:15:00 Visit Ana Sheehan [id number] ity of [facility] [id number] [id number] Vt dical NAL 179 [facility] 2021-10-07 2021-10-07 Ancillary Ebony Guadalupe [facility] 1.2.84 0.114 [id number] Univers 15:00:00 15:40:00 Visit Ana Sheehan [id number] ity of [facility] [id number] [id number] Vt dical NAL 179 [facility] 2021-10-05 2021-10-05 Ancillary Familia Bowser [facility] 1.2.840. 114 [id number] Univers 14:20:00 15:05:00 Visit Ana Sheehan [id number] ity of [place] [id number] [phone] Vt dical NAL 179 Branch [facility] 2021-09-29 2021-09-29 Ancillary Familia Bowser [facility] 1.2.840. 114 [id number] Univers 14:20:00 15:00:00 Visit Ana Sheehan [id number] ity of [place] [id number] [id number] Vt dical NAL 179 Branch [facility] 2021-09-27 2021-09-27 Ancillary Familia Bowser [facility] 1.2.840. 114 [id number] [facility] 14:20:00 15:00:00 Visit Ana Sheehan [id number] ity of [place] [id number] [phone] Vt dical NAL 179 [facility] 2021-09-21 2021-09-21 Ancillary Ebony Guadalupe [facility] 1.2.84 0.114 [id number] Univers 15:20:00 16:43:45 Visit Ana Sheehan [id number] ity of [place] [id number] [id number] Vt dical NAL 179 [facility] 2021-09-19 2021-09-19 Outpatient R STEPHANIE [facility] [id number] [facility] 15:20:00 15:20:00 ANA ity of [facility] [place] [facility] 2021-09-14 2021-09-14 Ancillary Ebony Guadalupe [facility] 1.2.84 0.114 [id number] Univers 10:40:00 11:20:00 Visit Ana Sheehan [id number] ity of [place] [id number] [phone] Vt dical NAL 179 [facility] 2021-09-12 2021-09-12 Ancillary Ebony Guadalupe [facility] 1.2.84 0.114 [id number] Univers 14:40:00 16:34:12 Visit Ana Sheehan [id number] ity [place] [id number] [id number] [facility] 2021-09-12 2021-09-12 [facility] [id number] Univers 14:40:00 16:34:12 ANA [facility] 2021-08-19 2021-08-19 Orders Doctor DASIA 1.2.840.114 [id number] Univers 00:00:00 00:00:00 Only Unassigned, AMBROCIO [id number] [facility] [id number] Karlos as [phone] [address] 2021-08-17 2021-08-17 [facility] [id number] Univers 15:00:00 15:00:00 ANA [facility] 2021-08-17 2021-08-17 [facility] 1.2.840.114 [id number] Univers 00:00:00 00:00:00 Management Monica CYR [id number] ity [facility] [id number] [phone] [address] 2021-08-15 2021-08-15 Outpatient R STEPHANIE [facility] [id number] Univers 15:00:00 15:00:00 ANAADRIANNA contreras [facility] 2021-08-01 2021-08-01 Outpatient R STEPHANIE [facility] [id number] Univers 13:40:00 15:58:00 ANA contreras [facility] 2021-08-01 2021-08-01 Ancillary Ebony Guadalupe [facility] 1.2.84 0.114 [id number] Univers 13:37:46 15:58:00 Visit Ana Sheehan [id number] ity [facility] [id number] [id number] Vt dical NAL 179 Branch [facility] 2021-08-01 2021-08-01 Orders Doctor DASIA 1.2.840.114 [id number] Univers 00:00:00 00:00:00 Only Unassigned, AMBROCIO [id number] ity of [place] [facility] [id number] Karlos as [id number] [facility] 009 Branch 2021-03-03 2021-03-03 Outpatient Miller_S_AH VFP VFP [id number] [facility] 04:58:00 04:58:00 [id number] Family Practic e 2020-12-15 2020-12-15 Outpatient Ajibade_O_A VFP VFP [id number] [facility] 01:16:00 01:16:00 H [id number] Family Practic e 2020-12-15 2020-12-15 Outpatient Ajibade_O_A VFP VFP [id number] [facility] 01:16:00 01:16:00 H [id number] Family Practic e 2020-12-13 2020-12-13 Outpatient Ajibade_O_A VFP VFP [id number] [facility] 02:14:00 02:14:00 H [id number] Family Practic e 2020-12-07 2020-12-07 Outpatient Ajibade_O_A VFP VFP [id number] [facility] 01:11:00 01:11:00 H [id number] Family Practic e 2020-12-07 2020-12-07 [place] [facility] [place] - [id number] V illage 00:00:00 00:00:00 Geo Chatterjee Famil y FIELD RECORDER: [id number] Medical - Pract jean Parker, [email or web address]_ e Suite [facility], [facility] [place], [place] [address] , Ph. 2020-07-16 2020-07-16 Outpatient Ajibade_O_A VFP VFP [id number] [facility] 09:42:00 09:42:00 H [id number] Family Practic e 2020-07-16 2020-07-16 Outpatient Ajibade_O_A VFP VFP [id number] [facility] 09:42:00 09:42:00 H [id number] Family Practic e 2020-06-23 2020-06-23 Outpatient Ajibade_O_A VFP VFP [id number] [facility] 11:33:00 11:33:00 H [id number] Family Practic e 2020-06-09 2020-06-09 Outpatient Ajibade_O_A VFP VFP [id number] [facility] 01:32:00 01:32:00 H [id number] Family Practic e 2020-06-09 2020-06-09 [place] [facility]FP [place] - [id number] V illage 00:00:00 00:00:00 LilianajudithGeo Famil y FIELD RECORDER: [id number] Medical - Pract ic Hoda Parker, [email or web address]_ e [address], [facility] [place], [place] [address] , Ph. 2020-05-25 2020-05-25 Outpatient Ajibade_O_A VFP VFP [phone] [facility] 12:24:00 12:24:00 H [id number] Family Practic e 2020-05-13 2020-05-13 Outpatient Ajibade_O_A VFP VFP [id number] [facility] 03:39:00 03:39:00 H [id number] Family Practic e 2019-11-05 2019-11-05 Outpatient Ige-Odunuga VFP VFP [phone] [facility] 07:28:00 07:28:00 _J_ [id number] Family Practic e Results This patient has no known results.
[2023-03-11] MEDS ORDERED: IBUPROFEN 200 MG TAB PO ONE (23:14)
[2023-03-11] MEDS ORDERED: IBUPROFEN 400 MG TAB ONE (23:14)
[2023-03-12 00:04] LABS: SARS-CoV-2 Antigen Rapid Res Negative (Negative)
[2023-03-12] MEDS ORDERED: ACETAMINOPHEN 325 MG TABLET ONE (01:20)
--- NOTE | 2023-03-12 01:26 | ER ---
Nurse's Notes [facility] Name: Maynor Marquez Age: 67 yrs Sex: Male : 1955 Arrival Date: 03/11/2023 Time: 22:44 Bed 12 Private MD: Diagnosis: Myalgia;Cough;Anosmia Presentation: 03/11 23:09 Chief complaint: Patient states: cough headache body pain x 3 days. Coronavirus screen: Vaccine status: Patient reports receiving the 2nd dose of the covid vaccine. Ebola Screen: Patient negative for fever greater than or equal to 101.5 degrees Fahrenheit, and additional compatible Ebola Virus Disease symptoms. Initial Sepsis Screen: Does the patient meet any 2 criteria? No. Patient's initial sepsis screen is negative. Does the patient have a suspected source of infection? No. Patient's initial sepsis screen is negative. Risk Assessment: Do you want to hurt yourself or someone else? Patient reports no desire to harm self or others. 23:09 Method Of Arrival: Ambulatory kl 23:09 Acuity: MARCUS 4 kl Triage Assessment: 23:12 Headache History: The patient has had previous headaches and this one is similar to previous episodes. General: Appears uncomfortable, Behavior is cooperative. Pain: Complains of pain in top of head Pain currently is 8 out of 10 on a pain scale. at worst was 10 out of 10 on a pain scale. Pain began 2-3 days ago. Aggravated by coughing Also complains of no other associated symptoms. Neuro: No deficits noted. Historical: - Allergies: 23:10 GABAPENTIN; kl 23:10 Klonopin; kl 23:10 Lisinopril; kl - Home Meds: 23:10 Allopurinol Oral [Active]; amlodipine oral [Active]; atorvastatin Oral [Active]; kl Hydralazine Oral [Active]; Hydrochlorothiazide Oral [Active]; Metoprolol Tartrate Oral [Active]; Omeprazole Oral [Active]; Metformin Oral [Active]; - PMHx: 23:10 Diverticulitis; Gout; Hypertension; Migraines; Pancreatitis; kl - PSHx: 23:10 tendon release L ankle; kl - Immunization history:: Adult Immunizations up to date. - Social history:: Smoking status: Patient reports the use of cigarette tobacco products, smokes one pack cigarettes per day. Screenin/26 01:35 [facility] ED Fall Risk Assessment (Adult) History of falling in the last 3 months, kl including since admission No falls in past 3 months (0 pts) Confusion or Disorientation No (0 pts) Intoxicated or Sedated No (0 pts) Impaired Gait No (0 pts) Mobility Assist Device Used No (0 pt) Altered Elimination No (0 pt) Score/Fall Risk Level 0 - 2 = Low Risk Oriented to surroundings, Maintained a safe environment. Abuse screen: Denies threats or abuse. Nutritional screening: No deficits noted. Tuberculosis screening: No symptoms or risk factors identified. Assessment: 01:35 Reassessment: Patient states feeling better. Patient states symptoms have improved. Vital Signs: 03/11 23:09 BP 141 / 94; Pulse 86; Resp 20; Temp 98.5; Pulse Ox 98% ; Weight 99.79 kg (R); Height 5 kl ft. 11 in. ; Pain 8/10; 23:09 Body Mass Index 30.68 (99.79 kg, 180.34 cm) kl 23:09 Pain Scale: Adult ED Course: 22:47 Patient arrived in ED. ja2 22:50 Yaron Ramirez DO is Attending Physician. ms3 23:10 Triage completed. kl 23:16 Flu Sent. kl 23:33 Chest Pa And Lat (2 Views) XRAY In Process Unspecified. EDMS 03/12 00:00 Flu Sent. kl 00:00 SARS-COV-2 Antigen Rapid Sent. kl 01:09 Flu Sent. kl 01:25 González Stevenson MD is Referral Physician. ms3 01:35 No provider procedures requiring assistance completed. Patient did not have IV access kl during this emergency room visit. 01:35 Patient has correct armband on for positive identification. kl Administered Medications: 03/11 23:16 Drug: Ibuprofen PO 600 mg Route: PO; kl 03/12 01:18 Drug: Acetaminophen PO 650 mg Route: PO; Outcome: :25 Discharge ordered by . ms3 01:35 Discharged to home ambulatory. kl 01:35 Condition: stable 01:35 Discharge instructions given to patient, Instructed on discharge instructions, follow up and referral plans. medication usage, Demonstrated understanding of instructions, follow-up care, medications, Prescriptions given X 2. 01:36 Patient left the ED. vernon Signatures: Dispatcher [employer] More Carrizales, RN RN Yaron Lopez, DO PADRON ms3 Mitzy Patricia2 Corrections: (The following items were deleted from the chart) 03/11 23:40 23:16 SARS-COV-2 RT PCR+[email or web address].BRZ drawn and sent. vernon LABOY
--- NOTE | 2023-03-12 01:26 | EDPHYS ---
Physician Documentation [facility] Name: Maynor Marquez Age: 67 yrs Sex: Male : 1955 Arrival Date: 03/11/2023 Time: 22:44 Bed 12 Private MD: ED Physician Yaron Ramirez HPI: 03/11 23:03 This 67 yrs old Black Male presents to ER via Unassigned with complaints of Headache, ms3 Flank Pain, Can't Smell. 23:03 67-year-old male presents for cough, body aches, chills, shortness of breath began on ms3 . Patient states he is taking Mucinex DM and TheraFlu without relief. Patient denies fever, chest pain, abdominal pain, nausea, vomiting.. Historical: - Allergies: 23:10 GABAPENTIN; kl 23:10 Klonopin; kl 23:10 Lisinopril; kl - Home Meds: 23:10 Allopurinol Oral [Active]; amlodipine oral [Active]; atorvastatin Oral [Active]; kl Hydralazine Oral [Active]; Hydrochlorothiazide Oral [Active]; Metoprolol Tartrate Oral [Active]; Omeprazole Oral [Active]; Metformin Oral [Active]; - PMHx: 23:10 Diverticulitis; Gout; Hypertension; Migraines; Pancreatitis; kl - PSHx: 23:10 tendon release L ankle; kl - Immunization history:: Adult Immunizations up to date. - Social history:: Smoking status: Patient reports the use of cigarette tobacco products, smokes one pack cigarettes per day. ROS: 23:03 Eyes: Negative for injury, pain, redness, and discharge, Neck: Negative for injury, ms3 pain, and swelling, Cardiovascular: Negative for chest pain, and palpitations. Abdomen/GI: Negative for abdominal pain, nausea, vomiting, diarrhea, and constipation, MS/Extremity: Negative for injury and deformity, Skin: Negative for injury, rash, and discoloration, Psych: Negative for depression, anxiety, suicide ideation, homicidal ideation, and hallucinations. 23:03 Constitutional: Positive for body aches, chills. 23:03 Respiratory: Positive for shortness of breath. 23:03 All other systems are negative. Exam: 23:03 Constitutional: This is a well developed, well nourished patient who is awake, alert, ms3 and in no acute distress. Head/Face: Normocephalic, atraumatic. Neck: Trachea midline, no cervical lymphadenopathy. Supple, full range of motion without nuchal rigidity, or vertebral point tenderness. No Meningismus. Chest/axilla: Normal chest wall appearance and motion. Nontender with no deformity. Cardiovascular: Regular rate and rhythm with a normal S1 and S2. No gallops, murmurs, or rubs. Normal PMI, no JVD. No pulse deficits. Respiratory: Lungs have equal breath sounds bilaterally, clear to auscultation and percussion. No rales, rhonchi or wheezes noted. No increased work of breathing, no retractions or nasal flaring. Abdomen/GI: Soft, non-tender, with normal bowel sounds. No distension or tympany. No guarding or rebound. No evidence of tenderness throughout. Skin: Warm, dry with normal turgor. Normal color with no rashes, no lesions, and no evidence of cellulitis. MS/ Extremity: Pulses equal, no cyanosis. Neurovascular intact. Full, normal range of motion. Vital Signs: 23:09 BP 141 / 94; Pulse 86; Resp 20; Temp 98.5; Pulse Ox 98% ; Weight 99.79 kg (R); Height 5 kl ft. 11 in. ; Pain 8/10; 23:09 Body Mass Index 30.68 (99.79 kg, 180.34 cm) kl 23:09 Pain Scale: Adult kl MDM: 23:03 Differential diagnosis:. ms3 23:19 Patient medically screened. ms3 03/12 01:28 Data reviewed: vital signs, nurses notes, and as a result, I will discharge patient. I ms3 considered the following discharge prescriptions or medication management in the emergency department Medications were administered in the Emergency Department. See MAR. Independent interpretation of the following test(s) in the Emergency Department X-Ray: My interpretation is CXR images reviewed by me do not reveal PNA. Care significantly affected by the following chronic conditions: Hypertension. Counseling: I had a detailed discussion with the patient and/or guardian regarding: the historical points, exam findings, and any diagnostic results supporting the discharge/admit diagnosis, lab results, radiology results, the need for outpatient follow up, to return to the emergency department if symptoms worsen or persist or if there are any questions or concerns that arise at home. Response to treatment: the patient's symptoms have mildly improved after treatment, and as a result, I will discharge patient. Special discussion: I discussed with the patient/guardian in detail that at this point there is no indication for admission to the hospital. It is understood, however, that if the symptoms persist or worsen the patient needs to return immediately for re-evaluation. 03/11 22:54 Order name: Flu; Complete Time: 01:22 ms3 03/11 23:40 Order name: SARS-COV-2 Antigen Rapid; Complete Time: 00:07 EDMS 03/11 22:54 Order name: Chest Pa And Lat (2 Views) XRAY ms3 Administered Medications: 03/11 23:16 Drug: Ibuprofen PO 600 mg Route: PO; kl 03/12 01:18 Drug: Acetaminophen PO 650 mg Route: PO; vernon Disposition Summary: 03/12/23 01:25 Discharge Ordered Location: Home ms3 Condition: Stable ms3 Diagnosis - Myalgia ms3 - Cough ms3 - Anosmia ms3 Followup: ms3 - With: González Stevenson MD - When: 2 - 3 days - Reason: Recheck today's complaints Discharge Instructions: - Discharge Summary Sheet ms3 - Muscle Pain, Adult ms3 - Cough, Adult ms3 Forms: - Medication Reconciliation Form ms3 - Thank You Letter ms3 - Antibiotic Education ms3 - Prescription Opioid Use ms3 Prescriptions: - albuterol sulfate 90 mcg/actuation Inhalation HFA Aerosol Inhaler - inhale 2 puff by INHALATION route every 4 to 6 hours as needed for ms3 bronchospasm; administer via ventilator; 1 unit; Refills: 0, Product Selection Permitted - benzonatate 200 mg Oral Capsule - take 1 capsule by ORAL route 3 times per day as needed; 20 capsule; Refills: 0, ms3 Product Selection Permitted Signatures: Dispatcher [employer] More Carrizales RN Yaron Clay DO DO ms3 Corrections: (The following items were deleted from the chart) 03/11 23:40 22:54 SARS-COV-2 RT PCR+MOL.LAB.BRZ ordered. EDMS EDMS
[2023-03-12 01:42] VITALS: BP 141/94; TEMP 98.5; O2SAT 98
--- NOTE | 2023-03-13 14:15 | RAD REPORT ---
EXAM DESCRIPTION: RAD - Chest Pa And Lat (2 Views) - 03/11/2023 11:31 pm CLINICAL HISTORY: 67 years, Male, cough, chills COMPARISON: None FINDINGS: 2 x-ray views of the chest (PA and lateral) were obtained, no prior films are available th is time for comparison. The cardiomediastinal silhouette demonstrate to be within normal limits. Th e heart is not enlarged. The thoracic aorta is mildly tortuous. The pulmonary vasculature is normal d istribution. Costophrenic angles are sharp. No areas of consolidations or masses are identified. The rest of the soft tissue and bony structures are unremarkable. IMPRESSION: No acute cardiopulmonary disease seen. Electronically signed by: Demetri Narayanan MD 03/11/2023 11:54 PM CDT Due to temporary technical issues with the PACS/Fluency reporting system, reports are being signed by the in house radiologists without review as a courtesy to insure prompt reporting. The interpreting radiologist is fully responsible for the content of the report.
== END 2023-03-12 01:36 | disposition home or self-care (01) ==
LOC: ER 22:44
DX: M79.10 Myalgia, unspecified site (principal); R05.9 Cough, unspecified; R43.0 Anosmia; F17.210 Nicotine dependence, cigarettes, uncomplicated; Z20.822 Contact with and (suspected) exposure to COVID-19; Z88.8 Allergy status to other drugs, medicaments and biological substances
CPT/HCPCS: 36415; 71046; 87804; 87811

== ENCOUNTER → 2023-09-08 | Emergency (ER) | payer OTHER ==
[~2023-09-08] MED LIST: ACETAMINOPHEN 500 MG TAB ONE; IBUPROFEN 400 MG TAB ONE
--- OUTSIDE RECORDS SUMMARY | 2023-09-08 14:40 | XMS REPORT | Continuity of Care Document ---
Author Name Unknown Address [address] [facility] [address] [place] [address] [facility] thconnect Address [address] [facility]. [address] [place] [address] Care Team Providers Care Call Center Recruiter Name Role Phone RAQUEL THOMAS Primary Care Physician Unava ilCarolina Gillespie Attending Clinician Unavailable ANA SHEEHAN Attending Clinician Unavailradha Guadalupe PT, Ebony Ogden Attending Clinician Unavail able Ana Sheehan MD Attending Clinician [phone] Familia Bowser PTA Attending Clinician Unavaila ble Doctor Unassigned, Apollo Attending Clinician Monica Mckenzie PTA Attending Clinician Unavail able Miller_S_AH Attending Clinician Unavailable Ajibade_O_AH Attending Clinician Unavailable Ige-Od[place]_J_AH Attending Clinician Unavailable Miller_S_AH Admitting Clinician Unavailable Ajibade_O_AH Admitting Clinician Unavailable Ige-[place]_J_AH Admitting Clinician Unavailable Payers Payer Name Policy Type Policy Number Effective Date Expirati on Date Source [facility] [id number] 2021 00:00:00 [employer] [place]MIUM [place] [id number] 2021 00:00:00 [facility] [id number] 2018 00:00:00 [employer] [place]PLAC[place]/ADVANTAGE - HMO) [id number] 2019 00:00:00 Problems Condition Name Condition Details Condition Category Status Onset Date Resolution Date Last Treatment Date Treating Clinician Comments Source Decreased ROM of ankle Decreased ROM of ankle Disease Active 2020-09 00:00: 00 [facility] Decreased strength of lower extremity Decreased strength of lower extremity Disease Active 2020-09 00:00: 00 [facility] Gait abnormalit y Gait abnormalit y Disease Active 2020-09 00:00: 00 [facility] Ankle pain, left Ankle pain, left Disease Active 2020-09 00:00: 00 [facility] Chronic obstructiv e lung disease Chronic Obstructiv e Lung Disease Problem Active 2019-09 00:00: 00 [facility] Hyperlipid emia Hyperlipid emia Problem Active 06-09 00:00: 00 [facility] Nicotine dependence Nicotine Dependence Problem Active 06-09 00:00: 00 [facility] Essential hypertensi on Essential Hypertensi on Problem Active 06-09 00:00: 00 [facility] Degenerati ve joint disease involving multiple joints Degenerati ve Joint Disease Involving Multiple Joints Problem Active 06-09 00:00: 00 [facility] Lumbar radiculopa thy Lumbar Radiculopa thy Problem Active 06-09 00:00: 00 [facility] Chronic back pain Chronic Back Pain Problem Active 06-09 00:00: 00 [facility] At risk for falls At Risk for Falls Problem Active 06-09 00:00: 00 [facility] Pain of left ankle joint Pain of Left Ankle Joint Problem Active 06-09 00:00: 00 [facility] Nicotine dependence with current use Nicotine Dependence with Current Use Problem Active 06-09 00:00: 00 [facility] Abdominal pain Abdominal pain Disease Active 01-04 00:00: 00 [facility] Infection Infection Disease Active 01-04 00:00: 00 [facility] Fall at home, initial encounter Fall at home, initial encounter Disease Active 2014-09 0 00:00: 00 [facility] Rib contusion, right, initial encounter Rib contusion, right, initial encounter Disease Active 2014-09 00:00: 00 [facility] [id number] Cigarette smoker one half pack a day or less Problem [facility] [id number] BMI 33.0-33.9, adult Problem [facility] 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 Hypertensi ve heart disease without CHF Problem [facility] Gastroesop hageal reflux disease GERD without esophagiti s Problem [facility] Mixed hyperlipid emia Mixed hyperlipid emia Problem [facility] Gout Gout, unspecifie d Problem [facility] Hyperglyce mary due to type 2 diabetes mellitus Type 2 diabetes mellitus with hyperglyce mary Problem [facility] Allergies, Adverse Reactions, Alerts Allergy Name Allergy Type Status Severity Reaction(s) Onset Date Inactive Date Treating Clinician Comments Source LISINOPR IL DRUG INGREDI Active Unknown-Cmnt 04-06 00:00: 00 [facility] Lisinopr il Propensi ty to adverse reaction s Active Unknown - See comments 04-06 00:00: 00 [facility] Social History Social Habit Start Date Stop Date Quantity Comments Source History of Tobacco Use Current Smoker [facility] Sex Assigned At [facility] Exposure to SARS-CoV-2 (event) Not sure [facility] History SDOH Alcohol Frequency [facility] History SDOH Alcohol Std Drinks [facility] History SDOH Alcohol Binge [facility] Alcohol intake 2017-02-21 00:00:00 2017-02-21 00:00:00 Current drinker of alcohol (finding) [facility] Alcohol Comment 2017-01-04 00:00:00 2017-01-04 00:00:00 few drinks per week [facility] Smoking Status Start Date Stop Date Source Heavy Tobacco Smoker [facility] Current Smoker 2023-08-21 00:00:00 [facility] Former Smoker 2023-07-13 00:00:00 2023-07-13 00:00:00 [facility] Medications Ordered Medication Name Filled Medication Name Start Date Stop Date Current Medication? Ordering Clinician Indication Dosage Frequency Signature (SIG) Comments Components Source acetaminoph en-codeine 300-30 mg tablet 10-27 00:00: 00 Yes [id number] 1{tbl} Take 1-2 tablets by mouth every 6 (six) hours as needed for Pain (scale 1-3). [facility] tra[facility]ADOL [facility] mg tablet 10-27 00:00: 00 Yes [id number] 50mg Take 1 tablet by mouth every 6 (six) hours as needed for Pain (scale 1-3). [facility] acetaminoph en-codeine 300-30 mg tablet 10-27 00:00: 00 Yes [id number] 1{tbl} Take 1-2 tablets by mouth every 6 (six) hours as needed for Pain (scale 1-3). [facility] traMADOL 50 mg tablet 10-27 00:00: 00 Yes [id number] 50mg Take 1 tablet by mouth every 6 (six) hours as needed for Pain (scale 1-3). [facility] acetaminoph en-codeine 300-30 mg tablet 10-27 00:00: 00 Yes [id number] 1{tbl} Take 1-2 tablets by mouth every 6 (six) hours as needed for Pain (scale 1-3). [facility] traMADOL 50 mg tablet 10-27 00:00: 00 Yes [id number] 50mg Take 1 tablet by mouth every 6 (six) hours as needed for Pain (scale 1-3). [facility] acetaminoph en-codeine 300-30 mg tablet 10-27 00:00: 00 Yes [id number] 1{tbl} Take 1-2 tablets by mouth every 6 (six) hours as needed for Pain (scale 1-3). [facility] traMADOL 50 mg tablet 10-27 00:00: 00 Yes [id number] 50mg Take 1 tablet by mouth every 6 (six) hours as needed for Pain (scale 1-3). [facility] acetaminoph en-codeine 300-30 mg tablet 10-27 00:00: 00 Yes [id number] 1{tbl} Take 1-2 tablets by mouth every 6 (six) hours as needed for Pain (scale 1-3). [facility] traMADOL 50 mg tablet 10-27 00:00: 00 Yes [id number] 50mg Take 1 tablet by mouth every 6 (six) hours as needed for Pain (scale 1-3). [facility] acetaminoph en-codeine 300-30 mg tablet 10-27 00:00: 00 Yes [id number] 1{tbl} Take 1-2 tablets by mouth every 6 (six) hours as needed for Pain (scale 1-3). [facility] traMADOL 50 mg tablet 10-27 00:00: 00 Yes [id number] 50mg Take 1 tablet by mouth every 6 (six) hours as needed for Pain (scale 1-3). [facility] acetaminoph en-codeine 300-30 mg tablet 10-27 00:00: 00 Yes [id number] 1{tbl} Take 1-2 tablets by mouth every 6 (six) hours as needed for Pain (scale 1-3). [facility] traMADOL 50 mg tablet 10-27 00:00: 00 Yes [id number] 50mg Take 1 tablet by mouth every 6 (six) hours as needed for Pain (scale 1-3). [facility] acetaminoph en-codeine 300-30 mg tablet 10-27 00:00: 00 Yes [id number] 1{tbl} Take 1-2 tablets by mouth every 6 (six) hours as needed for Pain (scale 1-3). [facility] traMADOL 50 mg tablet 10-27 00:00: 00 Yes [id number] 50mg Take 1 tablet by mouth every 6 (six) hours as needed for Pain (scale 1-3). [facility] acetaminoph en-codeine 300-30 mg tablet 10-27 00:00: 00 Yes [id number] 1{tbl} Take 1-2 tablets by mouth every 6 (six) hours as needed for Pain (scale 1-3). [facility] traMADOL 50 mg tablet 10-27 00:00: 00 Yes [id number] 50mg Take 1 tablet by mouth every 6 (six) hours as needed for Pain (scale 1-3). [facility] acetaminoph en-codeine (TYLENOL-CO DEINE #3) 300-30 mg tablet 2017-09 00:00: 00 Yes 2{tbl} Take 2 tablets by mouth every 6 (six) hours as needed for Pain (scale 7-10). [facility] benzonatate 200 mg capsule 2017-09 00:00: 00 Yes 200mg Take 1 capsule by mouth 3 (three) times daily as needed for Cough. [facility] acetaminoph en-codeine (TYLENOL-CO DEINE #3) 300-30 mg tablet 2017-09 00:00: 00 Yes 2{tbl} Take 2 tablets by mouth every 6 (six) hours as needed for Pain (scale 7-10). [facility] benzonatate 200 mg capsule 2017-09 00:00: 00 Yes 200mg Take 1 capsule by mouth 3 (three) times daily as needed for Cough. [facility] acetaminoph en-codeine (TYLENOL-CO DEINE #3) 300-30 mg tablet 2017-09 00:00: 00 Yes 2{tbl} Take 2 tablets by mouth every 6 (six) hours as needed for Pain (scale 7-10). [facility] benzonatate 200 mg capsule 2017-09 00:00: 00 Yes 200mg Take 1 capsule by mouth 3 (three) times daily as needed for Cough. [facility] acetaminoph en-codeine (TYLENOL-CO DEINE #3) 300-30 mg tablet 2017-09 00:00: 00 Yes 2{tbl} Take 2 tablets by mouth every 6 (six) hours as needed for Pain (scale 7-10). [facility] benzonatate 200 mg capsule 2017-09 00:00: 00 Yes 200mg Take 1 capsule by mouth 3 (three) times daily as needed for Cough. [facility] acetaminoph en-codeine (TYLENOL-CO DEINE #3) 300-30 mg tablet 2017-09 00:00: 00 Yes 2{tbl} Take 2 tablets by mouth every 6 (six) hours as needed for Pain (scale 7-10). [facility] benzonatate 200 mg capsule 2017-09 00:00: 00 Yes 200mg Take 1 capsule by mouth 3 (three) times daily as needed for Cough. [facility] acetaminoph en-codeine (TYLENOL-CO DEINE #3) 300-30 mg tablet 2017-09 00:00: 00 Yes 2{tbl} Take 2 tablets by mouth every 6 (six) hours as needed for Pain (scale 7-10). [facility] benzonatate 200 mg capsule 2017-09 00:00: 00 Yes 200mg Take 1 capsule by mouth 3 (three) times daily as needed for Cough. [facility] acetaminoph en-codeine (TYLENOL-CO DEINE #3) 300-30 mg tablet 2017-09 00:00: 00 Yes 2{tbl} Take 2 tablets by mouth every 6 (six) hours as needed for Pain (scale 7-10). [facility] benzonatate 200 mg capsule 2017-09 00:00: 00 Yes 200mg Take 1 capsule by mouth 3 (three) times daily as needed for Cough. [facility] acetaminoph en-codeine (TYLENOL-CO DEINE #3) 300-30 mg tablet 2017-09 00:00: 00 Yes 2{tbl} Take 2 tablets by mouth every 6 (six) hours as needed for Pain (scale 7-10). [facility] benzonatate 200 mg capsule 2017-09 00:00: 00 Yes 200mg Take 1 capsule by mouth 3 (three) times daily as needed for Cough. [facility] acetaminoph en-codeine (TYLENOL-CO DEINE #3) 300-30 mg tablet 2017-09 00:00: 00 Yes 2{tbl} Take 2 tablets by mouth every 6 (six) hours as needed for Pain (scale 7-10). [facility] benzonatate 200 mg capsule 2017-09 2-04 00:00: 00 Yes 200mg Take 1 capsule by mouth 3 (three) times daily as needed for Cough. [facility] cyclobenzap rine 10 mg tablet 06-04 00:00: 00 Yes 10mg Take 1 tablet by mouth 3 (three) times daily. [facility] predniSONE 20 mg tablet 06-04 00:00: 00 Yes 1 PO BID x 4 days [facility] cyclobenzap rine 10 mg tablet 06-04 00:00: 00 Yes 10mg Take 1 tablet by mouth 3 (three) times daily. [facility] predniSONE 20 mg tablet 06-04 00:00: 00 Yes 1 PO BID x 4 days [facility] cyclobenzap rine 10 mg tablet 06-04 00:00: 00 Yes 10mg Take 1 tablet by mouth 3 (three) times daily. [facility] predniSONE 20 mg tablet 06-04 00:00: 00 Yes 1 PO BID x 4 days [facility] cyclobenzap rine 10 mg tablet 06-04 00:00: 00 Yes 10mg Take 1 tablet by mouth 3 (three) times daily. [facility] predniSONE 20 mg tablet 06-04 00:00: 00 Yes 1 PO BID x 4 days [facility] cyclobenzap rine 10 mg tablet 06-04 00:00: 00 Yes 10mg Take 1 tablet by mouth 3 (three) times daily. [facility] predniSONE 20 mg tablet 06-04 00:00: 00 Yes 1 PO BID x 4 days [facility] cyclobenzap rine 10 mg tablet 06-04 00:00: 00 Yes 10mg Take 1 tablet by mouth 3 (three) times daily. [facility] predniSONE 20 mg tablet 06-04 00:00: 00 Yes 1 PO BID x 4 days [facility] cyclobenzap rine 10 mg tablet 06-04 00:00: 00 Yes 10mg Take 1 tablet by mouth 3 (three) times daily. [facility] predniSONE 20 mg tablet 06-04 00:00: 00 Yes 1 PO BID x 4 days [facility] cyclobenzap rine 10 mg tablet 06-04 00:00: 00 Yes 10mg Take 1 tablet by mouth 3 (three) times daily. [facility] predniSONE 20 mg tablet 06-04 00:00: 00 Yes 1 PO BID x 4 days [facility] cyclobenzap rine 10 mg tablet 06-04 00:00: 00 Yes 10mg Take 1 tablet by mouth 3 (three) times daily. [facility] predniSONE 20 mg tablet 06-04 00:00: 00 Yes 1 PO BID x 4 days [facility] CIPROFLOXAC IN HCL 500 mg tablet 02-21 00:00: 00 Yes 500mg Take 1 tablet by mouth 2 (two) times daily. [facility] METRONIDAZO LE 500 mg tablet 02-21 00:00: 00 Yes 500mg Take 1 tablet by mouth every 8 (eight) hours. [facility] TYLENOL-COD EINE #3 300-30 mg tablet 02-21 00:00: 00 Yes 2{tbl} Take 2 tablets by mouth every 6 (six) hours as needed for Pain (scale 4-6). [facility] CIPROFLOXAC IN HCL 500 mg tablet 02-21 00:00: 00 Yes 500mg Take 1 tablet by mouth 2 (two) times daily. [facility] METRONIDAZO LE 500 mg tablet 02-21 00:00: 00 Yes 500mg Take 1 tablet by mouth every 8 (eight) hours. [facility] TYLENOL-COD EINE #3 300-30 mg tablet 02-21 00:00: 00 Yes 2{tbl} Take 2 tablets by mouth every 6 (six) hours as needed for Pain (scale 4-6). [facility] CIPROFLOXAC IN HCL 500 mg tablet 02-21 00:00: 00 Yes 500mg Take 1 tablet by mouth 2 (two) times daily. [facility] METRONIDAZO LE 500 mg tablet 02-21 00:00: 00 Yes 500mg Take 1 tablet by mouth every 8 (eight) hours. [facility] TYLENOL-COD EINE #3 300-30 mg tablet 02-21 00:00: 00 Yes 2{tbl} Take 2 tablets by mouth every 6 (six) hours as needed for Pain (scale 4-6). [facility] CIPROFLOXAC IN HCL 500 mg tablet 02-21 00:00: 00 Yes 500mg Take 1 tablet by mouth 2 (two) times daily. [facility] METRONIDAZO LE 500 mg tablet 02-21 00:00: 00 Yes 500mg Take 1 tablet by mouth every 8 (eight) hours. [facility] TYLENOL-COD EINE #3 300-30 mg tablet 02-21 00:00: 00 Yes 2{tbl} Take 2 tablets by mouth every 6 (six) hours as needed for Pain (scale 4-6). [facility] CIPROFLOXAC IN HCL 500 mg tablet 02-21 00:00: 00 Yes 500mg Take 1 tablet by mouth 2 (two) times daily. [facility] METRONIDAZO LE 500 mg tablet 02-21 00:00: 00 Yes 500mg Take 1 tablet by mouth every 8 (eight) hours. [facility] TYLENOL-COD EINE #3 300-30 mg tablet 02-21 00:00: 00 Yes 2{tbl} Take 2 tablets by mouth every 6 (six) hours as needed for Pain (scale 4-6). [facility] CIPROFLOXAC IN HCL 500 mg tablet 02-21 00:00: 00 Yes 500mg Take 1 tablet by mouth 2 (two) times daily. [facility] METRONIDAZO LE 500 mg tablet 02-21 00:00: 00 Yes 500mg Take 1 tablet by mouth every 8 (eight) hours. [facility] TYLENOL-COD EINE #3 300-30 mg tablet 02-21 00:00: 00 Yes 2{tbl} Take 2 tablets by mouth every 6 (six) hours as needed for Pain (scale 4-6). [facility] CIPROFLOXAC IN HCL 500 mg tablet 02-21 00:00: 00 Yes 500mg Take 1 tablet by mouth 2 (two) times daily. [facility] METRONIDAZO LE 500 mg tablet 02-21 00:00: 00 Yes 500mg Take 1 tablet by mouth every 8 (eight) hours. [facility] TYLENOL-COD EINE #3 300-30 mg tablet 02-21 00:00: 00 Yes 2{tbl} Take 2 tablets by mouth every 6 (six) hours as needed for Pain (scale 4-6). [facility] CIPROFLOXAC IN HCL 500 mg tablet 02-21 00:00: 00 Yes 500mg Take 1 tablet by mouth 2 (two) times daily. [facility] METRONIDAZO LE 500 mg tablet 02-21 00:00: 00 Yes 500mg Take 1 tablet by mouth every 8 (eight) hours. [facility] TYLENOL-COD EINE #3 300-30 mg tablet 02-21 00:00: 00 Yes 2{tbl} Take 2 tablets by mouth every 6 (six) hours as needed for Pain (scale 4-6). [facility] CIPROFLOXAC IN HCL 500 mg tablet 02-21 00:00: 00 Yes 500mg Take 1 tablet by mouth 2 (two) times daily. [facility] METRONIDAZO LE 500 mg tablet 02-21 00:00: 00 Yes 500mg Take 1 tablet by mouth every 8 (eight) hours. [facility] TYLENOL-COD EINE #3 300-30 mg tablet 02-21 00:00: 00 Yes 2{tbl} Take 2 tablets by mouth every 6 (six) hours as needed for Pain (scale 4-6). [facility] AMLODIPINE BESYLATE (AMLODIPINE ORAL) 01-08 16:48: 51 Yes 10mg Take 10 mg by mouth daily. [facility] ibuprofen 800 mg tablet 01-08 16:48: 51 Yes 800mg Take 800 mg by mouth every 6 (six) hours as needed for Pain (scale 1-3) or Pain (scale 4-6). [facility] omeprazole 20 mg capsule 01-08 16:48: 51 Yes 20mg Take 20 mg by mouth daily. [facility] meloxicam 15 mg tablet 01-08 16:48: 51 Yes 15mg Take 15 mg by mouth daily. [facility] allopurinol 100 mg tablet 01-08 16:48: 51 Yes 100mg Take 100 mg by mouth daily. [facility] Cholecalcif kedar, Vitamin D3, 400 unit capsule 01-08 16:48: 51 Yes 400U Take 400 Units by mouth daily. [facility] atorvastati n 40 mg tablet 01-08 16:48: 51 Yes 40mg Take 40 mg by mouth at bedtime. [facility] AMLODIPINE BESYLATE (AMLODIPINE ORAL) 01-08 16:48: 51 Yes 10mg Take 10 mg by mouth daily. [facility] ibuprofen 800 mg tablet 01-08 16:48: 51 Yes 800mg Take 800 mg by mouth every 6 (six) hours as needed for Pain (scale 1-3) or Pain (scale 4-6). [facility] omeprazole 20 mg capsule 01-08 16:48: 51 Yes 20mg Take 20 mg by mouth daily. [facility] meloxicam 15 mg tablet 01-08 16:48: 51 Yes 15mg Take 15 mg by mouth daily. [facility] allopurinol 100 mg tablet 01-08 16:48: 51 Yes 100mg Take 100 mg by mouth daily. [facility] Cholecalcif kedar, Vitamin D3, 400 unit capsule 01-08 16:48: 51 Yes 400U Take 400 Units by mouth daily. [facility] atorvastati n 40 mg tablet 01-08 16:48: 51 Yes 40mg Take 40 mg by mouth at bedtime. [facility] AMLODIPINE BESYLATE (AMLODIPINE ORAL) 01-08 16:48: 51 Yes 10mg Take 10 mg by mouth daily. [facility] ibuprofen 800 mg tablet 01-08 16:48: 51 Yes 800mg Take 800 mg by mouth every 6 (six) hours as needed for Pain (scale 1-3) or Pain (scale 4-6). [facility] omeprazole 20 mg capsule 01-08 16:48: 51 Yes 20mg Take 20 mg by mouth daily. [facility] meloxicam 15 mg tablet 01-08 16:48: 51 Yes 15mg Take 15 mg by mouth daily. [facility] allopurinol 100 mg tablet 01-08 16:48: 51 Yes 100mg Take 100 mg by mouth daily. [facility] Cholecalcif kedar, Vitamin D3, 400 unit capsule 01-08 16:48: 51 Yes 400U Take 400 Units by mouth daily. [facility] atorvastati n 40 mg tablet 01-08 16:48: 51 Yes 40mg Take 40 mg by mouth at bedtime. [facility] AMLODIPINE BESYLATE (AMLODIPINE ORAL) 01-08 16:48: 51 Yes 10mg Take 10 mg by mouth daily. [facility] ibuprofen 800 mg tablet 01-08 16:48: 51 Yes 800mg Take 800 mg by mouth every 6 (six) hours as needed for Pain (scale 1-3) or Pain (scale 4-6). [facility] omeprazole 20 mg capsule 01-08 16:48: 51 Yes 20mg Take 20 mg by mouth daily. [facility] meloxicam 15 mg tablet 01-08 16:48: 51 Yes 15mg Take 15 mg by mouth daily. [facility] allopurinol 100 mg tablet 01-08 16:48: 51 Yes 100mg Take 100 mg by mouth daily. [facility] Cholecalcif kedar, Vitamin D3, 400 unit capsule 01-08 16:48: 51 Yes 400U Take 400 Units by mouth daily. [facility] atorvastati n 40 mg tablet 01-08 16:48: 51 Yes 40mg Take 40 mg by mouth at bedtime. [facility] AMLODIPINE BESYLATE (AMLODIPINE ORAL) 01-08 16:48: 51 Yes 10mg Take 10 mg by mouth daily. [facility] ibuprofen 800 mg tablet 01-08 16:48: 51 Yes 800mg Take 800 mg by mouth every 6 (six) hours as needed for Pain (scale 1-3) or Pain (scale 4-6). [facility] omeprazole 20 mg capsule 01-08 16:48: 51 Yes 20mg Take 20 mg by mouth daily. [facility] meloxicam 15 mg tablet 01-08 16:48: 51 Yes 15mg Take 15 mg by mouth daily. [facility] allopurinol 100 mg tablet 01-08 16:48: 51 Yes 100mg Take 100 mg by mouth daily. [facility] Cholecalcif kedar, Vitamin D3, 400 unit capsule 01-08 16:48: 51 Yes 400U Take 400 Units by mouth daily. [facility] atorvastati n 40 mg tablet 01-08 16:48: 51 Yes 40mg Take 40 mg by mouth at bedtime. [facility] AMLODIPINE BESYLATE (AMLODIPINE ORAL) 01-08 16:48: 51 Yes 10mg Take 10 mg by mouth daily. [facility] ibuprofen 800 mg tablet 01-08 16:48: 51 Yes 800mg Take 800 mg by mouth every 6 (six) hours as needed for Pain (scale 1-3) or Pain (scale 4-6). [facility] omeprazole 20 mg capsule 01-08 16:48: 51 Yes 20mg Take 20 mg by mouth daily. [facility] meloxicam 15 mg tablet 01-08 16:48: 51 Yes 15mg Take 15 mg by mouth daily. [facility] allopurinol 100 mg tablet 01-08 16:48: 51 Yes 100mg Take 100 mg by mouth daily. [facility] Cholecalcif kedar, Vitamin D3, 400 unit capsule 01-08 16:48: 51 Yes 400U Take 400 Units by mouth daily. [facility] atorvastati n 40 mg tablet 01-08 16:48: 51 Yes 40mg Take 40 mg by mouth at bedtime. [facility] AMLODIPINE BESYLATE (AMLODIPINE ORAL) 01-08 16:48: 51 Yes 10mg Take 10 mg by mouth daily. [facility] ibuprofen 800 mg tablet 01-08 16:48: 51 Yes 800mg Take 800 mg by mouth every 6 (six) hours as needed for Pain (scale 1-3) or Pain (scale 4-6). [facility] omeprazole 20 mg capsule 01-08 16:48: 51 Yes 20mg Take 20 mg by mouth daily. [facility] meloxicam 15 mg tablet 01-08 16:48: 51 Yes 15mg Take 15 mg by mouth daily. [facility] allopurinol 100 mg tablet 01-08 16:48: 51 Yes 100mg Take 100 mg by mouth daily. [facility] Cholecalcif kedar, Vitamin D3, 400 unit capsule 01-08 16:48: 51 Yes 400U Take 400 Units by mouth daily. [facility] atorvastati n 40 mg tablet 01-08 16:48: 51 Yes 40mg Take 40 mg by mouth at bedtime. [facility] AMLODIPINE BESYLATE (AMLODIPINE ORAL) 01-08 16:48: 51 Yes 10mg Take 10 mg by mouth daily. [facility] ibuprofen 800 mg tablet 01-08 16:48: 51 Yes 800mg Take 800 mg by mouth every 6 (six) hours as needed for Pain (scale 1-3) or Pain (scale 4-6). [facility] omeprazole 20 mg capsule 01-08 16:48: 51 Yes 20mg Take 20 mg by mouth daily. [facility] meloxicam 15 mg tablet 01-08 16:48: 51 Yes 15mg Take 15 mg by mouth daily. [facility] allopurinol 100 mg tablet 01-08 16:48: 51 Yes 100mg Take 100 mg by mouth daily. [facility] Cholecalcif kedar, Vitamin D3, 400 unit capsule 01-08 16:48: 51 Yes 400U Take 400 Units by mouth daily. [facility] atorvastati n 40 mg tablet 01-08 16:48: 51 Yes 40mg Take 40 mg by mouth at bedtime. [facility] AMLODIPINE BESYLATE (AMLODIPINE ORAL) 01-08 16:48: 51 Yes 10mg Take 10 mg by mouth daily. [facility] ibuprofen 800 mg tablet 01-08 16:48: 51 Yes 800mg Take 800 mg by mouth every 6 (six) hours as needed for Pain (scale 1-3) or Pain (scale 4-6). [facility] omeprazole 20 mg capsule 01-08 16:48: 51 Yes 20mg Take 20 mg by mouth daily. [facility] meloxicam 15 mg tablet 01-08 16:48: 51 Yes 15mg Take 15 mg by mouth daily. [facility] allopurinol 100 mg tablet 01-08 16:48: 51 Yes 100mg Take 100 mg by mouth daily. [facility] Cholecalcif kedar, Vitamin D3, 400 unit capsule 01-08 16:48: 51 Yes 400U Take 400 Units by mouth daily. [facility] atorvastati n 40 mg tablet 01-08 16:48: 51 Yes 40mg Take 40 mg by mouth at bedtime. [facility] metroNIDAZO LE 250 mg tablet 01-08 00:00: 00 Yes 500mg Take 2 tablets by mouth every 8 (eight) hours. [facility] ciprofloxac in HCl 500 mg tablet 01-08 00:00: 00 Yes 500mg Take 1 tablet by mouth every 12 (twelve) hours. [facility] hydroCHLORO thiazide 12.5 mg capsule 01-08 00:00: 00 Yes 25mg Take 2 capsules by mouth daily. [facility] bisacodyl (DULCOLAX, BISACODYL,) 5 mg EC tablet 01-08 00:00: 00 Yes 10mg Take 2 tablets by mouth once daily as needed for Constipati on. [facility] traMADOL 50 mg tablet 01-08 00:00: 00 Yes 50mg Take 1 tablet by mouth every 6 (six) hours as needed for Pain unrelieved by non-narcot ic analgesics . [facility] metroNIDAZO LE 250 mg tablet 01-08 00:00: 00 Yes 500mg Take 2 tablets by mouth every 8 (eight) hours. [facility] ciprofloxac in HCl 500 mg tablet 01-08 00:00: 00 Yes 500mg Take 1 tablet by mouth every 12 (twelve) hours. [facility] hydroCHLORO thiazide 12.5 mg capsule 01-08 00:00: 00 Yes 25mg Take 2 capsules by mouth daily. [facility] bisacodyl (DULCOLAX, BISACODYL,) 5 mg EC tablet 01-08 00:00: 00 Yes 10mg Take 2 tablets by mouth once daily as needed for Constipati on. [facility] traMADOL 50 mg tablet 01-08 00:00: 00 Yes 50mg Take 1 tablet by mouth every 6 (six) hours as needed for Pain unrelieved by non-narcot ic analgesics . [facility] metroNIDAZO LE 250 mg tablet 01-08 00:00: 00 Yes 500mg Take 2 tablets by mouth every 8 (eight) hours. [facility] ciprofloxac in HCl 500 mg tablet 01-08 00:00: 00 Yes 500mg Take 1 tablet by mouth every 12 (twelve) hours. [facility] hydroCHLORO thiazide 12.5 mg capsule 01-08 00:00: 00 Yes 25mg Take 2 capsules by mouth daily. [facility] bisacodyl (DULCOLAX, BISACODYL,) 5 mg EC tablet 01-08 00:00: 00 Yes 10mg Take 2 tablets by mouth once daily as needed for Constipati on. [facility] traMADOL 50 mg tablet 01-08 00:00: 00 Yes 50mg Take 1 tablet by mouth every 6 (six) hours as needed for Pain unrelieved by non-narcot ic analgesics . [facility] metroNIDAZO LE 250 mg tablet 01-08 00:00: 00 Yes 500mg Take 2 tablets by mouth every 8 (eight) hours. [facility] ciprofloxac in HCl 500 mg tablet 01-08 00:00: 00 Yes 500mg Take 1 tablet by mouth every 12 (twelve) hours. [facility] hydroCHLORO thiazide 12.5 mg capsule 01-08 00:00: 00 Yes 25mg Take 2 capsules by mouth daily. [facility] bisacodyl (DULCOLAX, BISACODYL,) 5 mg EC tablet 01-08 00:00: 00 Yes 10mg Take 2 tablets by mouth once daily as needed for Constipati on. [facility] traMADOL 50 mg tablet 01-08 00:00: 00 Yes 50mg Take 1 tablet by mouth every 6 (six) hours as needed for Pain unrelieved by non-narcot ic analgesics . [facility] metroNIDAZO LE 250 mg tablet 01-08 00:00: 00 Yes 500mg Take 2 tablets by mouth every 8 (eight) hours. [facility] ciprofloxac in HCl 500 mg tablet 01-08 00:00: 00 Yes 500mg Take 1 tablet by mouth every 12 (twelve) hours. [facility] hydroCHLORO thiazide 12.5 mg capsule 01-08 00:00: 00 Yes 25mg Take 2 capsules by mouth daily. [facility] bisacodyl (DULCOLAX, BISACODYL,) 5 mg EC tablet 01-08 00:00: 00 Yes 10mg Take 2 tablets by mouth once daily as needed for Constipati on. [facility] traMADOL 50 mg tablet 01-08 00:00: 00 Yes 50mg Take 1 tablet by mouth every 6 (six) hours as needed for Pain unrelieved by non-narcot ic analgesics . [facility] metroNIDAZO LE 250 mg tablet 01-08 00:00: 00 Yes 500mg Take 2 tablets by mouth every 8 (eight) hours. [facility] ciprofloxac in HCl 500 mg tablet 01-08 00:00: 00 Yes 500mg Take 1 tablet by mouth every 12 (twelve) hours. [facility] hydroCHLORO thiazide 12.5 mg capsule 01-08 00:00: 00 Yes 25mg Take 2 capsules by mouth daily. [facility] bisacodyl (DULCOLAX, BISACODYL,) 5 mg EC tablet 01-08 00:00: 00 Yes 10mg Take 2 tablets by mouth once daily as needed for Constipati on. [facility] traMADOL 50 mg tablet 01-08 00:00: 00 Yes 50mg Take 1 tablet by mouth every 6 (six) hours as needed for Pain unrelieved by non-narcot ic analgesics . [facility] metroNIDAZO LE 250 mg tablet 01-08 00:00: 00 Yes 500mg Take 2 tablets by mouth every 8 (eight) hours. [facility] ciprofloxac in HCl 500 mg tablet 01-08 00:00: 00 Yes 500mg Take 1 tablet by mouth every 12 (twelve) hours. [facility] hydroCHLORO thiazide 12.5 mg capsule 01-08 00:00: 00 Yes 25mg Take 2 capsules by mouth daily. [facility] bisacodyl (DULCOLAX, BISACODYL,) 5 mg EC tablet 01-08 00:00: 00 Yes 10mg Take 2 tablets by mouth once daily as needed for Constipati on. [facility] traMADOL 50 mg tablet 01-08 00:00: 00 Yes 50mg Take 1 tablet by mouth every 6 (six) hours as needed for Pain unrelieved by non-narcot ic analgesics . [facility] metroNIDAZO LE 250 mg tablet 01-08 00:00: 00 Yes 500mg Take 2 tablets by mouth every 8 (eight) hours. [facility] ciprofloxac in HCl 500 mg tablet 01-08 00:00: 00 Yes 500mg Take 1 tablet by mouth every 12 (twelve) hours. [facility] hydroCHLORO thiazide 12.5 mg capsule 01-08 00:00: 00 Yes 25mg Take 2 capsules by mouth daily. [facility] bisacodyl (DULCOLAX, BISACODYL,) 5 mg EC tablet 01-08 00:00: 00 Yes 10mg Take 2 tablets by mouth once daily as needed for Constipati on. [facility] traMADOL 50 mg tablet 01-08 00:00: 00 Yes 50mg Take 1 tablet by mouth every 6 (six) hours as needed for Pain unrelieved by non-narcot ic analgesics . [facility] metroNIDAZO LE 250 mg tablet 01-08 00:00: 00 Yes 500mg Take 2 tablets by mouth every 8 (eight) hours. [facility] ciprofloxac in HCl 500 mg tablet 01-08 00:00: 00 Yes 500mg Take 1 tablet by mouth every 12 (twelve) hours. [facility] hydroCHLORO thiazide 12.5 mg capsule 01-08 00:00: 00 Yes 25mg Take 2 capsules by mouth daily. [facility] bisacodyl (DULCOLAX, BISACODYL,) 5 mg EC tablet 01-08 00:00: 00 Yes 10mg Take 2 tablets by mouth once daily as needed for Constipati on. [facility] traMADOL 50 mg tablet 01-08 00:00: 00 Yes 50mg Take 1 tablet by mouth every 6 (six) hours as needed for Pain unrelieved by non-narcot ic analgesics . [facility] hydrALAZINE HCl 25 MG hydrALAZINE HCl 25 MG No 1{table t_with_ food} QD hydrALAZIN E HCl 25 MG hydroCHLORO thiazide 25 MG hydroCHLORO thiazide 25 MG No hydroCHLOR Othiazide 25 MG Atorvastati n Calcium 20 MG Atorvastati n Calcium 20 MG No 1{table t} QD Atorvastat in Calcium 20 MG Omeprazole 20 MG Omeprazole 20 MG No Omeprazole 20 MG amLODIPine Besylate 10 MG amLODIPine Besylate 10 MG No 1{table t} QD amLODIPine Besylate 10 MG Allopurinol 100 MG Allopurinol 100 MG No Allopurino l 100 MG Metoprolol Tartrate 25 MG Metoprolol Tartrate 25 MG No 1{table t_with_ food} BID Metoprolol Tartrate 25 MG metFORMIN HCl ER 500 MG metFORMIN HCl ER 500 MG No metFORMIN HCl ER 500 MG hydrALAZINE HCl 25 MG hydrALAZINE HCl 25 MG No 1{table t_with_ food} QD hydrALAZIN E HCl 25 MG hydroCHLORO thiazide 25 MG hydroCHLORO thiazide 25 MG No hydroCHLOR Othiazide 25 MG Atorvastati n Calcium 20 MG Atorvastati n Calcium 20 MG No 1{table t} QD Atorvastat in Calcium 20 MG Omeprazole 20 MG Omeprazole 20 MG No Omeprazole 20 MG amLODIPine Besylate 10 MG amLODIPine Besylate 10 MG No 1{table t} QD amLODIPine Besylate 10 MG Allopurinol 100 MG Allopurinol 100 MG No Allopurino l 100 MG Metoprolol Tartrate 25 MG Metoprolol Tartrate 25 MG No 1{table t_with_ food} BID Metoprolol Tartrate 25 MG metFORMIN HCl ER 500 MG metFORMIN HCl ER 500 MG No metFORMIN HCl ER 500 MG Atorvastati n Calcium 20 MG Atorvastati n Calcium 20 MG No 1{table t} QD Atorvastat in Calcium 20 MG metFORMIN HCl ER 500 MG metFORMIN HCl ER 500 MG No 1{table t_with_ evening _meal} BID metFORMIN HCl ER 500 MG amLODIPine Besylate 10 MG amLODIPine Besylate 10 MG No 1{table t} QD amLODIPine Besylate 10 MG hydrALAZINE HCl 25 MG hydrALAZINE HCl 25 MG No 1{table t_with_ food} QD hydrALAZIN E HCl 25 MG hydroCHLORO thiazide 25 MG hydroCHLORO thiazide 25 MG No hydroCHLOR Othiazide 25 MG hydroCHLORO thiazide 25 MG hydroCHLORO thiazide 25 MG No hydroCHLOR Othiazide 25 MG metFORMIN HCl ER 500 MG metFORMIN HCl ER 500 MG No 1{table t_with_ evening _meal} QD metFORMIN HCl ER 500 MG Omeprazole 20 MG Omeprazole 20 MG No Omeprazole 20 MG Allopurinol 100 MG Allopurinol 100 MG No Allopurino l 100 MG Omeprazole 20 MG Omeprazole 20 MG No Omeprazole 20 MG Allopurinol 100 MG Allopurinol 100 MG No Allopurino l 100 MG Metoprolol Tartrate 25 MG Metoprolol Tartrate 25 MG No 1{table t_with_ food} BID Metoprolol Tartrate 25 MG Atorvastati n Calcium 20 MG Atorvastati n Calcium 20 MG No 1{table t} QD Atorvastat in Calcium 20 MG metFORMIN HCl ER 500 MG metFORMIN HCl ER 500 MG No 1{table t_with_ evening _meal} BID metFORMIN HCl ER 500 MG amLODIPine Besylate 10 MG amLODIPine Besylate 10 MG No 1{table t} QD amLODIPine Besylate 10 MG hydrALAZINE HCl 25 MG hydrALAZINE HCl 25 MG No 1{table t_with_ food} QD hydrALAZIN E HCl 25 MG hydroCHLORO thiazide 25 MG hydroCHLORO thiazide 25 MG No hydroCHLOR Othiazide 25 MG hydroCHLORO thiazide 25 MG hydroCHLORO thiazide 25 MG No hydroCHLOR Othiazide 25 MG metFORMIN HCl ER 500 MG metFORMIN HCl ER 500 MG No 1{table t_with_ evening _meal} QD metFORMIN HCl ER 500 MG Omeprazole 20 MG Omeprazole 20 MG No Omeprazole 20 MG Allopurinol 100 MG Allopurinol 100 MG No Allopurino l 100 MG Omeprazole 20 MG Omeprazole 20 MG No Omeprazole 20 MG Allopurinol 100 MG Allopurinol 100 MG No Allopurino l 100 MG Metoprolol Tartrate 25 MG Metoprolol Tartrate 25 MG No 1{table t_with_ food} BID Metoprolol Tartrate 25 MG Atorvastati n Calcium 20 MG Atorvastati n Calcium 20 MG No 1{table t} QD Atorvastat in Calcium 20 MG metFORMIN HCl ER 500 MG metFORMIN HCl ER 500 MG No 1{table t_with_ evening _meal} BID metFORMIN HCl ER 500 MG amLODIPine Besylate 10 MG amLODIPine Besylate 10 MG No 1{table t} QD amLODIPine Besylate 10 MG hydrALAZINE HCl 25 MG hydrALAZINE HCl 25 MG No 1{table t_with_ food} QD hydrALAZIN E HCl 25 MG hydroCHLORO thiazide 25 MG hydroCHLORO thiazide 25 MG No hydroCHLOR Othiazide 25 MG hydroCHLORO thiazide 25 MG hydroCHLORO thiazide 25 MG No hydroCHLOR Othiazide 25 MG metFORMIN HCl ER 500 MG metFORMIN HCl ER 500 MG No 1{table t_with_ evening _meal} QD metFORMIN HCl ER 500 MG Omeprazole 20 MG Omeprazole 20 MG No Omeprazole 20 MG Allopurinol 100 MG Allopurinol 100 MG No Allopurino l 100 MG Omeprazole 20 MG Omeprazole 20 MG No Omeprazole 20 MG Allopurinol 100 MG Allopurinol 100 MG No Allopurino l 100 MG Metoprolol Tartrate 25 MG Metoprolol Tartrate 25 MG No 1{table t_with_ food} BID Metoprolol Tartrate 25 MG hydrALAZINE HCl 25 MG hydrALAZINE HCl 25 MG No 1{table t_with_ food} QD hydrALAZIN E HCl 25 MG hydroCHLORO thiazide 25 MG hydroCHLORO thiazide 25 MG No hydroCHLOR Othiazide 25 MG Atorvastati n Calcium 20 MG Atorvastati n Calcium 20 MG No 1{table t} QD Atorvastat in Calcium 20 MG Omeprazole 20 MG Omeprazole 20 MG No Omeprazole 20 MG amLODIPine Besylate 10 MG amLODIPine Besylate 10 MG No 1{table t} QD amLODIPine Besylate 10 MG Allopurinol 100 MG Allopurinol 100 MG No Allopurino l 100 MG Metoprolol Tartrate 25 MG Metoprolol Tartrate 25 MG No 1{table t_with_ food} BID Metoprolol Tartrate 25 MG metFORMIN HCl ER 500 MG metFORMIN HCl ER 500 MG No metFORMIN HCl ER 500 MG hydrALAZINE HCl 25 MG hydrALAZINE HCl 25 MG No 1{table t_with_ food} QD hydrALAZIN E HCl 25 MG hydroCHLORO thiazide 25 MG hydroCHLORO thiazide 25 MG No hydroCHLOR Othiazide 25 MG Atorvastati n Calcium 20 MG Atorvastati n Calcium 20 MG No 1{table t} QD Atorvastat in Calcium 20 MG Omeprazole 20 MG Omeprazole 20 MG No Omeprazole 20 MG amLODIPine Besylate 10 MG amLODIPine Besylate 10 MG No 1{table t} QD amLODIPine Besylate 10 MG Allopurinol 100 MG Allopurinol 100 MG No Allopurino l 100 MG Metoprolol Tartrate 25 MG Metoprolol Tartrate 25 MG No 1{table t_with_ food} BID Metoprolol Tartrate 25 MG metFORMIN HCl ER 500 MG metFORMIN HCl ER 500 MG No metFORMIN HCl ER 500 MG hydrALAZINE HCl 25 MG hydrALAZINE HCl 25 MG No 1{table t_with_ food} QD hydrALAZIN E HCl 25 MG hydroCHLORO thiazide 25 MG hydroCHLORO thiazide 25 MG No hydroCHLOR Othiazide 25 MG Atorvastati n Calcium 20 MG Atorvastati n Calcium 20 MG No 1{table t} QD Atorvastat in Calcium 20 MG Omeprazole 20 MG Omeprazole 20 MG No Omeprazole 20 MG amLODIPine Besylate 10 MG amLODIPine Besylate 10 MG No 1{table t} QD amLODIPine Besylate 10 MG Allopurinol 100 MG Allopurinol 100 MG No Allopurino l 100 MG Metoprolol Tartrate 25 MG Metoprolol Tartrate 25 MG No 1{table t_with_ food} BID Metoprolol Tartrate 25 MG metFORMIN HCl ER 500 MG metFORMIN HCl ER 500 MG No metFORMIN HCl ER 500 MG hydrALAZINE HCl 25 MG hydrALAZINE HCl 25 MG No 1{table t_with_ food} QD hydrALAZIN E HCl 25 MG hydroCHLORO thiazide 25 MG hydroCHLORO thiazide 25 MG No hydroCHLOR Othiazide 25 MG Atorvastati n Calcium 20 MG Atorvastati n Calcium 20 MG No 1{table t} QD Atorvastat in Calcium 20 MG Omeprazole 20 MG Omeprazole 20 MG No Omeprazole 20 MG amLODIPine Besylate 10 MG amLODIPine Besylate 10 MG No 1{table t} QD amLODIPine Besylate 10 MG Allopurinol 100 MG Allopurinol 100 MG No Allopurino l 100 MG Metoprolol Tartrate 25 MG Metoprolol Tartrate 25 MG No 1{table t_with_ food} BID Metoprolol Tartrate 25 MG metFORMIN HCl ER 500 MG metFORMIN HCl ER 500 MG No metFORMIN HCl ER 500 MG allopurinol 100 mg tablet TAKE 1 TABLET BY MOUTH EVERY DAY allopurinol 100 mg tablet TAKE 1 TABLET BY MOUTH EVERY DAY No allopurino l 100 mg tablet TAKE 1 TABLET BY MOUTH EVERY DAY [facility] amlodipine 10 mg tablet TAKE 1 TABLET BY MOUTH EVERY DAY amlodipine 10 mg tablet TAKE 1 TABLET BY MOUTH EVERY DAY No amlodipine 10 mg tablet TAKE 1 TABLET BY MOUTH EVERY DAY [facility] atorvastati n 20 mg tablet TAKE 1 TABLET BY MOUTH EVERY DAY atorvastati n 20 mg tablet TAKE 1 TABLET BY MOUTH EVERY DAY No atorvastat in 20 mg tablet TAKE 1 TABLET BY MOUTH EVERY DAY [facility] hydralazine 25 mg tablet Take 1 tablet every day by oral route for 90 days. hydralazine 25 mg tablet Take 1 tablet every day by oral route for 90 days. No hydralazin e 25 mg tablet Take 1 tablet every day by oral route for 90 days. [facility] hydrochloro thiazide 25 mg tablet TAKE 1 TABLET BY MOUTH EVERY DAY hydrochloro thiazide 25 mg tablet TAKE 1 TABLET BY MOUTH EVERY DAY No hydrochlor othiazide 25 mg tablet TAKE 1 TABLET BY MOUTH EVERY DAY [facility] Lidoderm 5 % topical patch APPLY 1 PATCH BY TOPICAL ROUTE ONCE DAILY (MAY WEAR UP TO 12HOURS.) Lidoderm 5 % topical patch APPLY 1 PATCH BY TOPICAL ROUTE ONCE DAILY (MAY WEAR UP TO 12HOURS.) No Lidoderm 5 % topical patch APPLY 1 PATCH BY TOPICAL ROUTE ONCE DAILY (MAY WEAR UP TO 12HOURS.) [facility] metoprolol tartrate 25 mg tablet TAKE 1 TABLET BY MOUTH TWICE A DAY metoprolol tartrate 25 mg tablet TAKE 1 TABLET BY MOUTH TWICE A DAY No metoprolol tartrate 25 mg tablet TAKE 1 TABLET BY MOUTH TWICE A DAY [facility] omeprazole 20 mg capsule,del ayed release TAKE 1 CAPSULE BY MOUTH EVERY DAY omeprazole 20 mg capsule,del ayed release TAKE 1 CAPSULE BY MOUTH EVERY DAY No omeprazole 20 mg capsule,de layed release TAKE 1 CAPSULE BY MOUTH EVERY DAY [facility] omeprazole 40 mg capsule,del ayed release Take 1 capsule every day by oral route for 90 days. omeprazole 40 mg capsule,del ayed release Take 1 capsule every day by oral route for 90 days. No 1capsul e(s) Q1D omeprazole 40 mg capsule,de layed release Take 1 capsule every day by oral route for 90 days. [facility] albuterol sulfate HFA 90 mcg/actuati on aerosol inhaler Inhale 2 puffs as needed by inhalation route for 30 days. albuterol sulfate HFA 90 mcg/actuati on aerosol inhaler Inhale 2 puffs as needed by inhalation route for 30 days. No albuterol sulfate HFA 90 mcg/actuat ion aerosol inhaler Inhale 2 puffs as needed by inhalation route for 30 days. [facility] e Immunizations Ordered Immunization Name Filled Immunization Name Date Status Comments Source SARS-COV-2 (COVID-19) vaccine, UNSPECIFIED SARS-COV-2 (COVID-19) vaccine, UNSPECIFIED 2020-12-07 00:00:00 Completed [facility] pneumococcal polysaccharide PPV23 pneumococcal polysaccharide PPV23 2018-09-17 00:00:00 Completed [facility] influenza, injectable, quadrivalent influenza, injectable, quadrivalent 2018-09-17 00:00:00 Completed [facility] FluAD Quad SD FluAD Quad SD Unknown Completed [facility] FluAD Quad SD FluAD Quad SD Unknown Completed [facility] Fluad (aIIV4) - SDS - 0.5mL Fluad (aIIV4) - SDS - 0.5mL Unknown Completed [facility] Vital Signs Vital Name Observation Time Observation Value Comments S ource height 2023-04-16 14:40:00 69 [in_i] Commo n [facility] weight 2023-04-16 14:40:00 217 [lb_av] Comm on [facility] temperature 2023-04-16 14:40:00 97.5 [degF] Com mon [facility] bmi 2023-04-16 14:40:00 32.04 kg/m2 Comm on [facility] oximetry 2023-04-16 14:40:00 [facility] 2023-[facility]-16 14:40:00 16 /min [facility] blood pressure systolic 2023-04-16 14:40:00 134 mm[Hg] [facility] blood pressure diastolic 2023-04-16 14:40:00 82 mm[Hg] [facility] height 2023-01-18 15:00:00 69 [in_i] Commo n [facility] weight 2023-01-18 15:00:00 224 [lb_av] Comm on [facility] bmi 2023-01-18 15:00:00 33.08 kg/m2 Comm on [facility] blood pressure diastolic 2023-01-12 15:00:00 83 mm[Hg] Common [facility] height 2023-01-12 15:00:00 69 [in_i] Commo n [facility] weight 2023-01-12 15:00:00 225.4 [lb_av] Co mmon [facility] temperature 2023-01-12 15:00:00 98.2 [degF] Com mon [facility] bmi 2023-01-12 15:00:00 33.28 kg/m2 Comm on [facility] oximetry 2023-01-12 15:00:00 94 % Commo n [facility] respiratory rate 2023-01-12 15:00:00 16 /min [facility] blood pressure systolic 2023-01-12 15:00:00 131 mm[Hg] Common [facility] height 2023-01-01 15:40:00 69 [in_i] Commo n [facility] weight 2023-01-01 15:40:00 224 [lb_av] Comm on [facility] temperature 2023-01-01 15:40:00 97.7 [degF] Com mon [facility] bmi 2023-01-01 15:40:00 33.08 kg/m2 Comm on [facility] oximetry 2023-01-01 15:40:00 96 % Commo n [facility] respiratory rate 2023-01-01 15:40:00 17 /min Common [facility] blood pressure systolic 2023-01-01 15:40:00 142 mm[Hg] Common [facility] blood pressure diastolic 2023-01-01 15:40:00 86 mm[Hg] Common [facility] height 2023-01-01 16:20:00 69 [in_i] Commo n [facility] weight 2023-01-01 16:20:00 224 [lb_av] Comm on [facility] temperature 2023-01-01 16:20:00 97.7 [degF] Com mon [facility] bmi 2023-01-01 16:20:00 33.08 kg/m2 Comm on [facility] oximetry 2023-01-01 16:20:00 96 % Commo n [facility] respiratory rate 2023-01-01 16:20:00 17 /min [facility] blood pressure systolic 2023-01-01 16:20:00 142 mm[Hg] [facility] blood pressure diastolic 2023-01-01 16:20:00 86 mm[Hg] [facility] BP Diastolic 2020-12-07 00:00:00 97 mm[Hg] [facility] Height 2020-12-07 00:00:00 70 [in_i] [facility] BMI (Body Mass Index) 2020-12-07 00:00:00 31.3 kg/m2 [facility] BP Systolic 2020-12-07 00:00:00 101 mm[Hg] [facility] Body Weight 2020-12-07 00:00:00 218 [lb_av] [facility] Height 2020-06-09 00:00:00 70 [in_i] [facility] BMI (Body Mass Index) 2020-06-09 00:00:00 31.3 kg/m2 [facility] Body Weight 2020-06-09 00:00:00 218 [lb_av] [facility] Procedures Procedure Date / Time Performed Performing Clinicia n Source Appendectomy [facility] Back Surgery [facility] Screening for Malignant Neoplasm of Prostate [facility] Screening Colonoscopy [facility] Encounters Start Date/Time End Date/Time Encounter Type Admission Type Attending Clinicians Care Facility Care Department Encounter ID Source 2023-01-01 14:55:03 [facility] [id number] [facility] 2023-04-26 00:00:00 2023-04-26 00:00:00 (TEL) [facility] [id number] [facility] 2023-04-16 00:00:00 2023-04-16 00:00:00 OFFICE VISIT ESTAB PT LEVEL 4 [facility] [id number] [facility] 2023-04-09 00:00:00 2023-04-09 00:00:00 (TEL) [facility] [id number] [facility] 2023-01-18 00:00:00 2023-01-18 00:00:00 OFFICE VISIT ESTAB PT LEVEL 3 [facility] [id number] [facility] 2023-01-18 00:00:00 2023-01-18 00:00:00 (TEL) [facility] [id number] [facility] 2023-01-12 00:00:00 2023-01-12 00:00:00 OFFICE VISIT ESTAB PT LEVEL 4 [facility] [id number] [facility] 2023-01-05 00:00:00 2023-01-05 00:00:00 (TEL) STLMLC STLMLC [id number] [facility] 2023-01-01 00:00:00 2023-01-01 00:00:00 OFFICE VISIT NEW PT LEVEL 4 STLMLC STLMLC [id number] [facility] 2023-01-01 00:00:00 2023-01-01 00:00:00 (MCR WELL) Medicare Wellness STLMLC STLMLC [id number] [facility] 2021-12-07 14:30:00 2021-12-07 14:30:00 Outpatient ANA BANUELOS [facility] [id number] [facility] 2021-11-28 15:15:00 2021-11-28 16:00:00 Ancillary Visit Ebony Guadalupe Craig L [facility] 1.2.840.114 350.1.13.10 4.2.7.2.686 [id number] [facility] 2021-10-27 14:30:00 2021-10-27 14:30:00 Outpatient R ANA SHEEHAN [facility] [id number] [facility] 2021-10-12 14:30:00 2021-10-12 15:15:00 Ancillary Visit Ebony Guadalupe Craig L [facility] 1.2.840.114 350.1.13.10 4.2.7.2.686 [id number] [facility] 2021-10-07 15:00:00 2021-10-07 15:40:00 Ancillary Visit Ebony Guadalupe Craig [facility] 1.2.840.114 350.1.13.10 4.2.7.2.686 [id number] [facility] 2021-10-05 14:20:00 2021-10-05 15:05:00 Ancillary Visit Familia Bowser Craig L [facility] 1.2.840.114 350.1.13.10 4.2.7.2.686 [id number] [facility] 2021-09-29 14:20:00 2021-09-29 15:00:00 Ancillary Visit Familia Bowser Craig L [facility] 1.2.840.114 350.1.13.10 4.2.7.2.686 [id number] [facility] 2021-09-27 14:20:00 2021-09-27 15:00:00 Ancillary Visit Familia Bowser Craig L [facility] 1.2.840.114 350.1.13.10 4.2.7.2.686 [id number] [facility] 2021-09-21 15:20:00 2021-09-21 16:43:45 Ancillary Visit Ebony Guadalupe Craig L [facility] 1.2840.114 350.1.13.10 4.2.7.2.686 [id number] [facility] 2021-09-19 15:20:00 2021-09-19 15:20:00 Outpatient ANA [facility] [id number] [facility] 2021-09-14 10:40:00 2021-09-14 11:20:00 Ancillary Visit Ebony Guadalupe Craig L [facility] 1.2840.114 350.1.13.10 4.2.7.2.686 [id number] [facility] 2021-09-12 14:40:00 2021-09-12 16:34:12 Ancillary Visit Ebony Guadalupe Craig L [facility] 1.2.840.114 350.1.13.10 4.2.7.2.686 [id number] [facility] 2021-09-12 14:40:00 2021-09-12 16:34:12 Outpatient ANA [facility] [id number] [facility] 2021-08-19 00:00:00 2021-08-19 00:00:00 Orders Only Doctor Unassigned, Apollo [facility] 1..114 350.1.13.10 4.2.7.2.686 [id number] [facility] 2021-08-17 15:00:00 2021-08-17 15:00:00 Outpatient ANA [facility] [id number] [facility] 2021-08-17 00:00:00 2021-08-17 00:00:00 Case Management Monica Bowser [facility] 1.2.840.114 350.1.13.10 4.2.7.2.686 [id number] [facility] 2021-08-15 15:00:00 2021-08-15 15:00:00 Outpatient ANA [facility]OS [facility] [id number] [facility] 2021-08-01 13:40:00 2021-08-01 15:58:00 Outpatient ANA [facility] [id number] [facility] 2021-08-01 13:37:46 2021-08-01 15:58:00 Ancillary Visit Ebony Guadalupe Craig L [facility] 1.2.840.114 350.1.13.10 4.2.7.2.686 [id number] [facility] 2021-08-01 00:00:00 2021-08-01 00:00:00 Orders Only Doctor Unassigned, Apollo [facility] 1.2.840.114 350.1.13.10 4.2.7.2.686 [id number] [facility] 2021-03-03 04:58:00 2021-03-03 04:58:00 Outpatient Miller_S_AH VFP VFP [id number] [facility] 2020-12-15 01:16:00 2020-12-15 01:16:00 Outpatient Ajibade_O_A H VFP VFP [id number] [facility] 2020-12-15 01:16:00 2020-12-15 01:16:00 Outpatient Ajibade_O_A H VFP VFP [id number] [facility] 2020-12-13 02:14:00 2020-12-13 02:14:00 Outpatient Ajibade_O_A H VFP VFP [id number] [facility] 2020-12-07 01:11:00 2020-12-07 01:11:00 Outpatient Ajibade_O_A H VFP VFP [id number] [facility] 2020-12-07 00:00:00 2020-12-07 00:00:00 Page Chatterjee, COPYRIGHT MANAGER: [address] [facility], [address], [place] [address] , Ph. VFP [place] - [facility] Medical - [email or web address]_ [place] [employer] [id number] [facility] 2020-07-16 09:42:00 2020-07-16 09:42:00 Outpatient Ajibade_O_A H VFP VFP [id number] [facility] 2020-07-16 09:42:00 2020-07-16 09:42:00 Outpatient Ajibade_O_A H VFP VFP [id number] [facility] 2020-06-23 11:33:00 2020-06-23 11:33:00 Outpatient Ajibade_O_A H VFP VFP [id number] [facility] 2020-06-09 01:32:00 2020-06-09 01:32:00 Outpatient Ajibade_O_A H VFP VFP [id number] [facility] 2020-06-09 00:00:00 2020-06-09 00:00:00 Page Chatterjee, COPYRIGHT MANAGER: [address] [facility], [address], [place] [address] , Ph. VFP [place] - [facility] - [email or web address]_ [place] [employer] [id number] [facility] 2020-05-25 12:24:00 2020-05-25 12:24:00 Outpatient Ajibade_O_A H VFP VFP [id number] [facility] 2020-05-13 03:39:00 2020-05-13 03:39:00 Outpatient Ajibade_O_A H VFP VFP [id number] [facility] 2019-11-05 07:28:00 2019-11-05 07:28:00 Outpatient Ige-Odunuga _J_AH [facility] [id number] [facility] e Results Test Description Test Time Test Comments Results Result Co mments Source CBC (INCLUDES DIFF/PLT)2023-04-09 00:00:00* Test Item Value Reference Range Interpretation Comme nts ABSOLUTE BASOPHILS (test code = 704-7) 69 cells/uL See_Comment N [Automated m essage] The system which generated this result transmitted reference range: 0-200 cells/uL. The reference range was not used to interpret this result as normal/abnormal. ABSOLUTE EOSINOPHILS (test code = 711-2) 181 cells/uL See_Comment N [Automated m essage] The system which generated this result transmitted reference range: 15-500 cells/uL. The reference range was not used to interpret this result as normal/abnormal. ABSOLUTE LYMPHOCYTES (test code = 731-0) 3010 cells/uL See_Comment N [Automated m essage] The system which generated this result transmitted reference range: 850-3900 cells/uL. The reference range was not used to interpret this result as normal/abnormal. ABSOLUTE MONOCYTES (test code = 742-7) 731 cells/uL See_Comment N [Automated m essage] The system which generated this result transmitted reference range: 200-950 cells/uL. The reference range was not used to interpret this result as normal/abnormal. ABSOLUTE NEUTROPHILS (test code = 751-8) 4610 cells/uL See_Comment N [Automated m essage] The system which generated this result transmitted reference range: 9483-8059 cells/uL. The reference range was not used to interpret this result as normal/abnormal. BASOPHILS (test code = 706-2) 0.8 % N EOSINOPHILS (test code = 713-8) 2.1 % N HEMATOCRIT (test code = 4544-3) 47.3 % See_Comment N [Automated messa ge] The system which generated this result transmitted reference range: 38.5-50.0 %. The reference range was not used to interpret this result as normal/abnormal. HEMOGLOBIN (test code = 718-7) 16.8 g/dL See_Comment N [Automated messa ge] The system which generated this result transmitted reference range: 13.2-17.1 g/dL. The reference range was not used to interpret this result as normal/abnormal. LYMPHOCYTES (test code = 736-9) 35.0 % N MCH (test code = 785-6) 32.1 pg See_Comment N [Automated messa ge] The system which generated this result transmitted reference range: 27.0-33.0 pg. The reference range was not used to interpret this result as normal/abnormal. MCHC (test code = 786-4) 35.5 g/dL See_Comment N [Automated messa ge] The system which generated this result transmitted reference range: 32.0-36.0 g/dL. The reference range was not used to interpret this result as normal/abnormal. MCV (test code = 787-2) 90.4 fL See_Comment N [Automated messa ge] The system which generated this result transmitted reference range: 80.0-100.0 fL. The reference range was not used to interpret this result as normal/abnormal. MONOCYTES (test code = 5905-5) 8.5 % N MPV (test code = 776-5) 10.6 fL See_Comment N [Automated messa ge] The system which generated this result transmitted reference range: 7.5-12.5 fL. The reference range was not used to interpret this result as normal/abnormal. NEUTROPHILS (test code = 770-8) 53.6 % N PLATELET COUNT (test code = 777-3) 226 Thousand/uL See_Comment N [Automated message] The system which generated this result transmitted reference range: 140-400 Thousand/uL. The reference range was not used to interpret this result as normal/abnormal. RDW (test code = 788-0) 13.1 % See_Comment N [Automated messa ge] The system which generated this result transmitted reference range: 11.0-15.0 %. The reference range was not used to interpret this result as normal/abnormal. RED BLOOD CELL COUNT (test code = 789-8) 5.23 Million/uL See_Comment N [Automated message] The system which generated this result transmitted reference range: 4.20-5.80 Million/uL. The reference range was not used to interpret this result as normal/abnormal. WHITE BLOOD CELL COUNT (test code = 6690-2) 8.6 Thousand/uL See_Comment N [Automated message] The system which generated this result transmitted reference range: 3.8-10.8 Thousand/uL. The reference range was not used to interpret this result as normal/abnormal. MICROALBUMIN, RANDOM URINE (W/CREATININE)2023-04-09 00:00:00* Test Item Value Reference Range Interpretation Comme [facility] CREATININE, RANDOM URINE (test code = 2161-8) 242 mg/dL See_Comment N [Automated [employer]] The system which generated this result transmitted reference range: 20-320 mg/dL. The reference range was not used to interpret this result as normal/abnormal. ALBUMIN, URINE (test code = 06344-6) 1.0 mg/dL See Note: mg/dL N ALBUMIN/CREATININ E RATIO, RANDOM URINE (test code = 9318-7) 4 mcg/mg creat See_Comment N [Automated [employer]] The system which generated this result transmitted reference range: <30 mcg/mg creat. The reference range was not used to interpret this result as normal/abnormal. HEMOGLOBIN A1C WITH [id number] 00:00:00* Test Item Value Reference Range Interpretation Comme [facility] HEMOGLOBIN A1c (test code = 4548-4) 5.9 % of total Hgb See_Comment H [Automated message] The system which generated this result transmitted reference range: <5.7 % of total Hgb. The reference range was not used to interpret this result as normal/abnormal. MEAN PLASMA GLUCOSE (test code = 86890-1) 133 mg/dL (calc)
--- NOTE | 2023-09-08 15:59 | RAD REPORT ---
EXAM DESCRIPTION: Nathalia Single View09/08/2023 3:37 pm CLINICAL HISTORY: Chest pain COMPARISON: February 2023 FINDINGS: The lungs appear clear of acute infiltrate. The heart is normal size IMPRESSION: No acute abnormalities displayed
--- NOTE | 2023-09-08 20:26 | EDPHYS ---
Physician Documentation [facility] Name: Maynor Marquez Age: 67 yrs Sex: Male : 1955 Arrival Date: 09/08/2023 Time: 14:35 Bed 18 Private MD: ED Physician Dominic Yadav HPI: 09/08 15:25 This 67 yrs old Black Male presents to ER via Ambulatory with complaints of Flu cp Symptoms, Shortness Of Breath, Headache. 21:51 patient reports flu like symptoms, chest discomfort, body aches, sinus/nasal sb4 congestion, and headache for about 3 days now. denies any sick contacts. no other associated signs/symptoms. no alleviating/aggravating factors. symptoms are moderate in severity. Historical: - Allergies: 15:30 GABAPENTIN; jl7 15:30 Klonopin; jl7 15:30 Lisinopril; jl7 - PMHx: 15:30 Diverticulitis; Gout; Hypertension; Migraines; Pancreatitis; jl7 - Immunization history:: Adult Immunizations unknown. - Social history:: Smoking status: Patient reports the use of cigarette tobacco products. ROS: 15:30 Constitutional: Positive for body aches, fever, cp 15:30 Cardiovascular: Positive for chest pain, cp 15:30 Respiratory: Positive for cough, "sounds productive", shortness of breath, cp 15:30 Skin: Negative for injury, rash, and discoloration, cp 15:30 Abdomen/GI: Negative for abdominal pain, vomiting, diarrhea, constipation, cp 15:30 Neuro: Positive for headache, Negative for altered mental status, 15:30 All other systems are negative, cp Exam: 15:35 Constitutional: The patient appears in no acute distress, alert, awake, cp non-diaphoretic, non-toxic, well developed, well nourished, uncomfortable, 15:35 Head/Face: Normocephalic, atraumatic. cp 15:35 Chest/axilla: Inspection: normal, 15:35 Cardiovascular: Rate: normal, Rhythm: regular, Edema: is not appreciated, JVD: is not appreciated, 15:35 Respiratory: the patient does not display signs of respiratory distress, Respirations: labored breathing, that is mild, Breath sounds: bronchial sounds, that are mild, are heard diffusely, 15:35 Abdomen/GI: Inspection: abdomen appears normal, Palpation: abdomen is soft and non-tender, in all quadrants, 15:35 Back: pain, is absent, ROM is normal, 15:35 Neuro: Orientation: to person, place \\T\\ time. Mentation: is normal, Motor: moves all fours, strength is normal, Sensation: is normal, 15:35 Skin: no rash present. cp Vital Signs: 15:26 BP 145 / 103; Pulse 85; Resp 15; Temp 100.9; Pulse Ox 96% ; Weight 97.07 kg; Height 5 jl7 ft. 11 in. ; Pain 9/10; 20:54 BP 139 / 92; Pulse 66; Resp 16; Pulse Ox 100% ; cp4 15:26 Body Mass Index 29.85 (97.07 kg, 180.34 cm) jl7 15:26 Pain Scale: Adult jl7 MDM: 15:38 Patient medically screened. cp 18:30 Transition of care: Care assumed from Dominic PITTS. sb4 21:46 Data reviewed: vital signs, nurses notes, lab test result(s), radiologic studies, and sb4 as a result, I will discharge patient. ED course: labs hemolyzed, patient refused to be stuck again, requesting to be discharged. stable on my assessment. will discharge with steroids and antibiotics. strict return precautions given, he understands.. 21:51 Differential diagnosis: pneumonia, covid, flu, URI. Care significantly affected by the sb4 following chronic conditions: Hypertension. Counseling: I had a detailed discussion with the patient and/or guardian regarding the historical points, exam findings, and any diagnostic results supporting the discharge/admit diagnosis, lab results, radiology results, to return to the emergency department if symptoms worsen or persist or if there are any questions or concerns that arise at home. 09/08 17:34 Order name: Influenza Screen (a \\T\\ B); Complete Time: 19:07 cp 09/08 17:34 Order name: COVID-19 SARS RT PCR; Complete Time: 19:03 cp 09/08 15:21 Order name: XRAY Chest (1 view); Complete Time: 17:32 cp 09/08 17:32 Interpretation: Report review. 09/08 15:21 Order name: EKG; Complete Time: 15:22 cp 09/08 15:21 Order name: Cardiac monitoring; Complete Time: 18:04 09/08 15:21 Order name: EKG - Nurse/Tech; Complete Time: 19:04 09/08 15:21 Order name: IV Saline Lock; Complete Time: 18:35 09/08 15:21 Order name: Labs collected and sent; Complete Time: 19:04 09/08 15:21 Order name: O2 Per Protocol; Complete Time: 18:04 09/08 15:21 Order name: O2 Sat Monitoring; Complete Time: 18:04 09/08 19:41 Order name: Misc. Order: recollect all labs vc1 Administered Medications: 18:51 Drug: Acetaminophen PO 1000 mg PO once Route: PO; cp4 20:45 Follow up: Response: No adverse reaction cp4 20:25 Drug: Ibuprofen PO 800 mg PO once Route: PO; cp4 20:45 Follow up: Response: No adverse reaction cp4 Disposition Summary: 09/08/23 20:25 Discharge Ordered Notes: Location: Home sb4 Problem: new sb4 Symptoms: are unchanged sb4 Condition: Stable sb4 Diagnosis - Acute upper respiratory infection, unspecified sb4 Followup: sb4 - With: Emergency Department - When: As needed - Reason: Trouble breathing, Worsening of condition Discharge Instructions: - Discharge Summary Sheet sb4 - Upper Respiratory Infection, Adult, Ekzx-av-Cxih sb4 Forms: - Medication Reconciliation Form sb4 - Thank You Letter sb4 - Antibiotic Education sb4 - Prescription Opioid Use sb4 - Patient Portal Instructions sb4 - Leadership Thank You Letter sb4 Prescriptions: - Augmentin 875-125 mg Oral Tablet - take 1 tablet ORAL route every 12 hours for 10 days; 20 tablet; Refills: 0, sb4 Product Selection Permitted - Tessalon Perles 100 mg Oral Capsule - take 1 capsule ORAL route every 8 hours As needed; 15 capsule; Refills: 0, sb4 Product Selection Permitted - Medrol (Duglas) 4 mg Oral Tablets, Dose Pack - take 1 tablet ORAL route as directed - follow package instructions; 1 packet; sb4 Refills: 0, Product Selection Permitted Signatures: Dispatcher [employer] EDMS Dominic Wolfe PA PA cp Leal, Jahala, RN RN jl7 Cristina Kenny RN RN vc1 Raissa Bowser PAYonathan PAYonathan sb4 Marybeth Leo cp4 Corrections: (The following items were deleted from the chart) 19:41 19:41 Misc. Order ordered. sb4 vc1 20:38 18:26 Chest For PE Angio+CT.RAD.BRZ ordered. EDMS EDMS 09/09 19:48 09/08 21:51 Skin: Negative for injury, rash, and discoloration, sb4 cp
--- NOTE | 2023-09-08 20:26 | ER ---
Nurse's Notes [facility] Name: Maynor Marquez Age: 67 yrs Sex: Male : 1955 Arrival Date: 09/08/2023 Time: 14:35 Bed 18 Private MD: Diagnosis: Acute upper respiratory infection, unspecified Presentation: 09/08 15:26 Chief complaint: Patient states: SANZ, chest pressure since this morning. Coronavirus jl7 screen: Client presents with at least one sign or symptom that may indicate coronavirus-19. Ebola Screen: No symptoms or risks identified at this time. Initial Sepsis Screen: Does the patient meet any 2 criteria? No. Patient's initial sepsis screen is negative. Does the patient have a suspected source of infection? No. Patient's initial sepsis screen is negative. Risk Assessment: Do you want to hurt yourself or someone else? Patient reports no desire to harm self or others. Onset of symptoms was September 08, 2023. 15:26 Method Of Arrival: Ambulatory [facility] 15:26 Acuity: MARCUS 3 jl7 Triage Assessment: 20:53 Respiratory: Onset: The symptoms/episode began/occurred today. cp4 Historical: - Allergies: 15:30 GABAPENTIN; jl7 15:30 Klonopin; jl7 15:30 Lisinopril; jl7 - PMHx: 15:30 Diverticulitis; Gout; Hypertension; Migraines; Pancreatitis; jl7 - Immunization history:: Adult Immunizations unknown. - Social history:: Smoking status: Patient reports the use of cigarette tobacco products. Screenin:50 [facility] ED Fall Risk Assessment (Adult) History of falling in the last 3 months, cp4 including since admission No falls in past 3 months (0 pts) Confusion or Disorientation No (0 pts) Intoxicated or Sedated No (0 pts) Impaired Gait No (0 pts) Mobility Assist Device Used No (0 pt) Altered Elimination No (0 pt) Score/Fall Risk Level 0 - 2 = Low Risk Oriented to surroundings, Maintained a safe environment, Educated pt \T\ family on fall prevention, incl call for assistance when getting out of bed, Assessed \T\ reinforced patient's understanding of fall precautions, Hourly rounding (assess needs \T\ fall precautionary measures) done. Abuse screen: Denies threats or abuse. Nutritional screening: No deficits noted. Tuberculosis screening: No symptoms or risk factors identified. Assessment: 20:50 General: Appears in no apparent distress. Behavior is calm, cooperative, appropriate cp4 for age. Pain: Denies pain. Cardiovascular: Rhythm is sinus rhythm. Respiratory: Airway is patent Respiratory effort is even, unlabored, Breath sounds are clear bilaterally. Vital Signs: 15:26 BP 145 / 103; Pulse 85; Resp 15; Temp 100.9; Pulse Ox 96% ; Weight 97.07 kg; Height 5 jl7 ft. 11 in. ; Pain 9/10; 20:54 BP 139 / 92; Pulse 66; Resp 16; Pulse Ox 100% ; cp4 15:26 Body Mass Index 29.85 (97.07 kg, 180.34 cm) jl7 15:26 Pain Scale: Adult [facility] ED Course: 14:38 Patient arrived in ED. im 15:08 Dominic Wolfe PA is PHCP. cp 15:08 Dominic Yadav MD is Attending Physician. cp 15:30 Triage completed. jl7 15:30 Arm band placed on right wrist. jl7 15:39 XRAY Chest (1 view) In Process Unspecified. EDMS 17:49 Marybeth Leo is Primary Nurse. cp4 18:30 PHCP role handed off by Dominic Wolfe PA sb4 18:30 Raissa Bowser PA-C is PHCP. sb4 18:31 Basic Metabolic Panel Sent. cp4 18:32 CBC with Diff Sent. cp4 18:32 Magnesium Sent. cp4 18:32 NT PRO-BNP Sent. cp4 18:32 PT-INR Sent. cp4 18:32 Troponin HS Sent. cp4 20:50 Bed in low position. Call light in reach. Side rails up X 1. Provided Education on: cp4 viral infection.. 20:50 No provider procedures requiring assistance completed. Patient did not have IV access cp4 during this emergency room visit. Administered Medications: 18:51 Drug: Acetaminophen PO 1000 mg PO once Route: PO; cp4 20:45 Follow up: Response: No adverse reaction cp4 20:25 Drug: Ibuprofen PO 800 mg PO once Route: PO; cp4 20:45 Follow up: Response: No adverse reaction cp4 Medication: 20:50 VIS not applicable for this client. cp4 Outcome: 20:25 Discharge ordered by . sb4 20:50 Discharged to home ambulatory, cp4 20:50 Condition: stable 20:50 Discharge instructions given to patient, Instructed on discharge instructions, follow up and referral plans. medication usage, Demonstrated understanding of instructions, follow-up care, medications, Prescriptions given X 3, 20:54 Patient left the ED. cp4 Signatures: Dispatcher [employer] EDMS Dominic Wolfe PA PA cp Leal, Jahala, SALENA RN Raissa Hopper PA-C PAYonathan beaver4 Karolina Armas Christina cp4
[2023-09-08 22:15] VITALS: TEMP 100.9
[2023-09-08 22:22] VITALS: BP 139/92; O2SAT 100
== END ==
LOC: ER 14:35
DX: J06.9 Acute upper respiratory infection, unspecified (principal); Z11.52 Encounter for screening for COVID-19; Z72.0 Tobacco use; Z88.8 Allergy status to other drugs, medicaments and biological substances
CPT/HCPCS: 71045; 87635; 87804; 93005; 99283

== ENCOUNTER → 2023-12-05 | Emergency (ER) | payer OTHER ==
[~2023-12-05] MED LIST changes: -ACETAMINOPHEN 500 MG TAB ONE; +ALBUTEROL 2.5 MG/3 ML NEB SOL ONE; -IBUPROFEN 400 MG TAB ONE; +IPRATROPIUM BROM 0.5MG/2.5ML ONE
--- OUTSIDE RECORDS SUMMARY | 2023-12-05 07:49 | XMS REPORT | Continuity of Care Document ---
Author Name Unknown Address [address] [facility]. 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 Name Role Phone RAQUEL THOMAS Primary Care Physician Unava ilCarolina Gillespie Attending Clinician Unavailable ANA SHEEHAN Attending Clinician Unavailradha Guadalupe PT, Ebony Ogden Attending Clinician Unavail able Ana Sheehan MD Attending Clinician [phone] Familia Bowser PTA Attending Clinician Unavaila ble Doctor Unassigned, Mccarthy Attending Clinician Monica Mckenzie PTA Attending Clinician Unavail able Miller_S_AH Attending Clinician Unavailable Ajibade_O_AH Attending Clinician Unavailable Ige-[place]_J_AH Attending Clinician Unavailable Miller_S_AH Admitting Clinician Unavailable Ajibade_O_AH Admitting Clinician Unavailable Ige-[place]_J_AH Admitting Clinician Unavailable Payers Payer Name Policy Type Policy Number Effective Date Expirati on Date Source [employer] [id number] 2021 00:00:00 [employer] [place] PREMIUM H[place] [id number] 2021 00:00:00 [facility] [id number] 2018 00:00:00 [employer] [place]MEDICARE REPLACEMENT/ADVANTAGE - HMO) [id number] 2019 00:00:00 Problems Condition Name Condition Details Condition Category Status Onset Date Resolution Date Last Treatment Date Treating Clinician Comments Source Decreased ROM of ankle Decreased ROM of ankle Disease Active 2020-09 00:00: 00 [facility] Decreased strength of lower extremity Decreased strength of lower extremity Disease Active 2020-09 00:00: 00 [facility] Gait abnormalit y Gait abnormalit y Disease Active 2020-09 00:00: 00 [facility] Ankle pain, left Ankle pain, left Disease Active 2020-09 00:00: 00 [facility] Chronic obstructiv e lung disease Chronic Obstructiv e Lung Disease Problem Active 2019-09 00:00: 00 [facility] Hyperlipid emia Hyperlipid emia Problem Active 06-09 00:00: 00 [facility] Nicotine dependence Nicotine Dependence [...] Ankle Joint Problem Active 06-09 00:00: 00 [facility] Nicotine dependence with current use Nicotine Dependence with Current Use Problem Active 06-09 00:00: 00 [facility] Abdominal pain Abdominal pain Disease Active 01-04 00:00: 00 [facility] Infection Infection Disease Active 01-04 00:00: 00 [facility] Fall at home, initial encounter Fall at home, initial encounter Disease Active 2014-09 00:00: 00 [facility] Rib contusion, right, initial encounter Rib contusion, right, initial encounter Disease Active 2014-09 00:00: 00 [facility] [id number] Cigarette smoker one half pack a day or less Problem [facility] [id number] BMI 33.0-33.9, adult Problem [facility] 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 Hypertensi ve heart disease without CHF Problem [facility] Gastroesop hageal reflux disease GERD without esophagiti s Problem [facility] Mixed hyperlipid emia Mixed hyperlipid emia Problem [facility] Gout Gout, unspecifie d Problem [facility] Hyperglyce mary due to type 2 diabetes mellitus Type 2 diabetes mellitus with hyperglyce mary Problem [facility] Allergies, Adverse Reactions, Alerts Allergy Name Allergy Type Status Severity Reaction(s) Onset Date Inactive Date Treating Clinician Comments Source LISINOPR [place] DRUG INGREDI Active Unknown-Cmnt 04-06 00:00: 00 [facility] Lisinopr il Propensi ty to adverse reaction s Active Unknown - See comments 04-06 00:00: 00 [facility] Social History Social Habit Start Date Stop Date Quantity Comments Source History of Tobacco Use Current Smoker [facility] Sex Assigned At [facility] Exposure to SARS-CoV-2 (event) Not sure [facility] History SDOH Alcohol Frequency [facility] History SDOH Alcohol Std Drinks [facility] History SDOH Alcohol Binge [facility] Alcohol intake 2017-02-21 00:00:00 2017-02-21 00:00:00 Current drinker of alcohol (finding) [facility] Alcohol Comment 2017-01-04 00:00:00 2017-01-04 00:00:00 few drinks per week [facility] Smoking Status Start Date Stop Date Source Heavy Tobacco Smoker [facility] Current Smoker 2023-08-21 00:00:00 [facility] Former Smoker 2023-07-13 00:00:00 2023-07-13 00:00:00 [facility] Medications Ordered Medication Name Filled Medication Name Start Date Stop Date Current Medication? Ordering Clinician Indication Dosage Frequency Signature (SIG) Comments Components Source acetaminoph en-codeine 300-30 mg tablet 10-27 00:00: 00 Yes [id number] 1{tbl} Take 1-2 tablets by mouth every 6 (six) hours as needed for Pain (scale 1-3). [facility] traMADOL 50 mg tablet 10-27 00:00: 00 Yes [id number] 50mg Take 1 tablet by mouth every 6 (six) hours as needed for Pain (scale 1-3). [facility] acetaminoph en-codeine 300-30 mg tablet 10-27 00:00: 00 Yes [id number] 1{tbl} Take 1-2 tablets by mouth every 6 (six) hours as needed for Pain (scale 1-3). [facility] traMADOL 50 mg tablet 10-27 00:00: 00 Yes [id number] 50mg Take 1 tablet by mouth every 6 (six) hours as needed for Pain (scale 1-3). [facility] acetaminoph en-codeine 300-30 mg tablet 10-27 00:00: 00 Yes [id number] 1{tbl} Take 1-2 tablets by mouth every 6 (six) hours as needed for Pain (scale 1-3). [facility] traMADOL 50 mg tablet 10-27 00:00: 00 Yes [id number] 50mg Take 1 tablet by mouth every 6 (six) hours as needed for Pain (scale 1-3). [facility] acetaminoph en-codeine 300-30 mg tablet 10-27 00:00: 00 Yes [id number] 1{tbl} Take 1-2 tablets by mouth every 6 (six) hours as needed for Pain (scale 1-3). [facility] traMADOL 50 mg tablet 10-27 00:00: 00 Yes [id number] 50mg Take 1 tablet by mouth every 6 (six) hours as needed for Pain (scale 1-3). [facility] acetaminoph en-codeine 300-30 mg tablet 10-27 00:00: 00 Yes [id number] 1{tbl} Take 1-2 tablets by mouth every 6 (six) hours as needed for Pain (scale 1-3). [facility] traMADOL 50 mg tablet 10-27 00:00: 00 Yes [id number] 50mg Take 1 tablet by mouth every 6 (six) hours as needed for Pain (scale 1-3). [facility] acetaminoph en-codeine 300-30 mg tablet 10-27 00:00: 00 Yes [id number] 1{tbl} Take 1-2 tablets by mouth every 6 (six) hours as needed for Pain (scale 1-3). [facility] traMADOL 50 mg tablet 10-27 00:00: 00 Yes [id number] 50mg Take 1 tablet by mouth every 6 (six) hours as needed for Pain (scale 1-3). [facility] acetaminoph en-codeine 300-30 mg tablet 10-27 00:00: 00 Yes [id number] 1{tbl} Take 1-2 tablets by mouth every 6 (six) hours as needed for Pain (scale 1-3). [facility] traMADOL 50 mg tablet 10-27 00:00: 00 Yes [id number] 50mg Take 1 tablet by mouth every 6 (six) hours as needed for Pain (scale 1-3). [facility] acetaminoph en-codeine 300-30 mg tablet 10-27 00:00: 00 Yes [id number] 1{tbl} Take 1-2 tablets by mouth every 6 (six) hours as needed for Pain (scale 1-3). [facility] traMADOL 50 mg tablet 10-27 00:00: 00 Yes [id number] 50mg Take 1 tablet by mouth every 6 (six) hours as needed for Pain (scale 1-3). [facility] acetaminoph en-codeine 300-30 mg tablet 10-27 00:00: 00 Yes [id number] 1{tbl} Take 1-2 tablets by mouth every 6 (six) hours as needed for Pain (scale 1-3). [facility] traMADOL 50 mg tablet 10-27 00:00: 00 Yes [id number] 50mg Take 1 tablet by mouth every 6 (six) hours as needed for Pain (scale 1-3). [facility] acetaminoph en-codeine (TYLENOL-CO DEINE #3) 300-30 mg tablet 2017-09 00:00: 00 Yes 2{tbl} Take 2 tablets by mouth every 6 (six) hours as needed for Pain (scale 7-10). [facility] benzonatate 200 mg capsule 2017-09 00:00: 00 Yes 200mg Take 1 capsule by mouth 3 (three) times daily as needed for Cough. [facility] acetaminoph en-codeine (TYLENOL-CO DEINE #3) 300-30 mg tablet 2017-09 00:00: 00 Yes 2{tbl} Take 2 tablets by mouth every 6 (six) hours as needed for Pain (scale 7-10). [facility] benzonatate 200 mg capsule 2017-09 00:00: 00 Yes 200mg Take 1 capsule by mouth 3 (three) times daily as needed for Cough. [facility] acetaminoph en-codeine (TYLENOL-CO DEINE #3) 300-30 mg tablet 2017-09 00:00: 00 Yes 2{tbl} Take 2 tablets by mouth every 6 (six) hours as needed for Pain (scale 7-10). [facility] benzonatate 200 mg capsule 2017-09 00:00: 00 Yes 200mg Take 1 capsule by mouth 3 (three) times daily as needed for Cough. [facility] acetaminoph en-codeine (TYLENOL-CO DEINE #3) 300-30 mg tablet 2017-09 00:00: 00 Yes 2{tbl} Take 2 tablets by mouth every 6 (six) hours as needed for Pain (scale 7-10). [facility] benzonatate 200 mg capsule 2017-09 00:00: 00 Yes 200mg Take 1 capsule by mouth 3 (three) times daily as needed for Cough. [facility] acetaminoph en-codeine (TYLENOL-CO DEINE #3) 300-30 mg tablet 2017-09 00:00: 00 Yes 2{tbl} Take 2 tablets by mouth every 6 (six) hours as needed for Pain (scale 7-10). [facility] benzonatate 200 mg capsule 2017-09 00:00: 00 Yes 200mg Take 1 capsule by mouth 3 (three) times daily as needed for Cough. [facility] acetaminoph en-codeine (TYLENOL-CO DEINE #3) 300-30 mg tablet 2017-09 00:00: 00 Yes 2{tbl} Take 2 tablets by mouth every 6 (six) hours as needed for Pain (scale 7-10). [facility] benzonatate 200 mg capsule 2017-09 00:00: 00 Yes 200mg Take 1 capsule by mouth 3 (three) times daily as needed for Cough. [facility] acetaminoph en-codeine (TYLENOL-CO DEINE #3) 300-30 mg tablet 2017-09 00:00: 00 Yes 2{tbl} Take 2 tablets by mouth every 6 (six) hours as needed for Pain (scale 7-10). [facility] benzonatate 200 mg capsule 2017-09 00:00: 00 Yes 200mg Take 1 capsule by mouth 3 (three) times daily as needed for Cough. [facility] acetaminoph en-codeine (TYLENOL-CO DEINE #3) 300-30 mg tablet 2017-09 00:00: 00 Yes 2{tbl} Take 2 tablets by mouth every 6 (six) hours as needed for Pain (scale 7-10). [facility] benzonatate 200 mg capsule 2017-09 00:00: 00 Yes 200mg Take 1 capsule by mouth 3 (three) times daily as needed for Cough. [facility] acetaminoph en-codeine (TYLENOL-CO DEINE #3) 300-30 mg tablet 2017-09 00:00: 00 Yes 2{tbl} Take 2 tablets by mouth every 6 (six) hours as needed for Pain (scale 7-10). [facility] benzonatate 200 mg capsule 2017-09 2-04 00:00: 00 Yes 200mg Take 1 capsule by mouth 3 (three) times daily as needed for Cough. [facility] cyclobenzap rine 10 mg tablet 06-04 00:00: 00 Yes 10mg Take 1 tablet by mouth 3 (three) times daily. [facility] predniSONE 20 mg tablet 06-04 00:00: 00 Yes 1 PO BID x 4 days [facility] cyclobenzap rine 10 mg tablet 06-04 00:00: 00 Yes 10mg Take 1 tablet by mouth 3 (three) times daily. [facility] predniSONE 20 mg tablet 06-04 00:00: 00 Yes 1 PO BID x 4 days [facility] cyclobenzap rine 10 mg tablet 06-04 00:00: 00 Yes 10mg Take 1 tablet by mouth 3 (three) times daily. [facility] predniSONE 20 mg tablet 06-04 00:00: 00 Yes 1 PO BID x 4 days [facility] cyclobenzap rine 10 mg tablet 06-04 00:00: 00 Yes 10mg Take 1 tablet by mouth 3 (three) times daily. [facility] predniSONE 20 mg tablet 06-04 00:00: 00 Yes 1 PO BID x 4 days [facility] cyclobenzap rine 10 mg tablet 06-04 00:00: 00 Yes 10mg Take 1 tablet by mouth 3 (three) times daily. [facility] predniSONE 20 mg tablet 06-04 00:00: 00 Yes 1 PO BID x 4 days [facility] cyclobenzap rine 10 mg tablet 06-04 00:00: 00 Yes 10mg Take 1 tablet by mouth 3 (three) times daily. [facility] predniSONE 20 mg tablet 06-04 00:00: 00 Yes 1 PO BID x 4 days [facility] cyclobenzap rine 10 mg tablet 06-04 00:00: 00 Yes 10mg Take 1 tablet by mouth 3 (three) times daily. [facility] predniSONE 20 mg tablet 06-04 00:00: 00 Yes 1 PO BID x 4 days [facility] cyclobenzap rine 10 mg tablet 06-04 00:00: 00 Yes 10mg Take 1 tablet by mouth 3 (three) times daily. [facility] predniSONE 20 mg tablet 06-04 00:00: 00 Yes 1 PO BID x 4 days [facility] cyclobenzap rine 10 mg tablet 06-04 00:00: 00 Yes 10mg Take 1 tablet by mouth 3 (three) times daily. [facility] predniSONE 20 mg tablet 06-04 00:00: 00 Yes 1 PO BID x 4 days [facility] CIPROFLOXAC IN HCL 500 mg tablet 02-21 00:00: 00 Yes 500mg Take 1 tablet by mouth 2 (two) times daily. [facility] METRONIDAZO LE 500 mg tablet 02-21 00:00: 00 Yes 500mg Take 1 tablet by mouth every 8 (eight) hours. [facility] TYLENOL-COD EINE #3 300-30 mg tablet 02-21 00:00: 00 Yes 2{tbl} Take 2 tablets by mouth every 6 (six) hours as needed for Pain (scale 4-6). [facility] CIPROFLOXAC IN HCL 500 mg tablet 02-21 00:00: 00 Yes 500mg Take 1 tablet by mouth 2 (two) times daily. [facility] METRONIDAZO LE 500 mg tablet 02-21 00:00: 00 Yes 500mg Take 1 tablet by mouth every 8 (eight) hours. [facility] TYLENOL-COD EINE #3 300-30 mg tablet 02-21 00:00: 00 Yes 2{tbl} Take 2 tablets by mouth every 6 (six) hours as needed for Pain (scale 4-6). [facility] CIPROFLOXAC IN HCL 500 mg tablet 02-21 00:00: 00 Yes 500mg Take 1 tablet by mouth 2 (two) times daily. [facility] METRONIDAZO LE 500 mg tablet 02-21 00:00: 00 Yes 500mg Take 1 tablet by mouth every 8 (eight) hours. [facility] TYLENOL-COD EINE #3 300-30 mg tablet 02-21 00:00: 00 Yes 2{tbl} Take 2 tablets by mouth every 6 (six) hours as needed for Pain (scale 4-6). [facility] CIPROFLOXAC IN HCL 500 mg tablet 02-21 00:00: 00 Yes 500mg Take 1 tablet by mouth 2 (two) times daily. [facility] METRONIDAZO LE 500 mg tablet 02-21 00:00: 00 Yes 500mg Take 1 tablet by mouth every 8 (eight) hours. [facility] TYLENOL-COD EINE #3 300-30 mg tablet 02-21 00:00: 00 Yes 2{tbl} Take 2 tablets by mouth every 6 (six) hours as needed for Pain (scale 4-6). [facility] CIPROFLOXAC IN HCL 500 mg tablet 02-21 00:00: 00 Yes 500mg Take 1 tablet by mouth 2 (two) times daily. [facility] METRONIDAZO LE 500 mg tablet 02-21 00:00: 00 Yes 500mg Take 1 tablet by mouth every 8 (eight) hours. [facility] TYLENOL-COD EINE #3 300-30 mg tablet 02-21 00:00: 00 Yes 2{tbl} Take 2 tablets by mouth every 6 (six) hours as needed for Pain (scale 4-6). [facility] CIPROFLOXAC IN HCL 500 mg tablet 02-21 00:00: 00 Yes 500mg Take 1 tablet by mouth 2 (two) times daily. [facility] METRONIDAZO LE 500 mg tablet 02-21 00:00: 00 Yes 500mg Take 1 tablet by mouth every 8 (eight) hours. [facility] TYLENOL-COD EINE #3 300-30 mg tablet 02-21 00:00: 00 Yes 2{tbl} Take 2 tablets by mouth every 6 (six) hours as needed for Pain (scale 4-6). [facility] CIPROFLOXAC IN HCL 500 mg tablet 02-21 00:00: 00 Yes 500mg Take 1 tablet by mouth 2 (two) times daily. [facility] METRONIDAZO LE 500 mg tablet 02-21 00:00: 00 Yes 500mg Take 1 tablet by mouth every 8 (eight) hours. [facility] TYLENOL-COD EINE #3 300-30 mg tablet 02-21 00:00: 00 Yes 2{tbl} Take 2 tablets by mouth every 6 (six) hours as needed for Pain (scale 4-6). [facility] CIPROFLOXAC IN HCL 500 mg tablet 02-21 00:00: 00 Yes 500mg Take 1 tablet by mouth 2 (two) times daily. [facility] METRONIDAZO LE 500 mg tablet 02-21 00:00: 00 Yes 500mg Take 1 tablet by mouth every 8 (eight) hours. [facility] TYLENOL-COD EINE #3 300-30 mg tablet 02-21 00:00: 00 Yes 2{tbl} Take 2 tablets by mouth every 6 (six) hours as needed for Pain (scale 4-6). [facility] CIPROFLOXAC IN HCL 500 mg tablet 02-21 00:00: 00 Yes 500mg Take 1 tablet by mouth 2 (two) times daily. [facility] METRONIDAZO LE 500 mg tablet 02-21 00:00: 00 Yes 500mg Take 1 tablet by mouth every 8 (eight) hours. [facility] TYLENOL-COD EINE #3 300-30 mg tablet 02-21 00:00: 00 Yes 2{tbl} Take 2 tablets by mouth every 6 (six) hours as needed for Pain (scale 4-6). [facility] AMLODIPINE BESYLATE (AMLODIPINE ORAL) 01-08 16:48: 51 Yes 10mg Take 10 mg by mouth daily. [facility] ibuprofen 800 mg tablet 01-08 16:48: 51 Yes 800mg Take 800 mg by mouth every 6 (six) hours as needed for Pain (scale 1-3) or Pain (scale 4-6). [facility] omeprazole 20 mg capsule 01-08 16:48: 51 Yes 20mg Take 20 mg by mouth daily. [facility] meloxicam 15 mg tablet 01-08 16:48: 51 Yes 15mg Take 15 mg by mouth daily. [facility] allopurinol 100 mg tablet 01-08 16:48: 51 Yes 100mg Take 100 mg by mouth daily. [facility] Cholecalcif kedar, Vitamin D3, 400 unit capsule 01-08 16:48: 51 Yes 400U Take 400 Units by mouth daily. [facility] atorvastati n 40 mg tablet 01-08 16:48: 51 Yes 40mg Take 40 mg by mouth at bedtime. [facility] AMLODIPINE BESYLATE (AMLODIPINE ORAL) 01-08 16:48: 51 Yes 10mg Take 10 mg by mouth daily. [facility] ibuprofen 800 mg tablet 01-08 16:48: 51 Yes 800mg Take 800 mg by mouth every 6 (six) hours as needed for Pain (scale 1-3) or Pain (scale 4-6). [facility] omeprazole 20 mg capsule 01-08 16:48: 51 Yes 20mg Take 20 mg by mouth daily. [facility] meloxicam 15 mg tablet 01-08 16:48: 51 Yes 15mg Take 15 mg by mouth daily. [facility] allopurinol 100 mg tablet 01-08 16:48: 51 Yes 100mg Take 100 mg by mouth daily. [facility] Cholecalcif kedar, Vitamin D3, 400 unit capsule 01-08 16:48: 51 Yes 400U Take 400 Units by mouth daily. [facility] atorvastati n 40 mg tablet 01-08 16:48: 51 Yes 40mg Take 40 mg by mouth at bedtime. [facility] AMLODIPINE BESYLATE (AMLODIPINE ORAL) 01-08 16:48: 51 Yes 10mg Take 10 mg by mouth daily. [facility] ibuprofen 800 mg tablet 01-08 16:48: 51 Yes 800mg Take 800 mg by mouth every 6 (six) hours as needed for Pain (scale 1-3) or Pain (scale 4-6). [facility] omeprazole 20 mg capsule 01-08 16:48: 51 Yes 20mg Take 20 mg by mouth daily. [facility] meloxicam 15 mg tablet 01-08 16:48: 51 Yes 15mg Take 15 mg by mouth daily. [facility] allopurinol 100 mg tablet 01-08 16:48: 51 Yes 100mg Take 100 mg by mouth daily. [facility] Cholecalcif kedar, Vitamin D3, 400 unit capsule 01-08 16:48: 51 Yes 400U Take 400 Units by mouth daily. [facility] atorvastati n 40 mg tablet 01-08 16:48: 51 Yes 40mg Take 40 mg by mouth at bedtime. [facility] AMLODIPINE BESYLATE (AMLODIPINE ORAL) 01-08 16:48: 51 Yes 10mg Take 10 mg by mouth daily. [facility] ibuprofen 800 mg tablet 01-08 16:48: 51 Yes 800mg Take 800 mg by mouth every 6 (six) hours as needed for Pain (scale 1-3) or Pain (scale 4-6). [facility] omeprazole 20 mg capsule 01-08 16:48: 51 Yes 20mg Take 20 mg by mouth daily. [facility] meloxicam 15 mg tablet 01-08 16:48: 51 Yes 15mg Take 15 mg by mouth daily. [facility] allopurinol 100 mg tablet 01-08 16:48: 51 Yes 100mg Take 100 mg by mouth daily. [facility] Cholecalcif kedar, Vitamin D3, 400 unit capsule 01-08 16:48: 51 Yes 400U Take 400 Units by mouth daily. [facility] atorvastati n 40 mg tablet 01-08 16:48: 51 Yes 40mg Take 40 mg by mouth at bedtime. [facility] AMLODIPINE BESYLATE (AMLODIPINE ORAL) 01-08 16:48: 51 Yes 10mg Take 10 mg by mouth daily. [facility] ibuprofen 800 mg tablet 01-08 16:48: 51 Yes 800mg Take 800 mg by mouth every 6 (six) hours as needed for Pain (scale 1-3) or Pain (scale 4-6). [facility] omeprazole 20 mg capsule 01-08 16:48: 51 Yes 20mg Take 20 mg by mouth daily. [facility] meloxicam 15 mg tablet 01-08 16:48: 51 Yes 15mg Take 15 mg by mouth daily. [facility] allopurinol 100 mg tablet 01-08 16:48: 51 Yes 100mg Take 100 mg by mouth daily. [facility] Cholecalcif kedar, Vitamin D3, 400 unit capsule 01-08 16:48: 51 Yes 400U Take 400 Units by mouth daily. [facility] atorvastati n 40 mg tablet 01-08 16:48: 51 Yes 40mg Take 40 mg by mouth at bedtime. [facility] AMLODIPINE BESYLATE (AMLODIPINE ORAL) 01-08 16:48: 51 Yes 10mg Take 10 mg by mouth daily. [facility] ibuprofen 800 mg tablet 01-08 16:48: 51 Yes 800mg Take 800 mg by mouth every 6 (six) hours as needed for Pain (scale 1-3) or Pain (scale 4-6). [facility] omeprazole 20 mg capsule 01-08 16:48: 51 Yes 20mg Take 20 mg by mouth daily. [facility] meloxicam 15 mg tablet 01-08 16:48: 51 Yes 15mg Take 15 mg by mouth daily. [facility] allopurinol 100 mg tablet 01-08 16:48: 51 Yes 100mg Take 100 mg by mouth daily. [facility] Cholecalcif kedar, Vitamin D3, 400 unit capsule 01-08 16:48: 51 Yes 400U Take 400 Units by mouth daily. [facility] atorvastati n 40 mg tablet 01-08 16:48: 51 Yes 40mg Take 40 mg by mouth at bedtime. [facility] AMLODIPINE BESYLATE (AMLODIPINE ORAL) 01-08 16:48: 51 Yes 10mg Take 10 mg by mouth daily. [facility] ibuprofen 800 mg tablet 01-08 16:48: 51 Yes 800mg Take 800 mg by mouth every 6 (six) hours as needed for Pain (scale 1-3) or Pain (scale 4-6). [facility] omeprazole 20 mg capsule 01-08 16:48: 51 Yes 20mg Take 20 mg by mouth daily. [facility] meloxicam 15 mg tablet 01-08 16:48: 51 Yes 15mg Take 15 mg by mouth daily. [facility] allopurinol 100 mg tablet 01-08 16:48: 51 Yes 100mg Take 100 mg by mouth daily. [facility] Cholecalcif kedar, Vitamin D3, 400 unit capsule 01-08 16:48: 51 Yes 400U Take 400 Units by mouth daily. [facility] atorvastati n 40 mg tablet 01-08 16:48: 51 Yes 40mg Take 40 mg by mouth at bedtime. [facility] AMLODIPINE BESYLATE (AMLODIPINE ORAL) 01-08 16:48: 51 Yes 10mg Take 10 mg by mouth daily. [facility] ibuprofen 800 mg tablet 01-08 16:48: 51 Yes 800mg Take 800 mg by mouth every 6 (six) hours as needed for Pain (scale 1-3) or Pain (scale 4-6). [facility] [facility] 01-08 16:48: 51 Yes 20mg Take 20 mg by mouth daily. [facility] meloxicam 15 mg tablet 01-08 16:48: 51 Yes 15mg Take 15 mg by mouth daily. [facility] allopurinol 100 mg tablet 01-08 16:48: 51 Yes 100mg Take 100 mg by mouth daily. [facility] Cholecalcif kedar, Vitamin D3, 400 unit capsule 01-08 16:48: 51 Yes 400U Take 400 Units by mouth daily. [facility] atorvastati n 40 mg tablet 01-08 16:48: 51 Yes 40mg Take 40 mg by mouth at bedtime. [facility] AMLODIPINE BESYLATE (AMLODIPINE ORAL) 01-08 16:48: 51 Yes 10mg Take 10 mg by mouth daily. [facility] ibuprofen 800 mg tablet 01-08 16:48: 51 Yes 800mg Take 800 mg by mouth every 6 (six) hours as needed for Pain (scale 1-3) or Pain (scale 4-6). [facility] omeprazole 20 mg capsule 01-08 16:48: 51 Yes 20mg Take 20 mg by mouth daily. [facility] meloxicam 15 mg tablet 01-08 16:48: 51 Yes 15mg Take 15 mg by mouth daily. [facility] allopurinol 100 mg tablet 01-08 16:48: 51 Yes 100mg Take 100 mg by mouth daily. [facility] Cholecalcif kedar, Vitamin D3, 400 unit capsule 01-08 16:48: 51 Yes 400U Take 400 Units by mouth daily. [facility] atorvastati n 40 mg tablet 01-08 16:48: 51 Yes 40mg Take 40 mg by mouth at bedtime. [facility] metroNIDAZO LE 250 mg tablet 01-08 00:00: 00 Yes 500mg Take 2 tablets by mouth every 8 (eight) hours. [facility] ciprofloxac in HCl 500 mg tablet 01-08 00:00: 00 Yes 500mg Take 1 tablet by mouth every 12 (twelve) hours. [facility] hydroCHLORO thiazide 12.5 mg capsule 01-08 00:00: 00 Yes 25mg Take 2 capsules by mouth daily. [facility] bisacodyl (DULCOLAX, BISACODYL,) 5 mg EC tablet 01-08 00:00: 00 Yes 10mg Take 2 tablets by mouth once daily as needed for Constipati on. [facility] traMADOL 50 mg tablet 01-08 00:00: 00 Yes 50mg Take 1 tablet by mouth every 6 (six) hours as needed for Pain unrelieved by non-narcot ic analgesics . [facility] metroNIDAZO LE 250 mg tablet 01-08 00:00: 00 Yes 500mg Take 2 tablets by mouth every 8 (eight) hours. [facility] ciprofloxac in HCl 500 mg tablet 01-08 00:00: 00 Yes 500mg Take 1 tablet by mouth every 12 (twelve) hours. [facility] hydroCHLORO thiazide 12.5 mg capsule 01-08 00:00: 00 Yes 25mg Take 2 capsules by mouth daily. [facility] bisacodyl (DULCOLAX, BISACODYL,) 5 mg EC tablet 01-08 00:00: 00 Yes 10mg Take 2 tablets by mouth once daily as needed for Constipati on. [facility] traMADOL 50 mg tablet 01-08 00:00: 00 Yes 50mg Take 1 tablet by mouth every 6 (six) hours as needed for Pain unrelieved by non-narcot ic analgesics . [facility] metroNIDAZO LE 250 mg tablet 01-08 00:00: 00 Yes 500mg Take 2 tablets by mouth every 8 (eight) hours. [facility] ciprofloxac in HCl 500 mg tablet 01-08 00:00: 00 Yes 500mg Take 1 tablet by mouth every 12 (twelve) hours. [facility] hydroCHLORO thiazide 12.5 mg capsule 01-08 00:00: 00 Yes 25mg Take 2 capsules by mouth daily. [facility] bisacodyl (DULCOLAX, BISACODYL,) 5 mg EC tablet 01-08 00:00: 00 Yes 10mg Take 2 tablets by mouth once daily as needed for Constipati on. [facility] traMADOL 50 mg tablet 01-08 00:00: 00 Yes 50mg Take 1 tablet by mouth every 6 (six) hours as needed for Pain unrelieved by non-narcot ic analgesics . [facility] metroNIDAZO LE 250 mg tablet 01-08 00:00: 00 Yes 500mg Take 2 tablets by mouth every 8 (eight) hours. [facility] ciprofloxac in HCl 500 mg tablet 01-08 00:00: 00 Yes 500mg Take 1 tablet by mouth every 12 (twelve) hours. [facility] hydroCHLORO thiazide 12.5 mg capsule 01-08 00:00: 00 Yes 25mg Take 2 capsules by mouth daily. [facility] bisacodyl (DULCOLAX, BISACODYL,) 5 mg EC tablet 01-08 00:00: 00 Yes 10mg Take 2 tablets by mouth once daily as needed for Constipati on. [facility] traMADOL 50 mg tablet 01-08 00:00: 00 Yes 50mg Take 1 tablet by mouth every 6 (six) hours as needed for Pain unrelieved by non-narcot ic analgesics . [facility] metroNIDAZO LE 250 mg tablet 01-08 00:00: 00 Yes 500mg Take 2 tablets by mouth every 8 (eight) hours. [facility] ciprofloxac in HCl 500 mg tablet 01-08 00:00: 00 Yes 500mg Take 1 tablet by mouth every 12 (twelve) hours. [facility] hydroCHLORO thiazide 12.5 mg capsule 01-08 00:00: 00 Yes 25mg Take 2 capsules by mouth daily. [facility] bisacodyl (DULCOLAX, BISACODYL,) 5 mg EC tablet 01-08 00:00: 00 Yes 10mg Take 2 tablets by mouth once daily as needed for Constipati on. [facility] traMADOL 50 mg tablet 01-08 00:00: 00 Yes 50mg Take 1 tablet by mouth every 6 (six) hours as needed for Pain unrelieved by non-narcot ic analgesics . [facility] metroNIDAZO LE 250 mg tablet 01-08 00:00: 00 Yes 500mg Take 2 tablets by mouth every 8 (eight) hours. [facility] ciprofloxac in HCl 500 mg tablet 01-08 00:00: 00 Yes 500mg Take 1 tablet by mouth every 12 (twelve) hours. [facility] hydroCHLORO thiazide 12.5 mg capsule 01-08 00:00: 00 Yes 25mg Take 2 capsules by mouth daily. [facility] bisacodyl (DULCOLAX, BISACODYL,) 5 mg EC tablet 01-08 00:00: 00 Yes 10mg Take 2 tablets by mouth once daily as needed for Constipati on. [facility] traMADOL 50 mg tablet 01-08 00:00: 00 Yes 50mg Take 1 tablet by mouth every 6 (six) hours as needed for Pain unrelieved by non-narcot ic analgesics . [facility] metroNIDAZO LE 250 mg tablet 01-08 00:00: 00 Yes 500mg Take 2 tablets by mouth every 8 (eight) hours. [facility] ciprofloxac in HCl 500 mg tablet 01-08 00:00: 00 Yes 500mg Take 1 tablet by mouth every 12 (twelve) hours. [facility] hydroCHLORO thiazide 12.5 mg capsule 01-08 00:00: 00 Yes 25mg Take 2 capsules by mouth daily. [facility] bisacodyl (DULCOLAX, BISACODYL,) 5 mg EC tablet 01-08 00:00: 00 Yes 10mg Take 2 tablets by mouth once daily as needed for Constipati on. [facility] traMADOL 50 mg tablet 01-08 00:00: 00 Yes 50mg Take 1 tablet by mouth every 6 (six) hours as needed for Pain unrelieved by non-narcot ic analgesics . [facility] metroNIDAZO LE 250 mg tablet 01-08 00:00: 00 Yes 500mg Take 2 tablets by mouth every 8 (eight) hours. [facility] ciprofloxac in HCl 500 mg tablet 01-08 00:00: 00 Yes 500mg Take 1 tablet by mouth every 12 (twelve) hours. [facility] hydroCHLORO thiazide 12.5 mg capsule 01-08 00:00: 00 Yes 25mg Take 2 capsules by mouth daily. [facility] bisacodyl (DULCOLAX, BISACODYL,) 5 mg EC tablet 01-08 00:00: 00 Yes 10mg Take 2 tablets by mouth once daily as needed for Constipati on. [facility] traMADOL 50 mg tablet 01-08 00:00: 00 Yes 50mg Take 1 tablet by mouth every 6 (six) hours as needed for Pain unrelieved by non-narcot ic analgesics . [facility] metroNIDAZO LE 250 mg tablet 01-08 00:00: 00 Yes 500mg Take 2 tablets by mouth every 8 (eight) hours. [facility] ciprofloxac in HCl 500 mg tablet 01-08 00:00: 00 Yes 500mg Take 1 tablet by mouth every 12 (twelve) hours. [facility] hydroCHLORO thiazide 12.5 mg capsule 01-08 00:00: 00 Yes 25mg Take 2 capsules by mouth daily. [facility] bisacodyl (DULCOLAX, BISACODYL,) 5 mg EC tablet 01-08 00:00: 00 Yes 10mg Take 2 tablets by mouth once daily as needed for Constipati on. [facility] traMADOL 50 mg tablet 01-08 00:00: 00 Yes 50mg Take 1 tablet by mouth every 6 (six) hours as needed for Pain unrelieved by non-narcot ic analgesics . [facility] hydrALAZINE HCl 25 MG hydrALAZINE [...] t_with_ food} BID Metoprolol Tartrate 25 MG amLODIPine Besylate 10 MG amLODIPine Besylate 10 MG No amLODIPine Besylate 10 MG metFORMIN HCl ER 500 MG metFORMIN HCl ER 500 MG No 1{table t_with_ evening _meal} QD metFORMIN HCl ER 500 MG hydrALAZINE HCl 25 MG hydrALAZINE HCl 25 MG No 1{table t_with_ food} QD hydrALAZIN E HCl 25 MG metFORMIN HCl ER 500 MG metFORMIN HCl ER 500 MG No 1{table t_with_ evening _meal} BID metFORMIN HCl ER 500 MG Allopurinol 100 MG Allopurinol 100 MG No Allopurino l 100 MG Omeprazole 20 MG Omeprazole 20 MG No Omeprazole 20 MG hydroCHLORO thiazide 25 MG hydroCHLORO thiazide 25 MG No hydroCHLOR Othiazide 25 MG Metoprolol Tartrate 25 MG Metoprolol Tartrate 25 MG No Metoprolol Tartrate 25 MG Allopurinol 100 MG Allopurinol 100 MG No Allopurino l 100 MG Omeprazole 20 MG Omeprazole 20 MG No Omeprazole 20 MG Atorvastati n Calcium 20 MG Atorvastati n Calcium 20 MG No 1{table t} QD Atorvastat in Calcium 20 MG hydroCHLORO thiazide 25 MG hydroCHLORO thiazide 25 MG No hydroCHLOR Othiazide 25 MG hydrALAZINE HCl 25 MG hydrALAZINE [...] TAKE 1 TABLET BY MOUTH EVERY DAY [facility] amlodipine 10 mg tablet TAKE 1 TABLET BY MOUTH EVERY DAY amlodipine 10 mg tablet TAKE 1 TABLET BY MOUTH EVERY DAY No amlodipine 10 mg tablet TAKE 1 TABLET BY MOUTH EVERY DAY [facility] atorvastati n 20 mg tablet TAKE 1 TABLET BY MOUTH EVERY DAY atorvastati n 20 mg tablet TAKE 1 TABLET BY MOUTH EVERY DAY No atorvastat in 20 mg tablet TAKE 1 TABLET BY MOUTH EVERY DAY [facility] hydralazine 25 mg tablet Take 1 tablet every day by oral route for 90 days. hydralazine 25 mg tablet Take 1 tablet every day by oral route for 90 days. No hydralazin e 25 mg tablet Take 1 tablet every day by oral route for 90 days. [facility] hydrochloro thiazide 25 mg tablet TAKE 1 TABLET BY MOUTH EVERY DAY hydrochloro thiazide 25 mg tablet TAKE 1 TABLET BY MOUTH EVERY DAY No hydrochlor othiazide 25 mg tablet TAKE 1 TABLET BY MOUTH EVERY DAY [facility] Lidoderm 5 % topical patch APPLY 1 PATCH BY TOPICAL ROUTE ONCE DAILY (MAY WEAR UP TO 12HOURS.) Lidoderm 5 % topical patch APPLY 1 PATCH BY TOPICAL ROUTE ONCE DAILY (MAY WEAR UP TO 12HOURS.) No Lidoderm 5 % topical patch APPLY 1 PATCH BY TOPICAL ROUTE ONCE DAILY (MAY WEAR UP TO 12HOURS.) [facility] metoprolol tartrate 25 mg tablet TAKE 1 TABLET BY MOUTH TWICE A DAY metoprolol tartrate 25 mg tablet TAKE 1 TABLET BY MOUTH TWICE A DAY No metoprolol tartrate 25 mg tablet TAKE 1 TABLET BY MOUTH TWICE A DAY [facility] omeprazole 20 mg capsule,del ayed release TAKE 1 CAPSULE BY MOUTH EVERY DAY omeprazole 20 mg capsule,del ayed release TAKE 1 CAPSULE BY MOUTH EVERY DAY No omeprazole 20 mg capsule,de layed release TAKE 1 CAPSULE BY MOUTH EVERY DAY [facility] omeprazole 40 mg capsule,del ayed release Take 1 capsule every day by oral route for 90 days. omeprazole 40 mg capsule,del ayed release Take 1 capsule every day by oral route for 90 days. No 1capsul e(s) Q1D omeprazole 40 mg capsule,de layed release Take 1 capsule every day by oral route for 90 days. [facility] albuterol sulfate HFA 90 mcg/actuati on aerosol inhaler Inhale 2 puffs as needed by inhalation route for 30 days. albuterol sulfate HFA 90 mcg/actuati on aerosol inhaler Inhale 2 puffs as needed by inhalation route for 30 days. No albuterol sulfate HFA 90 mcg/actuat ion aerosol inhaler Inhale 2 puffs as needed by inhalation route for 30 days. [facility] Immunizations Ordered Immunization Name Filled Immunization Name Date Status Comments Source SARS-COV-2 (COVID-19) vaccine, UNSPECIFIED SARS-COV-2 (COVID-19) vaccine, UNSPECIFIED 2020-12-07 00:00:00 Completed [facility] pneumococcal polysaccharide PPV23 pneumococcal polysaccharide PPV23 2018-09-17 00:00:00 Completed [facility] influenza, injectable, quadrivalent influenza, injectable, quadrivalent 2018-09-17 00:00:00 Completed [facility] FluAD Quad SD FluAD Quad SD Unknown Completed [facility] FluAD Quad SD FluAD Quad SD Unknown Completed [facility] Fluad (aIIV4) - SDS - 0.5mL Fluad (aIIV4) - SDS - 0.5mL Unknown Completed [facility] Fluad (aIIV4) - SDS - 0.5mL Fluad (aIIV4) - SDS - 0.5mL Unknown Completed [facility] Vital Signs Vital Name Observation Time Observation Value Comments S carlos height 2023-08-21 14:00:00 69 [in_i] Commo n [facility] weight 2023-08-21 14:00:00 214 [lb_av] Comm on [facility] temperature 2023-08-21 14:00:00 97.2 [degF] Com [facility] bmi 2023-08-21 14:00:00 31.6 kg/m2 Commo n [facility] oximetry 2023-08-21 14:00:00 97 % Commo n [facility] respiratory rate 2023-08-21 14:00:00 16 /min Common [facility] blood pressure systolic 2023-08-21 14:00:00 126 mm[Hg] Common [facility] blood pressure diastolic 2023-08-21 14:00:00 79 mm[Hg] Common [facility] height 2023-04-16 14:40:00 69 [in_i] Commo n [facility] weight 2023-04-16 14:40:00 217 [lb_av] Comm on [facility] temperature 2023-04-16 14:40:00 97.5 [degF] Com [facility] bmi 2023-04-16 14:40:00 32.04 kg/m2 Comm on [facility] oximetry 2023-04-16 14:40:00 97 % Commo n [facility] respiratory rate 2023-04-16 14:40:00 16 /min Common [facility] blood pressure systolic 2023-04-16 14:40:00 134 mm[Hg] Common [facility] blood pressure diastolic 2023-04-16 14:40:00 82 mm[Hg] Common [facility] height 2023-01-18 15:00:00 69 [in_i] Commo n [facility] weight 2023-01-18 15:00:00 224 [lb_av] Comm on [facility] bmi 2023-01-18 15:00:00 33.08 kg/m2 Comm on [facility] blood pressure diastolic 2023-01-12 15:00:00 83 mm[Hg] Common [facility] height 2023-01-12 15:00:00 69 [in_i] Commo n [facility] weight 2023-01-12 15:00:00 225.4 [lb_av] Co mmon [facility] temperature 2023-01-12 15:00:00 98.2 [degF] Com mon [facility] bmi 2023-01-12 15:00:00 33.28 kg/m2 Comm on [facility] oximetry 2023-01-12 15:00:00 94 % Commo n [facility] respiratory rate 2023-01-12 15:00:00 16 /min Common [facility] blood pressure systolic 2023-01-12 15:00:00 131 mm[Hg] Common [facility] height 2023-01-01 15:40:00 69 [in_i] Commo n [facility] weight 2023-01-01 15:40:00 224 [lb_av] Comm on [facility] temperature 2023-01-01 15:40:00 97.7 [degF] Com mon [facility] bmi 2023-01-01 15:40:00 33.08 kg/m2 Comm on [facility] oximetry 2023-01-01 15:40:00 96 % Commo n [facility] respiratory rate 2023-01-01 15:40:00 17 /min Common [facility] blood pressure systolic 2023-01-01 15:40:00 142 mm[Hg] Common [facility] blood pressure diastolic 2023-01-01 15:40:00 86 mm[Hg] Common [facility] height 2023-01-01 16:20:00 69 [in_i] Commo n [facility] weight 2023-01-01 16:20:00 224 [lb_av] Comm on [facility] temperature 2023-01-01 16:20:00 97.7 [degF] Com mon [facility] bmi 2023-01-01 16:20:00 33.08 kg/m2 Comm on [facility] oximetry 2023-01-01 16:20:00 96 % Commo n [facility] respiratory rate 2023-01-01 16:20:00 17 /min [facility] blood pressure systolic 2023-01-01 16:20:00 142 mm[Hg] [facility] blood pressure diastolic 2023-01-01 16:20:00 86 mm[Hg] [facility] BP Diastolic 2020-12-07 00:00:00 97 mm[Hg] [facility] Height 2020-12-07 00:00:00 70 [in_i] [facility] BMI (Body Mass Index) 2020-12-07 00:00:00 31.3 kg/m2 [facility] BP Systolic 2020-12-07 00:00:00 101 mm[Hg] [facility] Body Weight 2020-12-07 00:00:00 218 [lb_av] [facility] Height 2020-06-09 00:00:00 70 [in_i] [facility] BMI (Body Mass Index) 2020-06-09 00:00:00 31.3 kg/m2 [facility] Body Weight 2020-06-09 00:00:00 218 [lb_av] [facility] Procedures Procedure Date / Time Performed Performing Clinicia n Source Appendectomy [facility] Back Surgery [facility] Screening for Malignant Neoplasm of Prostate [facility] Screening [place] Encounters Start Date/Time End Date/Time Encounter Type Admission Type Attending Clinicians Care Facility Care Department Encounter ID Source 2023-01-01 14:55:03 Outpatient [facility] [id number] [facility] 2023-08-21 00:00:00 2023-08-21 00:00:00 OFFICE VISIT ESTAB PT LEVEL 4 [facility] [id number] [facility] 2023-04-26 00:00:00 2023-04-26 00:00:00 (TEL) [facility] [id number] [facility] 2023-04-16 00:00:00 2023-04-16 00:00:00 OFFICE VISIT ESTAB PT LEVEL 4 [facility] [id number] [facility] 2023-04-09 00:00:00 2023-04-09 00:00:00 (TEL) [facility] [id number] [facility] 2023-01-18 00:00:00 2023-01-18 00:00:00 OFFICE VISIT ESTAB PT LEVEL 3 [facility] [id number] [facility] 2023-01-18 00:00:00 2023-01-18 00:00:00 (TEL) [facility]MLC [facility] [id number] [facility] 2023-01-12 00:00:00 2023-01-12 00:00:00 OFFICE VISIT ESTAB PT LEVEL 4 [facility] [id number] [facility] 2023-01-05 00:00:00 2023-01-05 00:00:00 (TEL) [facility]C [facility] [id number] [facility] 2023-01-01 00:00:00 2023-01-01 00:00:00 OFFICE VISIT NEW PT LEVEL 4 [facility] STL[facility]C [id number] [facility] 2023-01-01 00:00:00 2023-01-01 00:00:00 (MCR WELL) Medicare Wellness [facility]LMLC STLMLC [id number] [facility] 2021-12-07 14:30:00 2021-12-07 14:30:00 Outpatient ANA BANUELOS [facility] [id number] [facility] 2021-11-28 15:15:00 2021-11-28 16:00:00 Ancillary Visit Ebony Guadalupe Craig L [facility] 1.2.840.114 350.1.13.10 4.2.7.2.686 [id number] [facility] 2021-10-27 14:30:00 2021-10-27 14:30:00 Outpatient R ANA SHEEHAN [facility] [id number] [facility] 2021-10-12 14:30:00 2021-10-12 15:15:00 Ancillary Visit Ebony Guadalupe Craig L [facility] 1.2.840.114 350.1.13.10 4.2.7.2.686 [id number] [facility] 2021-10-07 15:00:00 2021-10-07 15:40:00 Ancillary Visit Ebony Guadalupe Craig L [facility] 1.2.840.114 350.1.13.10 4.2.7.2.686 [id number] [facility] 2021-10-05 14:20:00 2021-10-05 15:05:00 Ancillary Visit Familia Bowser Craig L [facility] 1.2.840.114 350.1.13.10 4.2.7.2.686 [id number] [facility] 2021-09-29 14:20:00 2021-09-29 15:00:00 Ancillary Visit Familia Bowser Craig L [facility] 1.2.840.114 350.1.13.10 4.2.7.2.686 [id number] [facility] 2021-09-27 14:20:00 2021-09-27 15:00:00 Ancillary Visit Familia Bowser Craig L [facility] 1.20.114 350.1.13.10 4.2.7.2.686 [id number] [facility] 2021-09-21 15:20:00 2021-09-21 16:43:45 Ancillary Visit Ebony Guadalupe Craig L [facility] 1.2.114 350.1.13.10 4.2.7.2.686 [id number] [facility] 2021-09-19 15:20:00 2021-09-19 15:20:00 Outpatient ANA BANUELOS [facility] [id number] [facility] 2021-09-14 10:40:00 2021-09-14 11:20:00 Ancillary Visit Ebony Guadalupe Craig L [facility] 1.2.114 350.1.13.10 4.2.7.2.686 [id number] [facility] 2021-09-12 14:40:00 2021-09-12 16:34:12 Ancillary Visit Ebony Guadalupe Craig L [facility] 1.20.114 350.1.13.10 4.2.7.2.686 [id number] [facility] 2021-09-12 14:40:00 2021-09-12 16:34:12 Outpatient ANA BANUELOS [facility] [id number] [facility] 2021-08-19 00:00:00 2021-08-19 00:00:00 Orders Only Doctor Unassigned, Mccarthy [facility] 1.20.114 350.1.13.10 4.2.7.2.686 [id number] [facility] 2021-08-17 15:00:00 2021-08-17 15:00:00 Outpatient ANA BANUELOS [facility] [id number] [facility] 2021-08-17 00:00:00 2021-08-17 00:00:00 Case Management Niels Monica K [facility] 1..840.114 350.1.13.10 4.2.7.2.686 [id number] [facility] 2021-08-15 15:00:00 2021-08-15 15:00:00 Outpatient ANA BANUELOS [facility] [id number] [facility] 2021-08-01 13:40:00 2021-08-01 15:58:00 Outpatient ANA BANUELOS [facility] [id number] [facility] 2021-08-01 13:37:46 2021-08-01 15:58:00 Ancillary Visit Ebony Guadalupe Craig L [facility] 1..840.114 350.1.13.10 4.2.7.2.686 [id number] [facility] 2021-08-01 00:00:00 2021-08-01 00:00:00 Orders Only Doctor Unassigned, Mccarthy [facility] 1..840.114 350.1.13.10 4.2.7.2.686 [id number] [facility] 2021-03-03 04:58:00 2021-03-03 04:58:00 Outpatient Miller_S_AH VFP VFP [id number] [facility] 2020-12-15 01:16:00 2020-12-15 01:16:00 Outpatient Ajibade_O_A H VFP VFP [id number] [facility] 2020-12-15 01:16:00 2020-12-15 01:16:00 Outpatient Ajibade_O_A H VFP VFP [id number] [facility] 2020-12-13 02:14:00 2020-12-13 02:14:00 Outpatient Ajibade_O_A H VFP VFP [id number] [facility] 2020-12-07 01:11:00 2020-12-07 01:11:00 Outpatient Ajibade_O_A H VFP VFP [id number] [facility] 2020-12-07 00:00:00 2020-12-07 00:00:00 Page Chatterjee, ASSOCIATE PRINCIPAL: [address], [address], [place] [address] , Ph. VFP [place] - [facility] - [email or web address]@_ [place] [employer] [id number] [facility] 2020-07-16 09:42:00 2020-07-16 09:42:00 Outpatient Ajibade_O_A H VFP VFP [id number] [facility] 2020-07-16 09:42:00 2020-07-16 09:42:00 Outpatient Ajibade_O_A H VFP VFP [id number] [facility] 2020-06-23 11:33:00 2020-06-23 11:33:00 Outpatient Ajibade_O_A H VFP VFP [id number] [facility] 2020-06-09 01:32:00 2020-06-09 01:32:00 Outpatient Ajibade_O_A H VFP VFP [id number] [facility] 2020-06-09 00:00:00 2020-06-09 00:00:00 Page Chatterjee, ASSOCIATE PRINCIPAL: [address], [address], [place] [address] , Ph. VFP [place] - [facility] - VM_HOU_V@_ [place] [facility] [id number] [facility] 2020-05-25 12:24:00 2020-05-25 12:24:00 Outpatient Ajibade_O_A H VFP VFP [id number] [facility] 2020-05-13 03:39:00 2020-05-13 03:39:00 Outpatient Ajibade_O_A H [facility] [id number] [facility] 2019-11-05 07:28:00 2019-11-05 07:28:00 Outpatient Ige-Odunuga _J_AH [facility] [id number] [facility] Results Test Description Test Time Test [...] which generated this result transmitted reference range: 5493-0679 cells/uL. The reference range was not used [...] Test Item Value Reference Range Interpretation Comme [facility] CREATININE, RANDOM URINE (test code = 2161-8) 242 mg/dL See_Comment N [Automated FAGU[employer]a Lamie[employer]] The system which generated this result transmitted reference range: 20-320 mg/dL. The reference range was not used to interpret this result as normal/abnormal. ALBUMIN, URINE (test code = 28356-4) 1.0 mg/dL See Note: mg/dL N ALBUMIN/CREATININ E RATIO, RANDOM URINE (test code = 9318-7) 4 mcg/mg creat See_Comment N [Automated [employer]] The system which generated this result transmitted reference range: <30 mcg/mg creat. The reference range was not used to interpret this result as normal/abnormal. HEMOGLOBIN A1C WITH [id number] 00:00:00* Test Item Value Reference Range Interpretation Comme [facility] HEMOGLOBIN A1c (test code = 4548-4) 5.9 % of total Hgb See_Comment H [Automated message] The system which generated this result transmitted reference range: <5.7 % of total Hgb. The reference range was not used to interpret this result as normal/abnormal. MEAN PLASMA GLUCOSE (test code = 84536-5) 133 mg/dL (calc)
[2023-12-05 08:28] LABS: Absolute Eosinophils 0.1 K/uL (0-0.5); Absolute Lymphocytes (CBC) 2.5 K/uL (0.7-4.9); Absolute Monocytes 0.9 K/uL (0.1-1.3); Absolute Neutrophil 4.3 K/uL (1.8-8.0); Basophils % 0.5 % (0-1.3); Eosinophils % 1.7 % (0-4.4); Hematocrit 44.4 % (39.6-49.0); Hemoglobin 15.3 g/dL (13.6-17.9); Lymphocytes % 32.1 % (15.3-44.8); MCH 32.6 pg (27.0-35.0); MCHC 34.5 g/dL (32.0-36.0); MCV 94.7 fL (80-100); MPV 8.4 fL (7.6-11.3); Neutrophils % 54.7 % (41.7-73.7); Nucleated Red Blood Cells % 0.2 % (0-0); Platelets 202 thou/uL (152-406); RBC Red Blood Cell Count 4.69 M/uL (4.33-5.43); Red Cell Distribution Width 13.8 % (12.1-15.2)
[2023-12-05 08:30] LABS: PT Prothrombin Time 10.6 SECONDS (9.5-12.5); Protime INR 0.96
[2023-12-05 08:44] LABS: Albumin 3.9 g/dL (3.4-5.0); Albumin/Globulin Ratio 1.1 (1.1-1.8); Anion Gap 8.5 mEq/L (5.0-15.0); Bilirubin Direct 0.1 mg/dL (0-0.2); Bilirubin Indirect, Calculated 0.2 mg/dL (0.2-0.8); Bilirubin Total 0.3 mg/dL (0.2-1.0); Globulin 3.6 g/dL (2.3-3.5); Magnesium 2.1 mg/dL (1.6-2.4); Potassium 3.5 mEq/L (3.5-5.1); Protein, Total 7.5 g/dL (6.4-8.2); Troponin High Sensitivity 11.8 pg/mL (<58.9)
[2023-12-05 08:46] LABS: SARS-CoV-2 Antigen CONTROL BLUE LINE VIS/BG OK; SARS-CoV-2 Antigen Rapid Res Negative (Negative)
--- NOTE | 2023-12-05 09:41 | RAD REPORT ---
EXAM DESCRIPTION: RADChest Single View12/05/2023 9:22 am CLINICAL HISTORY: SOB COMPARISON: Chest Single View dated 09/08/2023; Chest Pa And Lat (2 Views) dated 03/11/2023; Chest Si ngle View dated 11/01/2021; Chest Single View dated 02/04/2021 TECHNIQUE: Portable AP view of the chest. FINDINGS: The lungs are clear apart from stable bibasilar atelectasis. No pneumothorax or effusion. The cardiomediastinal contours are unremarkable. IMPRESSION: No acute cardiopulmonary process.
--- NOTE | 2023-12-05 09:46 | EDPHYS ---
Physician Documentation [facility] Name: Maynor Marquez Age: 68 yrs Sex: Male : 1955 Arrival Date: 12/05/2023 Time: 07:44 Bed 3 Private MD: ED Physician Yvette Betancourt HPI: 12/04 07:56 This 68 yrs old Black Male presents to ER via Wheelchair with complaints of Breathing sp3 Difficulty. 07:56 68-year-old male with a history of hypertension, pancreatitis, diverticulitis but no sp3 cardiac or respiratory history now presents to the ED with chief complaint wheezing, cough and difficulty breathing. Symptoms started late last night early this morning. He denies any known allergens, sick contacts, travel history, foreign body or any other related symptoms. He also denies fever, chest pain, abdominal pain, nausea, vomiting, diarrhea, syncope, near syncope, prolonged immobilization, prior PE or DVT, or any other signs or symptoms on ROS at this time.. Historical: - Allergies: 07:49 GABAPENTIN; rs5 07:49 Klonopin; rs5 07:49 Lisinopril; rs5 07:49 Clonazepam; rs5 - PMHx: 07:49 Diverticulitis; Gout; Hypertension; Migraines; Pancreatitis; rs5 - PSHx: 07:49 tendon release L ankle; rs5 - Immunization history:: Adult Immunizations up to date. - Social history:: Smoking status: Patient reports the use of cigarette tobacco products, smokes one pack cigarettes per day. ROS: 07:58 Constitutional: Negative for fever, chills, and weight loss, Eyes: Negative for injury, sp3 pain, redness, and discharge, Neck: Negative for injury, pain, and swelling, Cardiovascular: Negative for chest pain, palpitations, and edema, Abdomen/GI: Negative for abdominal pain, nausea, vomiting, diarrhea, and constipation, Back: Negative for injury and pain, MS/Extremity: Negative for injury and deformity, Skin: Negative for injury, rash, and discoloration, Neuro: Negative for headache, weakness, numbness, tingling, and seizure, Psych: Negative for depression, anxiety, suicide ideation, homicidal ideation, and hallucinations, Allergy/Immunology: Negative for hives, rash, and allergies, Endocrine: Negative for neck swelling, polydipsia, polyuria, polyphagia, and marked weight changes, Hematologic/Lymphatic: Negative for swollen nodes, abnormal bleeding, and unusual bruising, 07:58 All other systems are negative, Exam: 07:58 Constitutional: This is a well developed, well nourished patient who is awake, alert, sp3 and in no acute distress. Head/Face: Normocephalic, atraumatic. Eyes: Pupils equal round and reactive to light, extra-ocular motions intact. Lids and lashes normal. Conjunctiva and sclera are non-icteric and not injected. Cornea within normal limits. Periorbital areas with no swelling, redness, or edema. ENT: Nares patent. No nasal discharge, no septal abnormalities noted. External auditory canals are clear. Oropharynx with no redness, swelling, or masses, exudates, or evidence of obstruction, uvula midline. Mucous membranes moist. Neck: Trachea midline, no thyromegaly or masses palpated, and no cervical lymphadenopathy. Supple, full range of motion without nuchal rigidity, or vertebral point tenderness. No Meningismus. Chest/axilla: Normal chest wall appearance and motion. Nontender with no deformity. No lesions are appreciated. Cardiovascular: Regular rate and rhythm with a normal S1 and S2. No gallops, murmurs, or rubs. Normal PMI, no JVD. No pulse deficits. Abdomen/GI: Soft, non-tender, with normal bowel sounds. No distension or tympany. No guarding or rebound. No evidence of tenderness throughout. Back: No spinal tenderness. No costovertebral tenderness. Full range of motion. Skin: Warm, dry with normal turgor. Normal color with no rashes, no lesions, and no evidence of cellulitis. MS/ Extremity: Pulses equal, no cyanosis. Neurovascular intact. Full, normal range of motion. Neuro: Awake and alert, GCS 15, oriented to person, place, time, and situation. Cranial nerves II-XII grossly intact. Motor strength 5/5 in all extremities. Sensory grossly intact. Cerebellar exam normal. Normal gait. Psych: Awake, alert, with orientation to person, place and time. Behavior, mood, and affect are within normal limits. 07:59 ECG was reviewed by the Attending Physician. EKG demonstrates normal sinus rhythm at 82 sp3 bpm with right bundle branch block, and nonspecific ST/changes without evidence of acute ischemia. Vital Signs: 07:51 BP 143 / 94; Pulse 88; Resp 24; Temp 97; Pulse Ox 95% on R/A; Weight 98.88 kg; Height 5 ll1 ft. 11 in. ; 09:05 BP 133 / 90; Pulse 69; Resp 19; Pulse Ox 95% on R/A; rs5 09:45 BP 137 / 91; Pulse 72; Resp 18; Pulse Ox 97% on R/A; rs5 07:51 Body Mass Index 30.40 (98.88 kg, 180.34 cm) ll1 MDM: 07:50 Patient medically screened. sp3 07:58 Data reviewed: vital signs, nurses notes, lab test result(s), EKG, radiologic studies. sp3 ED course: 68-year-old male with PMH above now with wheezing, cough or shortness of breath. Differential diagnosis includes URI, viral syndrome, pneumonia, bronchitis, undiagnosed COPD, allergic reaction, among others. I am not highly suspicious for acute coronary syndrome, PE, TAD or other critical pathology. EKG demonstrates incomplete right bundle branch block otherwise no ST changes. Disposition pending workup and patient course. Workup will include EKG, chest x-ray, labs, swabs, cultures and treatment will include nebulizers, Solu-Medrol and general observation.. 09:44 ED course: Patient improved and workup is negative. We will safely discharge patient sp3 home on ondansetron and Tessalon Perles as well as Zithromax.. 12/04 07:51 Order name: Basic Metabolic Panel; Complete Time: 08:59 sp3 12/04 07:51 Order name: CBC with Diff; Complete Time: 08:59 sp3 12/04 07:51 Order name: LFT's; Complete Time: 08:59 sp3 12/04 07:51 Order name: Magnesium; Complete Time: 08:59 sp3 12/04 07:51 Order name: NT PRO-BNP; Complete Time: 08:59 3 12/04 07:51 Order name: PT-INR; Complete Time: 08:59 sp3 12/04 07:51 Order name: Troponin HS; Complete Time: 08:59 3 12/04 07:51 Order name: Lactate w/ 2H reflex if indic.; Complete Time: 08:59 sp3 12/04 07:51 Order name: Blood Culture Adult (2) sp3 12/04 07:55 Order name: Flu; Complete Time: 08:59 sp3 12/04 07:55 Order name: SARS RAPID; Complete Time: 08:59 sp3 12/04 07:55 Order name: Strep; Complete Time: 08:59 sp3 12/04 08:53 Order name: Throat Culture EDMS 12/04 07:51 Order name: XRAY Chest (1 view); Complete Time: 09:44 sp3 12/04 07:51 Order name: EKG; Complete Time: 07:51 sp3 12/04 07:51 Order name: Cardiac monitoring; Complete Time: 07:57 sp3 12/04 07:51 Order name: EKG - Nurse/Tech; Complete Time: 07:57 sp3 12/04 07:51 Order name: IV Saline Lock; Complete Time: 08:14 sp3 12/04 07:51 Order name: Labs collected and sent; Complete Time: 08:14 sp3 12/04 07:51 Order name: O2 Per Protocol; Complete Time: 07:57 sp3 12/04 07:51 Order name: O2 Sat Monitoring; Complete Time: 07:57 sp3 Administered Medications: 08:00 Drug: DuoNeb Nebulize (3:1) (2.5 mg - 0.5 mg) 3 ml Nebulizer once Route: Nebulizer; bp 08:30 Follow up: Response: No adverse reaction rs5 08:17 Drug: MethylPrednisoLONE IVP 125 mg IVP once Route: IVP; Site: right antecubital; bp 08:40 Follow up: Response: No adverse reaction rs5 09:03 Drug: Ketorolac IVP 30 mg IVP once Route: IVP; Site: right antecubital; bp 09:25 Follow up: Response: No adverse reaction rs5 Disposition Summary: 12/05/23 09:45 Discharge Ordered Notes: Location: Home sp3 Condition: Stable sp3 Diagnosis - Bronchitis, vomiting sp3 Followup: sp3 - With: Private Physician - When: Upon discharge from the Emergency Department - Reason: Continuance of care Discharge Instructions: - Discharge Summary Sheet sp3 - Acute Bronchitis, Adult sp3 Forms: - Medication Reconciliation Form sp3 - Thank You Letter sp3 - Antibiotic Education sp3 - Prescription Opioid Use sp3 - Patient Portal Instructions sp3 - Leadership Thank You Letter sp3 Prescriptions: - Tessalon Perles 100 mg Oral Capsule - take 1 capsule ORAL route every 8 hours As needed; 15 capsule; Refills: 0, sp3 Product Selection Permitted - Zithromax Z-Duglas 250 mg Oral Tablet - take 1 tablet ORAL route as directed for 5 days Day 1 - take two (2) tablets sp3 one time. Day 2, 3, 4 , 5 take one (1) tablet once daily.; 6 tablet; Refills: 0, Product Selection Permitted - ondansetron 8 mg Oral Tablet,disintegrating - take 1 tablet ORAL route every 12 hours; 20 tablet; Refills: 0, Product sp3 Selection Permitted Signatures: Dispatcher [employer] Kaushik العراقي RN RN bp Surya Muro RN RN ll1 Yvette Betancourt MD MD sp3 Jatin Whitaker RN RN rs5
--- NOTE | 2023-12-05 09:46 | ER ---
Nurse's Notes [facility] Name: Maynor Marquez Age: 68 yrs Sex: Male : 1955 Arrival Date: 12/05/2023 Time: 07:44 Bed 3 Private MD: Diagnosis: Bronchitis, vomiting Presentation: 12/04 07:51 Chief complaint: Patient states: Severe SOB started this am. Bad SANZ with cough, no ll1 known fever. Coronavirus screen: Client denies travel out of the [place] in the last 14 days. cough unrelated to allergies, difficulty breathing, fatigue, shortness of breath, Client presents with at least one sign or symptom that may indicate coronavirus-19. Standard/surgical mask placed on the client. Ebola Screen: Patient denies travel to an Ebola-affected area in the 21 days before illness onset. Initial Sepsis Screen: Does the patient meet any 2 criteria? No. Patient's initial sepsis screen is negative. Does the patient have a suspected source of infection? No. Patient's initial sepsis screen is negative. Risk Assessment: Do you want to hurt yourself or someone else? Patient reports no desire to harm self or others. Onset of symptoms was December 05, 2023. 07:51 Method Of Arrival: Wheelchair ll1 07:51 Acuity: MARCUS 2 ll1 Triage Assessment: 07:53 General: Appears distressed, uncomfortable, Behavior is calm, cooperative, appropriate ll1 for age. Pain: Complains of pain in head Pain currently is 10 out of 10 on a pain scale. Quality of pain is described as aching, Aggravated by coughing. Respiratory: Reports shortness of breath cough that is labored breathing pain with cough Trachea midline Respiratory effort is labored, Respiratory pattern is symmetrical, tachypnea Onset: The symptoms/episode began/occurred this morning, the patient has severe shortness of breath. Historical: - Allergies: 07:49 GABAPENTIN; rs5 07:49 Klonopin; rs5 07:49 Lisinopril; rs5 07:49 Clonazepam; rs5 - PMHx: 07:49 Diverticulitis; Gout; Hypertension; Migraines; Pancreatitis; rs5 - PSHx: 07:49 tendon release L ankle; rs5 - Immunization history:: Adult Immunizations up to date. - Social history:: Smoking status: Patient reports the use of cigarette tobacco products, smokes one pack cigarettes per day. Screenin:14 [place] ED Fall Risk Assessment (Adult) History of falling in the last 3 months, bp including since admission No falls in past 3 months (0 pts). Abuse screen: Denies threats or abuse. Denies injuries from another. Nutritional screening: No deficits noted. Tuberculosis screening: No symptoms or risk factors identified. Assessment: 08:00 General: SEE TRIAGE NOTE. bp 09:05 Reassessment: Patient and/or family updated on plan of care and expected duration. Pain rs5 level reassessed. Patient is alert, oriented x 3, equal unlabored respirations, skin warm/dry/pink. Patient denies pain at this time. Patient states feeling better. Patient states symptoms have improved. Pain: Denies pain. Neuro: Level of Consciousness is awake, alert, obeys commands, Oriented to person, place, time, situation. Cardiovascular: Patient's skin is warm and dry. Rhythm is regular. Respiratory: Airway is patent Respiratory effort is even, unlabored, Respiratory pattern is regular, symmetrical, Breath sounds are clear bilaterally. GI: Abdomen is round non-distended, Abd is soft and non tender X 4 quads. : No signs and/or symptoms were reported regarding the genitourinary system. EENT: No signs and/or symptoms were reported regarding the EENT system. Derm: Skin is intact. Musculoskeletal: Range of motion: intact in all extremities. 09:45 Reassessment: No changes from previously documented assessment. rs5 Vital Signs: 07:51 BP 143 / 94; Pulse 88; Resp 24; Temp 97; Pulse Ox 95% on R/A; Weight 98.88 kg; Height 5 ll1 ft. 11 in. ; 09:05 BP 133 / 90; Pulse 69; Resp 19; Pulse Ox 95% on R/A; rs5 09:45 BP 137 / 91; Pulse 72; Resp 18; Pulse Ox 97% on R/A; rs5 07:51 Body Mass Index 30.40 (98.88 kg, 180.34 cm) ll1 ED Course: 07:46 Patient arrived in ED. im 07:49 Arm band placed on Patient placed in an exam room, on a stretcher. rs5 07:50 Yvette Betancourt MD is Attending Physician. sp3 07:53 Triage completed. ll1 07:57 Toni, Kaushik, RN is Primary Nurse. bp 08:14 Patient has correct armband on for positive identification. bp 08:14 Inserted saline lock: 22 gauge in right antecubital area, using aseptic technique. bp Blood collected. 09:24 XRAY Chest (1 view) In Process Unspecified. EDMS 10:03 No provider procedures requiring assistance completed. IV discontinued, intact, rs5 bleeding controlled, No redness/swelling at site. Pressure dressing applied. Administered Medications: 08:00 Drug: DuoNeb Nebulize (3:1) (2.5 mg - 0.5 mg) 3 ml Nebulizer once Route: Nebulizer; bp 08:30 Follow up: Response: No adverse reaction rs5 08:17 Drug: MethylPrednisoLONE IVP 125 mg IVP once Route: IVP; Site: right antecubital; bp 08:40 Follow up: Response: No adverse reaction rs5 09:03 Drug: Ketorolac IVP 30 mg IVP once Route: IVP; Site: right antecubital; bp 09:25 Follow up: Response: No adverse reaction rs5 Medication: 10:03 VIS not applicable for this client. rs5 Outcome: 09:45 Discharge ordered by . sp3 10:03 Discharged to home ambulatory, rs5 10:03 Condition: stable 10:03 Discharge instructions given to patient, family, Instructed on discharge instructions, follow up and referral plans. medication usage, Demonstrated understanding of instructions, follow-up care, medications, Prescriptions given X 3, 10:04 Patient left the ED. rs5 Signatures: Dispatcher [employer] EDTX Kaushik Muñoz, Surya Frazier RN, RN RN ll1 Yvette Betancourt MD MD sp3 Jatin Whitaker RN RN rs5 Karolina Armas Corrections: (The following items were deleted from the chart) 07:56 07:51 Pulse 88bpm; Resp 24bpm; Pulse Ox 95% RA; Temp 97F; 98.88 kg; Height 5 ft. 11 ll1 in.; BMI: 30.4; ll1
[2023-12-05 10:16] VITALS: BP 137/91; TEMP 97; O2SAT 97
--- NOTE | 2023-12-06 14:28 | EKG ---
Test Date: 2023-12-05 Test Time: 07:41:52 Take Off Worker: BP MEASUREMENT RESULTS: Intervals: Rate: 82 AR: 170 QRSD: 134 QT: 396 QTc: 462 Beatty: P: 37 AR: 170 QRS: 11 T: 15 INTERPRETIVE STATEMENTS: Normal sinus rhythm Right bundle branch block Possible Lateral infarct, age undetermined Abnormal ECG Compared to ECG 09/08/2023 18:57:15 Myocardial infarct finding now present Electronically Signed On 12-06-23 14:23:54 CDT by Shad Flower
== END ==
LOC: ER 07:44
DX: J40 Bronchitis, not specified as acute or chronic (principal); R11.10 Vomiting, unspecified; Z11.52 Encounter for screening for COVID-19; I10 Essential (primary) hypertension; Z88.8 Allergy status to other drugs, medicaments and biological substances
CPT/HCPCS: 93005; 87040 ×2; 87070; 85025; 80048; 36415; 83735; 85610; 80076; 87081; 83605; 84484; 83880; 87804 ×2; 71045; 87811; J7613; J7644